=== PATIENT | female | born 1950 | race Caucasian/White ===

== ENCOUNTER → 2017-02-04 | Outpatient (CLI) | payer MEDICARE, OTHER ==
[~2017-02-04] MED LIST: AMLO5TAB4 PO; APRACLONIDINE 1% 0.1 ML OPH ONE; CHOL50009 PO; DOCU-144 PO; IBUP-1542 PO; LEVO88TA3 PO; LOSA50TA6 PO; MULT-552 PO; NITR-58 PO; OMEG-135 PO; ONDA4TAB35 PO; OPHTHALMIC IRRIG SOLUTION 120 ML ONE; PILOCARPINE 2% 15ML OPH ONE; POTA8TAB2 PO; PROPARACAINE 0.5% 15 ML OPH ONE; QUET100T32 PO; SIMV20TA PO
== END | disposition home or self-care (01) ==
LOC: RAD 09:21
PROVIDERS: ATTEND Ophthalmology
DX: H40.20X0 Unspecified primary angle-closure glaucoma, stage unspecified (principal)
CPT/HCPCS: 66761

== ENCOUNTER → 2017-02-11 | Outpatient (CLI) | payer MEDICARE, OTHER | END | disposition home or self-care (01) | LOC: RAD 08:26 | PROVIDERS: ATTEND Ophthalmology | DX: H40.20X0 Unspecified primary angle-closure glaucoma, stage unspecified (principal) | CPT/HCPCS: 66761 ==

== ENCOUNTER 2017-05-11 05:43 | Day surgery (SDC) | payer MEDICARE, OTHER ==
[~2017-05-11] VITALS: Ht 157.5 cm; Wt 80.0 kg
[~2017-05-11 05:43] MED LIST changes: -APRACLONIDINE 1% 0.1 ML OPH ONE; -OPHTHALMIC IRRIG SOLUTION 120 ML ONE; -PILOCARPINE 2% 15ML OPH ONE; -PROPARACAINE 0.5% 15 ML OPH ONE
[2017-05-11] MEDS ORDERED: GENTAMICIN 80 MG INJ ONE (06:16)
[2017-05-11] MEDS ORDERED: CARBACHOL 0.01% 1.5 ML OPH INJ ONE (06:16)
[2017-05-11] MEDS ORDERED: EPINEPHrine 1 MG INJ ONE (06:16)
[2017-05-11] MEDS ORDERED: DEXAMETHASONE 4 MG/ML 1 ML INJ ONE ×2 (06:16→09:50)
[2017-05-11] MEDS ORDERED: CEFAZOLIN 1 GM INJ ONE (06:16)
[2017-05-11] MEDS ORDERED: HYALURONATE/CHONDROITIN 1ML OPH INJ ONE (06:16)
[2017-05-11] MEDS ORDERED: LIDOCAINE 2% (SDV) 5 ML INJ ONE (07:00)
[2017-05-11] MEDS ORDERED: LEVO88TA42 PO (07:27)
[2017-05-11] MEDS ORDERED: LEVO100T82 PO (07:27)
[2017-05-11] MEDS ORDERED: CYCLOPENTOLATE/PHENYLEPH 2 ML OPH LEFT EYE SCH (07:30)
[2017-05-11] MEDS ORDERED: TROPICAMIDE 1% 2 ML OPH LEFT EYE SCH (07:30)
[2017-05-11] MEDS ORDERED: LOSA100T7 PO (07:30)
[2017-05-11] MEDS ORDERED: DICLOFENAC 0.1% 2.5 ML OPH LEFT EYE SCH (07:30)
[2017-05-11] MEDS ORDERED: QUET50TA16 PO (07:30)
[2017-05-11] MEDS ORDERED: CIPROFLOXACIN 0.3% 2.5 ML OPH LEFT EYE SCH (07:30)
[2017-05-11 08:48] VITALS: Ht 157.5 cm; Wt 80.0 kg
[2017-05-11 08:49] VITALS: BP 123/66; PULSE 62; RESP 18
[2017-05-11] MEDS ORDERED: LIDOCAINE 4% (MPF) 5 ML INJ ONE (08:54)
[2017-05-11] MEDS ORDERED: FENTAnyl 50 MCG/ML VIAL ONE (09:25)
[2017-05-11] MEDS ORDERED: PROPOFOL 60 ML ONE (09:25)
[2017-05-11] MEDS ORDERED: DEXAMETHASONE 4 MG/ML 1 ML INJ INJ ONE (09:27)
[2017-05-11] MEDS ORDERED: CEFAZOLIN 1 GM INJ INJ ONE (09:27)
[2017-05-11] MEDS ORDERED: HYALURONATE/CHONDROITIN 1ML OPH INJ IO ONE (09:27)
[2017-05-11] MEDS ORDERED: CARBACHOL 0.01% 1.5 ML OPH INJ IO ONE (09:27)
[2017-05-11] MEDS ORDERED: ONDANSETRON 4 MG INJ ONE ×2 (09:50→10:37)
[2017-05-11 10:18] VITALS: BP 135/78; PULSE 69; RESP 22
--- NOTE | 2017-05-11 10:24 | OPR ---
Date/Time of Note Date/Time of Note DATE: 05/11/17 TIME: :17 Operative Report Procedure Date: May 11, 2017 Preoperative Diagnosis cataract Operation Performed Cataract extraction with lens implant left eye Anesthesia: general Anesthesiologist: UNIQUE MERIDA Estimated Blood Loss: none Specimens None Grafts/Implants Posterior chamber lens implant Tubes/Drains None Complications: None Pt Condition Post Procedure: stable Disposition: other (Home) Procedure Description The patient was brought to the operating room on an eye gurney positioned appropriately and at the patient's request general anesthesia was administered via endotracheal intubation the patient was then prepped and draped in the usual sterile manner and a speculum was inserted between the lids of the left eye to paracentesis incisions were created using a Superblade through clear cornea in the nasal and temporal quadrants and then a 3.0 mm keratome was used to enter the anterior chamber through clear cornea at the 12 o'clock position in a stepped incision through clear cornea. Through this opening and irrigating cystotome was introduced into the anterior chamber which was filled with disc of the risk and anterior capsulotomy was then performed following this balanced salt solution was used for hydrodissection of the lens nucleus phacoemulsification of the lens nucleus was then performed by means of sculpting and cracking the lens nuclear material in 2 fragments these were emulsified following this epinuclear the epinuclear layer was removed as was lens cortical material after this had been completed additional disc of this was injected into the anterior chamber and then a 28.5 dpt posterior chamber intraocular lens (Bausch & Lomb model [id number]) was inserted into the capsular bag with the haptics oriented in the horizontal meridian the lens centered well and appeared stable one 10-0 nylon suture was placed placed across the wound and prior to tying the disc and this was evacuated from the anterior chamber by means of aspiration Miostat was instilled to constrict the pupil the suture was then tied the ends were cut short and the knot was buried. Prior to completion of the surgery a sub-conjunctival incision was given in the inferior fornix containing half a cc of Ancef and a half a cc of dexamethasone. The speculum was then removed ciprofloxacin drops placed on the surface of the eye and the eye was patched the patient was then extubated and left the operating room in satisfactory condition. DONAVON HOLDER MD May 11, 2017 10:24
[2017-05-11] MEDS ORDERED: DIPHENHYDRAMINE 50 MG INJ IV PRN (10:30)
[2017-05-11] MEDS ORDERED: hydrALAzine 20 MG INJ IV PRN (10:30)
[2017-05-11] MEDS ORDERED: FENTAnyl 50 MCG/ML VIAL IV PRN (10:30)
[2017-05-11] MEDS ORDERED: LABETALOL HCL 20MG INJ IV PRN (10:30)
[2017-05-11] MEDS ORDERED: OXYCODONE/ACETAMINOPHEN (5/325) TAB PO PRN (10:30)
[2017-05-11] MEDS ORDERED: ONDANSETRON 4 MG INJ IV PRN (10:30)
[2017-05-11 10:33] VITALS: BP 117/67; PULSE 62; RESP 21
[2017-05-11 10:48] VITALS: BP 115/65; PULSE 56; RESP 13
[2017-05-11 18:19] VITALS: BP 116/62; PULSE 61; RESP 18
== END 2017-05-11 12:21 | disposition home or self-care (01) ==
LOC: SDS 05:43
PROVIDERS: ATTEND Ophthalmology
DX: H25.12 Age-related nuclear cataract, left eye (principal); E03.9 Hypothyroidism, unspecified; E66.9 Obesity, unspecified; Z68.32 Body mass index [BMI] 32.0-32.9, adult; I10 Essential (primary) hypertension
CPT/HCPCS: 66984; J0171; J0690; J1100; J1580; J2405; J3010; V2632

== ENCOUNTER 2017-08-03 05:39 | Day surgery (SDC) | payer MEDICARE, OTHER ==
[2017-08-02 10:27] VITALS: Ht 157.5 cm; Wt 81.7 kg
--- NOTE | 2017-08-02 12:41 | PREOPHP ---
DATE OF ADMISSION: 08/03/2017 HISTORY OF PRESENT ILLNESS: This is a 67-year-old patient who is admitted for elective cataract surgery of the right eye. The patient has had progressive deterioration of vision for the past 2 years and 3 months ago, underwent cataract surgery of the left eye with excellent visual recovery. The patient previously had a history of anatomic narrow angle glaucoma, which was treated with bilateral laser iridotomies. Systemic history is positive for hypothyroidism and hypercholesterolemia. CURRENT MEDICATIONS: Includes: 1. Levoxyl. 2. K-Dur. 3. Simvastatin. 4. Ibuprofen. ALLERGIES: NO KNOWN ALLERGIES. PHYSICAL EXAMINATION: The visual acuity with best correction is 20/50 on the right eye and 20/30 on the left eye. Split lamp examination reveals nuclear sclerotic cataract in the right eye. There is a posterior chamber intraocular lens in the left eye. Applanation tonometry is 16 mmHg in each eye. Examination of the retina is within normal limits. DIAGNOSIS: Cataract, right eye. PLAN: Cataract extraction with lens implant, right eye. The risks and alternatives of the surgery have been discussed with the patient and the patient has opted to proceed with surgery in hopes of improving visual acuity, leading to a greater ability to perform activities of daily living. Dictated By: Price Otero MD /elana/eric /Document#: [id number]
[~2017-08-03] VITALS: Ht 157.5 cm; Wt 81.7 kg
[2017-08-03] VITALS (7 sets, daily range): BP systolic 107–133; BP diastolic 61–74; PULSE 60–78; RESP 12–20
[~2017-08-03 05:39] MED LIST changes: -CHOL50009 PO; -IBUP-1542 PO; +LEVO100T82 PO; -LEVO88TA3 PO; +LEVO88TA42 PO; +LOSA100T7 PO; -LOSA50TA6 PO; -NITR-58 PO; -ONDA4TAB35 PO; +QUET50TA16 PO
[2017-08-03] MEDS ORDERED: DICLOFENAC 0.1% 2.5 ML OPH OPER SCH (06:00)
[2017-08-03] MEDS ORDERED: TROPICAMIDE 1% 3ML OPH OPER SCH (06:00)
[2017-08-03] MEDS ORDERED: CIPROFLOXACIN 0.3% 2.5 ML OPH OPER SCH (06:00)
[2017-08-03] MEDS ORDERED: CYCLOPENTOLATE/PHENYLEPH 2 ML OPH OPER SCH (06:00)
[2017-08-03] MEDS ORDERED: CARBACHOL 0.01% 1.5 ML OPH INJ ONE (06:23)
[2017-08-03] MEDS ORDERED: GENTAMICIN 80 MG INJ ONE (06:23)
[2017-08-03] MEDS ORDERED: CEFAZOLIN 1 GM INJ ONE (06:23)
[2017-08-03] MEDS ORDERED: LIDOCAINE 4% (MPF) 5 ML INJ ONE (06:23)
[2017-08-03] MEDS ORDERED: DEXAMETHASONE 4 MG/ML 1 ML INJ ONE (06:24)
[2017-08-03] MEDS ORDERED: EPINEPHrine 1 MG INJ ONE (06:24)
[2017-08-03] MEDS ORDERED: DEXAMETHASONE 4 MG/ML 1 ML INJ INJ ONE (07:00)
[2017-08-03] MEDS ORDERED: CEFAZOLIN 1 GM INJ INJ ONE (07:00)
[2017-08-03] MEDS ORDERED: CARBACHOL 0.01% 1.5 ML OPH INJ IO ONE (07:00)
[2017-08-03] MEDS ORDERED: MIDAZOLAM 1 MG/ML 2 ML INJ ONE (07:25)
[2017-08-03] MEDS ORDERED: PROPOFOL 20 ML ONE (07:25)
[2017-08-03] MEDS ORDERED: METOCLOPRAMIDE 10 MG INJ ONE (07:26)
[2017-08-03] MEDS ORDERED: FENTAnyl 50 MCG/ML VIAL ONE (07:35)
[2017-08-03] MEDS ORDERED: ONDANSETRON 4 MG INJ IV PRN (08:00)
[2017-08-03] MEDS ORDERED: HYDROmorphONE (0.2 MG/ML) 10ML SYG IV PRN ×3 (08:00)
[2017-08-03] MEDS ORDERED: MEPERIDINE 25 MG INJ IV PRN (08:00)
[2017-08-03] MEDS ORDERED: hydrALAzine 20 MG INJ IV PRN (08:00)
[2017-08-03] MEDS ORDERED: DIPHENHYDRAMINE 50 MG INJ IV PRN (08:00)
[2017-08-03] MEDS ORDERED: LABETALOL HCL 20MG INJ IV PRN (08:00)
[2017-08-03] MEDS ORDERED: OXYCODONE/ACETAMINOPHEN (5/325) TAB PO PRN ×2 (08:00)
--- NOTE | 2017-08-03 08:13 | SIPON ---
Date/Time of Note Date/Time of Note DATE: 08/03/17 TIME: 08:11 Operative Report Preoperative Diagnosis cataract od Postoperative Diagnosis same Operation/Procedure Performed cataract extraction od Surgeon johnathan holder md Anesthesia Type: general Estimated Blood Loss: none Transfusion Required: no Specimen: none Grafts/Implants posterior chamber lens implant Complications: no DONAVON HOLDER MD Aug 03, 2017 08:13
--- NOTE | 2017-08-03 09:09 | OPR ---
DATE OF OPERATION: 08/03/2017 PREOPERATIVE DIAGNOSIS: Cataract, right eye. POSTOPERATIVE DIAGNOSIS: Cataract, right eye. SURGEON: Price Otero MD COPY ROOM TECHNICIAN: ANESTHESIA: Patient had general anesthesia administered via endotracheal intubation. ANESTHESIOLOGIST: Dr. Bettencourt OPERATION: Phacoemulsification with posterior chamber intraocular lens implant, right eye. PROCEDURE: The patient was brought to the operating room and placed on the table with an IV in place and the patient attached to an site monitor. Oxygen was given via face mask. After some intravenous sedation was administered, local anesthesia was given using Xylocaine 2% with epinephrine, mixed with Marcaine 0.5%. This was given in a lid block and retrobulbar injection. The patient was then prepped and draped in the usual sterile manner. A wire lid speculum was inserted between the lids of the right eye. A Superblade was used to enter the anterior chamber at the corneoscleral limbus at the 10:30 o'clock position. A separate incision was made using a 3.0-mm keratome which entered the corneoscleral junction at the 12 o'clock position. Through this 3- mm opening, an irrigating cystotome was introduced into the anterior chamber. The chamber was filled with Viscoat and an anterior capsulotomy was performed. Balanced salt solution was then used for hydrodissection of the lens. A phacoemulsification handpiece was then brought into the field and introduced into the anterior chamber. The lens nucleus was emulsified using a deep groove and cracking the nucleus into quadrants. Following this, each quadrant was aspirated and emulsified at the pupillary margin. After this was completed, the irrigation/aspiration handpiece was brought to the field, introduced into the posterior chamber, and the lens cortical material was removed. When this was completed, additional Viscoat was injected into the anterior and posterior chambers. The 3-mm opening had its internal lips enlarged, and then the posterior chamber intraocular lens measuring 28.5 diopters ([employer], model [id number]) was then injected into the posterior chamber using the lens injector system. After the leading haptic was introduced into the capsular bag and the lens optic was present in the center of the eye, the injector was removed and the trailing haptic was grasped with non-toothed forceps and introduced into the capsular fold superiorly. A Sinskey hook was then used to rotate the intraocular lens so that the lips were oriented in the horizontal meridian. One 10-0 nylon suture was placed across the wound. Prior to tying, the irrigation/aspiration handpiece was reintroduced into the anterior chamber to remove the Viscoat. Miochol was instilled to constrict the pupil, and then the 10-0 nylon suture was tied. The ends were cut short and then the knot was buried. Then, 0.5 mL of dexamethasone and 0.5 mL of Ancef were injected into the sub-Tenon space in the inferior fornix. Ciloxan drops were then placed on the surface of the eye. The speculum was removed and a patch was applied. The patient was extubated and subsequently left the operating room in satisfactory condition. Dictated By: Price Otero MD /elana/munir /Document#: [id number] LISS
== END 2017-08-03 09:38 | disposition home or self-care (01) ==
LOC: SDS 05:39
PROVIDERS: ATTEND Ophthalmology
DX: H25.11 Age-related nuclear cataract, right eye (principal); E03.9 Hypothyroidism, unspecified; E78.00 Pure hypercholesterolemia, unspecified
CPT/HCPCS: 66984; J0171; J0690; J1100; J1580; J2250; J2765; J3010; V2632

== ENCOUNTER → 2017-09-22 | Outpatient (CLI) | payer MEDICARE, OTHER ==
[~2017-09-22] MED LIST changes: +APRACLONIDINE 1% 0.1 ML OPH ONE; +PHENYLephrine 10% 5 ML OPH ONE; +PROPARACAINE 0.5% 15 ML OPH ONE; +TROPICAMIDE 1% 3 ML OPH ONE
== END | disposition home or self-care (01) ==
LOC: RAD 09:59
PROVIDERS: ATTEND Ophthalmology
DX: H26.9 Unspecified cataract (principal)
CPT/HCPCS: 66821

== ENCOUNTER 2017-10-05 18:43 | Inpatient (IN) | payer MEDICARE, OTHER ==
[~2017-10-05] VITALS: Ht 157.5 cm; Wt 83.9 kg
[~2017-10-05 18:43] MED LIST changes: -APRACLONIDINE 1% 0.1 ML OPH ONE; -PHENYLephrine 10% 5 ML OPH ONE; -PROPARACAINE 0.5% 15 ML OPH ONE; -TROPICAMIDE 1% 3 ML OPH ONE
[2017-10-05] MEDS ORDERED: FAMOTIDINE 20 MG INJ IV STA (18:55)
[2017-10-05] MEDS ORDERED: SOD CHLORIDE 0.9% 1,000 ML IV STA (18:55)
[2017-10-05 20:07] LABS: ABNORMAL IP MESSAGE 1; HEMATOCRIT 40.3 % (37.0-47.0); MEAN CORPUSCULAR HGB CONC 34.7 g/dl (32.0-37.0); MEAN CORPUSCULAR VOLUME 89.2 fl (82.0-101.0); MEAN PLATELET VOLUME 12.6 fl (7.4-10.4); PLATELET COUNT 110 10^3/UL (140-415); RED BLOOD COUNT 4.52 10^6/ul (4.20-5.40); RED CELL DISTRIBUTION WIDTH 14.4 % (11.5-14.5); WHITE BLOOD COUNT 15.5 10^3/ul (4.8-10.8)
[2017-10-05 20:11] LABS: POSITIVE DIFF @See below
[2017-10-05 20:30] LABS: INR 1.22; PROTIME 15.5 Sec (12.2-14.2); PT RATIO 1.2
--- NOTE | 2017-10-05 20:30 | RADRPT ---
PROCEDURE: XR Chest. CLINICAL INDICATION: Pain, upper GI bleed TECHNIQUE: Single frontal chest x-ray. COMPARISON: None. FINDINGS: Linear scarring/atelectasis is noted at the left lung base. No acute infiltrate, pneumothorax or sig nificant pleural effusion is identified. Cardiac silhouette is mildly enlarged. Aortic atheroscler otic calcification is noted. The osseous structures are remarkable for degenerative enthesopathy of the spine. IMPRESSION: 1. Mildly enlarged cardiac silhouette. 2. Aortic atherosclerosis. 3. Scarring/atelectasis at the left lung base. RPTAT: HDWR .Apolinar Hardin MD, MD Date Time Electronically viewed and signed by .Apolinar Hardin MD, MD on 10/05/2017 20:30 .R/
[2017-10-05 20:31] LABS: PARTIAL THROMBOPLASTIN TIME 39.8 Sec (25.0-35.0)
[2017-10-05 20:32] LABS: MONOCYTES % (M) 6 % (0-11); PLATELET ESTIMATE NORMAL
[2017-10-05 20:37] LABS: TROPONIN-I 0.155 ng/ml (0.00-0.12)
[2017-10-05] MEDS ORDERED: CEFEPIME 2GM/50 ML (PMX) 50 ML IVPB STA (20:40)
[2017-10-05] MEDS ORDERED: SODIUM CHLORIDE 0.9% 1L BAG IV* STA (20:40)
--- NOTE | 2017-10-05 21:04 | RADRPT ---
PROCEDURE: CT Brain without contrast. CLINICAL INDICATION: Fall. TECHNIQUE: A CT of the brain was performed on multidetector high-resolution CT scanner utilizing a xial sections from the skull base through the vertex without contrast. The scan was reviewed in sof t tissue brain and high frequency resolution bone algorithm windows. Images were reviewed on a high -resolution PACS workstation. One or more the following does reduction techniques were utilized: Aut omated exposure control, adjustment of the mA/ or kV according to patient's size, or use of iterativ e reconstruction technique. The exam CTDI = 45.01 mGy and the DLP = 810.25 mGy-cm. DICOM images are available. COMPARISON: None available. FINDINGS: The ventricles and sulci are mildly prominent indicative of volume loss. There is mild cerebellar vo lume loss. There is no intracranial hemorrhage, mass effect or midline shift. No abnormal intra-ax ial or extra-axial fluid collections are seen. The desir/white matter differentiation is preserved. There are moderate foci of hypoattenuation in the white matter, which are nonspecific in etiology bu t likely reflect chronic small vessel ischemic changes. There are mild intracranial vascular calcif ications consistent with atherosclerosis. The visualized paranasal sinuses are essentially clear. IMPRESSION: 1. No acute intracranial hemorrhage, transcortical infarction or mass effect. Please note MRI is mo re sensitive for detection of acute ischemia and can be obtained as clinically warranted. 2. Mild intracranial atherosclerosis and moderate chronic small vessel ischemic changes. 3. Mild generalized cerebral and cerebellar volume loss. RPTAT: HFN .Jayden Tsang MD, Date Time Electronically viewed and signed by .Jayden Tsang MD, MD on 10/05/2017 21:03 .N/
[2017-10-05 21:07] LABS: ALBUMIN 4.1 g/dl (3.3-4.9); BILIRUBIN,INDIRECT 0.4 mg/dl (0-1.1); BILIRUBIN,TOTAL 0.4 mg/dl (0.2-1.3); CALCIUM 9.5 mg/dl (8.4-10.2); CREATININE 4.54 mg/dl (0.44-1.00); POTASSIUM 3.3 mmol/L (3.5-5.1); TOTAL PROTEIN 8.2 g/dl (6.1-8.1)
--- NOTE | 2017-10-05 21:16 | RADRPT ---
PROCEDURE: CT abdomen and pelvis with. contrast. CLINICAL INDICATION: Fall. Abdominal pain. Blood per rectum. TECHNIQUE: Noncontrast CT examination of the abdomen and pelvis, with axial, sagittal and coronal reformatted images. CTDI: 20.75 mGy and DLP: 1171.08 mGy-cm. COMPARISON: None. FINDINGS: CT abdomen: Bilateral dependent atelectasis and mild cardiomegaly. The liver demonstrates low noncontrast attenuation compatible fatty infiltration. Otherwise, the marva er is normal in size without focal mass or intrahepatic biliary dilatation. The spleen is normal in size and homogeneous in density. The stomach is partially collapsed, but is grossly unremarkable. The pancreas as visualized is normal. The gallbladder contains gallstones; and biliary tree is unr emarkable and there is no evidence for biliary dilatation. The bilateral adrenal glands are unremar kable. Left obstructive uropathy with 4 mm starting calculus at the left ureteropelvic junction. Left perin ephric fat inflammatory changes and hydronephrosis are seen. Right kidney is unremarkable. There is no evident renal mass The aorta is of normal caliber. Aortic vascular calcifications are present. There is no retroperit aly lymphadenopathy. The narda hepatis region is clear. The redundant cecum is located in the left paracentral lower abdomen. The appendix is not visualized . CT pelvis: The small bowel loops situated within the pelvis are unremarkable. The pelvic organs are normal. T he pelvic sidewalls and inguinal regions are clear. The sigmoid colon and rectum are all unremarkab le. No mass, lymphadenopathy, or free fluid is seen. No acute inflammation is seen. The surrounding osseous structures are remarkable for mild degenerative spondylosis of the spine. N o osteolytic or osteoblastic lesion is detected. IMPRESSION: 1. Left obstructive uropathy with a 4 mm obstructing calculus at the left ureteral pelvic junction. 2. Gallstones, without CT evidence of acute cholecystitis. 3. Fatty infiltration of the liver. 4. Otherwise, no identified acute process in the abdomen or pelvis. RPTAT: [facility] Physician Honorio Date Time Electronically viewed and signed by Physician Honorio on 10/05/2017 21:15 RS/
[2017-10-05] MEDS ORDERED: morphine 4 MG/ML VIAL IV STA (21:40)
[2017-10-05] MEDS ORDERED: SOD CHLORIDE 0.9% 1,000 ML IV ONE ×3 (22:00)
[2017-10-05] MEDS ORDERED: ONDANSETRON 4 MG INJ IV PRN (22:30)
[2017-10-05] MEDS ORDERED: ACETAMINOPHEN 325 MG TAB PO PRN (22:30)
[2017-10-05] MEDS ORDERED: DILTIAZEM 25 MG INJ IV ONE (23:00)
[2017-10-05] MEDS ORDERED: DILTIAZEM-D5W 125MG/125ML DRIP 125 ML IV SCH ×2 (23:00→23:30)
[2017-10-06] VITALS (28 sets, daily range): BP systolic 89–137; BP diastolic 59–79; PULSE 66–81; RESP 11–27; TEMP 98.1; Ht 157.5 cm; Wt 83.9 kg
--- NOTE | 2017-10-06 00:53 | ERD ---
ER Documentation Chief Complaint Chief Complaint HEMATEMESIS AND RECTAL BLEEDING X 2 DAYS WITH WEAKNESS. FOUND ON FLOOR HPI This 67-year-old female presents after being down for 2 days after she fell while she was on the toilet with diarrhea which is bloody as well as bloody vomiting. The diarrhea was not bloody and it began before she had fallen on the toilet. Does not remember if she had any chest pain. Does not know why she stayed down for 2 days. Denies any headache. States that she only has bilateral flank pain, worse on the left. Has no anterior abdominal pain. No pain in her extremities and can move them all without pain. Currently denies chest pain shortness of breath. ROS All systems reviewed and are negative except as per history of present illness. Medications Home Meds Reported Medications Quetiapine Fumarate* (Seroquel*) 50 Mg Tablet, 50 MG PO HS, TAB 05/11/17 Losartan Potassium* (Losartan Potassium*) 100 Mg Tablet, 100 MG PO DAILY, TAB 05/11/17 Levothyroxine Sodium* (Levoxyl*) 100 Mcg Tablet, 100 MCG PO EVERY OTHER DAY, # 30 TAB ALTERNATE WITH 88MCG EVERY OTHER DAY 05/11/17 Levothyroxine Sodium* (Levoxyl*) 88 Mcg Tablet, 88 MCG PO EVERY OTHER DAY, #30 TAB ALTERNATE WITH 100MCG EVERY OTHER DAY 05/11/17 Docusate Sodium* (Colace*) 100 Mg Capsule, 100 MG PO BID, #60 CAP 04/30/16 Potassium Chloride* (Klor-Con*) 8 Meq Tablet.sa, 8 MEQ PO DAILY, TAB 04/30/16 Amlodipine Besylate* (Norvasc*) 5 Mg Tablet, 5 MG PO DAILY, TAB 04/30/16 Quetiapine Fumarate* (Quetiapine Fumarate*) 100 Mg Tablet, 100 MG PO HS, TAB 04/30/16 Simvastatin* (Zocor*) 20 Mg Tablet, 20 MG PO QHS, #30 TAB 04/30/16 Multivitamins* (Once Daily*) 1 Tab Tablet, 1 TAB PO DAILY, TAB 04/30/16 Fish Oil* (Fish Oil*) 1,000 Mg Cap, 1000 MG PO DAILY, CAP 04/30/16 Allergies Allergies: Coded Allergies: No Known Allergy (Unverified , 08/03/17) PMhx/Soc History of Surgery: Yes (LAP RENAL STONE REMOVAL,LT EYE CATARACT EXTRACTION, ) Anesthesia Reaction: No Hx Neurological Disorder: No Hx Respiratory Disorders: No Hx Cardiac Disorders: Yes (HTN,DYSLIPIDEMIA,) Hx Psychiatric Problems: No (DEPRESSION ,SUICIDAL ATTEMPT IN THE PAST) Hx Miscellaneous Medical Probl: No Hx Alcohol Use: Yes (OCCASIONAL) Hx Substance Use: No Hx Tobacco Use: Yes Smoking Status: Former smoker Physical Exam Vitals Vital Signs Date Time Temp Pulse Resp B/P Pulse Ox O2 Delivery O2 Flow Rate FiO2 10/05/17 23:34 106 18 118/34 100 Nasal Cannula 2.0 10/05/17 18:50 98.3 137 20 148/95 93 Physical Exam Const: [] Moderate distress, appears uncomfortable Head: Atraumatic Eyes: Normal Conjunctiva EOMI, PERRLA ENT: Normal External Ears, Nose and Mouth. Neck: Full range of motion..~ No meningismus. Resp: Clear to auscultation bilaterally Cardio: Regular tachycardia, no murmurs Abd: Soft, non tender, non distended. Normal bowel sounds Skin: No petechiae or rashes Back: No midline redness, positive CVA on the left. Ext: No cyanosis, or edema, yellowish hue along the entire right leg, no pain on palpation of any joints or movement of any joints. Full musculoskeletal survey reveals no breakage in the skin or deformities. Neur: Awake and alert and oriented 3, cranial nerves II through XII intact, no cerebellar deficits, gait not tested. Good strength all 4 extremities Psych: Normal Mood and Affect Result Diagram: 10/05/17195210/05/171952 Results 24 hrs Laboratory Tests Test 10/05/17 19:53 10/05/17 21:15 White Blood Count 15.510^3/ul Red Blood Count 4.5210^6/ul Hemoglobin 14.0g/dl Hematocrit 40.3% Mean Corpuscular Volume 89.2fl Mean Corpuscular Hemoglobin 31.0pg Mean Corpuscular Hemoglobin Concent 34.7g/dl Red Cell Distribution Width 14.4% Platelet Count 47668^3/UL Mean Platelet Volume 12.6fl Neutrophils % % Segmented Neutrophils % (Manual) 81% Band Neutrophils % (Manual) 7% Lymphocytes % % Lymphocytes % (Manual) 6% Monocytes % % Monocytes % (Manual) 6% Eosinophils % % Basophils % % Nucleated Red Blood Cells % 0.0/100WBC Neutrophils # 10^3/ul Neutrophils # (Manual) 12.710^3/ul Band Neutrophils # 1.010^3/ul Absolute Lymphocytes (Manual) 0.910^3/ul Lymphocytes # 10^3/ul Monocytes # 10^3/ul Absolute Monocytes (Manual) 0.910^3/ul Eosinophils # 10^3/ul Basophils # 10^3/ul Nucleated Red Blood Cells # 10^3/ul Platelet Estimate NORMAL Prothrombin Time 15.5Sec Prothrombin Time Ratio 1.2 INR International Normalized Ratio 1.22 Activated Partial Thromboplast Time 39.8Sec Sodium Level 142mmol/L Potassium Level 3.3mmol/L Chloride Level 107mmol/L Carbon Dioxide Level 10mmol/L Anion Gap 28 Blood Urea Nitrogen 51mg/dl Creatinine 4.54mg/dl Glucose Level 94mg/dl Calcium Level 9.5mg/dl Total Bilirubin 0.4mg/dl Direct Bilirubin 0.00mg/dl Indirect Bilirubin 0.4mg/dl Aspartate Amino Transf (AST/SGOT) 434IU/L Alanine Aminotransferase (ALT/SGPT) 135IU/L Alkaline Phosphatase 135IU/L Creatine Kinase 96991EM/L Troponin I 0.155ng/ml Total Protein 8.2g/dl Albumin 4.1g/dl Globulin 4.10g/dl Albumin/Globulin Ratio 1.00 Lactic Acid Level 2.6mmol/L Current Medications Medications (Trade) Dose Ordered Sig/Peggy Route PRN Reason Start Time Stop Time Status Last Admin Dose Admin Sodium Chloride (NS) 1,000 ml @ 1,000 mls/hr Q1H STAT IV 10/05/17 18:55 10/05/17 19:54 DC 10/05/17 19:46 Famotidine (Pepcid Iv) 20 mg ONCE STAT IV 10/05/17 18:55 10/05/17 18:58 DC 10/05/17 19:46 Sodium Chloride 2110 ml 2,110 ml BOLUS OVER 2 HOURS STAT IV* 10/05/17 20:40 10/05/17 20:41 DC 10/05/17 21:13 Cefepime HCl (Maxipime 2gm/50 ml (Pmx)) 50 ml @ 100 mls/hr ONCE STAT IVPB 10/05/17 20:40 10/05/17 21:09 DC 10/05/17 21:13 Morphine Sulfate 4 mg 4 mg ONCE STAT IV 10/05/17 21:40 10/05/17 21:41 DC 10/05/17 21:44 Sodium Chloride 1,000 ml @ 1,000 mls/hr Q1H ONCE IV 10/05/17 22:00 10/05/17 22:59 DC 10/05/17 22:09 Sodium Chloride 1,000 ml @ 1,000 mls/hr Q1H ONCE IV 10/05/17 22:00 10/05/17 22:59 DC Sodium Chloride (NS) 1,000 ml @ 1,000 mls/hr Q1H ONCE IV 10/05/17 22:00 10/05/17 22:59 DC Ondansetron HCl (Zofran Inj) 4 mg ER BRIDGE PRN IV NAUSEA AND/OR VOMITING 10/05/17 22:30 10/06/17 22:29 Acetaminophen (Tylenol Tab) 650 mg ER BRIDGE PRN PO MILD PAIN/FEVER 10/05/17 22:30 10/06/17 22:29 Diltiazem HCl 20 mg 20 mg ONCE ONCE IV 10/05/17 23:00 10/05/17 23:01 DC 10/05/17 23:00 Diltiazem HCl 125 ml @ 5 mls/hr TITRATE IV 10/05/17 23:00 10/05/17 23:05 DC Diltiazem HCl (Cardizem-D5W 125 Mg/125 ml Drip) 125 ml @ 5 mls/hr TITRATE IV 10/05/17 23:30 Procedures/MDM Rhabdomyolysis from being down for 2 days. 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 No signs of cerebral damage however patient does seem to have answering questions that she should know the answer to. She was given greater than 4 L of IV fluid in the ER and was given Cardizem as well as Cardizem drip which controlled her a flutter. She been given 4 mg of morphine for her flank pain after which she had very minimal pain anywhere. She is being admitted to telemetry for further management and monitoring of her new heart arrhythmia. Aspirin was administered. Potassium tablet was administered. Dr. Myrick is admitting. To be related to telemetry and troponin will be trended. Hemoglobin is stable and I did talk to Dr. Whitney, police service technician who will be on consult. Does have elevated white blood cell count with no evident infection yet. Initial EKG interpretation: A. fib with RVR rate of 106, normal axis, no ST or T -wave changes concerning for acute ischemia. Abnormal EKG Repeat EKG interpretation: A flutter with RVR, rate of 145, right axis deviation , marked ST abnormality concerning for inferior subendocardial injury. desk monitor interpretation: Initial mild A. fib with RVR transition to a flutter which was then controlled with Cardizem. No other arrhythmias CT brain interpretation: I see no acute process. I see no hemorrhage, no mass- effect, no midline shift, no skull fractures CT abdomen pelvis interpretation: Obstructive uropathy with enlarged stone, gallstones without signs of acute cholecystitis, no intestinal obstruction, no free air, no acute fractures Care time greater than 35 minutes: This includes treatment of a flutter with RVR , use of Cardizem and Cardizem drip, careful fluid administration in the setting of rhabdomyolysis, multiple space bedside to reassess status, chart reviewed, discussion with patient admitting doctor. This does not include any billable procedures Departure Diagnosis: Primary Impression: Rhabdomyolysis Additional Impressions: Troponin level elevated Acute renal failure Acute GI bleeding Atrial flutter with rapid ventricular response Dehydration Obstructive uropathy Condition: Serious YONATANADAM DO Oct 06, 2017 00:49
[2017-10-06] MEDS ORDERED: POTASSIUM CHLORIDE (SR) 20 MEQ TAB PO ONE (00:55)
[2017-10-06] MEDS ORDERED: ASPIRIN 81 MG TAB PO ONE (01:00)
[2017-10-06] MEDS ORDERED: morphine 2 MG INJ IV ONE (04:58)
[2017-10-06] MEDS: SOD CHLORIDE 0.9% 1,000 ML IV SCH ×2 (05:41→12:27)
[2017-10-06] MEDS ORDERED: NACL 0.9% 3 ML SYG IV SCH (06:00)
[2017-10-06] MEDS ORDERED: PANTOPRAZOLE 40 MG INJ IV SCH (06:00)
[2017-10-06] MEDS ORDERED: ALBUTEROL/IPRATROPIUM (NEB) 3 ML AMP HHN PRN (06:00)
--- NOTE | 2017-10-06 07:16 | RADRPT ---
PROCEDURE: Renal US. CLINICAL INDICATION: Flank pain, elevated creatinine TECHNIQUE: Multiple sonographic images of the kidneys were obtained. The images were reviewed on a PACS workstation. COMPARISON: CT abdomen from 10/05/2017 FINDINGS: The kidneys are well visualized. The right kidney measures 14.2 cm. The left kidney measures 14.5 cm . There is mild left hydronephrosis. The calculus at the left UPJ on the CT scan is not visualized o n the current ultrasound. The bladder is grossly unremarkable. IMPRESSION: 1. Mild left hydronephrosis. 2. The calculus at the left UPJ on the CT scan is not visualized sonographically. RPTAT:AAJJ Physician Shreya Date Time Electronically viewed and signed by Dung Joyner Physician on 10/06/2017 07:16 /
[2017-10-06 07:22] LABS: TROPONIN-I 0.088 ng/ml (0.00-0.12)
[2017-10-06] MEDS ORDERED: ASPIRIN (EC) 81 MG TAB PO SCH (09:00)
[2017-10-06] MEDS: HEPARIN 5,000 UNIT/0.5 ML VIAL SC SCH ×2 (09:00→20:47)
[2017-10-06] MEDS: LEVOTHYROXINE 88 MCG TAB PO SCH (09:00)
[2017-10-06] MEDS: FISH OIL 1,000 MG CAP PO SCH (09:00)
[2017-10-06] MEDS: POTASSIUM CHLORIDE (SR) 8 MEQ CAP PO SCH ×2 (09:00→12:07)
[2017-10-06] MEDS: CEFEPIME 1GM/50 ML (PMX) 50 ML IVPB SCH ×2 (09:19→20:44)
[2017-10-06 12:08] LABS: CK-MB 46.9 ng/ml (0.0-2.4)
[2017-10-06 12:15] LABS: TROPONIN-I 0.066 ng/ml (0.00-0.12)
[2017-10-06] MEDS ORDERED: SODIUM BICARBONATE (IV ADD) 140 MEQ in DEXTROSE 5% 1,000 ML IV SCH (12:30)
[2017-10-06 12:46] LABS: AADO2 Arterial 91.3 mmHg (7.0-24.0); Allen Test ACCEPTAB; Arterial Base Excess -10.5 mmol/L (-3.0-3); Arterial COHb 0.2 % (0.0-3.0); Arterial Fraction of Oxyhgb 93.2 % (93.0-99.0); Arterial HCO3 13.7 mmol/L (22.0-26.0); Arterial MetHb 0.3 % (0.0-1.5); Arterial Total Hemglobin 12.4 g/dl (12.0-18.0); MODE NASAL CANNULA
--- NOTE | 2017-10-06 13:28 | HP ---
Date/Time of Note Date/Time of Note DATE: 10/06/17 TIME: 12:57 Assessment/Plan VTE Prophylaxis VTE Prophylaxis Intervention: heparin Lines/Catheters Urinary Cath still in place: No Assessment/Plan Assessment/Plan 1. Syncope: unknown etiology: cardiac vs seizure(given hx) vs other - pt fell and remained in her bathroom x 2 days unable to get up -admit to tele unit - 2D-echo -trend trop -carotid doppler u/s 2. Presumed acute on CKD: 2/2 Rhabdo -IVF -renal u/s and nephrology consult - urine electrolytes 3.positive troponin -aspirin -trend trop -2D-echo -cardiology consult 4. Rhabdomyolysis -IVF 5. Metabolic acidosis - 2/2 renal insufficiency - IVF - repeat lab 6. Left UVPJ, Obstructive Uropathy -IVF -Flomax -Urology consult 7. A-flutter with RVR -currently rate controlled -r/o ACS -check TSH HPI/ROS Admit Date/Time Admit Date/Time Hx of Present Illness This is a 67 yo female with hx of dyslipidemia, hypothyroidism, renal stone, seizure d/o, schizoaffective. Patient stated that she fell down in her bathroom 2 days ago and remained on the floor for 2 days unable to get up. She can not tell me how she fell down. She reported total body pain, gen weakness, dark stool and dark/brown emesis, left flank. currently she looks uncomfortable and is not really willing to provide additional information. when she presented to ER, she is found to be in rapid afib with HR in 130s. Lab shows CK 125,000, trop 0.155, AST 434, alt 135, ap 135, Cr 4.5, BUN 51,HCO3 10, K 3.3, WBC 15,000, LACTIC ACID 2.6. CT a/p: obs uropathy, 4mm at UVPJ. PMH/Family/Social Social History Smoking Status: Former smoker Exam/Review of Systems Vital Signs Vitals Vital Signs Date Time Temp Pulse Resp B/P Pulse Ox O2 Delivery O2 Flow Rate FiO2 10/06/17 11:45 98.1 75 20 146/80 99 Room Air 2.0 Exam Constitutional: distress, other (obese) Head: atraumatic, normocephalic Eyes: PERRL Respiratory: diminished breath sounds Cardiovascular: regular rate and rhythm Gastrointestinal: bowel sounds, soft, tender Extremities: normal pulses Labs Result Diagram: 10/05/17195210/05/171952 Medications Medications Current Medications Diltiazem HCl (Cardizem-D5W 125 Mg/125 ml Drip) 125 ml @ 5 mls/hr TITRATE IV ; Start 10/05/17 at 23:30 Ondansetron HCl (Zofran Inj) 4 mg Q6H PRN IV NAUSEA AND/OR VOMITING; Start at 06:00 Acetaminophen (Tylenol Tab) 650 mg Q6H PRN PO PAIN LEVEL 1-3 OR FEVER; Start 10/06/17 at 06:00 Morphine Sulfate (morphine) 2 mg Q4H PRN IV PAIN LEVEL 7-10; Start 10/06/17 at 06:00 Pantoprazole (Protonix Iv) 40 mg BID@06,18 IV Last administered on 10/06/17 09:07; Admin Dose 40 MG; Start 10/06/17 at 06:00 Heparin Sodium (Porcine) 5000 unit 5,000 unit Q12 SC Last administered on 10/06 09:00; Admin Dose 5,000 UNIT; Start 10/06/17 at 09:00 Cefepime HCl (Maxipime 1gm/50 ml (Pmx)) 50 ml @ 100 mls/hr Q12 IVPB Last administered on 10/06/17 09:19; Admin Dose 100 MLS/HR; Start 10/06/17 at 09: 00 Aspirin (Halfprin) 81 mg DAILY PO Last administered on 10/06/17 09:00; Admin Dose 81 MG; Start 10/06/17 at 09:00 Fish Oil (Fish Oil) 1,000 mg DAILY PO ; Start 10/06/17 at 09:00 Levothyroxine Sodium (Synthroid) 88 mcg DAILY PO Last administered on 09:00; Admin Dose 88 MCG; Start 10/06/17 at 09:00 Quetiapine Fumarate 100 mg 100 mg HS PO ; Start 10/06/17 at 21:00 Sodium Bicarbonate/ Dextrose (Na Bicarb/D5W) 1,140 ml @ 150 mls/hr Q7H36M IV ; Start 10/06/17 at 12:30 YOSELIN RAMON MD Oct 06, 2017 13:15
[2017-10-06] MEDS: morphine 2 MG INJ IV PRN ×2 (14:21→19:08)
--- NOTE | 2017-10-06 14:41 | CONS ---
DATE OF ADMISSION: 10/05/2017 DATE OF CONSULTATION: 10/06/2017 GASTROENTEROLOGY CONSULTATION CONSULTATION TO: Dr. Nolasco. Thank you very much for allowing me to evaluate this 67-year-old female who presented to the ER afte r suffering a fall with evidence of acute renal failure. HISTORICAL EVENTS: As you well know, this patient was found down at home having remained on the destiny or for approximately 2 days. She indicated that she was having vomiting and diarrhea during the vero or 2 days and was quite weak, having had a fall recalling quite clearly that she did not pass out an d was not able to get up because of extreme weakness. She states her loose stools were quite dark a nd believes that when she vomited, there was some blood-tinged material. She denied any antecedent shortness of breath, chest pain, dizziness, palpitations or headache. The patient states she has als o been taking Motrin intermittently for the last several days. PAST MEDICAL HISTORY: Includes: 1. Hypertension. No history of coronary disease, diabetes. 2. History of hypothyroidism. 3. History of elevated cholesterol. MEDICATIONS: At home included: 1. Seroquel 50 mg per day. 2. Losartan 100 mg per day. 3. Levothyroxine 100 mcg per day. 4. Colace 100 mg per day. 5. Potassium mEq per day. 6. Amlodipine 5 per day. 7. Simvastatin 20 mg per day. 8. Multivitamins. 9. Fish oil. FAMILY HISTORY: To be reviewed later. PHYSICAL EXAMINATION: VITAL SIGNS: BP 127/72, respirations were 18. She was afebrile. EYES: Extraocular muscles were full. NOSE, MOUTH, AND THROAT: Normal. NECK: Supple. There was no jugular venous distention, thyroid enlargement or adenopathy. LUNGS: Clear. HEART: Rhythm regular, no murmur. No third or fourth sound. ABDOMEN: Obese. Liver and spleen were not palpable. No masses or tenderness were noted. EXTREMITIES: No edema. Calves were not tender. Pulses reduced in the lower extremities. NEUROLOGIC: No lateralizing motor weakness. Oriented to person, place and time. LABORATORY AND DIAGNOSTIC STUDIES: On admission, sodium 142, K 3.3, chloride 107, CO2 10, BUN 51, c reatinine 4.54, AST and ALT were 434 and 135 respectively. Alk phos 135. CPK 12,568. Hematocrit _ ____, white count 15,500, platelets 110,000. Protime 1.2, PTT 39.8. IMAGING STUDIES: Included a renal ultrasound revealed mild left hydronephrosis with chest x-ray rev ealing enlarged cardiac silhouette. CT abdomen and pelvis: Left obstructive uropathy with a 4 mm o bstructing calculus in the left ureteropelvic junction, fatty infiltration of the liver was noted. Brain CT unrevealing except for generalized cerebral and cerebellar volume loss. IMPRESSION: 1. Acute renal failure secondary to prolonged immobility and resultant rhabdomyolysis. 2. Suspect metabolic acidosis given the CO2 that is low. Blood gases are pending. This is seconda ry to acute renal failure and antecedent diarrhea. 3. History of hypertension, having been on angiotensin receptor max. RECOMMENDATION: I agree with you, avelino is present with ARB and nonsteroidals contributing to her acute renal insult. ARB has not been continued and I would change her fluids to bicarbonate contain ing isotonic fluid, phosphorus and magnesium to be obtained as abnormalities in these 2 electrolytes are associated with rhabdomyolysis. A Green catheter to be placed to carefully monitor I and O's. We will follow with you. Urology consultation will be required prior to discharge given evidence o f obstructive uropathy. Dictated By: RAMAKRISHNA VERNON/KLEVER Conf#: [id number] DID#: [id number] CC: YOSELIN RAMON MD;*End*
[2017-10-06 15:05] LABS: ABNORMAL IP MESSAGE 1; HEMOGLOBIN 10.8 g/dl (12.0-16.0); MEAN CORPUSCULAR HEMOGLOBIN 30.9 pg (29.0-33.0); MEAN CORPUSCULAR HGB CONC 34.8 g/dl (32.0-37.0); MEAN CORPUSCULAR VOLUME 88.8 fl (82.0-101.0); MEAN PLATELET VOLUME 13.4 fl (7.4-10.4); PLATELET COUNT 89 10^3/UL (140-415); RED BLOOD COUNT 3.49 10^6/ul (4.20-5.40); RED CELL DISTRIBUTION WIDTH 15.1 % (11.5-14.5); WHITE BLOOD COUNT 11.9 10^3/ul (4.8-10.8)
[2017-10-06 15:07] LABS: POSITIVE DIFF @See below
--- NOTE | 2017-10-06 15:08 | RADRPT ---
PROCEDURE: XR Abdomen. CLINICAL INDICATION: Kidney stone. TECHNIQUE: AP abdomen x-ray. COMPARISON: CT 10/05/2017. FINDINGS: There is a nonspecific bowel gas pattern without evidence of obstruction. Free intraperitoneal air cannot be entirely excluded on non-upright radiographs. There is a 5 mm calcification projecting in the expected region of the proximal left ureter. There are multilevel degenerative changes of the imaged spine. IMPRESSION: 1. 5 mm calcification projecting in the expected region of the proximal left ureter, which may corre spond to the ureteric stone seen on prior CT. 2. Nonspecific bowel gas pattern without evidence of obstruction. RPTAT: EE Otto Diaz Physician Date Time Electronically viewed and signed by Otto Diaz Physician on 10/06/2017 15:08 PH/
[2017-10-06 15:16] LABS: CALCIUM 7.7 mg/dl (8.4-10.2); CREATININE 3.47 mg/dl (0.44-1.00); MAGNESIUM 1.7 mg/dl (1.7-2.5); PHOSPHORUS 4.8 mg/dl (2.5-4.9); POTASSIUM 3.8 mmol/L (3.5-5.1); URIC ACID 8.7 mg/dl (3.1-7.9)
[2017-10-06] MEDS: TAMSULOSIN (SR) 0.4 MG CAP PO SCH (16:03)
--- NOTE | 2017-10-06 16:14 | CONS ---
Date/Time of Note Date/Time of Note DATE: 10/06/17 TIME: 15:15 Assessment/Plan Assessment/Plan Chief Complaint/Hosp Course Assessment: Questionable GI bleed, hemoglobin is stable Rhabdomyolysis Abnormal liver function test Rule out hepatitis A, B and C Rule out autoimmune hepatitis vs related to rhabdomyolysis Schizophrenia Seizure disorder Renal disease with kidney stones Hypertension Dyslipidemia Hypothyroidism Plan: Continue monitoring H&H and liver enzymes Hepatitis A, B, and C viral panel Autoimmune panel SABA, ASMA and AMA initiate treatment with PPIs If the patient starts bleeding or becomes hemodynamically unstable will consider endoscopy. The exam was done in collaboration with Dr. Whitney Problems: Consultation Date/Type/Reason Admit Date/Time Date of Consultation: Oct 06, 2017 Type of Consultation: GI Reason for Consultation Questionable GI bleeding Hx of Present Illness 67 year old female admitted for Hematemesis and bloody diarrhea after experiencing a syncopal episode. She reports having chills and fever that started 4 days ago, she felt "sick in her stomach and started throwing up", and having diarrhea. She describes the color of gastric content and bowel movements as black. She was trying to hydrate herself but could not keep anything down. After 2 days of being sick she fainted and when she regained consciousness she was feeling too weak to get up. Continued vomiting and having diarrhea until her neighbor found her 2 days later. She was brought by paramedics to emergency room. Questionable reliability due to patient's psychiatric illness Constitutional: improved, no complaints, requiring IVF Eyes: no complaints ENT: no complaints Respiratory: no complaints Cardiovascular: no complaints Gastrointestinal: other (See HPI) Genitourinary: no complaints Musculoskeletal: other (Flank pain) Skin: bruising Neurologic: no complaints Endocrine: no complaints Lymphatic: no complaints Psychological: nl mood/affect, no complaints Immunologic: no complaints Past Medical History Schizophrenia Seizure disorder Renal disease with kidney stones Hypertension Dyslipidemia Hypothyroidism Past Surgical History No surgical history Family History Significant Family History: no pertinent family hx Social History Alcohol Use: occasionally Smoking Status: Former smoker Drug Use: none Exam/Review of Systems Vital Signs Vitals Vital Signs Date Time Temp Pulse Resp B/P Pulse Ox O2 Delivery O2 Flow Rate FiO2 10/06/17 14:10 73 10/06/17 11:45 98.1 20 146/80 99 Room Air 2.0 Exam PHYSICAL EXAMINATION: GENERAL: Well developed, well nourished, alert & oriented x 3, in no acute distress SKIN: No lesions, no stigmata chronic liver disease, no evidence of bleeding diathesis LYMPHATIC: No palpable lymphadenopathy. HEAD: Normocephalic, atraumatic, no tenderness. EYES: Pupils equal reactive to light and accommodation, full extraocular movements, sclera clear, non-icteric, no discharge. EARS/NOSE AND THROAT: Ears normal, nose normal, oropharynx normal, oral membranes well hydrated without lesions. NECK: Supple, no masses, thyroid normal, JVP within normal limits, carotids normal without bruits. CHEST: Inspection within normal limits. CARDIOVASCULAR: Heart: Regular rate and rhythm, no murmurs, gallops or rubs. Peripheral pulses present within normal limits, no cyanosis, clubbing or edemas. No pulsatile abdominal mass RESPIRATORY: Lungs clear to auscultation and percussion, no wheezing, no rubs GASTROINTESTINAL AND LIVER: Abdomen: Soft, midepigastric and left upper quadrant tenderness, non-distended, no hernias, no masses, no organomegaly, no ascites, no guarding, no rebound tenderness, hyperactive bowel sounds. Rectal: Deferred. GENITOURINARY: Deferred EXTREMITIES: No cyanosis, clubbing or edema. Results Result Diagram: 10/05/17195210/05/171952 Results 24 hrs Laboratory Tests Test 10/05/17 19:53 10/05/17 21:15 10/06/17 00:49 10/06/17 06:29 White Blood Count 15.5 #H Red Blood Count 4.52 # Hemoglobin 14.0 Hematocrit 40.3 Mean Corpuscular Volume 89.2 Mean Corpuscular Hemoglobin 31.0 Mean Corpuscular Hemoglobin Concent 34.7 Red Cell Distribution Width 14.4 Platelet Count 110 L Mean Platelet Volume 12.6 #H Neutrophils % Segmented Neutrophils % (Manual) 81 H Band Neutrophils % (Manual) 7 H Lymphocytes % Lymphocytes % (Manual) 6 L Monocytes % Monocytes % (Manual) 6 Eosinophils % Basophils % Nucleated Red Blood Cells % 0.0 Neutrophils # Neutrophils # (Manual) 12.7 H Band Neutrophils # 1.0 H Absolute Lymphocytes (Manual) 0.9 Lymphocytes # Monocytes # Absolute Monocytes (Manual) 0.9 Eosinophils # Basophils # Nucleated Red Blood Cells # Platelet Estimate NORMAL Prothrombin Time 15.5 H Prothrombin Time Ratio 1.2 INR International Normalized Ratio 1.22 Activated Partial Thromboplast Time 39.8 H Sodium Level 142 Potassium Level 3.3 L Chloride Level 107 Carbon Dioxide Level 10 L Anion Gap 28 H Blood Urea Nitrogen 51 H Creatinine 4.54 H Glucose Level 94 Calcium Level 9.5 Total Bilirubin 0.4 Direct Bilirubin 0.00 Indirect Bilirubin 0.4 Aspartate Amino Transf (AST/SGOT) 434 H Alanine Aminotransferase (ALT/SGPT) 135 H Alkaline Phosphatase 135 H Creatine Kinase 61843 H 5556 #H Troponin I 0.155 *H 0.088 Total Protein 8.2 H Albumin 4.1 Globulin 4.10 H Albumin/Globulin Ratio 1.00 Lactic Acid Level 2.6 *H 2.3 *H 1.3 Creatine Kinase Index 1.1 Creatinine Kinase MB (Mass) 60.00 H Test 10/06/17 11:34 10/06/17 12:45 10/06/17 14:40 Creatine Kinase 4961 H Creatine Kinase Index Creatinine Kinase MB (Mass) 46.90 H Troponin I 0.066 Blood Gas Specimen Source Blood arterial Arterial Blood Date Drawn 10/06/2017 12:30:44 PM Arterial Blood pH (Temp corrected) 7.337 L Arterial Blood pCO2 (Temp correct) 26.1 L Arterial Blood pO2 (Temp corrected) 70.3 L Arterial Blood HCO3 13.7 L Arterial Blood Base Excess -10.5 L Arterial Blood Oxygen Saturation 93.7 L Issac Test ACCEPTAB Arterial Blood Gas Puncture Site Right Radial Arterial Blood Carboxyhemoglobin 0.2 Arterial Blood Methemoglobin 0.3 Blood Gas A-a O2 Differential 91.3 H Oxyhemoglobin Percent 93.2 Total Hemoglobin 12.4 Blood Gas Temperature 37.0 Blood Gas Modality NASAL CANNULA FiO2 27.0 Blood Gas Notified Whom JLD Blood Gas Notified Time 10/06/2017 12:46:40 PM White Blood Count 11.9 #H Red Blood Count 3.49 #L Hemoglobin 10.8 #L Hematocrit 31.0 #L Mean Corpuscular Volume 88.8 Mean Corpuscular Hemoglobin 30.9 Mean Corpuscular Hemoglobin Concent 34.8 Red Cell Distribution Width 15.1 H Platelet Count 89 L Mean Platelet Volume 13.4 H Neutrophils % Eosinophils % Nucleated Red Blood Cells % 0.0 Neutrophils # Eosinophils # Medications Medications Current Medications Diltiazem HCl (Cardizem-D5W 125 Mg/125 ml Drip) 125 ml @ 5 mls/hr TITRATE IV ; Start 10/05/17 at 23:30 Ondansetron HCl (Zofran Inj) 4 mg Q6H PRN IV NAUSEA AND/OR VOMITING; Start at 06:00 Acetaminophen (Tylenol Tab) 650 mg Q6H PRN PO PAIN LEVEL 1-3 OR FEVER; Start 10/06/17 at 06:00 Morphine Sulfate (morphine) 2 mg Q4H PRN IV PAIN LEVEL 7-10 Last administered on 10/06/17 14:21; Admin Dose 2 MG; Start 10/06/17 at 06:00 Pantoprazole (Protonix Iv) 40 mg BID@06,18 IV Last administered on 10/06/17 09:07; Admin Dose 40 MG; Start 10/06/17 at 06:00 Heparin Sodium (Porcine) 5000 unit 5,000 unit Q12 SC Last administered on 10/06 09:00; Admin Dose 5,000 UNIT; Start 10/06/17 at 09:00 Cefepime HCl (Maxipime 1gm/50 ml (Pmx)) 50 ml @ 100 mls/hr Q12 IVPB Last administered on 10/06/17 09:19; Admin Dose 100 MLS/HR; Start 10/06/17 at 09: 00 Aspirin (Halfprin) 81 mg DAILY PO Last administered on 10/06/17 09:00; Admin Dose 81 MG; Start 10/06/17 at 09:00 Fish Oil (Fish Oil) 1,000 mg DAILY PO ; Start 10/06/17 at 09:00 Levothyroxine Sodium (Synthroid) 88 mcg DAILY PO Last administered on 09:00; Admin Dose 88 MCG; Start 10/06/17 at 09:00 Quetiapine Fumarate 100 mg 100 mg HS PO ; Start 10/06/17 at 21:00 Sodium Bicarbonate/ Dextrose (Na Bicarb/D5W) 1,000 ml @ 150 mls/hr Q6H40M IV ; Start 10/06/17 at 14:00 Tamsulosin HCl (Flomax) 0.4 mg DAILY PO ; Start 10/06/17 at 13:30 Copies To: CC: LORENZO WHITNEY MD, ANASTASIA NP Oct 06, 2017 15:28
[2017-10-06] MEDS ORDERED: POTASSIUM CHLORIDE (SR) 10 MEQ TAB PO ONE (16:30)
[2017-10-06 16:44] LABS: POTASSIUM,URINE RANDOM 37.9 mmol/L (25-125)
[2017-10-06 17:04] LABS: ANISOCYTOSIS 1+ (0-0); EOSINOPHILS % (M) 1 % (0-7); GIANT THROMBO% (M) 1 % (0-0); MONOCYTES % (M) 3 % (0-11); POIKILOCYTOSIS 1+ (0-0)
[2017-10-06] MEDS ORDERED: PANTOPRAZOLE 40 MG INJ ONE (17:08)
[2017-10-06] MEDS: DEXTROSE 5% IV SCH (17:23)
[2017-10-06] MEDS: SODIUM BICARBONATE IV SCH (17:23)
[2017-10-06 17:25] LABS: ADD UMIC YES; UR ASCORBIC ACID NEGATIVE (NEGATIVE); UR BILIRUBIN (Dip) NEGATIVE (NEGATIVE); UR BLOOD (Dip) 2+ mg/dL (NEGATIVE); UR CLARITY TURBID (CLEAR); UR COLOR YELLOW (YELLOW); UR GLUCOSE (Dip) NEGATIVE (NEGATIVE); UR KETONES (Dip) TRACE mg/dL (NEGATIVE); UR LEUKOCYTE ESTERASE (Dip) 3+ Leu/ul (NEGATIVE); UR NITRITE (Dip) NEGATIVE (NEGATIVE); UR RBC 20 /HPF (0-5); UR SPECIFIC GRAVITY (Dip) 1.011 (1.003-1.030); UR TOTAL PROTEIN (Dip) 2+ mg/dl (NEGATIVE); UR UROBILINOGEN (Dip) NEGATIVE (NEGATIVE)
--- NOTE | 2017-10-06 17:59 | RADRPT ---
Echocardiogram Report Patient Name: HENNA LORENZ Gender: Female Date: 1950 Study Date: 06-Oct-2017 Cardiovascular Disease Specialist: Jasper Pulido [facility] Location: [facility] Ref. Physician: YOSELIN RAMON Quality: Adequate Procedures: Transthoracic echocardiogram with complete 2D, M-Mode, and doppler examination. Indications: Positive troponin. 2D/M Mode Doppler Measurement Value Normal Ranges Measurement Value Normal Ranges LVIDd 2D 4.1 3.5 - 5.6 cm AV Peak Tommie 2.3 m/sec LVIDs 2D 2.5 2.1 - 4.1 cm AV Peak PG 21.0 mmHg FS 2D 38.1 % LVOT Peak Tommie 1.1 m/sec LVPWd 2D 1.5 0.6 - 1.1 cm LVOT Peak PG 5.0 mmHg IVSd 2D 1.6 0.6 - 1.1 cm MV E Peak Tommie 1.1 m/sec IVS/LVPW 2D 1.1 MV A Peak Tommie 0.9 m/sec AoR Diam 2D 2.5 2.0 - 3.7 cm MV E/A 1.3 LA/Ao 2D 1 0 - 1 MV Decel Time 190 msec EDV 2D 69.9 cm3 MV E/A 1.3 ESV 2D 16.6 cm3 MR Peak PG 90.0 mmHg LA Dimen 2D 3.7 2.3 - 4.0 cm MR Peak Tommie 4.7 m/sec TR Peak Tommie 3.2 m/sec TR Peak PG 41.0 mmHg RVSP 44.0 mmHg Findings Left Ventricle: Normal left ventricular systolic function. Normal left ventricular cavity size. Sigmoid septum. Ejection fraction is visually estimated at 60 %. Abnormal Diastolic Function. Right Ventricle: Normal right ventricular size. Normal right ventricular systolic function. Left Atrium: The left atrium is normal in size. Right Atrium: The right atrium is normal in size. Mitral Valve: Mild mitral leaflet calcification. Mild mitral annular calcification. Mild to moderate mitral valve regurgitation. Aortic Valve: Normal appearance of the aortic valve. No significant aortic stenosis or insufficiency. Tricuspid Valve: Normal appearance of the tricuspid valve. Estimated peak PA systolic pressure 44 mmHg. There is mild to moderate tricuspid regurgitation. Pulmonic Valve: Pulmonic valve not well visualized. There is trace pulmonic regurgitation. Pericardium: Normal pericardium with no significant pericardial effusion. Aorta: Normal aortic root. IVC: Normal size and normal respiratory collapse consistent with normal right atrial pressure. Conclusions 1.Normal left ventricular systolic function. Normal left ventricular cavity size. Sigmoid septum. Ejection fraction is visually estimated at 60 %. Abnormal Diastolic Function. 2.Mild mitral leaflet calcification. Mild mitral annular calcification. Mild to moderate mitral valve regurgitation. 3.Normal appearance of the tricuspid valve. Estimated peak PA systolic pressure 44 mmHg. There is mild to moderate tricuspid regurgitation. 4.Pulmonic valve not well visualized. There is trace pulmonic regurgitation. Electronically Signed By: Reggie Hayward 06-Oct-2017 17:58:30 -0800 Patient Name: HENNA LORENZ Study Date: 06-Oct-2017 [id number]
[2017-10-06] MEDS ORDERED: METOPROLOL 5 MG INJ IV PRN (19:30)
--- NOTE | 2017-10-06 20:02 | CONS ---
Date/Time of Note Date/Time of Note DATE: 10/06/17 TIME: 19:45 Assessment/Plan Assessment/Plan Chief Complaint/Hosp Course 67-year-old female was found on the floor in her house after she fell and she was on the floor for 2 days. Patient did also have some bloody emesis and GI bleed. After admission she had a CT scan of the abdomen and pelvis and that showed a 4 mm left upper ureteral stone with obstruction. The blood culture growing gram-negative rods in the urine culture is pending At the present we will treat her infection and strain the urine for stones and a plain film of the abdomen did show the stone in the left upper ureter. Problems: Consultation Date/Type/Reason Admit Date/Time Date of Consultation: Oct 06, 2017 Type of Consultation: Urology Reason for Consultation Left ureteral and renal stones with hydronephrosis Referring Provider: YOSELIN RAMON MD Hx of Present Illness 67-year-old female was found down at home having remained on the floor for approximately 2 days. She was having vomiting and diarrhea during the prior 2 days and was quite weak, She had a fall , was not able to get up because of extreme weakness. She states her loose stools were quite dark and believes that when she vomited, there was some blood-tinged material. She denied any antecedent shortness of breath, chest pain, dizziness, palpitations or headache. In the emergency room she had a CT scan of the abdomen and pelvis and that showed: 1. Left obstructive uropathy with a 4 mm obstructing calculus at the left ureteral pelvic junction. 2. Gallstones, without CT evidence of acute cholecystitis. 3. Fatty infiltration of the liver. 4. Otherwise, no identified acute process in the abdomen or pelvis A urological consultation was therefore requested because of the stone. Constitutional: no complaints Eyes: no complaints ENT: no complaints Respiratory: no complaints Cardiovascular: No chest pain Gastrointestinal: No nausea, No vomiting Genitourinary: other (She has a Green catheter and the urine is cloudy, most likely infected) Musculoskeletal: no complaints Skin: no complaints Neurologic: No seizure Endocrine: no complaints Lymphatic: no complaints Past Medical History Medical History: high cholesterol, hypertension, hypothyroid, renal disease, other (, Schizophrenia) Past Surgical History Past Surgical Hx: no surgical history Family History Significant Family History: no pertinent family hx Social History Alcohol Use: occasionally Smoking Status: Former smoker Drug Use: none Exam/Review of Systems Vital Signs Vitals Vital Signs Date Time Temp Pulse Resp B/P Pulse Ox O2 Delivery O2 Flow Rate FiO2 10/06/17 19:00 77 24 121/68 90 Room Air 2.0 10/06/17 16:00 98.7 Exam Constitutional: alert, oriented Psych: no complaints Head: normocephalic Eyes: nl conjunctiva ENMT: nl external ears & nose Neck: non-tender Respiratory: normal air movement Cardiovascular: nl pulses, No jugular venous distention (JVD) Gastrointestinal: other (Obese abdomen), soft Genitourinary - Female: other (Pelvic exam there is no mass no discharge. 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.), No CVA tenderness Musculoskeletal: nl extremities to inspection Extremities: No calf tenderness Skin: nl turgor Results Result Diagram: 10/06/17 1440 10/06/17 1440 Results 24 hrs Laboratory Tests Test 10/05/17 19:53 10/05/17 21:15 10/06/17 00:49 10/06/17 06:29 White Blood Count 15.5 #H Red Blood Count 4.52 # Hemoglobin 14.0 Hematocrit 40.3 Mean Corpuscular Volume 89.2 Mean Corpuscular Hemoglobin 31.0 Mean Corpuscular Hemoglobin Concent 34.7 Red Cell Distribution Width 14.4 Platelet Count 110 L Mean Platelet Volume 12.6 #H Neutrophils % Segmented Neutrophils % (Manual) 81 H Band Neutrophils % (Manual) 7 H Lymphocytes % Lymphocytes % (Manual) 6 L Monocytes % Monocytes % (Manual) 6 Eosinophils % Basophils % Nucleated Red Blood Cells % 0.0 Neutrophils # Neutrophils # (Manual) 12.7 H Band Neutrophils # 1.0 H Absolute Lymphocytes (Manual) 0.9 Lymphocytes # Monocytes # Absolute Monocytes (Manual) 0.9 Eosinophils # Basophils # Nucleated Red Blood Cells # Platelet Estimate NORMAL Prothrombin Time 15.5 H Prothrombin Time Ratio 1.2 INR International Normalized Ratio 1.22 Activated Partial Thromboplast Time 39.8 H Sodium Level 142 Potassium Level 3.3 L Chloride Level 107 Carbon Dioxide Level 10 L Anion Gap 28 H Blood Urea Nitrogen 51 H Creatinine 4.54 H Glucose Level 94 Calcium Level 9.5 Total Bilirubin 0.4 Direct Bilirubin 0.00 Indirect Bilirubin 0.4 Aspartate Amino Transf (AST/SGOT) 434 H Alanine Aminotransferase (ALT/SGPT) 135 H Alkaline Phosphatase 135 H Creatine Kinase 92338 H 5556 #H Troponin I 0.155 *H 0.088 Total Protein 8.2 H Albumin 4.1 Globulin 4.10 H Albumin/Globulin Ratio 1.00 Lactic Acid Level 2.6 *H 2.3 *H 1.3 Creatine Kinase Index 1.1 Creatinine Kinase MB (Mass) 60.00 H Test 10/06/17 11:34 10/06/17 12:45 10/06/17 14:40 10/06/17 15:40 Creatine Kinase 4961 H Creatine Kinase Index Creatinine Kinase MB (Mass) 46.90 H Troponin I 0.066 Blood Gas Specimen Source Blood arterial Arterial Blood Date Drawn 10/06/2017 12:30:44 PM Arterial Blood pH (Temp corrected) 7.337 L Arterial Blood pCO2 (Temp correct) 26.1 L Arterial Blood pO2 (Temp corrected) 70.3 L Arterial Blood HCO3 13.7 L Arterial Blood Base Excess -10.5 L Arterial Blood Oxygen Saturation 93.7 L Issac Test ACCEPTAB Arterial Blood Gas Puncture Site Right Radial Arterial Blood Carboxyhemoglobin 0.2 Arterial Blood Methemoglobin 0.3 Blood Gas A-a O2 Differential 91.3 H Oxyhemoglobin Percent 93.2 Total Hemoglobin 12.4 Blood Gas Temperature 37.0 Blood Gas Modality NASAL CANNULA FiO2 27.0 Blood Gas Notified Whom JLD Blood Gas Notified Time 10/06/2017 12:46:40 PM White Blood Count 11.9 #H Red Blood Count 3.49 #L Hemoglobin 10.8 #L Hematocrit 31.0 #L Mean Corpuscular Volume 88.8 Mean Corpuscular Hemoglobin 30.9 Mean Corpuscular Hemoglobin Concent 34.8 Red Cell Distribution Width 15.1 H Platelet Count 89 L Mean Platelet Volume 13.4 H Neutrophils % Segmented Neutrophils % (Manual) 86 H Band Neutrophils % (Manual) 7 H Lymphocytes % (Manual) 4 L Monocytes % (Manual) 3 Eosinophils % Eosinophils % (Manual) 1 Nucleated Red Blood Cells % 0.0 Neutrophils # Neutrophils # (Manual) 10.3 H Band Neutrophils # 0.8 H Absolute Lymphocytes (Manual) 0.4 L Absolute Monocytes (Manual) 0.3 Eosinophils # Giant Platelets 1 H Poikilocytosis 1+ Anisocytosis 1+ Macrocytosis 1+ Sodium Level 139 Potassium Level 3.8 Chloride Level 108 Carbon Dioxide Level 14 L Anion Gap 21 #H Blood Urea Nitrogen 52 H Creatinine 3.47 #H Glucose Level 72 Uric Acid 8.7 H Calcium Level 7.7 L Phosphorus Level 4.8 Magnesium Level 1.7 Urine Color YELLOW Urine Clarity TURBID A Urine pH 5.0 Urine Specific [place] 1.011 Urine Ketones TRACE A Urine Nitrite NEGATIVE Urine Bilirubin NEGATIVE Urine Urobilinogen NEGATIVE Urine Leukocyte Esterase 3+ H Urine Microscopic RBC 20 H Urine Microscopic WBC > 182 H Urine Hemoglobin 2+ H Urine Random Sodium 51 Urine Random Potassium 37.9 Urine Glucose NEGATIVE Urine Total Protein 2+ H Imaging Free Text/Dictation CT scan of the abdomen and pelvis: 1. Left obstructive uropathy with a 4 mm obstructing calculus at the left ureteral pelvic junction. 2. Gallstones, without CT evidence of acute cholecystitis. 3. Fatty infiltration of the liver. 4. Otherwise, no identified acute process in the abdomen or pelvis Medications Medications Current Medications Diltiazem HCl (Cardizem-D5W 125 Mg/125 ml Drip) 125 ml @ 5 mls/hr TITRATE IV ; Start 10/05/17 at 23:30 Ondansetron HCl (Zofran Inj) 4 mg Q6H PRN IV NAUSEA AND/OR VOMITING; Start at 06:00 Acetaminophen (Tylenol Tab) 650 mg Q6H PRN PO PAIN LEVEL 1-3 OR FEVER; Start 10/06/17 at 06:00 Morphine Sulfate (morphine) 2 mg Q4H PRN IV PAIN LEVEL 7-10 Last administered on 10/06/17 19:08; Admin Dose 2 MG; Start 10/06/17 at 06:00 Heparin Sodium (Porcine) 5000 unit 5,000 unit Q12 SC Last administered on 10/06 09:00; Admin Dose 5,000 UNIT; Start 10/06/17 at 09:00 Cefepime HCl (Maxipime 1gm/50 ml (Pmx)) 50 ml @ 100 mls/hr Q12 IVPB Last administered on 10/06/17 09:19; Admin Dose 100 MLS/HR; Start 10/06/17 at 09: 00 Fish Oil (Fish Oil) 1,000 mg DAILY PO ; Start 10/06/17 at 09:00 Levothyroxine Sodium (Synthroid) 88 mcg DAILY PO Last administered on 09:00; Admin Dose 88 MCG; Start 10/06/17 at 09:00 Quetiapine Fumarate 100 mg 100 mg HS PO ; Start 10/06/17 at 21:00 Sodium Bicarbonate/ Dextrose (Na Bicarb/D5W) 1,000 ml @ 150 mls/hr Q6H40M IV Last administered on 10/06/17 17:23; Admin Dose 150 MLS/HR; Start 10/06/17 at 14:00 Tamsulosin HCl (Flomax) 0.4 mg DAILY PO Last administered on 10/06/17 16:03; Admin Dose 0.4 MG; Start 10/06/17 at 13:30 Pantoprazole (Protonix Iv) 40 mg DAILY@06 IV ; Start 10/07/17 at 06:00 Aspirin (Halfprin) 325 mg DAILY PO ; Start 10/07/17 at 09:00 Metoprolol Tartrate (Lopressor) 25 mg BID PO ; Start 10/06/17 at 21:00 Metoprolol Tartrate (Lopressor) 5 mg Q4H PRN IV HR>110 Hold SBP<100; Start at 19:30 FRANNY DEE MD Oct 06, 2017 19:56
--- NOTE | 2017-10-06 20:12 | CONS ---
DATE OF ADMISSION: 10/05/2017 DATE OF CONSULTATION: 10/06/2017 REASON FOR CONSULTATION: Paroxysmal atrial fibrillation/atrial flutter with rapid ventricular respo nse as well as status post fall, assess for cardiac etiology. REQUESTING PHYSICIAN: Dr. Nolasco from the hospitalist service. HISTORY OF PRESENT ILLNESS: Ms. Garrett is a 67-year-old female with a history of dyslipidemia, hypot hyroidism, kidney stones, seizure disorder, schizoaffective disorder, who stated that she has fell d own in her bathroom 2 days prior to admit, and was not able to get for approximately 2 days. The pa tient upon questioning states that she tripped and fell and could not get up due to generalized weak ness. Denies syncope. The patient upon presentation to the emergency department, temperature 98.3, blood pressure 140/95, pulse 137, respiratory 20, saturating 93%. The patient's labs revealed whit e count 15.5, hemoglobin 14.0, platelet count 110, sodium 142, potassium 3.3, creatinine 4.5. AST 4 34, ALT 135, alkaline phosphatase 135, creatinine kinase 67870, troponin positive 0.155. UA positiv e. The patient had a head CT revealing no acute intracranial hemorrhage, mild intracranial atherosc lerosis. Abdominal pelvic CT revealing left obstructive uropathy, a 4 mm obstructing calculus at th e left renal ureteropelvic junction, gallstones, fatty infiltration of the liver. A chest x-ray rev ealing mildly enlarged cardiac silhouette. A renal ultrasound revealing mild left hydronephrosis, a calculus at the ureteral junction and a KUB reviewed a 5 mm calcification projecting the expected r egion of the proximal left ureter. The patient's electrocardiogram is not in chart for my review at this time. Scanned EKG is consistent with atrial flutter with variable AV block at a rate of 145 w ith a right axis deviation and nonspecific ST and T-waves diffusely. Patient was subsequently admit harrison to the ICU and after receiving IV fluid hydration, aspirin, Diltiazem for rate control and broad -spectrum antibiotics with cefepime and potassium repletion. Patient now remains in the ICU with no w stable blood pressure most recently 137/79 in sinus rhythm. The patient denies chest pain, has on going shortness of breath. PAST MEDICAL HISTORY: As above in HPI. MEDICATIONS CURRENTLY IN HOSPITAL: 1. Protonix 40 mg IV daily. 2. Seroquel 100 mg at bedtime 3. Sodium bicarbonate 150 mg an hour. 4. ____ 4 mg daily. 5. Cefepime. 6. Aspirin 81 mg daily. 7. Fish oil gram daily. 8. Synthroid 88 mcg daily. 9. Tylenol p.r.n. 8. Morphine p.r.n. 9. DuoNeb p.r.n. ALLERGIES: NO KNOWN DRUG ALLERGIES. SOCIAL HISTORY: No tobacco, ETOH or illicit drug use. FAMILY HISTORY: Negative for sudden cardiac or early CAD. REVIEW OF SYSTEMS: As above in HPI. CONSTITUTIONAL: No fevers, chills. PULMONARY: Shortness of breath. CARDIOVASCULAR: Paroxysmal atrial fibrillation/atrial flutter with rapid ventricular response. GASTROINTESTINAL: Positive for vomiting at home prior to admit and loose stools. GENITOURINARY: No hematuria. MUSCULOSKELETAL: Degenerative joint disease. PSYCHIATRIC: Positive psychiatric medications. NEUROLOGIC: Status post fall, unclear syncope. PHYSICAL EXAMINATION: VITAL SIGNS: Temperature 98.7, blood pressure 130/79, pulse 77, respiration 22, sat 92%. GENERAL: The patient is alert, awake, in no acute distress. NECK: JVP approximately 9 cm water. CHEST: Upper airway sounds are rhonchorous sounds with decreased breath sounds at bases bilaterally . HEART: Regular rate and rhythm. Normal S1, S2, 1/6 systolic murmur, nondisplaced PMI. ABDOMEN: Positive bowel sounds, soft. EXTREMITIES: Noted trace edema, 1+ pulses bilaterally, posterior tibial. LABORATORIES: Documented most recently from today, white count 11.9, hemoglobin 10.8, platelet coun t 89. Sodium 139, potassium 3.8, creatinine 2.47, BUN 52. Troponin negative x2 after initial posit ivity, CK a total of 4961 with a CK-MB of 46.9. IMAGING STUDIES: As above in HPI. No further imaging studies for my review at this time. ECG: As above in HPI. No further electrocardiograms for my review at this time. IMPRESSION: 1. Atrial flutter, atrial fibrillation with rapid ventricular response, now converted to sinus rhyt where it remains. 2. Hypertension, under reasonable control. 3. Status post fall, rule out cardiac etiology. 4. Renal failure. 5. Acidosis, metabolic. 6. Anemia. 7. Leukocytosis. 8. Psychiatric disorder. RECOMMENDATIONS: 1. At this time, would maintain patient on telemetry monitoring to follow rhythm and rate control c losely, but can be transferred to telemetry from ICU. 2. We will follow the patient's 2D echo that was done for assessment of ejection fraction, wall mot ion, and to rule out any major valve abnormalities. 3. We will initiate patient on beta max and follow for any recurrent atrial fibrillation, atria l flutter. 4. Will initiate the patient on aspirin at this time for prophylaxis cardiovascular events. The rbea crooks has multiple falls; therefore will not be a good systemic anticoagulation candidate. 5. Continue the patient's bicarbonated fluids. 6. Continue the patient's fish oil and check a fasting lipid panel and adjust fish oil as necessary and add additional lipid lowering agents. 7. Continue the patient's psych medications. 8. Continue the patient's current Synthroid, but do check a TSH to assess the patient's current thy roid state. 9. Continue the patient's broad-spectrum antibiotics and follow up all culture data. Thank you for allowing me to take part in the care of this patient. I will continue to follow very closely with you with further recommendations to be made as the patient progresses through her [facility] clinical course. Dictated By: ALYSIA LEDESMA/KLEVER Conf#: [id number] DID#: [id number]
[2017-10-06] MEDS: QUETIAPINE 100 MG TAB PO SCH (20:44)
[2017-10-06] MEDS: METOPROLOL 25 MG TAB PO SCH (20:45)
[2017-10-07] VITALS (57 sets, daily range): BP systolic 79–122; BP diastolic 48–76; PULSE 68–81; RESP 10–27
[2017-10-07] MEDS: DEXTROSE 5% IV SCH ×3 (00:37→08:28)
[2017-10-07] MEDS: SODIUM BICARBONATE IV SCH ×3 (00:37→08:28)
[2017-10-07 05:43] LABS: HAAIG REFLEX REFLEX FILED
[2017-10-07 05:56] LABS: ABNORMAL IP MESSAGE 1; HEMATOCRIT 27.7 % (37.0-47.0); HEMOGLOBIN 10.1 g/dl (12.0-16.0); MEAN CORPUSCULAR HEMOGLOBIN 31.5 pg (29.0-33.0); MEAN CORPUSCULAR HGB CONC 36.5 g/dl (32.0-37.0); MEAN CORPUSCULAR VOLUME 86.3 fl (82.0-101.0); PLATELET COUNT 73 10^3/UL (140-415); RED BLOOD COUNT 3.21 10^6/ul (4.20-5.40); RED CELL DISTRIBUTION WIDTH 14.3 % (11.5-14.5); WHITE BLOOD COUNT 9.7 10^3/ul (4.8-10.8)
[2017-10-07] MEDS ORDERED: PANTOPRAZOLE 40 MG INJ IV SCH (06:00)
[2017-10-07 06:04] LABS: POSITIVE DIFF @See below
[2017-10-07 06:28] LABS: ALBUMIN 2.6 g/dl (3.3-4.9); ALBUMIN/GLOBULIN RATIO 0.81; BILIRUBIN,INDIRECT 0.5 mg/dl (0-1.1); BILIRUBIN,TOTAL 0.5 mg/dl (0.2-1.3); CALCIUM 7.8 mg/dl (8.4-10.2); CREATININE 2.84 mg/dl (0.44-1.00); MAGNESIUM 1.7 mg/dl (1.7-2.5); POTASSIUM 3.4 mmol/L (3.5-5.1); TOTAL PROTEIN 5.8 g/dl (6.1-8.1)
[2017-10-07 06:32] LABS: INR 1.13; PROTIME 14.5 Sec (12.2-14.2); PT RATIO 1.1
[2017-10-07 06:56] LABS: THYROID STIMULATING HORMONE 5.79 MIU/L (0.465-4.680)
[2017-10-07 07:07] LABS: ANISOCYTOSIS 1+ (0-0); BURR CELLS 1+ (0-0); EOSINOPHILS % (M) 1 % (0-7); MONOCYTES % (M) 5 % (0-11); MYELOCYTES % (M) 1 % (0-0); PLATELET ESTIMATE DECREASED; POLYCHROMASIA 1+ (0-0); REACTIVE LYMPHOCYTES% (M) 1 % (0-0); TARGET CELLS 1+ (0-0)
[2017-10-07 07:26] LABS: HEPATITIS B CORE ANTIBODY REACTIVE (NEGATIVE)
[2017-10-07] MEDS: CEFEPIME 1GM/50 ML (PMX) 50 ML IVPB SCH (08:28)
[2017-10-07] MEDS: FISH OIL 1,000 MG CAP PO SCH (08:29)
[2017-10-07] MEDS: LEVOTHYROXINE 88 MCG TAB PO SCH (08:29)
[2017-10-07] MEDS: ASPIRIN (EC) 81 MG TAB PO SCH (08:29)
[2017-10-07] MEDS: HEPARIN 5,000 UNIT/0.5 ML VIAL SC SCH ×2 (08:31→21:27)
[2017-10-07] MEDS: METOPROLOL 25 MG TAB PO SCH ×2 (08:33→21:08)
[2017-10-07] MEDS: TAMSULOSIN (SR) 0.4 MG CAP PO SCH (08:33)
--- NOTE | 2017-10-07 09:38 | RADRPT ---
PROCEDURE: Abdominal study CLINICAL INDICATION: Abdominal pain and left ureteral stone. TECHNIQUE: Supine abdomen. COMPARISON: 10/06/2017 abdomen FINDINGS: 5 mm calcification is noted in the pastor pelvis superimposed over the urinary bladder. A Green cathet er is present. This likely represents passage of recently noted calculus seen on prior x-ray and CT from 10/05/2017 The bowel gas pattern is unremarkable with no evidence of obstruction. Calcifications are also noted in the right upper quadrant of the abdomen compatible with cholelithia sis. The osseous structures demonstrate spondylosis of the imaged spine with severe degenerative endplate changes at the L4-5 level. The bilateral sacroiliac joints and the pelvis are normal. Osteitis pubi s is present. IMPRESSION: 1. 5 mm calcification in the right pastor pelvis compatible with previously-described calculus now ap parently in urinary bladder. 2. Green catheter in urinary bladder 3. Cholelithiasis. 4. Degenerative changes of the imaged spine as noted above 5. Nonobstructive bowel gas pattern RPTAT: HDC .Elvia Wolfe MD, Date Time Electronically viewed and signed by .Elvia Wolfe MD, on 10/07/2017 09:38 .C/
--- NOTE | 2017-10-07 09:41 | RADRPT ---
PROCEDURE: US Abdomen. CLINICAL INDICATION: Right upper quadrant pain TECHNIQUE: Multiple real-time images were acquired of the patient's abdomen and retroperitoneum ut ilizing a high resolution transducer. COMPARISON: Renal ultrasound 10/06/2017 FINDINGS: Visualized portions of the pancreatic head and proximal body are unremarkable. The liver is diffuse ly increased in echogenicity. This most likely represents fatty infiltration of the liver. The live r is enlarged measuring 21 cm in length. The gallbladder is somewhat distended and contains multiple gallstones. The technologist reports a negative sonographic Bose's sign. The common bile duct measures 7.2 mm in maximal dimension. No free fluid is identified. The right kidney measures 14.2 cm in length. The left kidney measures 15.1 cm in length. There is mi ld left hydronephrosis. The proximal aorta measures 1.9 cm in transverse dimension. The mid aorta measures 1.7 cm in transv erse dimension. The spleen is normal in size measuring 11.8 cm. IMPRESSION: 1. The liver is enlarged measuring 21 cm in length and diffusely increased in echogenicity. This most likely represents fatty infiltration of the liver. 2. The gallbladder is somewhat distended and contains multiple gallstones. There is no evidence of pericholecystic fluid or gallbladder wall thickening. 3. Mild left hydronephrosis. RPTAT:AAJJ Physician Shreya Date Time Electronically viewed and signed by Physician Shreya on 10/07/2017 09:40 /
[2017-10-07] MEDS: morphine 2 MG INJ IV PRN ×2 (11:03→20:00)
--- NOTE | 2017-10-07 11:28 | CONS ---
Date/Time of Note Date/Time of Note DATE: 10/07/17 TIME: 11:26 Assessment/Plan Assessment/Plan Additional Assessment/Plan 1. Atrial flutter, atrial fibrillation with rapid ventricular response, now converted to sinus rhythm where it remains - rate controlled in sinus, will monitor. 2. Hypertension, under reasonable control- better now, on Rx. 3. Status post fall, rule out cardiac etiology- no ana here. 4. Renal failure- improving, stable urine outflow. 5. Acidosis, metabolic- con't to resolve. 6. Anemia. 7. Leukocytosis- on Rx. 8. Psychiatric disorder. Consultation Date/Type/Reason Admit Date/Time Oct 05, 2017 at 22:26 Initial Consult Date 10/06/17 Type of Consultation: Urology Referring Provider: YOSELIN RAMON MD 24 HR Interval Summary Free Text/Dictation converted to sinus rhythm where it remains - rate controlled in sinus, will monitor. ROS: No fever, no chills, no nausea, no vomiting, no diarrhea/constipation No recent weight changes No chest pain, no PND, no orthopnea No dizziness, blurred vision No thirst, no heat or cold intolerance Exam/Review of Systems Vital Signs Vitals Vital Signs Date Time Temp Pulse Resp B/P Pulse Ox O2 Delivery O2 Flow Rate FiO2 10/07/17 10:00 27 120/76 91 Nasal Cannula 2.0 10/07/17 09:00 73 10/07/17 08:00 98.6 Intake and Output 10/06/17 10/06/17 10/07/17 15:00 23:00 07:00 Intake Total 1960 ml 1200 ml Output Total 975 ml 315 ml Balance 985 ml 885 ml Exam General: WN/WD/NAD, AOx 3 HEENT: Unicetric/atraumatic/EOMI (follows commands) NECK: JVD elevated, no thyromegaly Lymph: no lymphadenopathy HEART: regular with no S3, II/ systolic murmur at apex LUNGS: Coarse sounds ABD: soft, NT, ND, +BS : Intact Neuro: non focal SKIN: chronic changes EXT: trace edema Results Result Diagram: 10/07/1731 10/07/17 0531 Results 24 hrs Laboratory Tests Test 10/06/17 11:34 10/06/17 12:45 10/06/17 14:40 10/06/17 15:40 Creatine Kinase 4961 H Creatine Kinase Index Creatinine Kinase MB (Mass) 46.90 H Troponin I 0.066 Blood Gas Specimen Source Blood arterial Arterial Blood Date Drawn 10/06/2017 12:30:44 PM Arterial Blood pH (Temp corrected) 7.337 L Arterial Blood pCO2 (Temp correct) 26.1 L Arterial Blood pO2 (Temp corrected) 70.3 L Arterial Blood HCO3 13.7 L Arterial Blood Base Excess -10.5 L Arterial Blood Oxygen Saturation 93.7 L Issac Test ACCEPTAB Arterial Blood Gas Puncture Site Right Radial Arterial Blood Carboxyhemoglobin 0.2 Arterial Blood Methemoglobin 0.3 Blood Gas A-a O2 Differential 91.3 H Oxyhemoglobin Percent 93.2 Total Hemoglobin 12.4 Blood Gas Temperature 37.0 Blood Gas Modality NASAL CANNULA FiO2 27.0 Blood Gas Notified Whom JLD Blood Gas Notified Time 10/06/2017 12:46:40 PM White Blood Count 11.9 #H Red Blood Count 3.49 #L Hemoglobin 10.8 #L Hematocrit 31.0 #L Mean Corpuscular Volume 88.8 Mean Corpuscular Hemoglobin 30.9 Mean Corpuscular Hemoglobin Concent 34.8 Red Cell Distribution Width 15.1 H Platelet Count 89 L Mean Platelet Volume 13.4 H Neutrophils % Segmented Neutrophils % (Manual) 86 H Band Neutrophils % (Manual) 7 H Lymphocytes % (Manual) 4 L Monocytes % (Manual) 3 Eosinophils % Eosinophils % (Manual) 1 Nucleated Red Blood Cells % 0.0 Neutrophils # Neutrophils # (Manual) 10.3 H Band Neutrophils # 0.8 H Absolute Lymphocytes (Manual) 0.4 L Absolute Monocytes (Manual) 0.3 Eosinophils # Giant Platelets 1 H Poikilocytosis 1+ Anisocytosis 1+ Macrocytosis 1+ Sodium Level 139 Potassium Level 3.8 Chloride Level 108 Carbon Dioxide Level 14 L Anion Gap 21 #H Blood Urea Nitrogen 52 H Creatinine 3.47 #H Glucose Level 72 Uric Acid 8.7 H Calcium Level 7.7 L Phosphorus Level 4.8 Magnesium Level 1.7 Urine Color YELLOW Urine Clarity TURBID A Urine pH 5.0 Urine Specific [place] 1.011 Urine Ketones TRACE A Urine Nitrite NEGATIVE Urine Bilirubin NEGATIVE Urine Urobilinogen NEGATIVE Urine Leukocyte Esterase 3+ H Urine Microscopic RBC 20 H Urine Microscopic WBC > 182 H Urine Hemoglobin 2+ H Urine Random Sodium 51 Urine Random Potassium 37.9 Urine Glucose NEGATIVE Urine Total Protein 2+ H Test 10/07/17 05:26 10/07/17 05:30 10/07/17 05:31 Phosphorus Level 3.1 Prothrombin Time 14.5 H Prothrombin Time Ratio 1.1 INR International Normalized Ratio 1.13 Hepatitis B Surface Antigen NEGATIVE Hepatitis B Core Total Antibody REACTIVE H Hepatitis C Antibody REACTIVE H White Blood Count 9.7 Red Blood Count 3.21 L Hemoglobin 10.1 L Hematocrit 27.7 L Mean Corpuscular Volume 86.3 Mean Corpuscular Hemoglobin 31.5 Mean Corpuscular Hemoglobin Concent 36.5 Red Cell Distribution Width 14.3 Platelet Count 73 L Mean Platelet Volume 13.0 H Neutrophils % Segmented Neutrophils % (Manual) 74 Band Neutrophils % (Manual) 13 H Lymphocytes % Lymphocytes % (Manual) 5 L Reactive Lymphocytes % (Manual) 1 H Monocytes % Monocytes % (Manual) 5 Eosinophils % Eosinophils % (Manual) 1 Basophils % Myelocytes % (Manual) 1 H Nucleated Red Blood Cells % 0.0 Neutrophils # Neutrophils # (Manual) 7.3 Band Neutrophils # 1.2 H Absolute Lymphocytes (Manual) 0.4 L Lymphocytes # Reactive Lymphocytes # 0.0 Monocytes # Absolute Monocytes (Manual) 0.4 Eosinophils # Basophils # Myelocytes # 0.0 Nucleated Red Blood Cells # Dohle Bodies 1+ Platelet Estimate DECREASED Polychromasia 1+ Anisocytosis 1+ Target Cells 1+ Activated Partial Thromboplast Time 39.7 H Sodium Level 138 Potassium Level 3.4 L Chloride Level 101 Carbon Dioxide Level 28 # Anion Gap 12 # Blood Urea Nitrogen 50 H Creatinine 2.84 H Glucose Level 145 # Hemoglobin A1c 5.3 Calcium Level 7.8 L Magnesium Level 1.7 Total Bilirubin 0.5 Direct Bilirubin 0.00 Indirect Bilirubin 0.5 Aspartate Amino Transf (AST/SGOT) 104 H Alanine Aminotransferase (ALT/SGPT) 90 H Alkaline Phosphatase 80 Creatine Kinase 1308 #H Total Protein 5.8 #L Albumin 2.6 #L Globulin 3.20 Albumin/Globulin Ratio 0.81 Triglycerides Level 330 H Cholesterol Level 113 LDL Cholesterol, Calculated 31 HDL Cholesterol 16 L Cholesterol/HDL Ratio 7.0 Thyroid Stimulating Hormone (TSH) 5.790 H Medications Medications Current Medications Diltiazem HCl (Cardizem-D5W 125 Mg/125 ml Drip) 125 ml @ 5 mls/hr TITRATE IV ; Start 10/05/17 at 23:30 Ondansetron HCl (Zofran Inj) 4 mg Q6H PRN IV NAUSEA AND/OR VOMITING; Start at 06:00 Acetaminophen (Tylenol Tab) 650 mg Q6H PRN PO PAIN LEVEL 1-3 OR FEVER; Start 10/06/17 at 06:00 Morphine Sulfate (morphine) 2 mg Q4H PRN IV PAIN LEVEL 7-10 Last administered on 10/07/17 11:03; Admin Dose 2 MG; Start 10/06/17 at 06:00 Heparin Sodium (Porcine) 5000 unit 5,000 unit Q12 SC Last administered on 10/07 08:31; Admin Dose 5,000 UNIT; Start 10/06/17 at 09:00 Cefepime HCl (Maxipime 1gm/50 ml (Pmx)) 50 ml @ 100 mls/hr Q12 IVPB Last administered on 10/07/17 08:28; Admin Dose 100 MLS/HR; Start 10/06/17 at 09: 00 Fish Oil (Fish Oil) 1,000 mg DAILY PO Last administered on 10/07/17 08:29; Admin Dose 1,000 MG; Start 10/06/17 at 09:00 Levothyroxine Sodium (Synthroid) 88 mcg DAILY PO Last administered on 08:29; Admin Dose 88 MCG; Start 10/06/17 at 09:00 Quetiapine Fumarate (Seroquel) 100 mg HS PO Last administered on 10/06/17 20: 44; Admin Dose 100 MG; Start 10/06/17 at 21:00 Tamsulosin HCl (Flomax) 0.4 mg DAILY PO Last administered on 10/06/17 16:03; Admin Dose 0.4 MG; Start 10/06/17 at 13:30 Pantoprazole (Protonix Iv) 40 mg DAILY@06 IV Last administered on 10/07/17 05 :38; Admin Dose 40 MG; Start 10/07/17 at 06:00 Aspirin (Halfprin) 325 mg DAILY PO Last administered on 10/07/17 08:29; Admin Dose 325 MG; Start 10/07/17 at 09:00 Metoprolol Tartrate (Lopressor) 25 mg BID PO Last administered on 10/06/17 20 :45; Admin Dose 25 MG; Start 10/06/17 at 21:00 Metoprolol Tartrate (Lopressor) 5 mg Q4H PRN IV HR>110 Hold SBP<100; Start at 19:30 RAMAKRISHNA ONEAL MD Oct 07, 2017 11:28
--- NOTE | 2017-10-07 11:35 | PN ---
Date/Time of Note Date/Time of Note DATE: 10/07/17 TIME: 11:24 Assessment/Plan VTE Prophylaxis VTE Prophylaxis Intervention: SCD's Lines/Catheters IV [facility] Type [facility]from [facility] Peripheral IV Urinary Cath still in place: Yes Reason Cath still needed: urinary retention Assessment/Plan Chief Complaint/Hosp Course A/P: 67 yo female with hx of dyslipidemia, hypothyroidism, renal stone, seizure d/o, schizoaffective disorder, status post fall at home on the floor for 2 days , with subsequent rhabdomyolysis, AK I with metabolic acidosis, upper and lower GI bleed, elevated troponins. 1. Syncope: unknown etiology: cardiac vs seizure(given hx) vs other, again pt fell and remained in her bathroom x 2 days unable to get up. Head CT showed no acute abnormalities -Follow-up 2D-echo, trend trop, carotid doppler u/s -Appreciate cardiology input, monitor heart rate, get PT and OT consults as well 2. Presumed acute on CKD: 2/ Rhabdo -slowly improving after patient has been on IV fluids with sodium bicarb for the last 24 hours -Continue IVF per renal recommendations -Follow-up renal u/s - urine electrolytes 3.positive troponin -trending down now. -aspirin, beta-max per cardiology recommended -trend trop -2D-echo 4. Rhabdomyolysis -CK levels on admission were 125,000, now down to 1300. -IVF, monitor BUN/creatinine levels, CK levels. 5. Metabolic acidosis -secondary to renal insufficiency -now serum CO2 levels are normal, appears to be resolving overall -Continue IVF per renal recommendations -Monitor BMP, follow-up renal rec's 6. Left UVPJ, Obstructive Uropathy -CT scan of the abdomen and pelvis and that showed a 4 mm left upper ureteral stone with obstruction -IVF, follow-up urology recommendations -Flomax 7. A-flutter with RVR -now in normal sinus rhythm -Follow cardiology recommendations, continue to monitor heart rate -Follow-up TSH 8. Gram-negative emil bacteremia: Patient also positive UTI -Continue broad-spectrum antibiotic, follow final culture results 9. Upper lower GI bleeding: Appreciate GI consult. Of note hepatitis B total core antibody and hepatitis C antibody are both positive. -Monitor for now, follow GI recommendations -Per GI rec's,if the patient starts bleeding or becomes hemodynamically unstable will consider endoscopy Critical care time spent on patient care today equals 50 minutes. Problems: Subjective 24 Hr Interval Summary Free Text/Dictation Patient acidosis appears improved, still lethargic, but tolerating diet now. Seen by multiple specialists. Exam/Review of Systems Vital Signs Vitals Vital Signs Date Time Temp Pulse Resp B/P Pulse Ox O2 Delivery O2 Flow Rate FiO2 10/07/17 10:00 27 120/76 91 Nasal Cannula 2.0 10/07/17 09:00 73 10/07/17 08:00 98.6 Intake and Output 10/06/17 10/06/17 10/07/17 14:59 22:59 06:59 Intake Total 1810 ml 1200 ml Output Total 925 ml 365 ml Balance 885 ml 835 ml Exam GENERAL: Lying in bed, lethargic, no acute distress HEAD: Normocephalic, atraumatic, no tenderness. EYES: Pupils equal reactive to light and accommodation, full extraocular movements, sclera clear, non-icteric, no discharge. EARS/NOSE AND THROAT: Ears normal, nose normal, oropharynx normal, oral membranes well hydrated without lesions. NECK: Supple, no masses, thyroid normal, CHEST: Inspection within normal limits. CARDIOVASCULAR: Heart: Regular rate and rhythm, no murmurs, gallops or rubs. RESPIRATORY: Lungs clear to auscultation and percussion, no wheezing, no rubs GASTROINTESTINAL AND LIVER: Abdomen: Soft, midepigastric and left upper quadrant tenderness, non-distended, no hernias, no masses, no organomegaly, no ascites, no guarding, no rebound tenderness EXTREMITIES: No cyanosis, clubbing or edema. Results Result Diagram: 10/07/17 0531 10/07/17 0531 Results 24 hrs Laboratory Tests Test 10/06/17 11:34 10/06/17 12:45 10/06/17 14:40 10/06/17 15:40 Creatine Kinase 4961 H Creatine Kinase Index Creatinine Kinase MB (Mass) 46.90 H Troponin I 0.066 Blood Gas Specimen Source Blood arterial Arterial Blood Date Drawn 10/06/2017 12:30:44 PM Arterial Blood pH (Temp corrected) 7.337 L Arterial Blood pCO2 (Temp correct) 26.1 L Arterial Blood pO2 (Temp corrected) 70.3 L Arterial Blood HCO3 13.7 L Arterial Blood Base Excess -10.5 L Arterial Blood Oxygen Saturation 93.7 L Issac Test ACCEPTAB Arterial Blood Gas Puncture Site Right Radial Arterial Blood Carboxyhemoglobin 0.2 Arterial Blood Methemoglobin 0.3 Blood Gas A-a O2 Differential 91.3 H Oxyhemoglobin Percent 93.2 Total Hemoglobin 12.4 Blood Gas Temperature 37.0 Blood Gas Modality NASAL CANNULA FiO2 27.0 Blood Gas Notified Whom JLD Blood Gas Notified Time 10/06/2017 12:46:40 PM White Blood Count 11.9 #H Red Blood Count 3.49 #L Hemoglobin 10.8 #L Hematocrit 31.0 #L Mean Corpuscular Volume 88.8 Mean Corpuscular Hemoglobin 30.9 Mean Corpuscular Hemoglobin Concent 34.8 Red Cell Distribution Width 15.1 H Platelet Count 89 L Mean Platelet Volume 13.4 H Neutrophils % Segmented Neutrophils % (Manual) 86 H Band Neutrophils % (Manual) 7 H Lymphocytes % (Manual) 4 L Monocytes % (Manual) 3 Eosinophils % Eosinophils % (Manual) 1 Nucleated Red Blood Cells % 0.0 Neutrophils # Neutrophils # (Manual) 10.3 H Band Neutrophils # 0.8 H Absolute Lymphocytes (Manual) 0.4 L Absolute Monocytes (Manual) 0.3 Eosinophils # Giant Platelets 1 H Poikilocytosis 1+ Anisocytosis 1+ Macrocytosis 1+ Sodium Level 139 Potassium Level 3.8 Chloride Level 108 Carbon Dioxide Level 14 L Anion Gap 21 #H Blood Urea Nitrogen 52 H Creatinine 3.47 #H Glucose Level 72 Uric Acid 8.7 H Calcium Level 7.7 L Phosphorus Level 4.8 Magnesium Level 1.7 Urine Color YELLOW Urine Clarity TURBID A Urine pH 5.0 Urine Specific [place] 1.011 Urine Ketones TRACE A Urine Nitrite NEGATIVE Urine Bilirubin NEGATIVE Urine Urobilinogen NEGATIVE Urine Leukocyte Esterase 3+ H Urine Microscopic RBC 20 H Urine Microscopic WBC > 182 H Urine Hemoglobin 2+ H Urine Random Sodium 51 Urine Random Potassium 37.9 Urine Glucose NEGATIVE Urine Total Protein 2+ H Test 10/07/17 05:26 10/07/17 05:30 10/07/17 05:31 Phosphorus Level 3.1 Prothrombin Time 14.5 H Prothrombin Time Ratio 1.1 INR International Normalized Ratio 1.13 Hepatitis B Surface Antigen NEGATIVE Hepatitis B Core Total Antibody REACTIVE H Hepatitis C Antibody REACTIVE H White Blood Count 9.7 Red Blood Count 3.21 L Hemoglobin 10.1 L Hematocrit 27.7 L Mean Corpuscular Volume 86.3 Mean Corpuscular Hemoglobin 31.5 Mean Corpuscular Hemoglobin Concent 36.5 Red Cell Distribution Width 14.3 Platelet Count 73 L Mean Platelet Volume 13.0 H Neutrophils % Segmented Neutrophils % (Manual) 74 Band Neutrophils % (Manual) 13 H Lymphocytes % Lymphocytes % (Manual) 5 L Reactive Lymphocytes % (Manual) 1 H Monocytes % Monocytes % (Manual) 5 Eosinophils % Eosinophils % (Manual) 1 Basophils % Myelocytes % (Manual) 1 H Nucleated Red Blood Cells % 0.0 Neutrophils # Neutrophils # (Manual) 7.3 Band Neutrophils # 1.2 H Absolute Lymphocytes (Manual) 0.4 L Lymphocytes # Reactive Lymphocytes # 0.0 Monocytes # Absolute Monocytes (Manual) 0.4 Eosinophils # Basophils # Myelocytes # 0.0 Nucleated Red Blood Cells # Dohle Bodies 1+ Platelet Estimate DECREASED Polychromasia 1+ Anisocytosis 1+ Target Cells 1+ Activated Partial Thromboplast Time 39.7 H Sodium Level 138 Potassium Level 3.4 L Chloride Level 101 Carbon Dioxide Level 28 # Anion Gap 12 # Blood Urea Nitrogen 50 H Creatinine 2.84 H Glucose Level 145 # Hemoglobin A1c 5.3 Calcium Level 7.8 L Magnesium Level 1.7 Total Bilirubin 0.5 Direct Bilirubin 0.00 Indirect Bilirubin 0.5 Aspartate Amino Transf (AST/SGOT) 104 H Alanine Aminotransferase (ALT/SGPT) 90 H Alkaline Phosphatase 80 Creatine Kinase 1308 #H Total Protein 5.8 #L Albumin 2.6 #L Globulin 3.20 Albumin/Globulin Ratio 0.81 Triglycerides Level 330 H Cholesterol Level 113 LDL Cholesterol, Calculated 31 HDL Cholesterol 16 L Cholesterol/HDL Ratio 7.0 Thyroid Stimulating Hormone (TSH) 5.790 H Medications Medications Current Medications Diltiazem HCl (Cardizem-D5W 125 Mg/125 ml Drip) 125 ml @ 5 mls/hr TITRATE IV ; Start 10/05/17 at 23:30 Ondansetron HCl (Zofran Inj) 4 mg Q6H PRN IV NAUSEA AND/OR VOMITING; Start at 06:00 Acetaminophen (Tylenol Tab) 650 mg Q6H PRN PO PAIN LEVEL 1-3 OR FEVER; Start 10/06/17 at 06:00 Morphine Sulfate (morphine) 2 mg Q4H PRN IV PAIN LEVEL 7-10 Last administered on 10/07/17t 11:03; Admin Dose 2 MG; Start 10/06/17 at 06:00 Heparin Sodium (Porcine) 5000 unit 5,000 unit Q12 SC Last administered on 10/07 08:31; Admin Dose 5,000 UNIT; Start 10/06/17 at 09:00 Cefepime HCl (Maxipime 1gm/50 ml (Pmx)) 50 ml @ 100 mls/hr Q12 IVPB Last administered on 10/07/17 08:28; Admin Dose 100 MLS/HR; Start 10/06/17 at 09: 00 Fish Oil (Fish Oil) 1,000 mg DAILY PO Last administered on 10/07/17 08:29; Admin Dose 1,000 MG; Start 10/06/17 at 09:00 Levothyroxine Sodium (Synthroid) 88 mcg DAILY PO Last administered on 08:29; Admin Dose 88 MCG; Start 10/06/17 at 09:00 Quetiapine Fumarate (Seroquel) 100 mg HS PO Last administered on 10/06/17 20: 44; Admin Dose 100 MG; Start 10/06/17 at 21:00 Tamsulosin HCl (Flomax) 0.4 mg DAILY PO Last administered on 10/06/17 16:03; Admin Dose 0.4 MG; Start 10/06/17 at 13:30 Pantoprazole (Protonix Iv) 40 mg DAILY@06 IV Last administered on 10/07/17 05 :38; Admin Dose 40 MG; Start 10/07/17 at 06:00 Aspirin (Halfprin) 325 mg DAILY PO Last administered on 10/07/17 08:29; Admin Dose 325 MG; Start 10/07/17 at 09:00 Metoprolol Tartrate (Lopressor) 25 mg BID PO Last administered on 10/06/17 20 :45; Admin Dose 25 MG; Start 10/06/17 at 21:00 Metoprolol Tartrate (Lopressor) 5 mg Q4H PRN IV HR>110 Hold SBP<100; Start at 19:30 ALLEN HARRIS 23, 2017 11:35
[2017-10-07] MEDS: SOD CHLORIDE 0.9% 1,000 ML IV SCH ×2 (13:07→22:42)
[2017-10-07] MEDS ORDERED: POTASSIUM CHLORIDE (SR) 20 MEQ TAB PO STA (13:49)
--- NOTE | 2017-10-07 13:49 | CONS ---
Date/Time of Note Date/Time of Note DATE: 10/07/17 TIME: 13:46 Assessment/Plan Assessment/Plan Additional Assessment/Plan * arf due to nsiads/ arbs/ dehydration and acute rhabdo: better today. place lytes and dc ivf bicarb * rhabdo: due to immobiltly at home. cpk better * severe weakness: due to above * anemia: w/u in progress per pcp * renal stone with hydro: will need gu eval Consultation Date/Type/Reason Admit Date/Time Oct 05, 2017 at 22:26 Initial Consult Date 10/06/17 Type of Consultation: Urology Referring Provider: YOSELIN RAMON MD 24 HR Interval Summary Free Text/Dictation very weak. complains of pain everywhere. thinks diarrhea better Exam/Review of Systems Vital Signs Vitals Vital Signs Date Time Temp Pulse Resp B/P Pulse Ox O2 Delivery O2 Flow Rate FiO2 10/07/17 13:00 75 21 114/59 97 Nasal Cannula 2.0 10/07/17 11:00 98.9 Intake and Output 10/06/17 10/06/17 10/07/17 15:00 23:00 07:00 Intake Total 1960 ml 1200 ml Output Total 975 ml 315 ml Balance 985 ml 885 ml Exam Constitutional: alert, obese, oriented Head: normocephalic Eyes: nl conjunctiva Neck: jvd, non-tender, supple Respiratory: diminished breath sounds Cardiovascular: edema, nl pulses, regular rate and rhythm Gastrointestinal: ascites, non-tender, soft Results Result Diagram: 10/07/17 0531 10/07/17 0531 Results 24 hrs Laboratory Tests Test 10/06/17 14:40 10/06/17 15:40 10/07/17 05:26 10/07/17 05:30 White Blood Count 11.9 #H Red Blood Count 3.49 #L Hemoglobin 10.8 #L Hematocrit 31.0 #L Mean Corpuscular Volume 88.8 Mean Corpuscular Hemoglobin 30.9 Mean Corpuscular Hemoglobin Concent 34.8 Red Cell Distribution Width 15.1 H Platelet Count 89 L Mean Platelet Volume 13.4 H Neutrophils % Segmented Neutrophils % (Manual) 86 H Band Neutrophils % (Manual) 7 H Lymphocytes % (Manual) 4 L Monocytes % (Manual) 3 Eosinophils % Eosinophils % (Manual) 1 Nucleated Red Blood Cells % 0.0 Neutrophils # Neutrophils # (Manual) 10.3 H Band Neutrophils # 0.8 H Absolute Lymphocytes (Manual) 0.4 L Absolute Monocytes (Manual) 0.3 Eosinophils # Giant Platelets 1 H Poikilocytosis 1+ Anisocytosis 1+ Macrocytosis 1+ Sodium Level 139 Potassium Level 3.8 Chloride Level 108 Carbon Dioxide Level 14 L Anion Gap 21 #H Blood Urea Nitrogen 52 H Creatinine 3.47 #H Glucose Level 72 Uric Acid 8.7 H Calcium Level 7.7 L Phosphorus Level 4.8 3.1 Magnesium Level 1.7 Urine Color YELLOW Urine Clarity TURBID A Urine pH 5.0 Urine Specific [place] 1.011 Urine Ketones TRACE A Urine Nitrite NEGATIVE Urine Bilirubin NEGATIVE Urine Urobilinogen NEGATIVE Urine Leukocyte Esterase 3+ H Urine Microscopic RBC 20 H Urine Microscopic WBC > 182 H Urine Hemoglobin 2+ H Urine Random Sodium 51 Urine Random Potassium 37.9 Urine Glucose NEGATIVE Urine Total Protein 2+ H Prothrombin Time 14.5 H Prothrombin Time Ratio 1.1 INR International Normalized Ratio 1.13 Hepatitis B Surface Antigen NEGATIVE Hepatitis B Core Total Antibody REACTIVE H Hepatitis C Antibody REACTIVE H Test 10/07/17 05:31 White Blood Count 9.7 Red Blood Count 3.21 L Hemoglobin 10.1 L Hematocrit 27.7 L Mean Corpuscular Volume 86.3 Mean Corpuscular Hemoglobin 31.5 Mean Corpuscular Hemoglobin Concent 36.5 Red Cell Distribution Width 14.3 Platelet Count 73 L Mean Platelet Volume 13.0 H Neutrophils % Segmented Neutrophils % (Manual) 74 Band Neutrophils % (Manual) 13 H Lymphocytes % Lymphocytes % (Manual) 5 L Reactive Lymphocytes % (Manual) 1 H Monocytes % Monocytes % (Manual) 5 Eosinophils % Eosinophils % (Manual) 1 Basophils % Myelocytes % (Manual) 1 H Nucleated Red Blood Cells % 0.0 Neutrophils # Neutrophils # (Manual) 7.3 Band Neutrophils # 1.2 H Absolute Lymphocytes (Manual) 0.4 L Lymphocytes # Reactive Lymphocytes # 0.0 Monocytes # Absolute Monocytes (Manual) 0.4 Eosinophils # Basophils # Myelocytes # 0.0 Nucleated Red Blood Cells # Dohle Bodies 1+ Platelet Estimate DECREASED Polychromasia 1+ Anisocytosis 1+ Target Cells 1+ Activated Partial Thromboplast Time 39.7 H Sodium Level 138 Potassium Level 3.4 L Chloride Level 101 Carbon Dioxide Level 28 # Anion Gap 12 # Blood Urea Nitrogen 50 H Creatinine 2.84 H Glucose Level 145 # Hemoglobin A1c 5.3 Calcium Level 7.8 L Magnesium Level 1.7 Total Bilirubin 0.5 Direct Bilirubin 0.00 Indirect Bilirubin 0.5 Aspartate Amino Transf (AST/SGOT) 104 H Alanine Aminotransferase (ALT/SGPT) 90 H Alkaline Phosphatase 80 Creatine Kinase 1308 #H Total Protein 5.8 #L Albumin 2.6 #L Globulin 3.20 Albumin/Globulin Ratio 0.81 Triglycerides Level 330 H Cholesterol Level 113 LDL Cholesterol, Calculated 31 HDL Cholesterol 16 L Cholesterol/HDL Ratio 7.0 Thyroid Stimulating Hormone (TSH) 5.790 H Medications Medications Current Medications Diltiazem HCl (Cardizem-D5W 125 Mg/125 ml Drip) 125 ml @ 5 mls/hr TITRATE IV ; Start 10/05/17 at 23:30 Ondansetron HCl (Zofran Inj) 4 mg Q6H PRN IV NAUSEA AND/OR VOMITING; Start at 06:00 Acetaminophen (Tylenol Tab) 650 mg Q6H PRN PO PAIN LEVEL 1-3 OR FEVER; Start 10/06/17 at 06:00 Morphine Sulfate (morphine) 2 mg Q4H PRN IV PAIN LEVEL 7-10 Last administered on 10/07/17 11:03; Admin Dose 2 MG; Start 10/06/17 at 06:00 Heparin Sodium (Porcine) 5000 unit 5,000 unit Q12 SC Last administered on 10/07 08:31; Admin Dose 5,000 UNIT; Start 10/06/17 at 09:00 Cefepime HCl (Maxipime 1gm/50 ml (Pmx)) 50 ml @ 100 mls/hr Q12 IVPB Last administered on 10/07/17 08:28; Admin Dose 100 MLS/HR; Start 10/06/17 at 09: 00 Fish Oil (Fish Oil) 1,000 mg DAILY PO Last administered on 10/07/17 08:29; Admin Dose 1,000 MG; Start 10/06/17 at 09:00 Levothyroxine Sodium (Synthroid) 88 mcg DAILY PO Last administered on 08:29; Admin Dose 88 MCG; Start 10/06/17 at 09:00 Quetiapine Fumarate (Seroquel) 100 mg HS PO Last administered on 10/06/17 20: 44; Admin Dose 100 MG; Start 10/06/17 at 21:00 Tamsulosin HCl (Flomax) 0.4 mg DAILY PO Last administered on 10/06/17 16:03; Admin Dose 0.4 MG; Start 10/06/17 at 13:30 Aspirin (Halfprin) 325 mg DAILY PO Last administered on 10/07/17 08:29; Admin Dose 325 MG; Start 10/07/17 at 09:00 Metoprolol Tartrate (Lopressor) 25 mg BID PO Last administered on 10/06/17 20 :45; Admin Dose 25 MG; Start 10/06/17 at 21:00 Metoprolol Tartrate 5 mg 5 mg Q4H PRN IV HR>110 Hold SBP<100; Start 10/06/17 at 19:30 Sodium Chloride (NS) 1,000 ml @ 100 mls/hr Q10H IV Last administered on 13:07; Admin Dose 100 MLS/HR; Start 10/07/17 at 11:30 Pantoprazole (Protonix Tab) 40 mg DAILY@06 PO ; Start 10/08/17 at 06:00 MADINA SHAW MD Oct 07, 2017 13:49
[2017-10-07] MEDS: QUETIAPINE 100 MG TAB PO SCH (21:08)
[2017-10-08] VITALS (36 sets, daily range): BP systolic 94–153; BP diastolic 57–88; PULSE 63–92; RESP 9–22
[2017-10-08 05:25] LABS: ABNORMAL IP MESSAGE 1; HEMATOCRIT 26.7 % (37.0-47.0); HEMOGLOBIN 9.6 g/dl (12.0-16.0); MEAN CORPUSCULAR HEMOGLOBIN 30.9 pg (29.0-33.0); MEAN CORPUSCULAR VOLUME 85.9 fl (82.0-101.0); MEAN PLATELET VOLUME 12.8 fl (7.4-10.4); PLATELET COUNT 88 10^3/UL (140-415); RED BLOOD COUNT 3.11 10^6/ul (4.20-5.40); RED CELL DISTRIBUTION WIDTH 14.1 % (11.5-14.5); WHITE BLOOD COUNT 9.7 10^3/ul (4.8-10.8)
[2017-10-08] MEDS: PANTOPRAZOLE (EC) 40 MG TAB PO SCH (05:29)
[2017-10-08 05:45] LABS: POSITIVE DIFF @See below
[2017-10-08 05:53] LABS: IRON 15 ug/dl (35-150)
[2017-10-08 06:00] LABS: ALBUMIN 2.4 g/dl (3.3-4.9); ALBUMIN/GLOBULIN RATIO 0.72; BILIRUBIN,INDIRECT 0.5 mg/dl (0-1.1); BILIRUBIN,TOTAL 0.5 mg/dl (0.2-1.3); CALCIUM 8.3 mg/dl (8.4-10.2); CREATININE 2.05 mg/dl (0.44-1.00); MAGNESIUM 1.8 mg/dl (1.7-2.5); PHOSPHORUS 3.1 mg/dl (2.5-4.9); TOTAL PROTEIN 5.7 g/dl (6.1-8.1)
[2017-10-08 06:03] LABS: TOTAL IRON BINDING CAPACITY 182 ug/dl (241-421)
[2017-10-08 06:14] LABS: POTASSIUM 2.9 mmol/L (3.5-5.1)
[2017-10-08] MEDS: POTASSIUM CHLORIDE (SR) 20 MEQ TAB PO SCH ×2 (07:10→08:52)
[2017-10-08] MEDS: morphine 2 MG INJ IV PRN ×4 (07:12→21:20)
[2017-10-08] MEDS: SOD CHLORIDE 0.9% 1,000 ML IV SCH ×2 (07:30→10:00)
[2017-10-08] MEDS: ASPIRIN (EC) 81 MG TAB PO SCH (08:51)
[2017-10-08] MEDS: TAMSULOSIN (SR) 0.4 MG CAP PO SCH (08:52)
[2017-10-08] MEDS: LEVOTHYROXINE 88 MCG TAB PO SCH (08:53)
[2017-10-08] MEDS: METOPROLOL 25 MG TAB PO SCH ×2 (08:53→21:25)
[2017-10-08] MEDS: FISH OIL 1,000 MG CAP PO SCH (08:53)
[2017-10-08] MEDS ORDERED: CEFEPIME 1GM/50 ML (PMX) 50 ML IVPB SCH (09:00)
--- NOTE | 2017-10-08 09:38 | PN ---
Date/Time of Note Date/Time of Note DATE: 10/08/17 TIME: 09:31 Assessment/Plan VTE Prophylaxis VTE Prophylaxis Intervention: SCD's Lines/Catheters IV C[facility]ter Type (from [facility] Peripheral IV Urinary Cath still in place: Yes Reason Cath still needed: urinary retention Assessment/Plan Chief Complaint/Hosp Course A/P: 67 yo female with hx of dyslipidemia, hypothyroidism, renal stone, seizure d/o, schizoaffective disorder, status post fall at home on the floor for 2 days , with subsequent rhabdomyolysis, AK I with metabolic acidosis, upper and lower GI bleed, elevated troponins. 1. Syncope: unknown etiology: cardiac vs seizure(given hx) vs other, again pt fell and remained in her bathroom x 2 days unable to get up. Head CT showed no acute abnormalities - trend trop, carotid doppler u/s -Appreciate cardiology input, monitor heart rate, f/u PT and OT consults as well 2. Presumed acute on CKD: / Rhabdo -slowly improving after patient has been on IV fluids with sodium bicarb, slowly resolving now. -Continue IVF per renal recommendations -Follow-up renal u/s -urine electrolytes 3.positive troponin -trending down now. -aspirin, beta-max per cardiology recommended -trend trop 4. Rhabdomyolysis -CK levels on admission were 125,000, now down to 1300. -IVF, monitor BUN/creatinine levels, CK levels. 5. Metabolic acidosis -secondary to renal insufficiency -now serum CO2 levels are normal, appears to be resolving overall -Continue IVF per renal recommendations -Monitor BMP, follow-up renal rec's 6. Left UVPJ, Obstructive Uropathy -CT scan of the abdomen and pelvis and that showed a 4 mm left upper ureteral stone with obstruction -IVF, follow-up urology recommendations -Flomax 7. A-flutter with RVR -now in normal sinus rhythm -Follow cardiology recommendations, continue to monitor heart rate -Follow-up TSH 8. ESBL ecoli: Found in the blood and in the urine. -Change antibiotics to meropenem based on sensitivities, follow final culture results 9. Upper lower GI bleeding: Appreciate GI consult. Of note hepatitis B total core antibody and hepatitis C antibody are both positive. -Monitor for now, follow GI recommendations -Per GI rec's,if the patient starts bleeding or becomes hemodynamically unstable will consider endoscopy Critical care time spent on patient care today equals 45 minutes. Problems: Subjective 24 Hr Interval Summary Free Text/Dictation Patient more awake and alert, eating food, no acute events overnight. Exam/Review of Systems Vital Signs Vitals Vital Signs Date Time Temp Pulse Resp B/P Pulse Ox O2 Delivery O2 Flow Rate FiO2 10/08/17 05:45 67 10 93 10/08/17 05:00 113/67 10/08/17 04:00 98.3 Nasal Cannula 10/07/17 18:00 2.0 Intake and Output 10/07/17 10/07/17 10/08/17 15:00 23:00 07:00 Intake Total 1460 ml 1240 ml 700 ml Output Total 390 ml 395 ml 450 ml Balance 1070 ml 845 ml 250 ml Exam GENERAL: Lying in bed, lethargic, no acute distress HEAD: Normocephalic, atraumatic, no tenderness. EYES: Pupils equal reactive to light and accommodation, full extraocular movements, sclera clear, non-icteric, no discharge. EARS/NOSE AND THROAT: Ears normal, nose normal, oropharynx normal, oral membranes well hydrated without lesions. NECK: Supple, no masses, thyroid normal, CHEST: Inspection within normal limits. CARDIOVASCULAR: Heart: Regular rate and rhythm, no murmurs, gallops or rubs. RESPIRATORY: Lungs clear to auscultation and percussion, no wheezing, no rubs GASTROINTESTINAL AND LIVER: Abdomen: Soft, midepigastric and left upper quadrant tenderness, non-distended, no hernias, no masses, no organomegaly, no ascites, no guarding, no rebound tenderness EXTREMITIES: No cyanosis, clubbing or edema. Results Result Diagram: 10/08/17 0505 10/08/17 0508 Results 24 hrs Laboratory Tests Test 10/08/17 05:05 10/08/17 05:07 10/08/17 05:08 White Blood Count 9.7 Red Blood Count 3.11 L Hemoglobin 9.6 L Hematocrit 26.7 L Mean Corpuscular Volume 85.9 Mean Corpuscular Hemoglobin 30.9 Mean Corpuscular Hemoglobin Concent 36.0 Red Cell Distribution Width 14.1 Platelet Count 88 #L Mean Platelet Volume 12.8 H Neutrophils % Lymphocytes % Monocytes % Eosinophils % Basophils % Nucleated Red Blood Cells % 0.0 Neutrophils # Lymphocytes # Monocytes # Eosinophils # Basophils # Nucleated Red Blood Cells # Iron Level 15 L Total Iron Binding Capacity 182 L Percent Iron Saturation 8 L Sodium Level 139 Potassium Level 2.9 *L Chloride Level 102 Carbon Dioxide Level 29 Anion Gap 11 Blood Urea Nitrogen 41 H Creatinine 2.05 H Glucose Level 90 # Calcium Level 8.3 L Phosphorus Level 3.1 Magnesium Level 1.8 Ferritin 487.0 H Total Bilirubin 0.5 Direct Bilirubin 0.00 Indirect Bilirubin 0.5 Aspartate Amino Transf (AST/SGOT) 72 H Alanine Aminotransferase (ALT/SGPT) 74 H Alkaline Phosphatase 94 Total Protein 5.7 L Albumin 2.4 L Globulin 3.30 H Albumin/Globulin Ratio 0.72 Medications Medications Current Medications Diltiazem HCl (Cardizem-D5W 125 Mg/125 ml Drip) 125 ml @ 5 mls/hr TITRATE IV ; Start 10/05/17 at 23:30 Ondansetron HCl (Zofran Inj) 4 mg Q6H PRN IV NAUSEA AND/OR VOMITING; Start at 06:00 Acetaminophen (Tylenol Tab) 650 mg Q6H PRN PO PAIN LEVEL 1-3 OR FEVER; Start 10/06/17 at 06:00 Morphine Sulfate (morphine) 2 mg Q4H PRN IV PAIN LEVEL 7-10 Last administered on 10/08/17 07:12; Admin Dose 2 MG; Start 10/06/17 at 06:00 Heparin Sodium (Porcine) (Heparin (5000 Units/0.5 ml)) 5,000 unit Q12 SC Last administered on 10/07/17 21:27; Admin Dose 5,000 UNIT; Start 10/06/17 at 09: 00 Fish Oil (Fish Oil) 1,000 mg DAILY PO Last administered on 10/08/17 08:53; Admin Dose 1,000 MG; Start 10/06/17 at 09:00 Levothyroxine Sodium (Synthroid) 88 mcg DAILY PO Last administered on 08:53; Admin Dose 88 MCG; Start 10/06/17 at 09:00 Quetiapine Fumarate (Seroquel) 100 mg HS PO Last administered on 10/07/17 21: 08; Admin Dose 100 MG; Start 10/06/17 at 21:00 Tamsulosin HCl (Flomax) 0.4 mg DAILY PO Last administered on 10/08/17 08:52; Admin Dose 0.4 MG; Start 10/06/17 at 13:30 Aspirin (Halfprin) 325 mg DAILY PO Last administered on 10/08/17 08:51; Admin Dose 325 MG; Start 10/07/17 at 09:00 Metoprolol Tartrate (Lopressor) 25 mg BID PO Last administered on 10/08/17 08 :53; Admin Dose 25 MG; Start 10/06/17 at 21:00 Metoprolol Tartrate 5 mg 5 mg Q4H PRN IV HR>110 Hold SBP<100; Start 10/06/17 at 19:30 Sodium Chloride (NS) 1,000 ml @ 100 mls/hr Q10H IV Last administered on 22:42; Admin Dose 100 MLS/HR; Start 10/07/17 at 11:30 Pantoprazole 40 mg 40 mg DAILY@06 PO Last administered on 10/08/17 05:29; Admin Dose 40 MG; Start 10/08/17 at 06:00 Cefepime HCl (Maxipime 1gm/50 ml (Pmx)) 50 ml @ 100 mls/hr Q24H IVPB Last administered on 10/08/17 08:50; Admin Dose 100 MLS/HR; Start 10/08/17 at 09: 00 Potassium Chloride 40 meq 40 meq Q4H PO Last administered on 10/08/17 08:52; Admin Dose 40 MEQ; Start 10/08/17 at 07:00; Stop 10/08/17 at 12:00 Ferric Sodium Gluconate Complex/ Sodium Chloride (Ferrlecit/NS) 110 ml @ 100 mls/hr Q24H IVPB ; Start 10/08/17 at 09:30; Stop 10/10/17 at 10:35 Procedures Procedures 2D ECHO: Conclusions 1. Normal left ventricular systolic function. Normal left ventricular cavity size. Sigmoid septum. Ejection fraction is visually estimated at 60 %. Abnormal Diastolic Function. 2. Mild mitral leaflet calcification. Mild mitral annular calcification. Mild to moderate mitral valve regurgitation. 3. Normal appearance of the tricuspid valve. Estimated peak PA systolic pressure 44 mmHg. There is mild to moderate tricuspid regurgitation. 4. Pulmonic valve not well visualized. There is trace pulmonic regurgitation. ALLEN HARRIS 24, 2017 09:38
[2017-10-08] MEDS ORDERED: MEROPENEM 1 GM/50ML(PMX) 50 ML IVPB SCH (10:00)
[2017-10-08] MEDS: SOD FERRIC GLUC COMPLX 125 MG in SOD CHLORIDE 0.9% 100 ML IVPB SCH ×2 (10:30→11:14)
[2017-10-08 10:43] LABS: EOSINOPHILS # 0.2 10^3/ul (0.0-0.5); EOSINOPHILS % (M) 2 % (0.0-7.0); LYMPHOCYTES # 0.7 10^3/ul (0.8-2.9); MONOCYTE # 0.7 10^3/ul (0.3-0.9); MONOCYTES % (M) 7 % (0-11)
[2017-10-08 11:51] LABS: MITOCHONDRIAL TB NEGATIVE (NEGATIVE)
--- NOTE | 2017-10-08 12:37 | CONS ---
Date/Time of Note Date/Time of Note DATE: 10/08/17 TIME: 12:25 Consult Date/Type/Reason Admit Date/Time Oct 05, 2017 at 22:26 Initial Consult Date 10/06/17 Type of Consultation: Urology Reason for Consultation Left ureteral stone Ordering Provider: YOSELIN RAMON MD Subjective The patient stated that she still having pain but there is no nausea or vomiting Objective Vital Signs Date Time Temp Pulse Resp B/P Pulse Ox O2 Delivery O2 Flow Rate FiO2 10/08/17 12:00 70 10/08/17 05:45 10 93 10/08/17 05:00 113/67 10/08/17 04:00 98.3 Nasal Cannula 10/07/17 18:00 2.0 Intake and Output 10/07/17 10/07/17 10/08/17 14:59 22:59 06:59 Intake Total 1510 ml 1240 ml 800 ml Output Total 310 ml 425 ml 500 ml Balance 1200 ml 815 ml 300 ml Exam Left upper quadrant and left flank tenderness Results/Medications Result Diagram: 10/08/17 0505 10/08/17 0508 Results 24 hrs Laboratory Tests Test 10/08/17 05:05 10/08/17 05:07 10/08/17 05:08 White Blood Count 9.7 Red Blood Count 3.11 L Hemoglobin 9.6 L Hematocrit 26.7 L Mean Corpuscular Volume 85.9 Mean Corpuscular Hemoglobin 30.9 Mean Corpuscular Hemoglobin Concent 36.0 Red Cell Distribution Width 14.1 Platelet Count 88 #L Mean Platelet Volume 12.8 H Neutrophils % Segmented Neutrophils % (Manual) 81 H Band Neutrophils % (Manual) 3 Lymphocytes % Lymphocytes % (Manual) 7 L Monocytes % Monocytes % (Manual) 7 Eosinophils % Eosinophils % (Manual) 2 Basophils % Nucleated Red Blood Cells % 0.0 Neutrophils # Neutrophils # (Manual) 7.9 H Band Neutrophils # 0.2 Absolute Lymphocytes (Manual) 0.6 L Lymphocytes # 0.7 L Monocytes # 0.7 Absolute Monocytes (Manual) 0.6 Eosinophils # 0.2 Basophils # Nucleated Red Blood Cells # Iron Level 15 L Total Iron Binding Capacity 182 L Percent Iron Saturation 8 L Sodium Level 139 Potassium Level 2.9 *L Chloride Level 102 Carbon Dioxide Level 29 Anion Gap 11 Blood Urea Nitrogen 41 H Creatinine 2.05 H Glucose Level 90 # Calcium Level 8.3 L Phosphorus Level 3.1 Magnesium Level 1.8 Ferritin 487.0 H Total Bilirubin 0.5 Direct Bilirubin 0.00 Indirect Bilirubin 0.5 Aspartate Amino Transf (AST/SGOT) 72 H Alanine Aminotransferase (ALT/SGPT) 74 H Alkaline Phosphatase 94 Total Protein 5.7 L Albumin 2.4 L Globulin 3.30 H Albumin/Globulin Ratio 0.72 Medications Current Medications Diltiazem HCl (Cardizem-D5W 125 Mg/125 ml Drip) 125 ml @ 5 mls/hr TITRATE IV ; Start 10/05/17 at 23:30 Ondansetron HCl (Zofran Inj) 4 mg Q6H PRN IV NAUSEA AND/OR VOMITING; Start at 06:00 Acetaminophen (Tylenol Tab) 650 mg Q6H PRN PO PAIN LEVEL 1-3 OR FEVER; Start 10/06/17 at 06:00 Morphine Sulfate (morphine) 2 mg Q4H PRN IV PAIN LEVEL 7-10 Last administered on 10/08/17 11:15; Admin Dose 2 MG; Start 10/06/17 at 06:00 Fish Oil (Fish Oil) 1,000 mg DAILY PO Last administered on 10/08/17 08:53; Admin Dose 1,000 MG; Start 10/06/17 at 09:00 Levothyroxine Sodium (Synthroid) 88 mcg DAILY PO Last administered on 08:53; Admin Dose 88 MCG; Start 10/06/17 at 09:00 Quetiapine Fumarate (Seroquel) 100 mg HS PO Last administered on 10/07/17 21: 08; Admin Dose 100 MG; Start 10/06/17 at 21:00 Tamsulosin HCl (Flomax) 0.4 mg DAILY PO Last administered on 10/08/17 08:52; Admin Dose 0.4 MG; Start 10/06/17 at 13:30 Aspirin (Halfprin) 325 mg DAILY PO Last administered on 10/08/17 08:51; Admin Dose 325 MG; Start 10/07/17 at 09:00 Metoprolol Tartrate (Lopressor) 25 mg BID PO Last administered on 10/08/17 08 :53; Admin Dose 25 MG; Start 10/06/17 at 21:00 Metoprolol Tartrate 5 mg 5 mg Q4H PRN IV HR>110 Hold SBP<100; Start 10/06/17 at 19:30 Sodium Chloride (NS) 1,000 ml @ 100 mls/hr Q10H IV Last administered on 10:00; Admin Dose 100 MLS/HR; Start 10/07/17 at 11:30 Pantoprazole 40 mg 40 mg DAILY@06 PO Last administered on 10/08/17 05:29; Admin Dose 40 MG; Start 10/08/17 at 06:00 Ferric Sodium Gluconate Complex/ Sodium Chloride (Ferrlecit/NS) 110 ml @ 100 mls/hr Q24H IVPB Last administered on 10/08/17 11:14; Admin Dose 100 MLS/HR; Start 10/08/17 at 09:30; Stop 10/10/17 at 10:35 Assessment/Plan Chief Complaint/Hosp Course 67-year-old female was found on the floor in her house after she fell and she was on the floor for 2 days. Patient did also have some bloody emesis and GI bleed. After admission she had a CT scan of the abdomen and pelvis and that showed a 4 mm left upper ureteral stone with obstruction. KUB yesterday showed : 1. 5 mm calcification in the right pastor pelvis compatible with previously- described calculus now apparently in urinary bladder.(I doubt that the stone is in the bladder since on the ultrasound she still have hydronephrosis) 2. Green catheter in urinary bladder 3. Cholelithiasis. 4. Degenerative changes of the imaged spine 5. Nonobstructive bowel gas pattern The urine culture did show E. coli ESBL and the patient was put on meropenem Recommendation: Continue to strain the urine, continue meropenem, continue tamsulosin, repeat the KUB Problems: FRANNY DEE MD Oct 08, 2017 12:35
--- NOTE | 2017-10-08 12:46 | CONS ---
Date/Time of Note Date/Time of Note DATE: 10/08/17 TIME: 12:41 Assessment/Plan Assessment/Plan Additional Assessment/Plan * arf due to rhabdomyolysis, prerenal azotemia, obstructing renal stone. Replace potassium, lower IV rate, monitor renal function. * rhabdo: due to fall, immobilization - resolving * severe weakness: due to above * anemia: low TSat - receiving IV Iron. Monitor Hb * renal stone with hydro: gu eval appreciated. * ESBL E coli UTI and bacteremia. Continue antibiotics. Consultation Date/Type/Reason Admit Date/Time Oct 05, 2017 at 22:26 Initial Consult Date 10/06/17 Type of Consultation: Nephrology Referring Provider: YOSELIN RAMON MD 24 HR Interval Summary Free Text/Dictation Complains of lower ext pain Exam/Review of Systems Vital Signs Vitals Vital Signs Date Time Temp Pulse Resp B/P Pulse Ox O2 Delivery O2 Flow Rate FiO2 10/08/17 12:00 70 10/08/17 05:45 10 93 10/08/17 05:00 113/67 10/08/17 04:00 98.3 Nasal Cannula 10/07/17 18:00 2.0 Intake and Output 10/07/17 10/07/17 10/08/17 15:00 23:00 07:00 Intake Total 1460 ml 1240 ml 700 ml Output Total 390 ml 395 ml 450 ml Balance 1070 ml 845 ml 250 ml Exam Constitutional: alert Head: normocephalic Neck: supple Respiratory: clear to auscultation Gastrointestinal: non-tender, soft Extremities: No edema Results Result Diagram: 10/08/17 0505 10/08/17 0508 Results 24 hrs Laboratory Tests Test 10/08/17 05:05 10/08/17 05:07 10/08/17 05:08 White Blood Count 9.7 Red Blood Count 3.11 L Hemoglobin 9.6 L Hematocrit 26.7 L Mean Corpuscular Volume 85.9 Mean Corpuscular Hemoglobin 30.9 Mean Corpuscular Hemoglobin Concent 36.0 Red Cell Distribution Width 14.1 Platelet Count 88 #L Mean Platelet Volume 12.8 H Neutrophils % Segmented Neutrophils % (Manual) 81 H Band Neutrophils % (Manual) 3 Lymphocytes % Lymphocytes % (Manual) 7 L Monocytes % Monocytes % (Manual) 7 Eosinophils % Eosinophils % (Manual) 2 Basophils % Nucleated Red Blood Cells % 0.0 Neutrophils # Neutrophils # (Manual) 7.9 H Band Neutrophils # 0.2 Absolute Lymphocytes (Manual) 0.6 L Lymphocytes # 0.7 L Monocytes # 0.7 Absolute Monocytes (Manual) 0.6 Eosinophils # 0.2 Basophils # Nucleated Red Blood Cells # Iron Level 15 L Total Iron Binding Capacity 182 L Percent Iron Saturation 8 L Sodium Level 139 Potassium Level 2.9 *L Chloride Level 102 Carbon Dioxide Level 29 Anion Gap 11 Blood Urea Nitrogen 41 H Creatinine 2.05 H Glucose Level 90 # Calcium Level 8.3 L Phosphorus Level 3.1 Magnesium Level 1.8 Ferritin 487.0 H Total Bilirubin 0.5 Direct Bilirubin 0.00 Indirect Bilirubin 0.5 Aspartate Amino Transf (AST/SGOT) 72 H Alanine Aminotransferase (ALT/SGPT) 74 H Alkaline Phosphatase 94 Total Protein 5.7 L Albumin 2.4 L Globulin 3.30 H Albumin/Globulin Ratio 0.72 Medications Medications Current Medications Diltiazem HCl (Cardizem-D5W 125 Mg/125 ml Drip) 125 ml @ 5 mls/hr TITRATE IV ; Start 10/05/17 at 23:30 Ondansetron HCl (Zofran Inj) 4 mg Q6H PRN IV NAUSEA AND/OR VOMITING; Start at 06:00 Acetaminophen (Tylenol Tab) 650 mg Q6H PRN PO PAIN LEVEL 1-3 OR FEVER; Start 10/06/17 at 06:00 Morphine Sulfate (morphine) 2 mg Q4H PRN IV PAIN LEVEL 7-10 Last administered on 10/08/17 11:15; Admin Dose 2 MG; Start 10/06/17 at 06:00 Fish Oil (Fish Oil) 1,000 mg DAILY PO Last administered on 10/08/17 08:53; Admin Dose 1,000 MG; Start 10/06/17 at 09:00 Levothyroxine Sodium (Synthroid) 88 mcg DAILY PO Last administered on 08:53; Admin Dose 88 MCG; Start 10/06/17 at 09:00 Quetiapine Fumarate (Seroquel) 100 mg HS PO Last administered on 10/07/17 21: 08; Admin Dose 100 MG; Start 10/06/17 at 21:00 Tamsulosin HCl (Flomax) 0.4 mg DAILY PO Last administered on 10/08/17 08:52; Admin Dose 0.4 MG; Start 10/06/17 at 13:30 Aspirin (Halfprin) 325 mg DAILY PO Last administered on 10/08/17 08:51; Admin Dose 325 MG; Start 10/07/17 at 09:00 Metoprolol Tartrate (Lopressor) 25 mg BID PO Last administered on 10/08/17 08 :53; Admin Dose 25 MG; Start 10/06/17 at 21:00 Metoprolol Tartrate 5 mg 5 mg Q4H PRN IV HR>110 Hold SBP<100; Start 10/06/17 at 19:30 Sodium Chloride (NS) 1,000 ml @ 100 mls/hr Q10H IV Last administered on 10:00; Admin Dose 100 MLS/HR; Start 10/07/17 at 11:30 Pantoprazole 40 mg 40 mg DAILY@06 PO Last administered on 10/08/17 05:29; Admin Dose 40 MG; Start 10/08/17 at 06:00 Ferric Sodium Gluconate Complex/ Sodium Chloride (Ferrlecit/NS) 110 ml @ 100 mls/hr Q24H IVPB Last administered on 10/08/17 11:14; Admin Dose 100 MLS/HR; Start 10/08/17 at 09:30; Stop 10/10/17 at 10:35 MIKAYLA NELSON MD Oct 08, 2017 12:46
[2017-10-08 12:58] LABS: CALCIUM 7.7 mg/dl (8.4-10.2); CREATININE 1.69 mg/dl (0.44-1.00); POTASSIUM 3.4 mmol/L (3.5-5.1)
[2017-10-08] MEDS ORDERED: POTASSIUM CHLORIDE 20 MEQ POWDER FOR ORAL SOLN PO PRN ×3 (13:00)
--- NOTE | 2017-10-08 13:03 | CONS ---
Date/Time of Note Date/Time of Note DATE: 10/08/17 TIME: 13:00 Assessment/Plan Assessment/Plan Additional Assessment/Plan 1. Atrial flutter, atrial fibrillation with rapid ventricular response, now converted to sinus rhythm where it remains - rate controlled in sinus, will monitor. In sinus now. 2. Hypertension, under reasonable control- better now, on Rx. WELL RX. 3. Status post fall, rule out cardiac etiology- no ana here. No new episodes. 4. Renal failure- improving, stable urine outflow. Improved. 5. Acidosis, metabolic- con't to resolve. 6. Anemia - H/H stable, no bleed. 7. Leukocytosis- on Rx. 8. Psychiatric disorder. Consultation Date/Type/Reason Admit Date/Time Oct 05, 2017 at 22:26 Initial Consult Date 10/06/17 Type of Consultation: Nephrology Referring Provider: YOSELIN RAMON MD 24 HR Interval Summary Free Text/Dictation NO acute events - BP in good range - in good spirits. ROS: No fever, no chills, no nausea, no vomiting, no diarrhea/constipation No recent weight changes No chest pain, no PND, no orthopnea No dizziness, blurred vision No thirst, no heat or cold intolerance Exam/Review of Systems Vital Signs Vitals Vital Signs Date Time Temp Pulse Resp B/P Pulse Ox O2 Delivery O2 Flow Rate FiO2 10/08/17 12:00 70 10/08/17 05:45 10 93 10/08/17 05:00 113/67 10/08/17 04:00 98.3 Nasal Cannula 10/07/17 18:00 2.0 Intake and Output 10/07/17 10/07/17 10/08/17 14:59 22:59 06:59 Intake Total 1510 ml 1240 ml 800 ml Output Total 310 ml 425 ml 500 ml Balance 1200 ml 815 ml 300 ml Exam General: WN/WD/NAD, AOx 3 HEENT: Unicetric/atraumatic/EOMI (follow commands) NECK: JVD elevated, no thyromegaly Lymph: no lymphadenopathy HEART: regular with no S3, II/ systolic murmur at apex LUNGS: Coarse sounds ABD: soft, NT, ND, +BS : Intact Neuro: non focal SKIN: chronic changes EXT: trace edema Results Result Diagram: 10/08/17 0505 10/08/17 1228 Results 24 hrs Laboratory Tests Test 10/08/17 05:05 10/08/17 05:07 10/08/17 05:08 10/08/17 12:28 White Blood Count 9.7 Red Blood Count 3.11 L Hemoglobin 9.6 L Hematocrit 26.7 L Mean Corpuscular Volume 85.9 Mean Corpuscular Hemoglobin 30.9 Mean Corpuscular Hemoglobin Concent 36.0 Red Cell Distribution Width 14.1 Platelet Count 88 #L Mean Platelet Volume 12.8 H Neutrophils % Segmented Neutrophils % (Manual) 81 H Band Neutrophils % (Manual) 3 Lymphocytes % Lymphocytes % (Manual) 7 L Monocytes % Monocytes % (Manual) 7 Eosinophils % Eosinophils % (Manual) 2 Basophils % Nucleated Red Blood Cells % 0.0 Neutrophils # Neutrophils # (Manual) 7.9 H Band Neutrophils # 0.2 Absolute Lymphocytes (Manual) 0.6 L Lymphocytes # 0.7 L Monocytes # 0.7 Absolute Monocytes (Manual) 0.6 Eosinophils # 0.2 Basophils # Nucleated Red Blood Cells # Iron Level 15 L Total Iron Binding Capacity 182 L Percent Iron Saturation 8 L Sodium Level 139 139 Potassium Level 2.9 *L 3.4 L Chloride Level 102 104 Carbon Dioxide Level 29 23 Anion Gap 11 15 Blood Urea Nitrogen 41 H 37 H Creatinine 2.05 H 1.69 H Glucose Level 90 # 81 Calcium Level 8.3 L 7.7 L Phosphorus Level 3.1 Magnesium Level 1.8 Ferritin 487.0 H Total Bilirubin 0.5 Direct Bilirubin 0.00 Indirect Bilirubin 0.5 Aspartate Amino Transf (AST/SGOT) 72 H Alanine Aminotransferase (ALT/SGPT) 74 H Alkaline Phosphatase 94 Total Protein 5.7 L Albumin 2.4 L Globulin 3.30 H Albumin/Globulin Ratio 0.72 Medications Medications Current Medications Diltiazem HCl (Cardizem-D5W 125 Mg/125 ml Drip) 125 ml @ 5 mls/hr TITRATE IV ; Start 10/05/17 at 23:30 Ondansetron HCl (Zofran Inj) 4 mg Q6H PRN IV NAUSEA AND/OR VOMITING; Start at 06:00 Acetaminophen (Tylenol Tab) 650 mg Q6H PRN PO PAIN LEVEL 1-3 OR FEVER; Start 10/06/17 at 06:00 Morphine Sulfate (morphine) 2 mg Q4H PRN IV PAIN LEVEL 7-10 Last administered on 10/08/17 11:15; Admin Dose 2 MG; Start 10/06/17 at 06:00 Fish Oil (Fish Oil) 1,000 mg DAILY PO Last administered on 10/08/17 08:53; Admin Dose 1,000 MG; Start 10/06/17 at 09:00 Levothyroxine Sodium (Synthroid) 88 mcg DAILY PO Last administered on 08:53; Admin Dose 88 MCG; Start 10/06/17 at 09:00 Quetiapine Fumarate (Seroquel) 100 mg HS PO Last administered on 10/07/17 21: 08; Admin Dose 100 MG; Start 10/06/17 at 21:00 Tamsulosin HCl (Flomax) 0.4 mg DAILY PO Last administered on 10/08/17 08:52; Admin Dose 0.4 MG; Start 10/06/17 at 13:30 Aspirin (Halfprin) 325 mg DAILY PO Last administered on 10/08/17 08:51; Admin Dose 325 MG; Start 10/07/17 at 09:00 Metoprolol Tartrate (Lopressor) 25 mg BID PO Last administered on 10/08/17 08 :53; Admin Dose 25 MG; Start 10/06/17 at 21:00 Metoprolol Tartrate 5 mg 5 mg Q4H PRN IV HR>110 Hold SBP<100; Start 10/06/17 at 19:30 Sodium Chloride (NS) 1,000 ml @ 50 mls/hr Q20H IV Last administered on 10:00; Admin Dose 100 MLS/HR; Start 10/07/17 at 11:30 Pantoprazole 40 mg 40 mg DAILY@06 PO Last administered on 10/08/17 05:29; Admin Dose 40 MG; Start 10/08/17 at 06:00 Ferric Sodium Gluconate Complex/ Sodium Chloride (Ferrlecit/NS) 110 ml @ 100 mls/hr Q24H IVPB Last administered on 10/08/17 11:14; Admin Dose 100 MLS/HR; Start 10/08/17 at 09:30; Stop 10/10/17 at 10:35 RAMAKRISHNA ONEAL MD Oct 08, 2017 13:03
[2017-10-08 14:47] LABS: ANA SCREEN NEGATIVE (NEGATIVE)
--- NOTE | 2017-10-08 16:10 | RADRPT ---
Vent Rate: 71 bpm RR Interval: 0 msec VA Interval: 160 msec QRS Duration: 90 msec QT Interval: 400 msec QTC Interval: 434 msec P-R-T [place]: 26 - 14 - 27 degrees Normal sinus rhythm Normal ECG Electronically Signed By: Yg Caraballo [id number]
[2017-10-08] MEDS: MEROPENEM 1 GM/50ML(PMX) 50 ML IVPB SCH (21:21)
[2017-10-08] MEDS: MUPIROCIN 2% 22 GM OINT TOP SCH (21:21)
[2017-10-08] MEDS: QUETIAPINE 100 MG TAB PO SCH (22:07)
[2017-10-09] VITALS (12 sets, daily range): BP systolic 124–144; BP diastolic 52–73; PULSE 65–87; RESP 19–20
[2017-10-09] MEDS: PANTOPRAZOLE (EC) 40 MG TAB PO SCH (05:34)
[2017-10-09] MEDS: MEROPENEM 1 GM/50ML(PMX) 50 ML IVPB SCH ×3 (05:34→21:56)
[2017-10-09] MEDS: morphine 2 MG INJ IV PRN ×3 (08:16→21:40)
[2017-10-09] MEDS: LEVOTHYROXINE 88 MCG TAB PO SCH (08:18)
[2017-10-09] MEDS: TAMSULOSIN (SR) 0.4 MG CAP PO SCH (08:18)
[2017-10-09] MEDS: MUPIROCIN 2% 22 GM OINT TOP SCH ×2 (08:19→21:54)
[2017-10-09] MEDS: FISH OIL 1,000 MG CAP PO SCH (08:19)
[2017-10-09] MEDS: ASPIRIN (EC) 81 MG TAB PO SCH (08:19)
[2017-10-09] MEDS: METOPROLOL 25 MG TAB PO SCH ×2 (08:20→21:41)
--- NOTE | 2017-10-09 08:51 | CONS ---
Date/Time of Note Date/Time of Note DATE: 10/09/17 TIME: 08:49 Assessment/Plan Assessment/Plan Additional Assessment/Plan 1. Atrial flutter, atrial fibrillation with rapid ventricular response, now converted to sinus rhythm where it remains - rate controlled in sinus, will monitor. In sinus now. TELE now - no new episodes of arrhythmia. 2. Hypertension, under reasonable control- better now, on Rx. WELL RX. 3. Status post fall, rule out cardiac etiology- no ana here. No new episodes. BETTER. 4. Renal failure- improving, stable urine outflow. Improved. Con't to improve - good urine output. 5. Acidosis, metabolic- con't to resolve. 6. Anemia - H/H stable, no bleed. 7. Leukocytosis- on Rx. 8. Psychiatric disorder- no agition now. Consultation Date/Type/Reason Admit Date/Time Oct 05, 2017 at 22:26 Initial Consult Date 10/06/17 Type of Consultation: Nephrology Referring Provider: YOSELIN RAMON MD 24 HR Interval Summary Free Text/Dictation rate controlled in sinus, will monitor. In sinus now. TELE now - no new episodes of arrhythmia. ROS: No fever, no chills, no nausea, no vomiting, no diarrhea/constipation No recent weight changes No chest pain, no PND, no orthopnea No dizziness, blurred vision No thirst, no heat or cold intolerance Exam/Review of Systems Vital Signs Vitals Vital Signs Date Time Temp Pulse Resp B/P Pulse Ox O2 Delivery O2 Flow Rate FiO2 10/09/17 08:00 70 10/09/17 07:47 98.1 19 139/67 96 10/08/17 20:00 Nasal Cannula 2.0 Intake and Output 10/08/17 10/08/17 10/09/17 14:59 22:59 06:59 Intake Total 570 ml 50 ml 790 ml Output Total 560 ml 600 ml Balance 10 ml 50 ml 190 ml Exam General: WN/WD/NAD, AOx3 HEENT: Unicetric/atraumatic/EOMI (follows commands) NECK: JVD elevated, no thyromegaly Lymph: no lymphadenopathy HEART: regular with no S3, II/ systolic murmur at apex LUNGS: Coarse sounds ABD: soft, NT, ND, +BS : Intact Neuro: non focal SKIN: chronic changes EXT: trace edema Results Result Diagram: 10/08/17 0505 10/08/17 1228 Results 24 hrs Laboratory Tests Test 10/08/17 12:28 10/09/17 07:51 Sodium Level 139 Potassium Level 3.4 L Chloride Level 104 Carbon Dioxide Level 23 Anion Gap 15 Blood Urea Nitrogen 37 H Creatinine 1.69 H Glucose Level 81 Calcium Level 7.7 L White Blood Count Pending Red Blood Count Pending Hemoglobin Pending Hematocrit Pending Mean Corpuscular Volume Pending Mean Corpuscular Hemoglobin Pending Mean Corpuscular Hemoglobin Concent Pending Red Cell Distribution Width Pending Platelet Count Pending Mean Platelet Volume Pending Medications Medications Current Medications Ondansetron HCl (Zofran Inj) 4 mg Q6H PRN IV NAUSEA AND/OR VOMITING; Start at 06:00 Acetaminophen (Tylenol Tab) 650 mg Q6H PRN PO PAIN LEVEL 1-3 OR FEVER; Start 10/06/17 at 06:00 Morphine Sulfate (morphine) 2 mg Q4H PRN IV PAIN LEVEL 7-10 Last administered on 10/09/17 08:16; Admin Dose 2 MG; Start 10/06/17 at 06:00 Fish Oil (Fish Oil) 1,000 mg DAILY PO Last administered on 10/09/17 08:19; Admin Dose 1,000 MG; Start 10/06/17 at 09:00 Levothyroxine Sodium (Synthroid) 88 mcg DAILY PO Last administered on 08:18; Admin Dose 88 MCG; Start 10/06/17 at 09:00 Quetiapine Fumarate (Seroquel) 100 mg HS PO Last administered on 10/08/17 22: 07; Admin Dose 100 MG; Start 10/06/17 at 21:00 Tamsulosin HCl (Flomax) 0.4 mg DAILY PO Last administered on 10/09/17 08:18; Admin Dose 0.4 MG; Start 10/06/17 at 13:30 Aspirin (Halfprin) 325 mg DAILY PO Last administered on 10/09/17 08:19; Admin Dose 325 MG; Start 10/07/17 at 09:00 Metoprolol Tartrate (Lopressor) 25 mg BID PO Last administered on 10/09/17 08 :20; Admin Dose 25 MG; Start 10/06/17 at 21:00 Metoprolol Tartrate 5 mg 5 mg Q4H PRN IV HR>110 Hold SBP<100; Start 10/06/17 at 19:30 Sodium Chloride (NS) 1,000 ml @ 50 mls/hr Q20H IV Last administered on 10:00; Admin Dose 100 MLS/HR; Start 10/07/17 at 11:30 Pantoprazole 40 mg 40 mg DAILY@06 PO Last administered on 10/09/17 05:34; Admin Dose 40 MG; Start 10/08/17 at 06:00 Ferric Sodium Gluconate Complex/ Sodium Chloride (Ferrlecit/NS) 110 ml @ 100 mls/hr Q24H IVPB Last administered on 10/08/17 11:14; Admin Dose 100 MLS/HR; Start 10/08/17 at 09:30; Stop 10/10/17 at 10:35 Mupirocin 1 applic 1 applic BID TOP Last administered on 10/09/17 08:19; Admin Dose 1 APPLIC; Start 10/08/17 at 21:00 Meropenem/Sodium Chloride (Merrem 1 Gm/50 ml (Pmx)) 50 ml @ 100 mls/hr Q8 IVPB Last administered on 10/09/17 05:34; Admin Dose 100 MLS/HR; Start 10/08/17 at 22:00 RAMAKRISHNA ONEAL MD Oct 09, 2017 08:51
[2017-10-09 08:58] LABS: ALBUMIN 2.7 g/dl (3.3-4.9); ALBUMIN/GLOBULIN RATIO 0.87; BILIRUBIN,INDIRECT 0.3 mg/dl (0-1.1); BILIRUBIN,TOTAL 0.3 mg/dl (0.2-1.3); CALCIUM 9.1 mg/dl (8.4-10.2); CREATININE 1.71 mg/dl (0.44-1.00); POTASSIUM 3.5 mmol/L (3.5-5.1); TOTAL PROTEIN 5.8 g/dl (6.1-8.1)
[2017-10-09 09:56] LABS: ABNORMAL IP MESSAGE 1; HEMOGLOBIN 10.4 g/dl (12.0-16.0); MEAN CORPUSCULAR HEMOGLOBIN 31.4 pg (29.0-33.0); MEAN CORPUSCULAR HGB CONC 35.9 g/dl (32.0-37.0); MEAN CORPUSCULAR VOLUME 87.6 fl (82.0-101.0); MEAN PLATELET VOLUME 12.7 fl (7.4-10.4); PLATELET COUNT 141 10^3/UL (140-415); RED BLOOD COUNT 3.31 10^6/ul (4.20-5.40); RED CELL DISTRIBUTION WIDTH 14.6 % (11.5-14.5)
[2017-10-09 10:02] LABS: POSITIVE DIFF @See below
[2017-10-09 10:47] LABS: ANISOCYTOSIS 2+ (0-0); EOSINOPHILS % (M) 1 % (0-7); GIANT THROMBO% (M) 1 % (0-0); MONOCYTES % (M) 1 % (0-11); MYELOCYTES % (M) 1 % (0-0); PLATELET ESTIMATE NORMAL; POLYCHROMASIA 3+ (0-0); PROMYELOCYTES #M 0.2 10^3/ul (0-0); PROMYELOCYTES % (M) 2 % (0-0)
[2017-10-09] MEDS: SOD CHLORIDE 0.9% 1,000 ML IV SCH (13:30)
--- NOTE | 2017-10-09 13:30 | CONS ---
Date/Time of Note Date/Time of Note DATE: 10/09/17 TIME: 13:28 Assessment/Plan Assessment/Plan Chief Complaint/Hosp Course * arf due to rhabdomyolysis, prerenal azotemia, obstructing renal stone. Improved renal function. * rhabdo: due to fall, immobilization - resolving * severe weakness: due to above * anemia: low TSat - receiving IV Iron. Monitor Hb * renal stone with hydro: gu eval appreciated. On tamsulosin and IVF. * ESBL E coli UTI and bacteremia. Continue Meropenem Problems: Consultation Date/Type/Reason Admit Date/Time Oct 05, 2017 at 22:26 Initial Consult Date 10/06/17 Type of Consultation: Nephrology Referring Provider: YOSELIN RAMON MD 24 HR Interval Summary Free Text/Dictation Complains of flank pain Exam/Review of Systems Vital Signs Vitals Vital Signs Date Time Temp Pulse Resp B/P Pulse Ox O2 Delivery O2 Flow Rate FiO2 10/09/17 12:00 65 10/09/17 11:33 98.1 19 130/63 93 10/08/17 20:00 Nasal Cannula 2.0 Intake and Output 10/08/17 10/08/17 10/09/17 15:00 23:00 07:00 Intake Total 570 ml 50 ml 790 ml Output Total 530 ml 600 ml Balance 40 ml 50 ml 190 ml Exam Constitutional: alert Neck: supple Respiratory: clear to auscultation Cardiovascular: regular rate and rhythm Gastrointestinal: non-tender, soft Extremities: No edema Results Result Diagram: 10/09/17 0751 10/09/17 0751 Results 24 hrs Laboratory Tests Test 10/09/17 07:51 White Blood Count 12.0 #H Red Blood Count 3.31 L Hemoglobin 10.4 L Hematocrit 29.0 L Mean Corpuscular Volume 87.6 Mean Corpuscular Hemoglobin 31.4 Mean Corpuscular Hemoglobin Concent 35.9 Red Cell Distribution Width 14.6 H Platelet Count 141 # Mean Platelet Volume 12.7 H Neutrophils % Segmented Neutrophils % (Manual) 65 Band Neutrophils % (Manual) 27 H Lymphocytes % Lymphocytes % (Manual) 3 L Monocytes % Monocytes % (Manual) 1 Eosinophils % Eosinophils % (Manual) 1 Basophils % Myelocytes % (Manual) 1 H Promyelocytes % (Manual) 2 H Nucleated Red Blood Cells % 0.0 Neutrophils # Neutrophils # (Manual) 8.2 H Band Neutrophils # 3.2 H Absolute Lymphocytes (Manual) 0.3 L Lymphocytes # Monocytes # Absolute Monocytes (Manual) 0.1 L Eosinophils # Basophils # Myelocytes # 0.1 H Promyelocytes # 0.2 H Nucleated Red Blood Cells # Platelet Estimate NORMAL Giant Platelets 1 H Polychromasia 3+ Anisocytosis 2+ Macrocytosis 2+ Sodium Level 137 Potassium Level 3.5 Chloride Level 101 Carbon Dioxide Level 25 Anion Gap 15 Blood Urea Nitrogen 34 H Creatinine 1.71 H Glucose Level 74 Calcium Level 9.1 Magnesium Level 1.8 Total Bilirubin 0.3 Direct Bilirubin 0.00 Indirect Bilirubin 0.3 Aspartate Amino Transf (AST/SGOT) 52 H Alanine Aminotransferase (ALT/SGPT) 73 H Alkaline Phosphatase 129 H Creatine Kinase 178 Total Protein 5.8 L Albumin 2.7 L Globulin 3.10 Albumin/Globulin Ratio 0.87 Medications Medications Current Medications Ondansetron HCl (Zofran Inj) 4 mg Q6H PRN IV NAUSEA AND/OR VOMITING; Start at 06:00 Acetaminophen (Tylenol Tab) 650 mg Q6H PRN PO PAIN LEVEL 1-3 OR FEVER; Start 10/06/17 at 06:00 Morphine Sulfate (morphine) 2 mg Q4H PRN IV PAIN LEVEL 7-10 Last administered on 10/09/17 08:16; Admin Dose 2 MG; Start 10/06/17 at 06:00 Fish Oil (Fish Oil) 1,000 mg DAILY PO Last administered on 10/09/17 08:19; Admin Dose 1,000 MG; Start 10/06/17 at 09:00 Levothyroxine Sodium (Synthroid) 88 mcg DAILY PO Last administered on 08:18; Admin Dose 88 MCG; Start 10/06/17 at 09:00 Quetiapine Fumarate (Seroquel) 100 mg HS PO Last administered on 10/08/17 22: 07; Admin Dose 100 MG; Start 10/06/17 at 21:00 Tamsulosin HCl (Flomax) 0.4 mg DAILY PO Last administered on 10/09/17 08:18; Admin Dose 0.4 MG; Start 10/06/17 at 13:30 Aspirin (Halfprin) 325 mg DAILY PO Last administered on 10/09/17 08:19; Admin Dose 325 MG; Start 10/07/17 at 09:00 Metoprolol Tartrate (Lopressor) 25 mg BID PO Last administered on 10/09/17 08 :20; Admin Dose 25 MG; Start 10/06/17 at 21:00 Metoprolol Tartrate 5 mg 5 mg Q4H PRN IV HR>110 Hold SBP<100; Start 10/06/17 at 19:30 Sodium Chloride (NS) 1,000 ml @ 50 mls/hr Q20H IV Last administered on 10:00; Admin Dose 100 MLS/HR; Start 10/07/17 at 11:30 Pantoprazole 40 mg 40 mg DAILY@06 PO Last administered on 10/09/17 05:34; Admin Dose 40 MG; Start 10/08/17 at 06:00 Ferric Sodium Gluconate Complex/ Sodium Chloride (Ferrlecit/NS) 110 ml @ 100 mls/hr Q24H IVPB Last administered on 10/08/17 11:14; Admin Dose 100 MLS/HR; Start 10/08/17 at 09:30; Stop 10/10/17 at 10:35 Mupirocin 1 applic 1 applic BID TOP Last administered on 10/09/17 08:19; Admin Dose 1 APPLIC; Start 10/08/17 at 21:00 Meropenem/Sodium Chloride (Merrem 1 Gm/50 ml (Pmx)) 50 ml @ 100 mls/hr Q8 IVPB Last administered on 10/09/17 05:34; Admin Dose 100 MLS/HR; Start 10/08/17 at 22:00 MIKAYLA NELSON MD Oct 09, 2017 13:30
--- NOTE | 2017-10-09 14:04 | PN ---
Date/Time of Note Date/Time of Note DATE: 10/09/17 TIME: 14:00 Assessment/Plan VTE Prophylaxis VTE Prophylaxis Intervention: SCD's Lines/Catheters IV Catheter Type (from Nrs): Mid Line Urinary Cath still in place: Yes Reason Cath still needed: urinary retention Assessment/Plan Chief Complaint/Hosp Course S: Pt seen by specialists, complains of flank pain. O: VS (see below) PE: GENERAL: Lying in bed, lethargic, but answering questions appropriately. HEAD: Normocephalic, atraumatic, no tenderness. EYES: Pupils equal reactive to light and accommodation, full extraocular movements, sclera clear, non-icteric, no discharge. EARS/NOSE AND THROAT: Ears normal, nose normal, oropharynx normal, oral membranes well hydrated without lesions. NECK: Supple, no masses, thyroid normal, CHEST: Inspection within normal limits. CARDIOVASCULAR: Heart: Regular rate and rhythm, no murmurs, gallops or rubs. RESPIRATORY: Lungs clear to auscultation and percussion, no wheezing, no rubs GASTROINTESTINAL AND LIVER: Abdomen: Soft, midepigastric and left upper quadrant tenderness, non-distended, no hernias, no masses, no organomegaly, no ascites, no guarding, no rebound tenderness EXTREMITIES: No cyanosis, clubbing or edema. A/P: 67 yo female with hx of dyslipidemia, hypothyroidism, renal stone, seizure d/o, schizoaffective disorder, status post fall at home on the floor for 2 days , with subsequent rhabdomyolysis, AK I with metabolic acidosis, upper and lower GI bleed, elevated troponins. 1. Syncope: unknown etiology: cardiac vs seizure(given hx) vs other, again pt fell and remained in her bathroom x 2 days unable to get up. Head CT showed no acute abnormalities - trend trop, carotid doppler u/s -Appreciate cardiology input, monitor heart rate, f/u PT and OT consults as well 2. Presumed acute on CKD: 2/2 Rhabdo -slowly improving after patient has been on IV fluids -Continue IVF per renal recommendations -Follow-up renal u/s -urine electrolytes 3.positive troponin -trending down now. -aspirin, beta-max per cardiology recommended -trend trop 4. Rhabdomyolysis -resolved now -IVF, monitor BUN/creatinine levels, CK levels. 5. Metabolic acidosis -secondary to renal insufficiency -now serum CO2 levels are normal, resolving overall now -Continue IVF per renal recommendations -Monitor BMP, follow-up renal rec's 6. Left UVPJ, Obstructive Uropathy -CT scan of the abdomen and pelvis and that showed a 4 mm left upper ureteral stone with obstruction -IVF, follow-up urology recommendations -Flomax 7. A-flutter with RVR -now in normal sinus rhythm -Follow cardiology recommendations, continue to monitor heart rate -Follow-up TSH 8. ESBL ecoli: Found in the blood and in the urine. -Change antibiotics to meropenem based on sensitivities, follow final culture results 9. Upper lower GI bleeding: Appreciate GI consult. Of note hepatitis B total core antibody and hepatitis C antibody are both positive. -Monitor for now, follow GI recommendations -Per GI rec's,if the patient starts bleeding or becomes hemodynamically unstable will consider endoscopy Problems: Exam/Review of Systems Vital Signs Vitals Vital Signs Date Time Temp Pulse Resp B/P Pulse Ox O2 Delivery O2 Flow Rate FiO2 10/09/17 12:00 65 10/09/17 11:33 98.1 19 130/63 93 10/08/17 20:00 Nasal Cannula 2.0 Intake and Output 10/08/17 10/08/17 10/09/17 15:00 23:00 07:00 Intake Total 570 ml 50 ml 790 ml Output Total 530 ml 600 ml Balance 40 ml 50 ml 190 ml Results Result Diagram: 10/09/17 0751 10/09/17 0751 Results 24 hrs Laboratory Tests Test 10/09/17 07:51 White Blood Count 12.0 #H Red Blood Count 3.31 L Hemoglobin 10.4 L Hematocrit 29.0 L Mean Corpuscular Volume 87.6 Mean Corpuscular Hemoglobin 31.4 Mean Corpuscular Hemoglobin Concent 35.9 Red Cell Distribution Width 14.6 H Platelet Count 141 # Mean Platelet Volume 12.7 H Neutrophils % Segmented Neutrophils % (Manual) 65 Band Neutrophils % (Manual) 27 H Lymphocytes % Lymphocytes % (Manual) 3 L Monocytes % Monocytes % (Manual) 1 Eosinophils % Eosinophils % (Manual) 1 Basophils % Myelocytes % (Manual) 1 H Promyelocytes % (Manual) 2 H Nucleated Red Blood Cells % 0.0 Neutrophils # Neutrophils # (Manual) 8.2 H Band Neutrophils # 3.2 H Absolute Lymphocytes (Manual) 0.3 L Lymphocytes # Monocytes # Absolute Monocytes (Manual) 0.1 L Eosinophils # Basophils # Myelocytes # 0.1 H Promyelocytes # 0.2 H Nucleated Red Blood Cells # Platelet Estimate NORMAL Giant Platelets 1 H Polychromasia 3+ Anisocytosis 2+ Macrocytosis 2+ Sodium Level 137 Potassium Level 3.5 Chloride Level 101 Carbon Dioxide Level 25 Anion Gap 15 Blood Urea Nitrogen 34 H Creatinine 1.71 H Glucose Level 74 Calcium Level 9.1 Magnesium Level 1.8 Total Bilirubin 0.3 Direct Bilirubin 0.00 Indirect Bilirubin 0.3 Aspartate Amino Transf (AST/SGOT) 52 H Alanine Aminotransferase (ALT/SGPT) 73 H Alkaline Phosphatase 129 H Creatine Kinase 178 Total Protein 5.8 L Albumin 2.7 L Globulin 3.10 Albumin/Globulin Ratio 0.87 Medications Medications Current Medications Ondansetron HCl (Zofran Inj) 4 mg Q6H PRN IV NAUSEA AND/OR VOMITING; Start at 06:00 Acetaminophen (Tylenol Tab) 650 mg Q6H PRN PO PAIN LEVEL 1-3 OR FEVER; Start 10/06/17 at 06:00 Morphine Sulfate (morphine) 2 mg Q4H PRN IV PAIN LEVEL 7-10 Last administered on 10/09/17 08:16; Admin Dose 2 MG; Start 10/06/17 at 06:00 Fish Oil (Fish Oil) 1,000 mg DAILY PO Last administered on 10/09/17 08:19; Admin Dose 1,000 MG; Start 10/06/17 at 09:00 Levothyroxine Sodium (Synthroid) 88 mcg DAILY PO Last administered on 08:18; Admin Dose 88 MCG; Start 10/06/17 at 09:00 Quetiapine Fumarate (Seroquel) 100 mg HS PO Last administered on 10/08/17 22: 07; Admin Dose 100 MG; Start 10/06/17 at 21:00 Tamsulosin HCl (Flomax) 0.4 mg DAILY PO Last administered on 10/09/17 08:18; Admin Dose 0.4 MG; Start 10/06/17 at 13:30 Aspirin (Halfprin) 325 mg DAILY PO Last administered on 10/09/17 08:19; Admin Dose 325 MG; Start 10/07/17 at 09:00 Metoprolol Tartrate (Lopressor) 25 mg BID PO Last administered on 10/09/17 08 :20; Admin Dose 25 MG; Start 10/06/17 at 21:00 Metoprolol Tartrate 5 mg 5 mg Q4H PRN IV HR>110 Hold SBP<100; Start 10/06/17 at 19:30 Sodium Chloride (NS) 1,000 ml @ 50 mls/hr Q20H IV Last administered on 10:00; Admin Dose 100 MLS/HR; Start 10/07/17 at 11:30 Pantoprazole 40 mg 40 mg DAILY@06 PO Last administered on 10/09/17 05:34; Admin Dose 40 MG; Start 10/08/17 at 06:00 Ferric Sodium Gluconate Complex/ Sodium Chloride (Ferrlecit/NS) 110 ml @ 100 mls/hr Q24H IVPB Last administered on 10/08/17 11:14; Admin Dose 100 MLS/HR; Start 10/08/17 at 09:30; Stop 10/10/17 at 10:35 Mupirocin 1 applic 1 applic BID TOP Last administered on 10/09/17 08:19; Admin Dose 1 APPLIC; Start 10/08/17 at 21:00 Meropenem/Sodium Chloride (Merrem 1 Gm/50 ml (Pmx)) 50 ml @ 100 mls/hr Q8 IVPB Last administered on 10/09/17 13:41; Admin Dose 100 MLS/HR; Start 10/08/17 at 22:00 ALLEN HARRIS 25, 2017 14:04
--- NOTE | 2017-10-09 14:10 | PN ---
Date/Time of Note Date/Time of Note DATE: 10/09/17 TIME: 14:08 Assessment/Plan VTE Prophylaxis VTE Prophylaxis Intervention: SCD's Lines/Catheters IV Catheter Type (from Nrs): Mid Line Urinary Cath still in place: Yes (monitor output) Reason Cath still needed: other (indicate) (monitor output) Assessment/Plan Chief Complaint/Hosp Course Assessment: Questionable GI bleed, hemoglobin is stable Rhabdomyolysis Abnormal liver function test Rule out hepatitis A, B and C Rule out autoimmune hepatitis vs related to rhabdomyolysis Schizophrenia Seizure disorder Renal disease with kidney stones Hypertension Dyslipidemia Hypothyroidism Plan: Continue monitoring H&H and liver enzymes Hepatitis B core total - reactive IgM- pending Hepatitis C AB reactive- RNA pending Autoimmune panel SABA, ASMA and AMA- negative further recommendations based on results Continue PPI Monitor H/H transfuse as needed Endoscopy not warranted at this time The seen in collaboration with Dr. Whitney Subjective: Course reviewed with nursing staff Patient interviewed and examined All labs, imaging and other results reviewed The patient discussed results of Hep panel, confirmatory tests pending, h/h stable endoscopy not warranted at this time. Will continue to monitor. PHYSICAL EXAMINATION: GENERAL: Well developed, well nourished, alert & oriented x 3, in no acute distress SKIN: No lesions, no stigmata chronic liver disease, no evidence of bleeding diathesis LYMPHATIC: No palpable lymphadenopathy. HEAD: Normocephalic, atraumatic, no tenderness. EYES: Pupils equal reactive to light and accommodation, full extraocular movements, sclera clear, non-icteric, no discharge. EARS/NOSE AND THROAT: Ears normal, nose normal, oropharynx normal, NECK: Supple, no masses, thyroid normal, CHEST: Inspection within normal limits. CARDIOVASCULAR: Heart: Regular rate and rhythm, RESPIRATORY: Lungs clear to auscultation and percussion, no wheezing, no rubs GASTROINTESTINAL AND LIVER: Abdomen: Soft, midepigastric and left upper quadrant tenderness, non-distended, no hernias, no masses, no organomegaly, no ascites, no guarding, no rebound tenderness, hyperactive bowel sounds. Rectal: Deferred. GENITOURINARY: Deferred EXTREMITIES: No cyanosis, clubbing or edema. Problems: Exam/Review of Systems Vital Signs Vitals Vital Signs Date Time Temp Pulse Resp B/P Pulse Ox O2 Delivery O2 Flow Rate FiO2 11/25/17 12:00 65 10/09/17 11:33 98.1 19 130/63 93 10/08/17 20:00 Nasal Cannula 2.0 Intake and Output 10/08/17 10/08/17 10/09/17 14:59 22:59 06:59 Intake Total 570 ml 50 ml 790 ml Output Total 560 ml 600 ml Balance 10 ml 50 ml 190 ml Results Result Diagram: 10/09/17 0751 10/09/17 0751 Results 24 hrs Laboratory Tests Test 10/09/17 07:51 White Blood Count 12.0 #H Red Blood Count 3.31 L Hemoglobin 10.4 L Hematocrit 29.0 L Mean Corpuscular Volume 87.6 Mean Corpuscular Hemoglobin 31.4 Mean Corpuscular Hemoglobin Concent 35.9 Red Cell Distribution Width 14.6 H Platelet Count 141 # Mean Platelet Volume 12.7 H Neutrophils % Segmented Neutrophils % (Manual) 65 Band Neutrophils % (Manual) 27 H Lymphocytes % Lymphocytes % (Manual) 3 L Monocytes % Monocytes % (Manual) 1 Eosinophils % Eosinophils % (Manual) 1 Basophils % Myelocytes % (Manual) 1 H Promyelocytes % (Manual) 2 H Nucleated Red Blood Cells % 0.0 Neutrophils # Neutrophils # (Manual) 8.2 H Band Neutrophils # 3.2 H Absolute Lymphocytes (Manual) 0.3 L Lymphocytes # Monocytes # Absolute Monocytes (Manual) 0.1 L Eosinophils # Basophils # Myelocytes # 0.1 H Promyelocytes # 0.2 H Nucleated Red Blood Cells # Platelet Estimate NORMAL Giant Platelets 1 H Polychromasia 3+ Anisocytosis 2+ Macrocytosis 2+ Sodium Level 137 Potassium Level 3.5 Chloride Level 101 Carbon Dioxide Level 25 Anion Gap 15 Blood Urea Nitrogen 34 H Creatinine 1.71 H Glucose Level 74 Calcium Level 9.1 Magnesium Level 1.8 Total Bilirubin 0.3 Direct Bilirubin 0.00 Indirect Bilirubin 0.3 Aspartate Amino Transf (AST/SGOT) 52 H Alanine Aminotransferase (ALT/SGPT) 73 H Alkaline Phosphatase 129 H Creatine Kinase 178 Total Protein 5.8 L Albumin 2.7 L Globulin 3.10 Albumin/Globulin Ratio 0.87 Medications Medications Current Medications Ondansetron HCl (Zofran Inj) 4 mg Q6H PRN IV NAUSEA AND/OR VOMITING; Start at 06:00 Acetaminophen (Tylenol Tab) 650 mg Q6H PRN PO PAIN LEVEL 1-3 OR FEVER; Start 10/06/17 at 06:00 Morphine Sulfate (morphine) 2 mg Q4H PRN IV PAIN LEVEL 7-10 Last administered on 10/09/17 08:16; Admin Dose 2 MG; Start 10/06/17 at 06:00 Fish Oil (Fish Oil) 1,000 mg DAILY PO Last administered on 10/09/17 08:19; Admin Dose 1,000 MG; Start 10/06/17 at 09:00 Levothyroxine Sodium (Synthroid) 88 mcg DAILY PO Last administered on 08:18; Admin Dose 88 MCG; Start 10/06/17 at 09:00 Quetiapine Fumarate (Seroquel) 100 mg HS PO Last administered on 10/08/17 22: 07; Admin Dose 100 MG; Start 10/06/17 at 21:00 Tamsulosin HCl (Flomax) 0.4 mg DAILY PO Last administered on 10/09/17 08:18; Admin Dose 0.4 MG; Start 10/06/17 at 13:30 Aspirin (Halfprin) 325 mg DAILY PO Last administered on 10/09/17 08:19; Admin Dose 325 MG; Start 10/07/17 at 09:00 Metoprolol Tartrate (Lopressor) 25 mg BID PO Last administered on 10/09/17 08 :20; Admin Dose 25 MG; Start 10/06/17 at 21:00 Metoprolol Tartrate 5 mg 5 mg Q4H PRN IV HR>110 Hold SBP<100; Start 10/06/17 at 19:30 Sodium Chloride (NS) 1,000 ml @ 50 mls/hr Q20H IV Last administered on 10:00; Admin Dose 100 MLS/HR; Start 10/07/17 at 11:30 Pantoprazole 40 mg 40 mg DAILY@06 PO Last administered on 10/09/17 05:34; Admin Dose 40 MG; Start 10/08/17 at 06:00 Ferric Sodium Gluconate Complex/ Sodium Chloride (Ferrlecit/NS) 110 ml @ 100 mls/hr Q24H IVPB Last administered on 10/08/17 11:14; Admin Dose 100 MLS/HR; Start 10/08/17 at 09:30; Stop 10/10/17 at 10:35 Mupirocin 1 applic 1 applic BID TOP Last administered on 10/09/17 08:19; Admin Dose 1 APPLIC; Start 10/08/17 at 21:00 Meropenem/Sodium Chloride (Merrem 1 Gm/50 ml (Pmx)) 50 ml @ 100 mls/hr Q8 IVPB Last administered on 10/09/17 13:41; Admin Dose 100 MLS/HR; Start 10/08/17 at 22:00 KENNEDY WILLARD Oct 09, 2017 14:10
--- NOTE | 2017-10-09 17:59 | CONS ---
DATE OF ADMISSION: 10/05/2017 DATE OF CONSULTATION: 10/09/2017 TYPE OF CONSULTATION: Infectious Disease. REASON FOR CONSULTATION: Antibiotic management. HISTORY OF PRESENT ILLNESS: Gita Garrett is a 67-year-old female who was admitted with a number of problems, who is being seen for antibiotic management. Her problems include: 1. Dyslipidemia. 2. Hypothyroidism. 3. Renal stones. 4. Seizure disorder. 5. Schizoaffective disorder. Acutely, the patient fell down in her bathroom 2 days ago, and remained on the floor for 2 days, kenyon ble to move. She complains of total body pain, generalized weakness, dark stool, dark brown emesis and pain in the left flank. She was found to be in atrial fibrillation with rapid ventricular respo nse in the 130's. Her CK was 125,000. AST 434, ALT 135. BUN and creatinine 51/4.5. Her white cou nt is 15.5, H and H of 14 and 40.3 on admission, platelet count 110,000. BUN and creatinine 51/4.5, random glucose of 94. She most probably had a syncopal attack versus a seizure. HOSPITAL COURSE: The patient was seen by numerous consultants including renal, Dr. Leach and Dr. Mikki tucker and Yesy for cardiology, Dr. Dee from urology. The patient has a urinary catheter in f or urinary retention. She has metabolic acidosis. She had upper and lower GI bleed, elevated tropo nins which are trending down at this point, rhabdomyolysis, atrial flutter, now in normal sinus rhy thm. Microbiology - urine grew out E. coli, as did her blood, ESBL sensitive to imipenem, resistan t to cefepime, sensitive to Zosyn. Patient was placed on meropenem 1 gram IV piggyback q.8. PAST MEDICAL HISTORY: Operations as outlined. FAMILY HISTORY: Noncontributory. SOCIAL HISTORY: She does not smoke, drink or abuse drugs. ALLERGIES: NONE TO PENICILLIN, SULFA OR FOODS. MEDICATIONS: Per chart. REVIEW OF SYSTEMS: Noncontributory. PHYSICAL EXAMINATION: GENERAL: The patient is an elderly appearing 67-year-old female who is awake, responsive, in no acu te distress. VITAL SIGNS: Stable. She is afebrile. SKIN: Without generalized rash. HEENT: Within normal limits. NECK: Supple. LYMPH NODES: None palpable. CHEST: Decreased breath sounds at the bases. HEART: Without murmur or gallop. ABDOMEN: Soft, nontender, without organosplenomegaly or masses. EXTREMITIES: Without cyanosis, clubbing, or edema. RECTAL AND GENITAL: Deferred. NEUROLOGIC: No focal neurological abnormalities. Currently, her white count is 12,000. IMPRESSION AND PLAN: The patient at this point has UTI with sepsis with Escherichia coli, ESBL. He r BUN and creatinine is now down to 34/1.7, so she is recuperating and her white count is 12,000. W e will continue her on meropenem, which is a good choice. I will dictate my findings to the hospita list and to the various consultants. Dictated By: JOSE RAWLS MD, JD/NTS Conf#: [id number] DID#: [id number] CC: FRANNY DEE MD; JOSE RAWLS MD; RAMAKRISHNA LEACH MD; RAMAKRISHNA ONEAL MD; ALYSIA KNOTT MD;*End*
[2017-10-09] MEDS: SOD FERRIC GLUC COMPLX 125 MG in SOD CHLORIDE 0.9% 100 ML IVPB SCH (18:27)
--- NOTE | 2017-10-09 19:53 | CONS ---
Date/Time of Note Date/Time of Note DATE: 10/09/17 TIME: 19:50 Consult Date/Type/Reason Admit Date/Time Oct 05, 2017 at 22:26 Initial Consult Date 10/06/17 Type of Consultation: Urology Reason for Consultation Left upper ureteral stone, urinary tract infection was E. coli ESBL Ordering Provider: YOSELIN RAMON MD Subjective Patient states that she does have pain in the left flank area without nausea or vomiting Objective Vital Signs Date Time Temp Pulse Resp B/P Pulse Ox O2 Delivery O2 Flow Rate FiO2 10/09/17 16:00 77 10/09/17 15:44 98.6 19 144/73 93 10/08/17 20:00 Nasal Cannula 2.0 Intake and Output 10/08/17 10/08/17 10/09/17 15:00 23:00 07:00 Intake Total 570 ml 50 ml 790 ml Output Total 530 ml 600 ml Balance 40 ml 50 ml 190 ml Exam The abdomen is obese, there is left flank tenderness. Results/Medications Result Diagram: 10/09/17 0751 10/09/17 0751 Results 24 hrs Laboratory Tests Test 10/09/17 07:51 White Blood Count 12.0 #H Red Blood Count 3.31 L Hemoglobin 10.4 L Hematocrit 29.0 L Mean Corpuscular Volume 87.6 Mean Corpuscular Hemoglobin 31.4 Mean Corpuscular Hemoglobin Concent 35.9 Red Cell Distribution Width 14.6 H Platelet Count 141 # Mean Platelet Volume 12.7 H Neutrophils % Segmented Neutrophils % (Manual) 65 Band Neutrophils % (Manual) 27 H Lymphocytes % Lymphocytes % (Manual) 3 L Monocytes % Monocytes % (Manual) 1 Eosinophils % Eosinophils % (Manual) 1 Basophils % Myelocytes % (Manual) 1 H Promyelocytes % (Manual) 2 H Nucleated Red Blood Cells % 0.0 Neutrophils # Neutrophils # (Manual) 8.2 H Band Neutrophils # 3.2 H Absolute Lymphocytes (Manual) 0.3 L Lymphocytes # Monocytes # Absolute Monocytes (Manual) 0.1 L Eosinophils # Basophils # Myelocytes # 0.1 H Promyelocytes # 0.2 H Nucleated Red Blood Cells # Platelet Estimate NORMAL Giant Platelets 1 H Polychromasia 3+ Anisocytosis 2+ Macrocytosis 2+ Sodium Level 137 Potassium Level 3.5 Chloride Level 101 Carbon Dioxide Level 25 Anion Gap 15 Blood Urea Nitrogen 34 H Creatinine 1.71 H Glucose Level 74 Calcium Level 9.1 Magnesium Level 1.8 Total Bilirubin 0.3 Direct Bilirubin 0.00 Indirect Bilirubin 0.3 Aspartate Amino Transf (AST/SGOT) 52 H Alanine Aminotransferase (ALT/SGPT) 73 H Alkaline Phosphatase 129 H Creatine Kinase 178 Total Protein 5.8 L Albumin 2.7 L Globulin 3.10 Albumin/Globulin Ratio 0.87 Medications Current Medications Ondansetron HCl (Zofran Inj) 4 mg Q6H PRN IV NAUSEA AND/OR VOMITING; Start at 06:00 Acetaminophen (Tylenol Tab) 650 mg Q6H PRN PO PAIN LEVEL 1-3 OR FEVER; Start 10/06/17 at 06:00 Morphine Sulfate (morphine) 2 mg Q4H PRN IV PAIN LEVEL 7-10 Last administered on 10/09/17 15:41; Admin Dose 2 MG; Start 10/06/17 at 06:00 Fish Oil (Fish Oil) 1,000 mg DAILY PO Last administered on 10/09/17 08:19; Admin Dose 1,000 MG; Start 10/06/17 at 09:00 Levothyroxine Sodium (Synthroid) 88 mcg DAILY PO Last administered on 08:18; Admin Dose 88 MCG; Start 10/06/17 at 09:00 Quetiapine Fumarate (Seroquel) 100 mg HS PO Last administered on 10/08/17 22: 07; Admin Dose 100 MG; Start 10/06/17 at 21:00 Tamsulosin HCl (Flomax) 0.4 mg DAILY PO Last administered on 10/09/17 08:18; Admin Dose 0.4 MG; Start 10/06/17 at 13:30 Aspirin (Halfprin) 325 mg DAILY PO Last administered on 10/09/17 08:19; Admin Dose 325 MG; Start 10/07/17 at 09:00 Metoprolol Tartrate (Lopressor) 25 mg BID PO Last administered on 10/09/17 08 :20; Admin Dose 25 MG; Start 10/06/17 at 21:00 Metoprolol Tartrate 5 mg 5 mg Q4H PRN IV HR>110 Hold SBP<100; Start 10/06/17 at 19:30 Sodium Chloride (NS) 1,000 ml @ 50 mls/hr Q20H IV Last administered on 10:00; Admin Dose 100 MLS/HR; Start 10/07/17 at 11:30 Pantoprazole (Protonix Tab) 40 mg DAILY@06 PO Last administered on 10/09/17 05:34; Admin Dose 40 MG; Start 10/08/17 at 06:00 Mupirocin 1 applic 1 applic BID TOP Last administered on 10/09/17 08:19; Admin Dose 1 APPLIC; Start 10/08/17 at 21:00 Meropenem/Sodium Chloride 50 ml @ 100 mls/hr Q8 IVPB Last administered on 13:41; Admin Dose 100 MLS/HR; Start 10/08/17 at 22:00 Ferric Sodium Gluconate Complex/ Sodium Chloride (Ferrlecit/NS) 110 ml @ 100 mls/hr Q24H IVPB Last administered on 10/09/17 18:27; Admin Dose 100 MLS/HR; Start 10/09/17 at 17:00; Stop 10/10/17 at 18:05 Assessment/Plan Chief Complaint/Hosp Course 67-year-old female was found on the floor in her house after she fell and she was on the floor for 2 days. Patient did also have some bloody emesis and GI bleed. After admission she had a CT scan of the abdomen and pelvis and that showed a 4 mm left upper ureteral stone with obstruction. KUB showed: 1. 5 mm calcification in the right pastor pelvis compatible with previously- described calculus now apparently in urinary bladder.(I doubt that the stone is in the bladder since on the ultrasound she still have hydronephrosis) 2. Green catheter in urinary bladder 3. Cholelithiasis. 4. Degenerative changes of the imaged spine 5. Nonobstructive bowel gas pattern The urine culture did show E. coli ESBL and the patient was put on meropenem Recommendation: Continue to strain the urine, continue meropenem, continue tamsulosin Problems: FRANNY DEE MD Oct 09, 2017 19:53
--- NOTE | 2017-10-09 21:20 | CONS ---
Date/Time of Note Date/Time of Note DATE: 10/09/17 TIME: 21:03 Assessment/Plan Assessment/Plan Chief Complaint/Hosp Course ID PROGRESS NOTE CURRENT ABX: DAY # 2 =>Vanco IV + Merrem * 10/09/17 0751 10/09/17 0751 24H INTERVAL SUMMARY * 67 yo obese F, lethargic, resting in bed eyes closed on supplemental O2 via NC * She awakens to verbal, ?confused tells me she thought someone was with me (no one else in the room), I introduced myself to her and I asked her how she is feeling now that ABX onboard...she tells me "I'm not sure" -- I encouraged her to go back to sleep and I will f/u with her tomorrow * MICRO: (+)MRSA Nares * Urine cx and BCx 2/2 bottles (+) BLOOD CULTURE Final BCULT GRAM BOTTLE 1 Gram negative rods . seen on gram stain of the broth Organism 1 ESCHERICHIA COLI (ESBL) . MULTI DRUG RESISTANT ORGANISM CRITICAL TEST VALUE BTL 1 . PHONED TO & READ BACK BY Raheem FAIRBANKS 10/06/171931 BY SHIN Phoned Dwight Jim,ICU, voice mail Pharmacy, copy to IC at [phone] 10/08/17 by AD. BR[facility]O [facility] RX --------- --- AMIKACIN 4 S AMPICILLIN >=32 R CEFAZOLIN >=64 R CEFEPIME 8 S CEFOTAXIME R CIPROFLOXACIN >=4 R GENTAMICIN <=1 S IMIPENEM <=0.25 S LEVOFLOXACIN >=8 R TOBRAMYCIN >=16 R TRIMETHOPRIM/SULFAMETHOXAZOLE >=320 R PHYSICAL EXAMINATION: GENERAL: Lethargic,obese, O2 via NC HEENT: Unremarkable NECK: Supple, trach midline CHEST: Equal chest rise bilaterally, without dyspnea on observation HEART: RRR ABDOMEN: Soft, NT, ND EXT: Warm, SKIN: No rash, no diaphoresis ID ASSESSMENT: 67 yo Obese F w/PMHx schizoaffective + SZs disorder admit VPH: 1. GNR E.Coli-ESBL Sepsis w/fevers,leukocytosis w/27% Bands, and lactic acidosis => 2/2 #2 & #3 * BCx (+)2/2 bottles E.Coli-ESBL 2. Acute GNR E.Coli-ESBL Pyelonephritis = complicated UTI 3. Obstructive uropathy w/left hydronephrosis => Per CT: Left obstructive uropathy with a 4 mm obstructing calculus at the left ureteral pelvic junction. 4. Afib w/RVR = new onset 5. DARWIN -> Rhabdomyolysis 6. Transaminitis -> (+)HBV & (+)HCV 7. Fatty infiltration of the liver. 8. Gallstones, without CT evidence of acute cholecystitis. 9. Atherosclerosis: aorta + cerebral microischemic disease 10. Encephalopathy probably toxic metabolic * CT brain: NO acute process. Mild intracranial atherosclerosis and moderate chronic small vessel ischemic changes. Mild generalized cerebral and cerebellar volume loss. 11. GI Bleed -> UGI & LGI 13. Psych Hx: Schizoaffective, depression, hx of prior SI ABX ALLERGIES: NKDA INVASIVES: PIV CURRENT ABX: DAY # 2 =>Vanco IV + Merrem ID RECOMMENDATIONS/PLAN: 1. Continue current ABX 2. Will f/u tomorrow . Problems: Consultation Date/Type/Reason Admit Date/Time Oct 05, 2017 at 22:26 Initial Consult Date 10/06/17 Type of Consultation: ID Referring Provider: YOSELIN RAMON MD Exam/Review of Systems Vital Signs Vitals Vital Signs Date Time Temp Pulse Resp B/P Pulse Ox O2 Delivery O2 Flow Rate FiO2 10/09/17 20:25 87 10/09/17 15:44 98.6 19 144/73 93 10/08/17 20:00 Nasal Cannula 2.0 Intake and Output 10/08/17 10/08/17 10/09/17 15:00 23:00 07:00 Intake Total 570 ml 50 ml 790 ml Output Total 530 ml 600 ml Balance 40 ml 50 ml 190 ml Results Result Diagram: 10/09/17 0751 10/09/17 0751 Results 24 hrs Laboratory Tests Test 10/09/17 07:51 White Blood Count 12.0 #H Red Blood Count 3.31 L Hemoglobin 10.4 L Hematocrit 29.0 L Mean Corpuscular Volume 87.6 Mean Corpuscular Hemoglobin 31.4 Mean Corpuscular Hemoglobin Concent 35.9 Red Cell Distribution Width 14.6 H Platelet Count 141 # Mean Platelet Volume 12.7 H Neutrophils % Segmented Neutrophils % (Manual) 65 Band Neutrophils % (Manual) 27 H Lymphocytes % Lymphocytes % (Manual) 3 L Monocytes % Monocytes % (Manual) 1 Eosinophils % Eosinophils % (Manual) 1 Basophils % Myelocytes % (Manual) 1 H Promyelocytes % (Manual) 2 H Nucleated Red Blood Cells % 0.0 Neutrophils # Neutrophils # (Manual) 8.2 H Band Neutrophils # 3.2 H Absolute Lymphocytes (Manual) 0.3 L Lymphocytes # Monocytes # Absolute Monocytes (Manual) 0.1 L Eosinophils # Basophils # Myelocytes # 0.1 H Promyelocytes # 0.2 H Nucleated Red Blood Cells # Platelet Estimate NORMAL Giant Platelets 1 H Polychromasia 3+ Anisocytosis 2+ Macrocytosis 2+ Sodium Level 137 Potassium Level 3.5 Chloride Level 101 Carbon Dioxide Level 25 Anion Gap 15 Blood Urea Nitrogen 34 H Creatinine 1.71 H Glucose Level 74 Calcium Level 9.1 Magnesium Level 1.8 Total Bilirubin 0.3 Direct Bilirubin 0.00 Indirect Bilirubin 0.3 Aspartate Amino Transf (AST/SGOT) 52 H Alanine Aminotransferase (ALT/SGPT) 73 H Alkaline Phosphatase 129 H Creatine Kinase 178 Total Protein 5.8 L Albumin 2.7 L Globulin 3.10 Albumin/Globulin Ratio 0.87 Medications Medications Current Medications Ondansetron HCl (Zofran Inj) 4 mg Q6H PRN IV NAUSEA AND/OR VOMITING; Start at 06:00 Acetaminophen (Tylenol Tab) 650 mg Q6H PRN PO PAIN LEVEL 1-3 OR FEVER; Start 10/06/17 at 06:00 Morphine Sulfate (morphine) 2 mg Q4H PRN IV PAIN LEVEL 7-10 Last administered on 10/09/17 15:41; Admin Dose 2 MG; Start 10/06/17 at 06:00 Fish Oil (Fish Oil) 1,000 mg DAILY PO Last administered on 10/09/17 08:19; Admin Dose 1,000 MG; Start 10/06/17 at 09:00 Levothyroxine Sodium (Synthroid) 88 mcg DAILY PO Last administered on 08:18; Admin Dose 88 MCG; Start 10/06/17 at 09:00 Quetiapine Fumarate (Seroquel) 100 mg HS PO Last administered on 10/08/17 22: 07; Admin Dose 100 MG; Start 10/06/17 at 21:00 Tamsulosin HCl (Flomax) 0.4 mg DAILY PO Last administered on 10/09/17 08:18; Admin Dose 0.4 MG; Start 10/06/17 at 13:30 Aspirin (Halfprin) 325 mg DAILY PO Last administered on 10/09/17 08:19; Admin Dose 325 MG; Start 10/07/17 at 09:00 Metoprolol Tartrate (Lopressor) 25 mg BID PO Last administered on 10/09/17 08 :20; Admin Dose 25 MG; Start 10/06/17 at 21:00 Metoprolol Tartrate 5 mg 5 mg Q4H PRN IV HR>110 Hold SBP<100; Start 10/06/17 at 19:30 Sodium Chloride (NS) 1,000 ml @ 50 mls/hr Q20H IV Last administered on 10:00; Admin Dose 100 MLS/HR; Start 10/07/17 at 11:30 Pantoprazole (Protonix Tab) 40 mg DAILY@06 PO Last administered on 10/09/17 05:34; Admin Dose 40 MG; Start 10/08/17 at 06:00 Mupirocin 1 applic 1 applic BID TOP Last administered on 10/09/17 08:19; Admin Dose 1 APPLIC; Start 10/08/17 at 21:00 Meropenem/Sodium Chloride 50 ml @ 100 mls/hr Q8 IVPB Last administered on 13:41; Admin Dose 100 MLS/HR; Start 10/08/17 at 22:00 Ferric Sodium Gluconate Complex/ Sodium Chloride (Ferrlecit/NS) 110 ml @ 100 mls/hr Q24H IVPB Last administered on 10/09/17 18:27; Admin Dose 100 MLS/HR; Start 10/09/17 at 17:00; Stop 10/10/17 at 18:05 MARY MOHAN NP Oct 09, 2017 21:13
[2017-10-09] MEDS: QUETIAPINE 100 MG TAB PO SCH (21:40)
[2017-10-10] VITALS (13 sets, daily range): BP systolic 118–158; BP diastolic 59–89; PULSE 59–77; RESP 18–21
[2017-10-10] MEDS: PANTOPRAZOLE (EC) 40 MG TAB PO SCH (06:45)
[2017-10-10] MEDS: MEROPENEM 1 GM/50ML(PMX) 50 ML IVPB SCH ×3 (06:45→19:57)
[2017-10-10 08:09] LABS: ABNORMAL IP MESSAGE 1; HEMATOCRIT 28.1 % (37.0-47.0); HEMOGLOBIN 10.1 g/dl (12.0-16.0); MEAN CORPUSCULAR HEMOGLOBIN 31.4 pg (29.0-33.0); MEAN CORPUSCULAR HGB CONC 35.9 g/dl (32.0-37.0); MEAN CORPUSCULAR VOLUME 87.3 fl (82.0-101.0); MEAN PLATELET VOLUME 11.8 fl (7.4-10.4); PLATELET COUNT 177 10^3/UL (140-415); RED BLOOD COUNT 3.22 10^6/ul (4.20-5.40); RED CELL DISTRIBUTION WIDTH 14.8 % (11.5-14.5); WHITE BLOOD COUNT 14.9 10^3/ul (4.8-10.8)
[2017-10-10] MEDS: FISH OIL 1,000 MG CAP PO SCH (08:10)
[2017-10-10] MEDS: LEVOTHYROXINE 88 MCG TAB PO SCH (08:10)
[2017-10-10] MEDS: ASPIRIN (EC) 81 MG TAB PO SCH (08:10)
[2017-10-10] MEDS: TAMSULOSIN (SR) 0.4 MG CAP PO SCH (08:10)
[2017-10-10] MEDS: METOPROLOL 25 MG TAB PO SCH ×2 (08:10→19:57)
[2017-10-10] MEDS: MUPIROCIN 2% 22 GM OINT TOP SCH ×2 (08:11→19:58)
[2017-10-10] MEDS: morphine 2 MG INJ IV PRN ×3 (08:12→19:48)
[2017-10-10 08:13] LABS: POSITIVE DIFF @See below
[2017-10-10 08:43] LABS: ALBUMIN 2.6 g/dl (3.3-4.9); ALBUMIN/GLOBULIN RATIO 0.81; BILIRUBIN,INDIRECT 0.3 mg/dl (0-1.1); BILIRUBIN,TOTAL 0.3 mg/dl (0.2-1.3); CALCIUM 8.9 mg/dl (8.4-10.2); CREATININE 1.32 mg/dl (0.44-1.00); POTASSIUM 3.5 mmol/L (3.5-5.1); TOTAL PROTEIN 5.8 g/dl (6.1-8.1)
--- NOTE | 2017-10-10 09:15 | CONS ---
Date/Time of Note Date/Time of Note DATE: 10/10/17 TIME: 09:14 Assessment/Plan Assessment/Plan Additional Assessment/Plan 1. Atrial flutter, atrial fibrillation with rapid ventricular response, now converted to sinus rhythm where it remains - rate controlled in sinus, will monitor. In sinus now. TELE now - no new episodes of arrhythmia. 2. Hypertension, under reasonable control- better now, on Rx. WELL RX. Will add therpy as tolerated. 3. Status post fall, rule out cardiac etiology- no ana here. No new episodes. BETTER. 4. Renal failure- improving, stable urine outflow. Improved. Con't to improve - good urine output. BETTER. 5. Acidosis, metabolic- con't to resolve. 6. Anemia - H/H stable, no bleed. 7. Leukocytosis- on Rx. 8. Psychiatric disorder- no agition now. Consultation Date/Type/Reason Admit Date/Time Oct 05, 2017 at 22:26 Initial Consult Date 10/06/17 Type of Consultation: ID Referring Provider: YOSELIN RAMON MD 24 HR Interval Summary Free Text/Dictation NO acute events - BP on high side - will re-check post am meds. ROS: No fever, no chills, no nausea, no vomiting, no diarrhea/constipation No recent weight changes No chest pain, no PND, no orthopnea No dizziness, blurred vision No thirst, no heat or cold intolerance Exam/Review of Systems Vital Signs Vitals Vital Signs Date Time Temp Pulse Resp B/P Pulse Ox O2 Delivery O2 Flow Rate FiO2 10/10/17 08:04 98.4 79 19 152/63 97 10/09/17 20:00 Nasal Cannula 2.0 Intake and Output 10/09/17 10/09/17 10/10/17 14:59 22:59 06:59 Intake Total 1810 ml 300 ml Output Total 650 ml 350 ml Balance 1160 ml -50 ml Exam General: WN/WD/NAD, AOx 3 HEENT: Unicetric/atraumatic/EOMI (follows commands) NECK: JVD elevated, no thyromegaly Lymph: no lymphadenopathy HEART: regular with no S3, II/ systolic murmur at apex LUNGS: Coarse sounds ABD: soft, NT, ND, +BS : Intact Neuro: non focal SKIN: chronic changes EXT: trace edema Results Result Diagram: 10/10/1770110/10/17701 Results 24 hrs Laboratory Tests Test 10/10/17 07:02 White Blood Count 14.9 #H Red Blood Count 3.22 L Hemoglobin 10.1 L Hematocrit 28.1 L Mean Corpuscular Volume 87.3 Mean Corpuscular Hemoglobin 31.4 Mean Corpuscular Hemoglobin Concent 35.9 Red Cell Distribution Width 14.8 H Platelet Count 177 # Mean Platelet Volume 11.8 H Neutrophils % Lymphocytes % Monocytes % Eosinophils % Basophils % Nucleated Red Blood Cells % 0.0 Neutrophils # Lymphocytes # Monocytes # Eosinophils # Basophils # Nucleated Red Blood Cells # Sodium Level 136 Potassium Level 3.5 Chloride Level 102 Carbon Dioxide Level 26 Anion Gap 12 Blood Urea Nitrogen 30 H Creatinine 1.32 H Glucose Level 87 Calcium Level 8.9 Total Bilirubin 0.3 Direct Bilirubin 0.00 Indirect Bilirubin 0.3 Aspartate Amino Transf (AST/SGOT) 42 Alanine Aminotransferase (ALT/SGPT) 56 Alkaline Phosphatase 117 Total Protein 5.8 L Albumin 2.6 L Globulin 3.20 Albumin/Globulin Ratio 0.81 Medications Medications Current Medications Ondansetron HCl (Zofran Inj) 4 mg Q6H PRN IV NAUSEA AND/OR VOMITING; Start at 06:00 Acetaminophen (Tylenol Tab) 650 mg Q6H PRN PO PAIN LEVEL 1-3 OR FEVER; Start 10/06/17 at 06:00 Morphine Sulfate (morphine) 2 mg Q4H PRN IV PAIN LEVEL 7-10 Last administered on 10/10/17 08:12; Admin Dose 2 MG; Start 10/06/17 at 06:00 Fish Oil (Fish Oil) 1,000 mg DAILY PO Last administered on 10/10/17 08:10; Admin Dose 1,000 MG; Start 10/06/17 at 09:00 Levothyroxine Sodium (Synthroid) 88 mcg DAILY PO Last administered on 08:10; Admin Dose 88 MCG; Start 10/06/17 at 09:00 Quetiapine Fumarate (Seroquel) 100 mg HS PO Last administered on 10/09/17 21: 40; Admin Dose 100 MG; Start 10/06/17 at 21:00 Tamsulosin HCl (Flomax) 0.4 mg DAILY PO Last administered on 10/10/17 08:10; Admin Dose 0.4 MG; Start 10/06/17 at 13:30 Aspirin (Halfprin) 325 mg DAILY PO Last administered on 10/10/17 08:10; Admin Dose 325 MG; Start 10/07/17 at 09:00 Metoprolol Tartrate (Lopressor) 25 mg BID PO Last administered on 10/10/17 08 :10; Admin Dose 25 MG; Start 10/06/17 at 21:00 Metoprolol Tartrate 5 mg 5 mg Q4H PRN IV HR>110 Hold SBP<100; Start 10/06/17 at 19:30 Sodium Chloride (NS) 1,000 ml @ 50 mls/hr Q20H IV Last administered on 10:00; Admin Dose 100 MLS/HR; Start 10/07/17 at 11:30 Pantoprazole (Protonix Tab) 40 mg DAILY@06 PO Last administered on 10/10/17 06:45; Admin Dose 40 MG; Start 10/08/17 at 06:00 Mupirocin 1 applic 1 applic BID TOP Last administered on 10/10/17 08:11; Admin Dose 1 APPLIC; Start 10/08/17 at 21:00 Meropenem/Sodium Chloride 50 ml @ 100 mls/hr Q8 IVPB Last administered on 06:45; Admin Dose 100 MLS/HR; Start 10/08/17 at 22:00 Ferric Sodium Gluconate Complex/ Sodium Chloride (Ferrlecit/NS) 110 ml @ 100 mls/hr Q24H IVPB Last administered on 10/09/17 18:27; Admin Dose 100 MLS/HR; Start 10/09/17 at 17:00; Stop 10/10/17 at 18:05 RAMAKRISHNA ONEAL MD Oct 10, 2017 09:15
[2017-10-10] MEDS: SOD CHLORIDE 0.9% 1,000 ML IV SCH (09:30)
[2017-10-10 09:33] LABS: ANISOCYTOSIS 1+ (0-0); BASOPHILS % (M) 1 % (0-2); EOSINOPHILS % (M) 1 % (0-7); METAMYELOCYTES %M 2 % (0-0); MONOCYTES % (M) 9 % (0-11); PLATELET ESTIMATE NORMAL; POLYCHROMASIA 1+ (0-0)
--- NOTE | 2017-10-10 10:04 | PN ---
Date/Time of Note Date/Time of Note DATE: 10/10/17 TIME: 10:01 Assessment/Plan VTE Prophylaxis VTE Prophylaxis Intervention: SCD's Lines/Catheters IV Catheter Type (from Nrs): Saline Lock Urinary Cath still in place: Yes Reason Cath still needed: other (indicate) (monitor output) Assessment/Plan Chief Complaint/Hosp Course Assessment: Questionable GI bleed, hemoglobin is stable Rhabdomyolysis Abnormal liver function test Rule out hepatitis A, B and C Rule out autoimmune hepatitis vs related to rhabdomyolysis Schizophrenia Seizure disorder Renal disease with kidney stones Hypertension Dyslipidemia Hypothyroidism Plan: Continue monitoring H&H and liver enzymes Hepatitis B core total (reactive0 IgM- pending Hepatitis C AB (reactive)- RNA pending Autoimmune panel SABA, ASMA and AMA- negative Continue PPI Monitor H/H transfuse as needed Discussed ETOh cessation Further recommendations based on results Endoscopy not warranted at this time The seen in collaboration with Dr. Whitney Subjective: Course reviewed with nursing staff Patient interviewed and examined All labs, imaging and other results reviewed No significant changes over night, additional hep labs still pending. LFT's have improved today. Continue current regimen. PHYSICAL EXAMINATION: GENERAL: Well developed, well nourished, alert & oriented x 3, in no acute distress SKIN: No lesions, no stigmata chronic liver disease, no evidence of bleeding diathesis LYMPHATIC: No palpable lymphadenopathy. HEAD: Normocephalic, atraumatic, no tenderness. EYES: Pupils equal reactive to light and accommodation, full extraocular movements, sclera clear, non-icteric, no discharge. EARS/NOSE AND THROAT: Ears normal, nose normal, oropharynx normal, NECK: Supple, no masses, thyroid normal, CHEST: Inspection within normal limits. CARDIOVASCULAR: Heart: Regular rate and rhythm, RESPIRATORY: Lungs clear to auscultation and percussion, no wheezing, no rubs GASTROINTESTINAL AND LIVER: Abdomen: Soft, midepigastric and left upper quadrant tenderness, non-distended, no hernias, no masses, no organomegaly, no ascites, no guarding, no rebound tenderness, hyperactive bowel sounds. Rectal: Deferred. GENITOURINARY: Deferred EXTREMITIES: No cyanosis, clubbing or edema. Problems: Exam/Review of Systems Vital Signs Vitals Vital Signs Date Time Temp Pulse Resp B/P Pulse Ox O2 Delivery O2 Flow Rate FiO2 10/10/17 08:04 98.4 79 19 152/63 97 10/09/17 20:00 Nasal Cannula 2.0 Intake and Output 10/09/17 10/09/17 10/10/17 15:00 23:00 07:00 Intake Total 1810 ml 300 ml Output Total 650 ml 350 ml Balance 1160 ml -50 ml Results Result Diagram: 10/10/17 0702 10/10/17 0702 Results 24 hrs Laboratory Tests Test 10/10/17 07:02 White Blood Count 14.9 #H Red Blood Count 3.22 L Hemoglobin 10.1 L Hematocrit 28.1 L Mean Corpuscular Volume 87.3 Mean Corpuscular Hemoglobin 31.4 Mean Corpuscular Hemoglobin Concent 35.9 Red Cell Distribution Width 14.8 H Platelet Count 177 # Mean Platelet Volume 11.8 H Neutrophils % Segmented Neutrophils % (Manual) 71 Band Neutrophils % (Manual) 14 H Lymphocytes % Lymphocytes % (Manual) 2 L Monocytes % Monocytes % (Manual) 9 Eosinophils % Eosinophils % (Manual) 1 Basophils % Basophils % (Manual) 1 Metamyelocytes % (manual) 2 H Nucleated Red Blood Cells % 0.0 Neutrophils # Neutrophils # (Manual) 10.9 H Band Neutrophils # 2.0 H Absolute Lymphocytes (Manual) 0.2 L Lymphocytes # Monocytes # Absolute Monocytes (Manual) 1.3 H Eosinophils # Basophils # Basophils # (Manual) 0.1 H Metamyelocytes # 0.2 H Nucleated Red Blood Cells # Platelet Estimate NORMAL Polychromasia 1+ Anisocytosis 1+ Macrocytosis 1+ Sodium Level 136 Potassium Level 3.5 Chloride Level 102 Carbon Dioxide Level 26 Anion Gap 12 Blood Urea Nitrogen 30 H Creatinine 1.32 H Glucose Level 87 Calcium Level 8.9 Total Bilirubin 0.3 Direct Bilirubin 0.00 Indirect Bilirubin 0.3 Aspartate Amino Transf (AST/SGOT) 42 Alanine Aminotransferase (ALT/SGPT) 56 Alkaline Phosphatase 117 Total Protein 5.8 L Albumin 2.6 L Globulin 3.20 Albumin/Globulin Ratio 0.81 Medications Medications Current Medications Ondansetron HCl (Zofran Inj) 4 mg Q6H PRN IV NAUSEA AND/OR VOMITING; Start at 06:00 Acetaminophen (Tylenol Tab) 650 mg Q6H PRN PO PAIN LEVEL 1-3 OR FEVER; Start 10/06/17 at 06:00 Morphine Sulfate (morphine) 2 mg Q4H PRN IV PAIN LEVEL 7-10 Last administered on 10/10/17 08:12; Admin Dose 2 MG; Start 10/06/17 at 06:00 Fish Oil (Fish Oil) 1,000 mg DAILY PO Last administered on 10/10/17 08:10; Admin Dose 1,000 MG; Start 10/06/17 at 09:00 Levothyroxine Sodium (Synthroid) 88 mcg DAILY PO Last administered on 08:10; Admin Dose 88 MCG; Start 10/06/17 at 09:00 Quetiapine Fumarate (Seroquel) 100 mg HS PO Last administered on 10/09/17 21: 40; Admin Dose 100 MG; Start 10/06/17 at 21:00 Tamsulosin HCl (Flomax) 0.4 mg DAILY PO Last administered on 10/10/17 08:10; Admin Dose 0.4 MG; Start 10/06/17 at 13:30 Aspirin (Halfprin) 325 mg DAILY PO Last administered on 10/10/17 08:10; Admin Dose 325 MG; Start 10/07/17 at 09:00 Metoprolol Tartrate (Lopressor) 25 mg BID PO Last administered on 10/10/17 08 :10; Admin Dose 25 MG; Start 10/06/17 at 21:00 Metoprolol Tartrate 5 mg 5 mg Q4H PRN IV HR>110 Hold SBP<100; Start 10/06/17 at 19:30 Sodium Chloride (NS) 1,000 ml @ 50 mls/hr Q20H IV Last administered on 10:00; Admin Dose 100 MLS/HR; Start 10/07/17 at 11:30 Pantoprazole (Protonix Tab) 40 mg DAILY@06 PO Last administered on 10/10/17 06:45; Admin Dose 40 MG; Start 10/08/17 at 06:00 Mupirocin 1 applic 1 applic BID TOP Last administered on 10/10/17 08:11; Admin Dose 1 APPLIC; Start 10/08/17 at 21:00 Meropenem/Sodium Chloride 50 ml @ 100 mls/hr Q8 IVPB Last administered on 06:45; Admin Dose 100 MLS/HR; Start 10/08/17 at 22:00 Ferric Sodium Gluconate Complex/ Sodium Chloride (Ferrlecit/NS) 110 ml @ 100 mls/hr Q24H IVPB Last administered on 10/09/17t 18:27; Admin Dose 100 MLS/HR; Start 10/09/17 at 17:00; Stop 10/10/17 at 18:05 KENNEDY WILLARD Oct 10, 2017 10:04
--- NOTE | 2017-10-10 12:18 | RADRPT ---
PROCEDURE: XR Abdomen. CLINICAL INDICATION: Abdominal pain. Left ureteral calculus. TECHNIQUE: AP supine abdomen x-ray. COMPARISON: 10/07/2017. FINDINGS: The bowel gas pattern is normal with no evidence of obstruction. There is a Green catheter in the bladder. There are no calcifications overlying the urinary tracts. There are degenerative changes of the spine. IMPRESSION: 1. Green catheter in the bladder. 2. No calcifications overlying the urinary tracts. 3. Degenerative changes of the spine. 4. Otherwise unremarkable abdomen radiograph. RPTAT: QQ .Jaleel Anguiano MD, MD Date Time Electronically viewed and signed by .Jaleel Anguiano MD, MD on 10/10/2017 12:18 .R/
--- NOTE | 2017-10-10 13:31 | PN ---
Date/Time of Note Date/Time of Note DATE: 10/10/17 TIME: 13:28 Assessment/Plan VTE Prophylaxis VTE Prophylaxis Intervention: SCD's Lines/Catheters IV Catheter Type (from Nrs): Saline Lock Urinary Cath still in place: Yes Reason Cath still needed: urinary retention Assessment/Plan Chief Complaint/Hosp Course S: Pt had no acute events overnight, seen by multiple specialist. Spoke today with the daughter on the phone and gave her an update, (apparently she is a nurse at [employer]). O: VS (see below) PE: GENERAL: Lying in bed, lethargic, but answering questions appropriately. HEAD: Normocephalic, atraumatic, no tenderness. EYES: Pupils equal reactive to light and accommodation, full extraocular movements, sclera clear, non-icteric, no discharge. EARS/NOSE AND THROAT: Ears normal, nose normal, oropharynx normal, oral membranes well hydrated without lesions. NECK: Supple, no masses, thyroid normal, CHEST: Inspection within normal limits. CARDIOVASCULAR: Heart: Regular rate and rhythm, no murmurs, gallops or rubs. RESPIRATORY: Lungs clear to auscultation and percussion, no wheezing, no rubs GASTROINTESTINAL AND LIVER: Abdomen: Soft, midepigastric and left upper quadrant tenderness, non-distended, no hernias, no masses, no organomegaly, no ascites, no guarding, no rebound tenderness EXTREMITIES: No cyanosis, clubbing or edema. A/P: 67 yo female with hx of dyslipidemia, hypothyroidism, renal stone, seizure d/o, schizoaffective disorder, status post fall at home on the floor for 2 days , with subsequent rhabdomyolysis, AK I with metabolic acidosis, upper and lower GI bleed, elevated troponins. 1. Syncope: unknown etiology: cardiac vs seizure(given hx) vs weakness from dehydration and rhabdomyolysis and renal insufficiency, again pt fell and remained in her bathroom x 2 days unable to get up. Head CT showed no acute abnormalities. No syncopal events since being here in the hospital. Seen by physical therapy -Continue PT, OT, IV fluids, antibiotics -Appreciate cardiology input, monitor heart rate, f/u PT and OT consults as well 2. Presumed acute on CKD: 2/2 Rhabdo -significantly improving after patient has been on IV fluids, -Continue IVF per renal recommendations -Follow-up renal u/s -urine electrolytes 3.positive troponin -only 1 troponin was positive, likely secondary to patient' s dehydration and rhabdo, now follow-up troponins have been negative, cardiology on the case as well -aspirin, beta-max per cardiology recommended -Monitor 4. Rhabdomyolysis -resolved now -IVF, monitor BUN/creatinine levels, CK levels. 5. Metabolic acidosis -secondary to renal insufficiency -now serum CO2 levels are normal, resolved now -Continue IVF per renal recommendations -Monitor BMP, follow-up renal rec's 6. Left UVPJ, Obstructive Uropathy -CT scan of the abdomen and pelvis and that showed a 4 mm left upper ureteral stone with obstruction -IVF, follow-up urology recommendations, continue to strain the urine, pain control, antibiotics to treat urine infection -Flomax 7. A-flutter with RVR -now in normal sinus rhythm -Follow cardiology recommendations, continue to monitor heart rate -Follow-up TSH 8. ESBL ecoli: Found in the blood and in the urine. -Continue meropenem based on sensitivities, follow final culture results 9. Upper lower GI bleeding: Appreciate GI consult. Of note hepatitis B total core antibody and hepatitis C antibody are both positive. Daughter states patient may have been exposed to hepatitis B over 40 years ago. Hepatitis B surface antigen and IgM were both negative. -Monitor for now, follow GI recommendations, follow-up PCR hepatitis C test -Per GI rec's,if the patient starts bleeding or becomes hemodynamically unstable will consider endoscopy Dispo: Likely home with home health PT and nursing with front wheel walker in the next 2-3 days, follow-up with case management on this. Daughter states willing to take the patient home as well Problems: Exam/Review of Systems Vital Signs Vitals Vital Signs Date Time Temp Pulse Resp B/P Pulse Ox O2 Delivery O2 Flow Rate FiO2 10/10/17 12:21 98.2 80 19 140/89 95 10/09/17 20:00 Nasal Cannula 2.0 Intake and Output 10/09/17 10/09/17 10/10/17 15:00 23:00 07:00 Intake Total 1810 ml 300 ml Output Total 650 ml 350 ml Balance 1160 ml -50 ml Results Result Diagram: 10/10/17 0702 10/10/17 0702 Results 24 hrs Laboratory Tests Test 10/10/17 07:02 White Blood Count 14.9 #H Red Blood Count 3.22 L Hemoglobin 10.1 L Hematocrit 28.1 L Mean Corpuscular Volume 87.3 Mean Corpuscular Hemoglobin 31.4 Mean Corpuscular Hemoglobin Concent 35.9 Red Cell Distribution Width 14.8 H Platelet Count 177 # Mean Platelet Volume 11.8 H Neutrophils % Segmented Neutrophils % (Manual) 71 Band Neutrophils % (Manual) 14 H Lymphocytes % Lymphocytes % (Manual) 2 L Monocytes % Monocytes % (Manual) 9 Eosinophils % Eosinophils % (Manual) 1 Basophils % Basophils % (Manual) 1 Metamyelocytes % (manual) 2 H Nucleated Red Blood Cells % 0.0 Neutrophils # Neutrophils # (Manual) 10.9 H Band Neutrophils # 2.0 H Absolute Lymphocytes (Manual) 0.2 L Lymphocytes # Monocytes # Absolute Monocytes (Manual) 1.3 H Eosinophils # Basophils # Basophils # (Manual) 0.1 H Metamyelocytes # 0.2 H Nucleated Red Blood Cells # Platelet Estimate NORMAL Polychromasia 1+ Anisocytosis 1+ Macrocytosis 1+ Sodium Level 136 Potassium Level 3.5 Chloride Level 102 Carbon Dioxide Level 26 Anion Gap 12 Blood Urea Nitrogen 30 H Creatinine 1.32 H Glucose Level 87 Calcium Level 8.9 Total Bilirubin 0.3 Direct Bilirubin 0.00 Indirect Bilirubin 0.3 Aspartate Amino Transf (AST/SGOT) 42 Alanine Aminotransferase (ALT/SGPT) 56 Alkaline Phosphatase 117 Total Protein 5.8 L Albumin 2.6 L Globulin 3.20 Albumin/Globulin Ratio 0.81 Medications Medications Current Medications Ondansetron HCl (Zofran Inj) 4 mg Q6H PRN IV NAUSEA AND/OR VOMITING; Start at 06:00 Acetaminophen (Tylenol Tab) 650 mg Q6H PRN PO PAIN LEVEL 1-3 OR FEVER; Start 10/06/17 at 06:00 Morphine Sulfate (morphine) 2 mg Q4H PRN IV PAIN LEVEL 7-10 Last administered on 10/10/17 08:12; Admin Dose 2 MG; Start 10/06/17 at 06:00 Fish Oil (Fish Oil) 1,000 mg DAILY PO Last administered on 10/10/17 08:10; Admin Dose 1,000 MG; Start 10/06/17 at 09:00 Levothyroxine Sodium (Synthroid) 88 mcg DAILY PO Last administered on 08:10; Admin Dose 88 MCG; Start 10/06/17 at 09:00 Quetiapine Fumarate (Seroquel) 100 mg HS PO Last administered on 10/09/17 21: 40; Admin Dose 100 MG; Start 10/06/17 at 21:00 Tamsulosin HCl (Flomax) 0.4 mg DAILY PO Last administered on 10/10/17 08:10; Admin Dose 0.4 MG; Start 10/06/17 at 13:30 Aspirin (Halfprin) 325 mg DAILY PO Last administered on 10/10/17 08:10; Admin Dose 325 MG; Start 10/07/17 at 09:00 Metoprolol Tartrate (Lopressor) 25 mg BID PO Last administered on 10/10/17 08 :10; Admin Dose 25 MG; Start 10/06/17 at 21:00 Metoprolol Tartrate 5 mg 5 mg Q4H PRN IV HR>110 Hold SBP<100; Start 10/06/17 at 19:30 Sodium Chloride (NS) 1,000 ml @ 50 mls/hr Q20H IV Last administered on 10:00; Admin Dose 100 MLS/HR; Start 10/07/17 at 11:30 Pantoprazole (Protonix Tab) 40 mg DAILY@06 PO Last administered on 10/10/17 06:45; Admin Dose 40 MG; Start 10/08/17 at 06:00 Mupirocin 1 applic 1 applic BID TOP Last administered on 10/10/17 08:11; Admin Dose 1 APPLIC; Start 10/08/17 at 21:00 Meropenem/Sodium Chloride 50 ml @ 100 mls/hr Q8 IVPB Last administered on 06:45; Admin Dose 100 MLS/HR; Start 10/08/17 at 22:00 Ferric Sodium Gluconate Complex/ Sodium Chloride (Ferrlecit/NS) 110 ml @ 100 mls/hr Q24H IVPB Last administered on 10/09/17 18:27; Admin Dose 100 MLS/HR; Start 10/09/17 at 17:00; Stop 10/10/17 at 18:05 ALLEN HARRIS 26, 2017 13:31
--- NOTE | 2017-10-10 14:32 | CONS ---
Date/Time of Note Date/Time of Note DATE: 10/10/17 TIME: 14:31 Assessment/Plan Assessment/Plan Chief Complaint/Hosp Course * arf due to rhabdomyolysis, prerenal azotemia, obstructing renal stone. Improved renal function. * rhabdo: due to fall, immobilization - resolved * anemia: low TSat - receiving IV Iron. Monitor Hb * renal stone with hydro: gu eval appreciated. On tamsulosin and IVF. * ESBL E coli UTI and bacteremia. Continue Meropenem Problems: Consultation Date/Type/Reason Admit Date/Time Oct 05, 2017 at 22:26 Initial Consult Date 10/06/17 Type of Consultation: Nephrology Referring Provider: YOSELIN RAMON MD 24 HR Interval Summary Free Text/Dictation Up in chair, still some left flank pain but less Exam/Review of Systems Vital Signs Vitals Vital Signs Date Time Temp Pulse Resp B/P Pulse Ox O2 Delivery O2 Flow Rate FiO2 10/10/17 12:21 98.2 80 19 140/89 95 10/09/17 20:00 Nasal Cannula 2.0 Intake and Output 10/09/17 10/09/17 10/10/17 15:00 23:00 07:00 Intake Total 1810 ml 300 ml Output Total 650 ml 350 ml Balance 1160 ml -50 ml Exam Constitutional: alert Neck: supple, No jvd Respiratory: clear to auscultation Cardiovascular: regular rate and rhythm Gastrointestinal: soft Extremities: No clubbing Results Result Diagram: 10/10/17 0702 10/10/17 0702 Results 24 hrs Laboratory Tests Test 10/10/17 07:02 White Blood Count 14.9 #H Red Blood Count 3.22 L Hemoglobin 10.1 L Hematocrit 28.1 L Mean Corpuscular Volume 87.3 Mean Corpuscular Hemoglobin 31.4 Mean Corpuscular Hemoglobin Concent 35.9 Red Cell Distribution Width 14.8 H Platelet Count 177 # Mean Platelet Volume 11.8 H Neutrophils % Segmented Neutrophils % (Manual) 71 Band Neutrophils % (Manual) 14 H Lymphocytes % Lymphocytes % (Manual) 2 L Monocytes % Monocytes % (Manual) 9 Eosinophils % Eosinophils % (Manual) 1 Basophils % Basophils % (Manual) 1 Metamyelocytes % (manual) 2 H Nucleated Red Blood Cells % 0.0 Neutrophils # Neutrophils # (Manual) 10.9 H Band Neutrophils # 2.0 H Absolute Lymphocytes (Manual) 0.2 L Lymphocytes # Monocytes # Absolute Monocytes (Manual) 1.3 H Eosinophils # Basophils # Basophils # (Manual) 0.1 H Metamyelocytes # 0.2 H Nucleated Red Blood Cells # Platelet Estimate NORMAL Polychromasia 1+ Anisocytosis 1+ Macrocytosis 1+ Sodium Level 136 Potassium Level 3.5 Chloride Level 102 Carbon Dioxide Level 26 Anion Gap 12 Blood Urea Nitrogen 30 H Creatinine 1.32 H Glucose Level 87 Calcium Level 8.9 Total Bilirubin 0.3 Direct Bilirubin 0.00 Indirect Bilirubin 0.3 Aspartate Amino Transf (AST/SGOT) 42 Alanine Aminotransferase (ALT/SGPT) 56 Alkaline Phosphatase 117 Total Protein 5.8 L Albumin 2.6 L Globulin 3.20 Albumin/Globulin Ratio 0.81 Medications Medications Current Medications Ondansetron HCl (Zofran Inj) 4 mg Q6H PRN IV NAUSEA AND/OR VOMITING; Start at 06:00 Acetaminophen (Tylenol Tab) 650 mg Q6H PRN PO PAIN LEVEL 1-3 OR FEVER; Start 10/06/17 at 06:00 Morphine Sulfate (morphine) 2 mg Q4H PRN IV PAIN LEVEL 7-10 Last administered on 10/10/17 13:59; Admin Dose 2 MG; Start 10/06/17 at 06:00 Fish Oil (Fish Oil) 1,000 mg DAILY PO Last administered on 10/10/17 08:10; Admin Dose 1,000 MG; Start 10/06/17 at 09:00 Levothyroxine Sodium (Synthroid) 88 mcg DAILY PO Last administered on 08:10; Admin Dose 88 MCG; Start 10/06/17 at 09:00 Quetiapine Fumarate (Seroquel) 100 mg HS PO Last administered on 10/09/17 21: 40; Admin Dose 100 MG; Start 10/06/17 at 21:00 Tamsulosin HCl (Flomax) 0.4 mg DAILY PO Last administered on 10/10/17 08:10; Admin Dose 0.4 MG; Start 10/06/17 at 13:30 Aspirin (Halfprin) 325 mg DAILY PO Last administered on 10/10/17 08:10; Admin Dose 325 MG; Start 10/07/17 at 09:00 Metoprolol Tartrate (Lopressor) 25 mg BID PO Last administered on 10/10/17 08 :10; Admin Dose 25 MG; Start 10/06/17 at 21:00 Metoprolol Tartrate 5 mg 5 mg Q4H PRN IV HR>110 Hold SBP<100; Start 10/06/17 at 19:30 Sodium Chloride (NS) 1,000 ml @ 50 mls/hr Q20H IV Last administered on 10:00; Admin Dose 100 MLS/HR; Start 10/07/17 at 11:30 Pantoprazole (Protonix Tab) 40 mg DAILY@06 PO Last administered on 10/10/17 06:45; Admin Dose 40 MG; Start 10/08/17 at 06:00 Mupirocin 1 applic 1 applic BID TOP Last administered on 10/10/17 08:11; Admin Dose 1 APPLIC; Start 10/08/17 at 21:00 Meropenem/Sodium Chloride 50 ml @ 100 mls/hr Q8 IVPB Last administered on 13:53; Admin Dose 100 MLS/HR; Start 10/08/17 at 22:00 Ferric Sodium Gluconate Complex/ Sodium Chloride (Ferrlecit/NS) 110 ml @ 100 mls/hr Q24H IVPB Last administered on 10/09/17 18:27; Admin Dose 100 MLS/HR; Start 10/09/17 at 17:00; Stop 10/10/17 at 18:05 MIKAYLA NELSON MD Oct 10, 2017 14:32
[2017-10-10] MEDS: SOD FERRIC GLUC COMPLX 125 MG in SOD CHLORIDE 0.9% 100 ML IVPB SCH (16:36)
--- NOTE | 2017-10-10 17:18 | CONS ---
Date/Time of Note Date/Time of Note DATE: 10/10/17 TIME: 17:15 Assessment/Plan Assessment/Plan Chief Complaint/Hosp Course ID PROGRESS NOTE CURRENT ABX: DAY # 3 =>Vanco IV + Merrem 24H INTERVAL SUMMARY * More alert today, resting, no fevers * MICRO: (+)MRSA Nares * Urine cx and BCx 2/2 bottles (+) BLOOD CULTURE Final BCULT GRAM BOTTLE 1 Gram negative rods . seen on gram stain of the broth Organism 1 ESCHERICHIA COLI (ESBL) . MULTI DRUG RESISTANT ORGANISM ECOLI ESBL M.I.C. RX --------- --- AMIKACIN 4 S AMPICILLIN >=32 R CEFAZOLIN >=64 R CEFEPIME 8 S CEFOTAXIME R CIPROFLOXACIN >=4 R GENTAMICIN <=1 S IMIPENEM <=0.25 S LEVOFLOXACIN >=8 R TOBRAMYCIN >=16 R TRIMETHOPRIM/SULFAMETHOXAZOLE >=320 R PHYSICAL EXAMINATION: GENERAL: Lethargic,obese, O2 via NC HEENT: Unremarkable NECK: Supple, trach midline CHEST: Equal chest rise bilaterally, without dyspnea on observation HEART: RRR ABDOMEN: Soft, NT, ND EXT: Warm, SKIN: No rash, no diaphoresis ID ASSESSMENT: 67 yo Obese F w/PMHx schizoaffective + SZs disorder admit VPH: 1. GNR E.Coli-ESBL Sepsis w/fevers,leukocytosis w/27% Bands, and lactic acidosis => 2/2 #2 & #3 * BCx (+)2/2 bottles E.Coli-ESBL 2. Acute GNR E.Coli-ESBL Pyelonephritis = complicated UTI 3. Obstructive uropathy w/left hydronephrosis => Per CT: Left obstructive uropathy with a 4 mm obstructing calculus at the left ureteral pelvic junction. 4. Afib w/RVR = new onset 5. DARWIN -> Rhabdomyolysis 6. Transaminitis -> (+)HBV & (+)HCV * Per daughter possible prior exposure over 40 years ago: 7. Fatty infiltration of the liver. 8. Gallstones, without CT evidence of acute cholecystitis. 9. Atherosclerosis: aorta + cerebral microischemic disease 10. Encephalopathy probably toxic metabolic * CT brain: NO acute process. Mild intracranial atherosclerosis and moderate chronic small vessel ischemic changes. Mild generalized cerebral and cerebellar volume loss. 11. GI Bleed -> UGI & LGI 13. Psych Hx: Schizoaffective, depression, hx of prior SI ABX ALLERGIES: NKDA INVASIVES: PIV CURRENT ABX: DAY # 2 =>Vanco IV + Merrem ID RECOMMENDATIONS/PLAN: 1. Continue current ABX -> She will need minimum 14 days IV ABX for E.Coli-ESBL , possible longer due to presence of obstuctive renal stone and recurrent pyelo 2. ID team will f/u tomorrow . Problems: Consultation Date/Type/Reason Admit Date/Time Oct 05, 2017 at 22:26 Initial Consult Date 10/06/17 Type of Consultation: ID Referring Provider: YOSELIN RAMON MD Exam/Review of Systems Vital Signs Vitals Vital Signs Date Time Temp Pulse Resp B/P Pulse Ox O2 Delivery O2 Flow Rate FiO2 10/10/17 16:18 98.1 89 19 130/59 93 10/09/17 20:00 Nasal Cannula 2.0 Intake and Output 10/09/17 10/09/17 10/10/17 15:00 23:00 07:00 Intake Total 1810 ml 300 ml Output Total 650 ml 350 ml Balance 1160 ml -50 ml Results Result Diagram: 10/10/17 0702 10/10/17 0702 Results 24 hrs Laboratory Tests Test 10/10/17 07:02 White Blood Count 14.9 #H Red Blood Count 3.22 L Hemoglobin 10.1 L Hematocrit 28.1 L Mean Corpuscular Volume 87.3 Mean Corpuscular Hemoglobin 31.4 Mean Corpuscular Hemoglobin Concent 35.9 Red Cell Distribution Width 14.8 H Platelet Count 177 # Mean Platelet Volume 11.8 H Neutrophils % Segmented Neutrophils % (Manual) 71 Band Neutrophils % (Manual) 14 H Lymphocytes % Lymphocytes % (Manual) 2 L Monocytes % Monocytes % (Manual) 9 Eosinophils % Eosinophils % (Manual) 1 Basophils % Basophils % (Manual) 1 Metamyelocytes % (manual) 2 H Nucleated Red Blood Cells % 0.0 Neutrophils # Neutrophils # (Manual) 10.9 H Band Neutrophils # 2.0 H Absolute Lymphocytes (Manual) 0.2 L Lymphocytes # Monocytes # Absolute Monocytes (Manual) 1.3 H Eosinophils # Basophils # Basophils # (Manual) 0.1 H Metamyelocytes # 0.2 H Nucleated Red Blood Cells # Platelet Estimate NORMAL Polychromasia 1+ Anisocytosis 1+ Macrocytosis 1+ Sodium Level 136 Potassium Level 3.5 Chloride Level 102 Carbon Dioxide Level 26 Anion Gap 12 Blood Urea Nitrogen 30 H Creatinine 1.32 H Glucose Level 87 Calcium Level 8.9 Total Bilirubin 0.3 Direct Bilirubin 0.00 Indirect Bilirubin 0.3 Aspartate Amino Transf (AST/SGOT) 42 Alanine Aminotransferase (ALT/SGPT) 56 Alkaline Phosphatase 117 Total Protein 5.8 L Albumin 2.6 L Globulin 3.20 Albumin/Globulin Ratio 0.81 Medications Medications Current Medications Ondansetron HCl (Zofran Inj) 4 mg Q6H PRN IV NAUSEA AND/OR VOMITING; Start at 06:00 Acetaminophen (Tylenol Tab) 650 mg Q6H PRN PO PAIN LEVEL 1-3 OR FEVER; Start 10/06/17 at 06:00 Morphine Sulfate (morphine) 2 mg Q4H PRN IV PAIN LEVEL 7-10 Last administered on 10/10/17 13:59; Admin Dose 2 MG; Start 10/06/17 at 06:00 Fish Oil (Fish Oil) 1,000 mg DAILY PO Last administered on 10/10/17 08:10; Admin Dose 1,000 MG; Start 10/06/17 at 09:00 Levothyroxine Sodium (Synthroid) 88 mcg DAILY PO Last administered on 08:10; Admin Dose 88 MCG; Start 10/06/17 at 09:00 Quetiapine Fumarate (Seroquel) 100 mg HS PO Last administered on 10/09/17 21: 40; Admin Dose 100 MG; Start 10/06/17 at 21:00 Tamsulosin HCl (Flomax) 0.4 mg DAILY PO Last administered on 10/10/17 08:10; Admin Dose 0.4 MG; Start 10/06/17 at 13:30 Aspirin (Halfprin) 325 mg DAILY PO Last administered on 10/10/17 08:10; Admin Dose 325 MG; Start 10/07/17 at 09:00 Metoprolol Tartrate (Lopressor) 25 mg BID PO Last administered on 10/10/17 08 :10; Admin Dose 25 MG; Start 10/06/17 at 21:00 Metoprolol Tartrate 5 mg 5 mg Q4H PRN IV HR>110 Hold SBP<100; Start 10/06/17 at 19:30 Sodium Chloride (NS) 1,000 ml @ 50 mls/hr Q20H IV Last administered on 10:00; Admin Dose 100 MLS/HR; Start 10/07/17 at 11:30 Pantoprazole (Protonix Tab) 40 mg DAILY@06 PO Last administered on 10/10/17 06:45; Admin Dose 40 MG; Start 10/08/17 at 06:00 Mupirocin 1 applic 1 applic BID TOP Last administered on 10/10/17 08:11; Admin Dose 1 APPLIC; Start 10/08/17 at 21:00 Meropenem/Sodium Chloride 50 ml @ 100 mls/hr Q8 IVPB Last administered on 13:53; Admin Dose 100 MLS/HR; Start 10/08/17 at 22:00 Ferric Sodium Gluconate Complex/ Sodium Chloride (Ferrlecit/NS) 110 ml @ 100 mls/hr Q24H IVPB Last administered on 10/10/17 16:36; Admin Dose 100 MLS/HR; Start 10/09/17 at 17:00; Stop 10/10/17 at 18:05 MARY MOHAN NP Oct 10, 2017 17:18
--- NOTE | 2017-10-10 19:28 | CONS ---
Date/Time of Note Date/Time of Note DATE: 10/10/17 TIME: 19:25 Consult Date/Type/Reason Admit Date/Time Oct 05, 2017 at 22:26 Initial Consult Date 10/06/17 Type of Consultation: Urology Reason for Consultation Left upper ureteral stone Ordering Provider: YOSELIN RAMON MD Subjective Patient states she has pain in the left upper quadrant. No nausea or vomiting Objective Vital Signs Date Time Temp Pulse Resp B/P Pulse Ox O2 Delivery O2 Flow Rate FiO2 10/10/17 16:18 98.1 89 19 130/59 93 10/09/17 20:00 Nasal Cannula 2.0 Intake and Output 10/09/17 10/09/17 10/10/17 15:00 23:00 07:00 Intake Total 1810 ml 300 ml Output Total 650 ml 350 ml Balance 1160 ml -50 ml Exam Obese abdomen, left flank tenderness, Green catheter is draining clear urine Results/Medications Result Diagram: 10/10/17 0702 10/10/17 0702 Results 24 hrs Laboratory Tests Test 10/10/17 07:02 White Blood Count 14.9 #H Red Blood Count 3.22 L Hemoglobin 10.1 L Hematocrit 28.1 L Mean Corpuscular Volume 87.3 Mean Corpuscular Hemoglobin 31.4 Mean Corpuscular Hemoglobin Concent 35.9 Red Cell Distribution Width 14.8 H Platelet Count 177 # Mean Platelet Volume 11.8 H Neutrophils % Segmented Neutrophils % (Manual) 71 Band Neutrophils % (Manual) 14 H Lymphocytes % Lymphocytes % (Manual) 2 L Monocytes % Monocytes % (Manual) 9 Eosinophils % Eosinophils % (Manual) 1 Basophils % Basophils % (Manual) 1 Metamyelocytes % (manual) 2 H Nucleated Red Blood Cells % 0.0 Neutrophils # Neutrophils # (Manual) 10.9 H Band Neutrophils # 2.0 H Absolute Lymphocytes (Manual) 0.2 L Lymphocytes # Monocytes # Absolute Monocytes (Manual) 1.3 H Eosinophils # Basophils # Basophils # (Manual) 0.1 H Metamyelocytes # 0.2 H Nucleated Red Blood Cells # Platelet Estimate NORMAL Polychromasia 1+ Anisocytosis 1+ Macrocytosis 1+ Sodium Level 136 Potassium Level 3.5 Chloride Level 102 Carbon Dioxide Level 26 Anion Gap 12 Blood Urea Nitrogen 30 H Creatinine 1.32 H Glucose Level 87 Calcium Level 8.9 Total Bilirubin 0.3 Direct Bilirubin 0.00 Indirect Bilirubin 0.3 Aspartate Amino Transf (AST/SGOT) 42 Alanine Aminotransferase (ALT/SGPT) 56 Alkaline Phosphatase 117 Total Protein 5.8 L Albumin 2.6 L Globulin 3.20 Albumin/Globulin Ratio 0.81 Medications Current Medications Ondansetron HCl (Zofran Inj) 4 mg Q6H PRN IV NAUSEA AND/OR VOMITING; Start at 06:00 Acetaminophen (Tylenol Tab) 650 mg Q6H PRN PO PAIN LEVEL 1-3 OR FEVER; Start 10/06/17 at 06:00 Morphine Sulfate (morphine) 2 mg Q4H PRN IV PAIN LEVEL 7-10 Last administered on 10/10/17 13:59; Admin Dose 2 MG; Start 10/06/17 at 06:00 Fish Oil (Fish Oil) 1,000 mg DAILY PO Last administered on 10/10/17 08:10; Admin Dose 1,000 MG; Start 10/06/17 at 09:00 Levothyroxine Sodium (Synthroid) 88 mcg DAILY PO Last administered on 08:10; Admin Dose 88 MCG; Start 10/06/17 at 09:00 Quetiapine Fumarate (Seroquel) 100 mg HS PO Last administered on 10/09/17 21: 40; Admin Dose 100 MG; Start 10/06/17 at 21:00 Tamsulosin HCl (Flomax) 0.4 mg DAILY PO Last administered on 10/10/17 08:10; Admin Dose 0.4 MG; Start 10/06/17 at 13:30 Aspirin (Halfprin) 325 mg DAILY PO Last administered on 10/10/17 08:10; Admin Dose 325 MG; Start 10/07/17 at 09:00 Metoprolol Tartrate (Lopressor) 25 mg BID PO Last administered on 10/10/17 08 :10; Admin Dose 25 MG; Start 10/06/17 at 21:00 Metoprolol Tartrate 5 mg 5 mg Q4H PRN IV HR>110 Hold SBP<100; Start 10/06/17 at 19:30 Sodium Chloride (NS) 1,000 ml @ 50 mls/hr Q20H IV Last administered on 10:00; Admin Dose 100 MLS/HR; Start 10/07/17 at 11:30 Pantoprazole (Protonix Tab) 40 mg DAILY@06 PO Last administered on 10/10/17 06:45; Admin Dose 40 MG; Start 10/08/17 at 06:00 Mupirocin 1 applic 1 applic BID TOP Last administered on 10/10/17 08:11; Admin Dose 1 APPLIC; Start 10/08/17 at 21:00 Meropenem/Sodium Chloride (Merrem 1 Gm/50 ml (Pmx)) 50 ml @ 100 mls/hr Q8 IVPB Last administered on 10/10/17 13:53; Admin Dose 100 MLS/HR; Start 10/08/17 at 22:00 Assessment/Plan Chief Complaint/Hosp Course 67-year-old female was found on the floor in her house after she fell and she was on the floor for 2 days. Patient did also have some bloody emesis and GI bleed. After admission she had a CT scan of the abdomen and pelvis and that showed a 4 mm left upper ureteral stone with obstruction. Last KUB did not show the stone. The urine culture did show E. coli ESBL and the patient was put on meropenem Recommendation: Continue to strain the urine, continue meropenem, continue tamsulosin, repeat the CT scan of the abdomen and pelvis without contrast to see if the stone has moved and localize it DC the Green catheter in a.m. Problems: FRANNY DEE MD Oct 10, 2017 19:28
[2017-10-10] MEDS: QUETIAPINE 100 MG TAB PO SCH (19:48)
[2017-10-11] VITALS (11 sets, daily range): BP systolic 132–180; BP diastolic 63–86; PULSE 65–75; RESP 16–19
[2017-10-11] MEDS: MEROPENEM 1 GM/50ML(PMX) 50 ML IVPB SCH (05:27)
[2017-10-11] MEDS: PANTOPRAZOLE (EC) 40 MG TAB PO SCH (05:27)
[2017-10-11] MEDS: SOD CHLORIDE 0.9% 1,000 ML IV SCH (05:28)
--- NOTE | 2017-10-11 07:54 | CONS ---
Date/Time of Note Date/Time of Note DATE: 10/11/17 TIME: 07:52 Assessment/Plan Assessment/Plan Additional Assessment/Plan 1. Renal fx continue to improve, labs ordered this am. 2. Urol eval noted, await repeat imaging re:obstructing left renal stone. 3. Rhabdomyolysis resolved. 4. Mild vol overload, will dec IV's Consultation Date/Type/Reason Admit Date/Time Oct 05, 2017 at 22:26 Initial Consult Date 10/06/17 Type of Consultation: Urology Referring Provider: YOSELIN RAMON MD Detailed Summary Respiratory: No shortness of breath Cardiovascular: No chest pain Gastrointestinal: No nausea, No pain, No vomiting Genitourinary: flank pain (intermittent left), other (donaldson has been removed) Exam/Review of Systems Vital Signs Vitals Vital Signs Date Time Temp Pulse Resp B/P Pulse Ox O2 Delivery O2 Flow Rate FiO2 10/11/17 04:37 75 10/11/17 04:00 98.3 19 149/63 97 10/10/17 20:00 Nasal Cannula 2.0 Intake and Output 10/10/17 10/10/17 10/11/17 15:00 23:00 07:00 Intake Total 1010 ml 400 ml Output Total 850 ml 400 ml Balance 160 ml 0 ml Exam Neck: No jvd Respiratory: clear to auscultation Cardiovascular: regular rate and rhythm Gastrointestinal: soft Extremities: No edema (1+ flank edema) Results Result Diagram: 10/10/17 0702 10/10/17 0702 Medications Medications Current Medications Ondansetron HCl (Zofran Inj) 4 mg Q6H PRN IV NAUSEA AND/OR VOMITING; Start at 06:00 Acetaminophen (Tylenol Tab) 650 mg Q6H PRN PO PAIN LEVEL 1-3 OR FEVER; Start 10/06/17 at 06:00 Morphine Sulfate (morphine) 2 mg Q4H PRN IV PAIN LEVEL 7-10 Last administered on 10/10/17 19:48; Admin Dose 2 MG; Start 10/06/17 at 06:00 Fish Oil (Fish Oil) 1,000 mg DAILY PO Last administered on 10/10/17 08:10; Admin Dose 1,000 MG; Start 10/06/17 at 09:00 Levothyroxine Sodium (Synthroid) 88 mcg DAILY PO Last administered on 08:10; Admin Dose 88 MCG; Start 10/06/17 at 09:00 Quetiapine Fumarate (Seroquel) 100 mg HS PO Last administered on 10/10/17 19: 48; Admin Dose 100 MG; Start 10/06/17 at 21:00 Tamsulosin HCl (Flomax) 0.4 mg DAILY PO Last administered on 10/10/17 08:10; Admin Dose 0.4 MG; Start 10/06/17 at 13:30 Aspirin (Halfprin) 325 mg DAILY PO Last administered on 10/10/17 08:10; Admin Dose 325 MG; Start 10/07/17 at 09:00 Metoprolol Tartrate (Lopressor) 25 mg BID PO Last administered on 10/10/17 19 :57; Admin Dose 25 MG; Start 10/06/17 at 21:00 Metoprolol Tartrate 5 mg 5 mg Q4H PRN IV HR>110 Hold SBP<100; Start 10/06/17 at 19:30 Sodium Chloride (NS) 1,000 ml @ 50 mls/hr Q20H IV Last administered on 05:28; Admin Dose 50 MLS/HR; Start 10/07/17 at 11:30 Pantoprazole (Protonix Tab) 40 mg DAILY@06 PO Last administered on 10/11/17 05:27; Admin Dose 40 MG; Start 10/08/17 at 06:00 Mupirocin 1 applic 1 applic BID TOP Last administered on 10/10/17 19:58; Admin Dose 1 APPLIC; Start 10/08/17 at 21:00 Meropenem/Sodium Chloride (Merrem 1 Gm/50 ml (Pmx)) 50 ml @ 100 mls/hr Q8 IVPB Last administered on 10/11/17 05:27; Admin Dose 100 MLS/HR; Start 10/08/17 at 22:00 RAMAKRISHNA LEACH MD Oct 11, 2017 07:54
[2017-10-11] MEDS: morphine 2 MG INJ IV PRN ×3 (08:13→20:14)
[2017-10-11] MEDS: FISH OIL 1,000 MG CAP PO SCH (08:15)
[2017-10-11] MEDS: TAMSULOSIN (SR) 0.4 MG CAP PO SCH (08:19)
[2017-10-11] MEDS: LEVOTHYROXINE 88 MCG TAB PO SCH (08:19)
[2017-10-11] MEDS: METOPROLOL 25 MG TAB PO SCH ×2 (08:20→20:15)
[2017-10-11] MEDS: MUPIROCIN 2% 22 GM OINT TOP SCH ×2 (08:20→20:15)
[2017-10-11] MEDS: ASPIRIN (EC) 325 MG TAB PO SCH (08:27)
--- NOTE | 2017-10-11 09:29 | RADRPT ---
PROCEDURE: CT Abdomen and Pelvis without contrast. CLINICAL INDICATION: Abdominal pain TECHNIQUE: CT scan of the abdomen and pelvis was performed on a multidetector high-resolution CT s canner without intravenous contrast. Coronal and sagittal reformatted images were obtained from the axial source images. Images were reviewed on a high-resolution PACS workstation. The total exam CTD I equals 22mGy and the total exam DLP equals 1225mGy-cm. One or more of the following dose reduction techniques were used: Automated exposure control, Adjustment of the mA and/or kV according to patie nt size, and/or use of iterative reconstruction technique. DICOM images are available. COMPARISON: Abdominal CT 10/05/2017 FINDINGS: Evaluation of the solid organs is limited given the lack of intravenous contrast administration. Interval development of small bilateral pleural effusions, left greater than right, with compressive atelectasis of the lower lungs. Cardiomegaly. Stable apperance of the liver. The pancreas, spleen, and adrenals are grossly unremarkable. Cholelithiasis without focal pericholecystic inflammatory changes. 6 mm obstructing stone at the left ureteropelvic junction again noted with associated left hydroneph rosis. Similar left perinephric inflammatory stranding. 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 No significant bowel d ilatation to suggest bowel obstruction. No significant retroperitoneal lymphadenopathy, ascites or evidence of pneumoperitoneum. Aortoiliac atherosclerosis. Degenerative changes to the spine. IMPRESSION: Similar appearance of the 6 mm obstructing stone at the left ureteropelvic junction with associated left hydronephrosis when compared to 10/05/2017. Interval development of small bilateral pleural effusions, left greater than right, with compressive atelectasis of the lower lungs. RPTAT: AA .Ross Jon MD, Date Time Electronically viewed and signed by .Ross Jon MD, on 10/11/2017 09:29 .T/
[2017-10-11] MEDS: ERTAPENEM SODIUM 1 GM in SOD CHLORIDE 0.9% 100 ML IVPB SCH (11:18)
--- NOTE | 2017-10-11 13:23 | PN ---
DATE: 10/11/2017 SUBJECTIVE: The patient is alert, feels better, looks comfortable, still has left flank pain and sh e still has some burning on urination. Green catheter was discontinued today. MICROBIOLOGY: Blood and urine culture grew E. coli ESBL. ANTIMICROBIALS: The patient is on Invanz, status post meropenem. PHYSICAL EXAMINATION: GENERAL: Well-developed, obese, elderly woman who is alert, in no distress. HEENT: Head atraumatic, normocephalic. Sclerae anicteric. NECK: Supple. CHEST: Rise symmetrical. Breath sounds clear. HEART: S1, S2. ABDOMEN: Soft. Bowel tones present. EXTREMITIES: Without cyanosis. ASSESSMENT: 1. Acute Escherichia coli extended-spectrum beta-lactamase pyelonephritis. 2. Escherichia coli extended-spectrum beta-lactamase bacteremia secondary to above. 3. Obstructive uropathy. 4. Atrial fibrillation, status post rapid ventricular response. 5. Transaminitis with positive HBV and HCV. 6. History of schizoaffective disorder and depression. 7. Methicillin-resistant Staphylococcus aureus nares colonization, on Bactroban PLAN: The patient remains stable. She is being followed by urology. Green catheter was discontinu ed today and she already avoided. We are going to make sure blood cultures were repeated and if not , we will repeat them. Continue present care, antibiotics, Bactroban to nares. Anticipate treating the patient with long-term IV antibiotics for bacteremia and pyelonephritis. Dictated By: KRISTI PARDO SHELVING SUPERVISOR for JOSE RAWLS MD NI/NTS Conf#: [id number] DID#: [id number] CC: YOSELIN RAMON MD;*EndCC*
[2017-10-11 13:41] LABS: ABNORMAL IP MESSAGE 1; HEMATOCRIT 30.7 % (37.0-47.0); HEMOGLOBIN 10.8 g/dl (12.0-16.0); MEAN CORPUSCULAR HEMOGLOBIN 30.9 pg (29.0-33.0); MEAN CORPUSCULAR HGB CONC 35.2 g/dl (32.0-37.0); MEAN CORPUSCULAR VOLUME 87.7 fl (82.0-101.0); MEAN PLATELET VOLUME 11.5 fl (7.4-10.4); PLATELET COUNT 286 10^3/UL (140-415); RED CELL DISTRIBUTION WIDTH 14.9 % (11.5-14.5); WHITE BLOOD COUNT 14.9 10^3/ul (4.8-10.8)
[2017-10-11 13:48] LABS: CALCIUM 9.5 mg/dl (8.4-10.2); CREATININE 1.13 mg/dl (0.44-1.00); POTASSIUM 3.6 mmol/L (3.5-5.1)
[2017-10-11 13:56] LABS: POSITIVE DIFF @See below
[2017-10-11 15:02] LABS: ANISOCYTOSIS 1+ (0-0); BASOPHILS % (M) 1 % (0-2); GIANT THROMBO% (M) 1 % (0-0); HYPOCHROMASIA 1+ (0-0); MONOCYTES % (M) 4 % (0-11); PLATELET ESTIMATE NORMAL; POLYCHROMASIA 3+ (0-0)
--- NOTE | 2017-10-11 16:32 | PN ---
Date/Time of Note Date/Time of Note DATE: 10/11/17 TIME: 16:32 Assessment/Plan VTE Prophylaxis VTE Prophylaxis Intervention: SCD's Lines/Catheters IV Catheter Type (from Nrs): Saline Lock Urinary Cath still in place: No Assessment/Plan Assessment/Plan 67 yo F admitted for sepsis from ESBL bacteremia in setting of kidney stone #sepsis with ESBL bacteremia from infected kidney stone to retreive stone in AM 2 weeks of invanz from date stone is removed cont flomax #DARWIN on CKD: cr significantly improved #elevated trop, AFlutter with RVR TSH slightly high, check t4 HR controlled pt on asa 325 currently for CVA risk reduction, defer to PCP to consider full ATC #hepatitis serologies: Hep C VL pending, HepB bloodwork consistent with previous exposure PT eval to help with discharge planning Subjective 24 Hr Interval Summary Free Text/Dictation Pt feeling ok this AM, reports she still has kidney stone pain though when she moves Exam/Review of Systems Vital Signs Vitals Vital Signs Date Time Temp Pulse Resp B/P Pulse Ox O2 Delivery O2 Flow Rate FiO2 10/11/17 16:21 74 10/11/17 12:07 97.7 16 161/86 96 10/11/17 08:00 Nasal Cannula 2.0 Intake and Output 10/10/17 10/10/17 10/11/17 15:00 23:00 07:00 Intake Total 1010 ml 400 ml Output Total 850 ml 400 ml Balance 160 ml 0 ml Exam nad no mrg lungs clear abd soft no rashes CT results with unchanged position of kidney stone Results Result Diagram: 10/11/17 1318 10/11/17 1318 Results 24 hrs Laboratory Tests Test 10/11/17 07:59 10/11/17 13:17 10/11/17 13:18 Lab Scanned Report REFERENCE LAB Hepatitis B Surface Antibody NEGATIVE White Blood Count 14.9 H Red Blood Count 3.50 L Hemoglobin 10.8 L Hematocrit 30.7 L Mean Corpuscular Volume 87.7 Mean Corpuscular Hemoglobin 30.9 Mean Corpuscular Hemoglobin Concent 35.2 Red Cell Distribution Width 14.9 H Platelet Count 286 # Mean Platelet Volume 11.5 H Neutrophils % Segmented Neutrophils % (Manual) 82 H Band Neutrophils % (Manual) 7 H Lymphocytes % Lymphocytes % (Manual) 7 L Monocytes % Monocytes % (Manual) 4 Eosinophils % Basophils % Basophils % (Manual) 1 Nucleated Red Blood Cells % 0.0 Neutrophils # Neutrophils # (Manual) 12.4 H Band Neutrophils # 1.0 H Absolute Lymphocytes (Manual) 1.0 Lymphocytes # Monocytes # Absolute Monocytes (Manual) 0.5 Eosinophils # Basophils # Basophils # (Manual) 0.1 H Nucleated Red Blood Cells # Platelet Estimate NORMAL Giant Platelets 1 H Polychromasia 3+ Hypochromasia 1+ Anisocytosis 1+ Macrocytosis 1+ Sodium Level 138 Potassium Level 3.6 Chloride Level 103 Carbon Dioxide Level 28 Anion Gap 11 Blood Urea Nitrogen 24 H Creatinine 1.13 H Glucose Level 93 Calcium Level 9.5 Medications Medications Current Medications Ondansetron HCl (Zofran Inj) 4 mg Q6H PRN IV NAUSEA AND/OR VOMITING; Start at 06:00 Acetaminophen (Tylenol Tab) 650 mg Q6H PRN PO PAIN LEVEL 1-3 OR FEVER; Start 10/06/17 at 06:00 Morphine Sulfate (morphine) 2 mg Q4H PRN IV PAIN LEVEL 7-10 Last administered on 10/11/17 16:13; Admin Dose 2 MG; Start 10/06/17 at 06:00 Fish Oil (Fish Oil) 1,000 mg DAILY PO Last administered on 10/11/17 08:15; Admin Dose 1,000 MG; Start 10/06/17 at 09:00 Levothyroxine Sodium (Synthroid) 88 mcg DAILY PO Last administered on 08:19; Admin Dose 88 MCG; Start 10/06/17 at 09:00 Quetiapine Fumarate (Seroquel) 100 mg HS PO Last administered on 10/10/17 19: 48; Admin Dose 100 MG; Start 10/06/17 at 21:00 Tamsulosin HCl (Flomax) 0.4 mg DAILY PO Last administered on 10/11/17 08:19; Admin Dose 0.4 MG; Start 10/06/17 at 13:30 Metoprolol Tartrate (Lopressor) 25 mg BID PO Last administered on 10/11/17 08 :20; Admin Dose 25 MG; Start 10/06/17 at 21:00 Metoprolol Tartrate 5 mg 5 mg Q4H PRN IV HR>110 Hold SBP<100; Start 10/06/17 at 19:30 Sodium Chloride (NS) 1,000 ml @ 20 mls/hr Q24H IV Last administered on 05:28; Admin Dose 50 MLS/HR; Start 10/07/17 at 11:30 Pantoprazole (Protonix Tab) 40 mg DAILY@06 PO Last administered on 10/11/17 05:27; Admin Dose 40 MG; Start 10/08/17 at 06:00 Mupirocin (Bactroban) 1 applic BID TOP Last administered on 10/11/17 08:20; Admin Dose 1 APPLIC; Start 10/08/17 at 21:00 Aspirin 325 mg 325 mg DAILY PO Last administered on 10/11/17 08:27; Admin Dose 325 MG; Start 10/11/17 at 09:00 Ertapenem/Sodium Chloride (Invanz/NS) 100 ml @ 200 mls/hr Q24H IVPB Last administered on 10/11/17 11:18; Admin Dose 200 MLS/HR; Start 10/11/17 at 08: 30 ADOLFO COLEMAN MD Oct 11, 2017 16:32 Calcium Level 9.5 Medications Medications Current Medications Ondansetron HCl (Zofran Inj) 4 mg Q6H PRN IV NAUSEA AND/OR VOMITING; Start at 06:00 Acetaminophen (Tylenol Tab) 650 mg Q6H PRN PO PAIN LEVEL 1-3 OR FEVER; Start 10/06/17 at 06:00 Morphine Sulfate (morphine) 2 mg Q4H PRN IV PAIN LEVEL 7-10 Last administered on 10/11/17 16:13; Admin Dose 2 MG; Start 10/06/17 at 06:00 Fish Oil (Fish Oil) 1,000 mg DAILY PO Last administered on 10/11/17 08:15; Admin Dose 1,000 MG; Start 10/06/17 at 09:00 Levothyroxine Sodium (Synthroid) 88 mcg DAILY PO Last administered on 08:19; Admin Dose 88 MCG; Start 10/06/17 at 09:00 Quetiapine Fumarate (Seroquel) 100 mg HS PO Last administered on 10/10/17 19: 48; Admin Dose 100 MG; Start 10/06/17 at 21:00 Tamsulosin HCl (Flomax) 0.4 mg DAILY PO Last administered on 10/11/17 08:19; Admin Dose 0.4 MG; Start 10/06/17 at 13:30 Metoprolol Tartrate (Lopressor) 25 mg BID PO Last administered on 10/11/17 08 :20; Admin Dose 25 MG; Start 10/06/17 at 21:00 Metoprolol Tartrate 5 mg 5 mg Q4H PRN IV HR>110 Hold SBP<100; Start 10/06/17 at 19:30 Sodium Chloride (NS) 1,000 ml @ 20 mls/hr Q24H IV Last administered on 05:28; Admin Dose 50 MLS/HR; Start 10/07/17 at 11:30 Pantoprazole (Protonix Tab) 40 mg DAILY@06 PO Last administered on 10/11/17 05:27; Admin Dose 40 MG; Start 10/08/17 at 06:00 Mupirocin (Bactroban) 1 applic BID TOP Last administered on 10/11/17 08:20; Admin Dose 1 APPLIC; Start 10/08/17 at 21:00 Aspirin 325 mg 325 mg DAILY PO Last administered on 10/11/17 08:27; Admin Dose 325 MG; Start 10/11/17 at 09:00 Ertapenem/Sodium Chloride (Invanz/NS) 100 ml @ 200 mls/hr Q24H IVPB Last administered on 10/11/17 11:18; Admin Dose 200 MLS/HR; Start 10/11/17 at 08: 30 ADOLFO COLEMAN MD Oct 11, 2017 16:32
--- NOTE | 2017-10-11 17:41 | PN ---
Date/Time of Note Date/Time of Note DATE: 10/11/17 TIME: 17:31 Assessment/Plan VTE Prophylaxis VTE Prophylaxis Intervention: heparin Lines/Catheters IV Catheter Type (from Nrs): Saline Lock Urinary Cath still in place: Yes Reason Cath still needed: other (indicate) (monitor I&O) Assessment/Plan Chief Complaint/Hosp Course Assessment: No signs of GI bleed, hemoglobin is stable Rhabdomyolysis Abnormal liver function test Rule out hepatitis B and C No evidence autoimmune hepatitis vs related to rhabdomyolysis Schizophrenia Seizure disorder Renal disease with kidney stones Hypertension Dyslipidemia Hypothyroidism Plan: Continue monitoring H&H and liver enzymes Hepatitis B core total (reactive0 IgM- pending Hepatitis C AB (reactive)- RNA pending Autoimmune panel SABA, ASMA and AMA- negative Continue PPI Monitor H/H transfuse as needed Further recommendations based on results Endoscopy not warranted at this time The seen in collaboration with Dr. Whitney Subjective: Course reviewed with nursing staff Patient interviewed and examined All labs, imaging and other results reviewed No significant changes over night, additional hep labs still pending. LFT's have improved today. Continue current regimen. PHYSICAL EXAMINATION: GENERAL: Well developed, well nourished, alert & oriented x 3, in no acute distress SKIN: No lesions, no stigmata chronic liver disease, no evidence of bleeding diathesis LYMPHATIC: No palpable lymphadenopathy. HEAD: Normocephalic, atraumatic, no tenderness. EYES: Pupils equal reactive to light and accommodation, full extraocular movements, sclera clear, non-icteric, no discharge. EARS/NOSE AND THROAT: Ears normal, nose normal, oropharynx normal, NECK: Supple, no masses, thyroid normal, CHEST: Inspection within normal limits. CARDIOVASCULAR: Heart: Regular rate and rhythm, RESPIRATORY: Lungs clear to auscultation and percussion, no wheezing, no rubs GASTROINTESTINAL AND LIVER: Abdomen: Soft, no tenderness, non-distended, no hernias, no masses, no organomegaly, no ascites, no guarding, no rebound tenderness, hyperactive bowel sounds. Rectal: Deferred. GENITOURINARY: Deferred EXTREMITIES: No cyanosis, clubbing or edema. Problems: Exam/Review of Systems Vital Signs Vitals Vital Signs Date Time Temp Pulse Resp B/P Pulse Ox O2 Delivery O2 Flow Rate FiO2 10/11/17 16:45 97.8 73 16 180/86 95 10/11/17 08:00 Nasal Cannula 2.0 Intake and Output 10/10/17 10/10/17 10/11/17 15:00 23:00 07:00 Intake Total 1010 ml 400 ml Output Total 850 ml 400 ml Balance 160 ml 0 ml Results Result Diagram: 10/11/17 1318 10/11/17 1318 Results 24 hrs Laboratory Tests Test 10/11/17 07:59 10/11/17 13:17 10/11/17 13:18 Lab Scanned Report REFERENCE LAB Hepatitis B Surface Antibody NEGATIVE White Blood Count 14.9 H Red Blood Count 3.50 L Hemoglobin 10.8 L Hematocrit 30.7 L Mean Corpuscular Volume 87.7 Mean Corpuscular Hemoglobin 30.9 Mean Corpuscular Hemoglobin Concent 35.2 Red Cell Distribution Width 14.9 H Platelet Count 286 # Mean Platelet Volume 11.5 H Neutrophils % Segmented Neutrophils % (Manual) 82 H Band Neutrophils % (Manual) 7 H Lymphocytes % Lymphocytes % (Manual) 7 L Monocytes % Monocytes % (Manual) 4 Eosinophils % Basophils % Basophils % (Manual) 1 Nucleated Red Blood Cells % 0.0 Neutrophils # Neutrophils # (Manual) 12.4 H Band Neutrophils # 1.0 H Absolute Lymphocytes (Manual) 1.0 Lymphocytes # Monocytes # Absolute Monocytes (Manual) 0.5 Eosinophils # Basophils # Basophils # (Manual) 0.1 H Nucleated Red Blood Cells # Platelet Estimate NORMAL Giant Platelets 1 H Polychromasia 3+ Hypochromasia 1+ Anisocytosis 1+ Macrocytosis 1+ Sodium Level 138 Potassium Level 3.6 Chloride Level 103 Carbon Dioxide Level 28 Anion Gap 11 Blood Urea Nitrogen 24 H Creatinine 1.13 H Glucose Level 93 Calcium Level 9.5 Medications Medications Current Medications Ondansetron HCl (Zofran Inj) 4 mg Q6H PRN IV NAUSEA AND/OR VOMITING; Start at 06:00 Acetaminophen (Tylenol Tab) 650 mg Q6H PRN PO PAIN LEVEL 1-3 OR FEVER; Start 10/06/17 at 06:00 Morphine Sulfate (morphine) 2 mg Q4H PRN IV PAIN LEVEL 7-10 Last administered on 10/11/17 16:13; Admin Dose 2 MG; Start 10/06/17 at 06:00 Fish Oil (Fish Oil) 1,000 mg DAILY PO Last administered on 10/11/17 08:15; Admin Dose 1,000 MG; Start 10/06/17 at 09:00 Levothyroxine Sodium (Synthroid) 88 mcg DAILY PO Last administered on 08:19; Admin Dose 88 MCG; Start 10/06/17 at 09:00 Quetiapine Fumarate (Seroquel) 100 mg HS PO Last administered on 10/10/17 19: 48; Admin Dose 100 MG; Start 10/06/17 at 21:00 Tamsulosin HCl (Flomax) 0.4 mg DAILY PO Last administered on 10/11/17 08:19; Admin Dose 0.4 MG; Start 10/06/17 at 13:30 Metoprolol Tartrate (Lopressor) 25 mg BID PO Last administered on 10/11/17 08 :20; Admin Dose 25 MG; Start 10/06/17 at 21:00 Metoprolol Tartrate 5 mg 5 mg Q4H PRN IV HR>110 Hold SBP<100; Start 10/06/17 at 19:30 Sodium Chloride (NS) 1,000 ml @ 20 mls/hr Q24H IV Last administered on 05:28; Admin Dose 50 MLS/HR; Start 10/07/17 at 11:30 Pantoprazole (Protonix Tab) 40 mg DAILY@06 PO Last administered on 10/11/17 05:27; Admin Dose 40 MG; Start 10/08/17 at 06:00 Mupirocin (Bactroban) 1 applic BID TOP Last administered on 10/11/17 08:20; Admin Dose 1 APPLIC; Start 10/08/17 at 21:00 Aspirin 325 mg 325 mg DAILY PO Last administered on 10/11/17 08:27; Admin Dose 325 MG; Start 10/11/17 at 09:00 Ertapenem/Sodium Chloride (Invanz/NS) 100 ml @ 200 mls/hr Q24H IVPB Last administered on 10/11/17 11:18; Admin Dose 200 MLS/HR; Start 10/11/17 at 08: 30 MUKESH ANTOINE NP Oct 11, 2017 17:41
--- NOTE | 2017-10-11 18:07 | CONS ---
Date/Time of Note Date/Time of Note DATE: 10/11/17 TIME: 18:02 Consult Date/Type/Reason Admit Date/Time Oct 05, 2017 at 22:26 Initial Consult Date 10/06/17 Type of Consultation: Urology Reason for Consultation Left upper ureteral stone Ordering Provider: YOSELIN RAMON MD Subjective Patient stated that she has pain on and off, there is no nausea or vomiting Objective Vital Signs Date Time Temp Pulse Resp B/P Pulse Ox O2 Delivery O2 Flow Rate FiO2 10/11/17 16:45 97.8 73 16 180/86 95 10/11/17 08:00 Nasal Cannula 2.0 Intake and Output 10/10/17 10/10/17 10/11/17 15:00 23:00 07:00 Intake Total 1010 ml 400 ml Output Total 850 ml 400 ml Balance 160 ml 0 ml Exam Patient is afebrile awake and alert, the abdomen is obese, she does have left flank tenderness Results/Medications Result Diagram: 10/11/17 1318 10/11/17 1318 Results 24 hrs Laboratory Tests Test 10/11/17 07:59 10/11/17 13:17 10/11/17 13:18 Lab Scanned Report REFERENCE LAB Hepatitis B Surface Antibody NEGATIVE White Blood Count 14.9 H Red Blood Count 3.50 L Hemoglobin 10.8 L Hematocrit 30.7 L Mean Corpuscular Volume 87.7 Mean Corpuscular Hemoglobin 30.9 Mean Corpuscular Hemoglobin Concent 35.2 Red Cell Distribution Width 14.9 H Platelet Count 286 # Mean Platelet Volume 11.5 H Neutrophils % Segmented Neutrophils % (Manual) 82 H Band Neutrophils % (Manual) 7 H Lymphocytes % Lymphocytes % (Manual) 7 L Monocytes % Monocytes % (Manual) 4 Eosinophils % Basophils % Basophils % (Manual) 1 Nucleated Red Blood Cells % 0.0 Neutrophils # Neutrophils # (Manual) 12.4 H Band Neutrophils # 1.0 H Absolute Lymphocytes (Manual) 1.0 Lymphocytes # Monocytes # Absolute Monocytes (Manual) 0.5 Eosinophils # Basophils # Basophils # (Manual) 0.1 H Nucleated Red Blood Cells # Platelet Estimate NORMAL Giant Platelets 1 H Polychromasia 3+ Hypochromasia 1+ Anisocytosis 1+ Macrocytosis 1+ Sodium Level 138 Potassium Level 3.6 Chloride Level 103 Carbon Dioxide Level 28 Anion Gap 11 Blood Urea Nitrogen 24 H Creatinine 1.13 H Glucose Level 93 Calcium Level 9.5 Medications Current Medications Ondansetron HCl (Zofran Inj) 4 mg Q6H PRN IV NAUSEA AND/OR VOMITING; Start at 06:00 Acetaminophen (Tylenol Tab) 650 mg Q6H PRN PO PAIN LEVEL 1-3 OR FEVER; Start 10/06/17 at 06:00 Morphine Sulfate (morphine) 2 mg Q4H PRN IV PAIN LEVEL 7-10 Last administered on 10/11/17 16:13; Admin Dose 2 MG; Start 10/06/17 at 06:00 Fish Oil (Fish Oil) 1,000 mg DAILY PO Last administered on 10/11/17 08:15; Admin Dose 1,000 MG; Start 10/06/17 at 09:00 Levothyroxine Sodium (Synthroid) 88 mcg DAILY PO Last administered on 08:19; Admin Dose 88 MCG; Start 10/06/17 at 09:00 Quetiapine Fumarate (Seroquel) 100 mg HS PO Last administered on 10/10/17 19: 48; Admin Dose 100 MG; Start 10/06/17 at 21:00 Tamsulosin HCl (Flomax) 0.4 mg DAILY PO Last administered on 10/11/17 08:19; Admin Dose 0.4 MG; Start 10/06/17 at 13:30 Metoprolol Tartrate (Lopressor) 25 mg BID PO Last administered on 10/11/17 08 :20; Admin Dose 25 MG; Start 10/06/17 at 21:00 Metoprolol Tartrate 5 mg 5 mg Q4H PRN IV HR>110 Hold SBP<100; Start 10/06/17 at 19:30 Sodium Chloride (NS) 1,000 ml @ 20 mls/hr Q24H IV Last administered on 05:28; Admin Dose 50 MLS/HR; Start 10/07/17 at 11:30 Pantoprazole (Protonix Tab) 40 mg DAILY@06 PO Last administered on 10/11/17 05:27; Admin Dose 40 MG; Start 10/08/17 at 06:00 Mupirocin (Bactroban) 1 applic BID TOP Last administered on 10/11/17 08:20; Admin Dose 1 APPLIC; Start 10/08/17 at 21:00 Aspirin 325 mg 325 mg DAILY PO Last administered on 10/11/17 08:27; Admin Dose 325 MG; Start 10/11/17 at 09:00 Ertapenem/Sodium Chloride (Invanz/NS) 100 ml @ 200 mls/hr Q24H IVPB Last administered on 10/11/17 11:18; Admin Dose 200 MLS/HR; Start 10/11/17 at 08: 30 Assessment/Plan Chief Complaint/Hosp Course 67-year-old female was found on the floor in her house after she fell and she was on the floor for 2 days. Patient did also have some bloody emesis and GI bleed. After admission she had a CT scan of the abdomen and pelvis and that showed a 4 mm left upper ureteral stone with obstruction. Last KUB did not show the stone. Repeat CT scan of the abdomen and pelvis done today showed the stone to be about 6 mm at the ureteropelvic junction was obstruction. The urine culture did show E. coli ESBL and the patient was put on meropenem Recommendation: Continue to strain the urine, continue meropenem, continue tamsulosin, I did schedule her for cystoscopy, left ureteroscopy and laser lithotripsy and insertion of left ureteral JJ stent at 7:30 AM tomorrow. I did explain the procedure to her in detail, the benefits, the risks, success and failure of the procedure and also the need for the JJ stent and that the JJ stent has to be removed or changed before 3 months. She said she has had ESWL before and she had a lot of pain after and she was concerned about the postop pain. I explained to her that we will give her pain medications and the presence of the JJ stent will prevent the kidney from being obstructed and therefore she should not have a severe pain as she did have after the ESWL. The patient did understand the procedure and she is agreeable to proceed. Problems: FRANNY DEE MD Oct 11, 2017 18:07
[2017-10-11] MEDS: QUETIAPINE 100 MG TAB PO SCH (20:15)
--- NOTE | 2017-10-11 20:45 | CONS ---
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 component of pain 4.renal calculous/UTI 5.renal failure-imprving 6.s/p fall -recurrent 7.bacetremia Recc: -Tele -serial ecg's -Continue BB -Continue asa full dose for now -To undergo cystoscopy and lithotripsy tomorrow -Continue abx's and continue to f/u cx data -start norvasc in attempt to improve BP control Problems: Consultation Date/Type/Reason Admit Date/Time Oct 05, 2017 at 22:26 Initial Consult Date 10/06/17 Type of Consultation: cardiology Reason for Consultation PAF/AFL Referring Provider: YOSELIN RAMON MD Exam/Review of Systems Vital Signs Vitals Vital Signs Date Time Temp Pulse Resp B/P Pulse Ox O2 Delivery O2 Flow Rate FiO2 10/11/17 19:48 98.8 69 155/81 91 10/11/17 16:45 16 10/11/17 08:00 Nasal Cannula 2.0 Intake and Output 10/10/17 10/10/17 10/11/17 15:00 23:00 07:00 Intake Total 1010 ml 400 ml Output Total 850 ml 400 ml Balance 160 ml 0 ml Exam Review of Systems: CONSTITUTIONAL: No fevers, chills. PULMONARY: No sob CARDIOVASCULAR: No chest pain/palpitations GASTROINTESTINAL: c/o abd pain GENITOURINARY: No hematuria/dysuria. MUSCULOSKELETAL: c/o back pain PSYCHIATRIC: The patient denies depression. NEUROLOGIC: No weakness Constitutional: oriented Psych: no complaints Head: normocephalic ENMT: mucosa pink and moist Neck: jvd (9 cm water), supple Respiratory: diminished breath sounds (at bases/B) Cardiovascular: regular rate and rhythm Gastrointestinal: non-tender, soft Musculoskeletal: muscle tone (normal) Extremities: edema (trace/B) Neurological: other (NO focal deficits) Results Result Diagram: 10/11/17 1318 10/11/17 1318 Results 24 hrs Laboratory Tests Test 10/11/17 07:59 10/11/17 13:17 10/11/17 13:18 Lab Scanned Report REFERENCE LAB Hepatitis B Surface Antibody NEGATIVE White Blood Count 14.9 H Red Blood Count 3.50 L Hemoglobin 10.8 L Hematocrit 30.7 L Mean Corpuscular Volume 87.7 Mean Corpuscular Hemoglobin 30.9 Mean Corpuscular Hemoglobin Concent 35.2 Red Cell Distribution Width 14.9 H Platelet Count 286 # Mean Platelet Volume 11.5 H Neutrophils % Segmented Neutrophils % (Manual) 82 H Band Neutrophils % (Manual) 7 H Lymphocytes % Lymphocytes % (Manual) 7 L Monocytes % Monocytes % (Manual) 4 Eosinophils % Basophils % Basophils % (Manual) 1 Nucleated Red Blood Cells % 0.0 Neutrophils # Neutrophils # (Manual) 12.4 H Band Neutrophils # 1.0 H Absolute Lymphocytes (Manual) 1.0 Lymphocytes # Monocytes # Absolute Monocytes (Manual) 0.5 Eosinophils # Basophils # Basophils # (Manual) 0.1 H Nucleated Red Blood Cells # Platelet Estimate NORMAL Giant Platelets 1 H Polychromasia 3+ Hypochromasia 1+ Anisocytosis 1+ Macrocytosis 1+ Sodium Level 138 Potassium Level 3.6 Chloride Level 103 Carbon Dioxide Level 28 Anion Gap 11 Blood Urea Nitrogen 24 H Creatinine 1.13 H Glucose Level 93 Calcium Level 9.5 Medications Medications Current Medications Ondansetron HCl (Zofran Inj) 4 mg Q6H PRN IV NAUSEA AND/OR VOMITING; Start at 06:00 Acetaminophen (Tylenol Tab) 650 mg Q6H PRN PO PAIN LEVEL 1-3 OR FEVER; Start 10/06/17 at 06:00 Morphine Sulfate (morphine) 2 mg Q4H PRN IV PAIN LEVEL 7-10 Last administered on 10/11/17 20:14; Admin Dose 2 MG; Start 10/06/17 at 06:00 Fish Oil (Fish Oil) 1,000 mg DAILY PO Last administered on 10/11/17 08:15; Admin Dose 1,000 MG; Start 10/06/17 at 09:00 Levothyroxine Sodium (Synthroid) 88 mcg DAILY PO Last administered on 08:19; Admin Dose 88 MCG; Start 10/06/17 at 09:00 Quetiapine Fumarate (Seroquel) 100 mg HS PO Last administered on 10/11/17 20: 15; Admin Dose 100 MG; Start 10/06/17 at 21:00 Tamsulosin HCl (Flomax) 0.4 mg DAILY PO Last administered on 10/11/17 08:19; Admin Dose 0.4 MG; Start 10/06/17 at 13:30 Metoprolol Tartrate (Lopressor) 25 mg BID PO Last administered on 10/11/17 20 :15; Admin Dose 25 MG; Start 10/06/17 at 21:00 Metoprolol Tartrate 5 mg 5 mg Q4H PRN IV HR>110 Hold SBP<100; Start 10/06/17 at 19:30 Sodium Chloride (NS) 1,000 ml @ 20 mls/hr Q24H IV Last administered on 05:28; Admin Dose 50 MLS/HR; Start 10/07/17 at 11:30 Pantoprazole (Protonix Tab) 40 mg DAILY@06 PO Last administered on 10/11/17 05:27; Admin Dose 40 MG; Start 10/08/17 at 06:00 Mupirocin (Bactroban) 1 applic BID TOP Last administered on 10/11/17 20:15; Admin Dose 1 APPLIC; Start 10/08/17 at 21:00 Aspirin 325 mg 325 mg DAILY PO Last administered on 10/11/17 08:27; Admin Dose 325 MG; Start 10/11/17 at 09:00 Ertapenem/Sodium Chloride (Invanz/NS) 100 ml @ 200 mls/hr Q24H IVPB Last administered on 10/11/17 11:18; Admin Dose 200 MLS/HR; Start 10/11/17 at 08: 30 ALYSIA KNOTT 27, 2017 20:45
[2017-10-11] MEDS ORDERED: hydrALAzine 20 MG INJ IV PRN (21:00)
[2017-10-11] MEDS ORDERED: POTASSIUM CHLORIDE (SR) 10 MEQ TAB PO ONE (21:30)
[2017-10-12] VITALS (21 sets, daily range): BP systolic 101–156; BP diastolic 54–84; PULSE 63–72; RESP 13–45
[2017-10-12] MEDS: SOD CHLORIDE 0.9% 1,000 ML IV SCH (05:49)
[2017-10-12] MEDS: PANTOPRAZOLE (EC) 40 MG TAB PO SCH (05:49)
[2017-10-12] MEDS ORDERED: EPHEDrine SULFATE 50 MG/5 ML SYG ONE (07:00)
[2017-10-12 07:14] LABS: ABNORMAL IP MESSAGE 1; HEMATOCRIT 28.1 % (37.0-47.0); HEMOGLOBIN 9.8 g/dl (12.0-16.0); MEAN CORPUSCULAR HEMOGLOBIN 30.7 pg (29.0-33.0); MEAN CORPUSCULAR HGB CONC 34.9 g/dl (32.0-37.0); MEAN CORPUSCULAR VOLUME 88.1 fl (82.0-101.0); MEAN PLATELET VOLUME 11.2 fl (7.4-10.4); PLATELET COUNT 296 10^3/UL (140-415); RED BLOOD COUNT 3.19 10^6/ul (4.20-5.40); RED CELL DISTRIBUTION WIDTH 14.8 % (11.5-14.5); WHITE BLOOD COUNT 12.8 10^3/ul (4.8-10.8)
[2017-10-12 07:19] LABS: POSITIVE DIFF @See below
--- NOTE | 2017-10-12 07:31 | HPN ---
Date/Time of Note Date/Time of Note DATE: 10/12/17 TIME: 07:30 Interval H&P Admission Note Pt. seen H&P reviewed: No system changes FRANNY DEE MD Oct 12, 2017 07:31
[2017-10-12 07:37] LABS: CALCIUM 9.2 mg/dl (8.4-10.2); CREATININE 0.96 mg/dl (0.44-1.00); MAGNESIUM 1.5 mg/dl (1.7-2.5); PHOSPHORUS 3.3 mg/dl (2.5-4.9)
[2017-10-12] MEDS ORDERED: FENTAnyl 50 MCG/ML VIAL ONE (07:43)
[2017-10-12] MEDS ORDERED: PROPOFOL 20 ML ONE (07:43)
[2017-10-12] MEDS ORDERED: MIDAZOLAM 1 MG/ML 2 ML INJ ONE (07:43)
[2017-10-12] MEDS ORDERED: METOCLOPRAMIDE 10 MG INJ ONE (07:45)
[2017-10-12] MEDS ORDERED: CEFAZOLIN 1 GM INJ ONE (08:02)
[2017-10-12 08:20] LABS: ANISOCYTOSIS 1+ (0-0); EOSINOPHILS % (M) 1 % (0-7); GIANT THROMBO% (M) 1 % (0-0); MONOCYTES % (M) 2 % (0-11); PLATELET ESTIMATE NORMAL; POLYCHROMASIA 1+ (0-0); REACTIVE LYMPHOCYTES% (M) 1 % (0-0)
--- NOTE | 2017-10-12 08:22 | CONS ---
Date/Time of Note Date/Time of Note DATE: 10/12/17 TIME: 08:21 Assessment/Plan Assessment/Plan Additional Assessment/Plan 1. Renal fx continues to improve 2. Rev with urology, stone removal planned today 3. Low mag, will replete 4. Will see on request Consultation Date/Type/Reason Admit Date/Time Oct 05, 2017 at 22:26 Initial Consult Date 10/06/17 Type of Consultation: cardiology Referring Provider: YOSELIN RAMON MD Detailed Summary Respiratory: No cough, No shortness of breath Cardiovascular: No chest pain Gastrointestinal: No nausea, No vomiting Genitourinary: other (intermittent left flank pain), No dysuria Exam/Review of Systems Vital Signs Vitals Vital Signs Date Time Temp Pulse Resp B/P Pulse Ox O2 Delivery O2 Flow Rate FiO2 10/12/17 07:43 98.6 64 156/76 64 10/12/17 07:25 Nasal Cannula 2.0 10/12/17 03:51 20 Intake and Output 10/11/17 10/11/17 10/12/17 15:00 23:00 07:00 Intake Total 100 ml 1500 ml 1200 ml Balance 100 ml 1500 ml 1200 ml Exam Neck: No jvd Cardiovascular: regular rate and rhythm Gastrointestinal: soft Extremities: No edema (of legs, 1+ sacral edema) Neurological: No focal weakness Results Result Diagram: 10/12/1743 10/12/17 0643 Results 24 hrs Laboratory Tests Test 10/11/17 13:17 10/11/17 13:18 10/12/17 06:43 Hepatitis B Surface Antibody NEGATIVE White Blood Count 14.9 H 12.8 H Red Blood Count 3.50 L 3.19 L Hemoglobin 10.8 L 9.8 L Hematocrit 30.7 L 28.1 L Mean Corpuscular Volume 87.7 88.1 Mean Corpuscular Hemoglobin 30.9 30.7 Mean Corpuscular Hemoglobin Concent 35.2 34.9 Red Cell Distribution Width 14.9 H 14.8 H Platelet Count 286 # 296 Mean Platelet Volume 11.5 H 11.2 H Neutrophils % Segmented Neutrophils % (Manual) 82 H 81 H Band Neutrophils % (Manual) 7 H 7 H Lymphocytes % Lymphocytes % (Manual) 7 L 8 L Monocytes % Monocytes % (Manual) 4 2 Eosinophils % Basophils % Basophils % (Manual) 1 Nucleated Red Blood Cells % 0.0 0.0 Neutrophils # Neutrophils # (Manual) 12.4 H 10.5 H Band Neutrophils # 1.0 H 0.8 H Absolute Lymphocytes (Manual) 1.0 1.0 Lymphocytes # Monocytes # Absolute Monocytes (Manual) 0.5 0.2 L Eosinophils # Basophils # Basophils # (Manual) 0.1 H Nucleated Red Blood Cells # Platelet Estimate NORMAL NORMAL Giant Platelets 1 H 1 H Polychromasia 3+ 1+ Hypochromasia 1+ Anisocytosis 1+ 1+ Macrocytosis 1+ Sodium Level 138 139 Potassium Level 3.6 4.0 Chloride Level 103 104 Carbon Dioxide Level 28 30 Anion Gap 11 9 Blood Urea Nitrogen 24 H 22 H Creatinine 1.13 H 0.96 Glucose Level 93 89 Calcium Level 9.5 9.2 Reactive Lymphocytes % (Manual) 1 H Eosinophils % (Manual) 1 Reactive Lymphocytes # 0.1 H Phosphorus Level 3.3 Magnesium Level 1.5 L Free Thyroxine 0.45 L Thyroxine (T4) 3.6 L Medications Medications Current Medications Ondansetron HCl (Zofran Inj) 4 mg Q6H PRN IV NAUSEA AND/OR VOMITING; Start at 06:00 Acetaminophen (Tylenol Tab) 650 mg Q6H PRN PO PAIN LEVEL 1-3 OR FEVER; Start 10/06/17 at 06:00 Morphine Sulfate (morphine) 2 mg Q4H PRN IV PAIN LEVEL 7-10 Last administered on 10/11/17 20:14; Admin Dose 2 MG; Start 10/06/17 at 06:00 Fish Oil (Fish Oil) 1,000 mg DAILY PO Last administered on 10/11/17 08:15; Admin Dose 1,000 MG; Start 10/06/17 at 09:00 Levothyroxine Sodium (Synthroid) 88 mcg DAILY PO Last administered on 08:19; Admin Dose 88 MCG; Start 10/06/17 at 09:00 Quetiapine Fumarate (Seroquel) 100 mg HS PO Last administered on 10/11/17 20: 15; Admin Dose 100 MG; Start 10/06/17 at 21:00 Tamsulosin HCl (Flomax) 0.4 mg DAILY PO Last administered on 10/11/17 08:19; Admin Dose 0.4 MG; Start 10/06/17 at 13:30 Metoprolol Tartrate (Lopressor) 25 mg BID PO Last administered on 10/11/17 20 :15; Admin Dose 25 MG; Start 10/06/17 at 21:00 Metoprolol Tartrate 5 mg 5 mg Q4H PRN IV HR>110 Hold SBP<100; Start 10/06/17 at 19:30 Sodium Chloride (NS) 1,000 ml @ 20 mls/hr Q24H IV Last administered on 05:49; Admin Dose 20 MLS/HR; Start 10/07/17 at 11:30 Pantoprazole (Protonix Tab) 40 mg DAILY@06 PO Last administered on 10/12/17 05:49; Admin Dose 40 MG; Start 10/08/17 at 06:00 Mupirocin (Bactroban) 1 applic BID TOP Last administered on 10/11/17 20:15; Admin Dose 1 APPLIC; Start 10/08/17 at 21:00 Aspirin 325 mg 325 mg DAILY PO Last administered on 10/11/17 08:27; Admin Dose 325 MG; Start 10/11/17 at 09:00 Ertapenem/Sodium Chloride (Invanz/NS) 100 ml @ 200 mls/hr Q24H IVPB Last administered on 10/11/17 11:18; Admin Dose 200 MLS/HR; Start 10/11/17 at 08: 30 Amlodipine Besylate (Norvasc) 5 mg DAILY PO ; Start 10/12/17 at 09:00 Hydralazine HCl 10 mg 10 mg Q4H PRN IV SBP>170; Start 10/11/17 at 21:00 Magnesium Sulfate/ Dextrose (Magnesium Sulfate/D5W) 106 ml @ 35.333 mls/ hr ONCE ONCE IVPB ; Start 10/12/17 at 08:30; Stop 10/12/17 at 11:29; Status RAMAKRISHNA MCDONALD MD Oct 12, 2017 08:22
--- NOTE | 2017-10-12 08:51 | CONS ---
Date/Time of Note Date/Time of Note DATE: 10/12/17 TIME: 08:51 Assessment/Plan Assessment/Plan Additional Assessment/Plan Pt in surgery now - will follow post op. Consultation Date/Type/Reason Admit Date/Time Oct 05, 2017 at 22:26 Initial Consult Date 10/06/17 Type of Consultation: cardiology Referring Provider: YOSELIN RAMON MD Exam/Review of Systems Vital Signs Vitals Vital Signs Date Time Temp Pulse Resp B/P Pulse Ox O2 Delivery O2 Flow Rate FiO2 10/12/17 08:12 70 10/12/17 07:43 98.6 156/76 64 10/12/17 07:25 Nasal Cannula 2.0 10/12/17 03:51 20 Intake and Output 10/11/17 10/11/17 10/12/17 15:00 23:00 07:00 Intake Total 100 ml 1500 ml 1200 ml Balance 100 ml 1500 ml 1200 ml Results Result Diagram: 10/12/17 0643 10/12/17 0643 Results 24 hrs Laboratory Tests Test 10/11/17 13:17 10/11/17 13:18 10/12/17 06:43 Hepatitis B Surface Antibody NEGATIVE White Blood Count 14.9 H 12.8 H Red Blood Count 3.50 L 3.19 L Hemoglobin 10.8 L 9.8 L Hematocrit 30.7 L 28.1 L Mean Corpuscular Volume 87.7 88.1 Mean Corpuscular Hemoglobin 30.9 30.7 Mean Corpuscular Hemoglobin Concent 35.2 34.9 Red Cell Distribution Width 14.9 H 14.8 H Platelet Count 286 # 296 Mean Platelet Volume 11.5 H 11.2 H Neutrophils % Segmented Neutrophils % (Manual) 82 H 81 H Band Neutrophils % (Manual) 7 H 7 H Lymphocytes % Lymphocytes % (Manual) 7 L 8 L Monocytes % Monocytes % (Manual) 4 2 Eosinophils % Basophils % Basophils % (Manual) 1 Nucleated Red Blood Cells % 0.0 0.0 Neutrophils # Neutrophils # (Manual) 12.4 H 10.5 H Band Neutrophils # 1.0 H 0.8 H Absolute Lymphocytes (Manual) 1.0 1.0 Lymphocytes # Monocytes # Absolute Monocytes (Manual) 0.5 0.2 L Eosinophils # Basophils # Basophils # (Manual) 0.1 H Nucleated Red Blood Cells # Platelet Estimate NORMAL NORMAL Giant Platelets 1 H 1 H Polychromasia 3+ 1+ Hypochromasia 1+ Anisocytosis 1+ 1+ Macrocytosis 1+ Sodium Level 138 139 Potassium Level 3.6 4.0 Chloride Level 103 104 Carbon Dioxide Level 28 30 Anion Gap 11 9 Blood Urea Nitrogen 24 H 22 H Creatinine 1.13 H 0.96 Glucose Level 93 89 Calcium Level 9.5 9.2 Reactive Lymphocytes % (Manual) 1 H Eosinophils % (Manual) 1 Reactive Lymphocytes # 0.1 H Phosphorus Level 3.3 Magnesium Level 1.5 L Free Thyroxine 0.45 L Thyroxine (T4) 3.6 L Medications Medications Current Medications Ondansetron HCl (Zofran Inj) 4 mg Q6H PRN IV NAUSEA AND/OR VOMITING; Start at 06:00 Acetaminophen (Tylenol Tab) 650 mg Q6H PRN PO PAIN LEVEL 1-3 OR FEVER; Start 10/06/17 at 06:00 Morphine Sulfate (morphine) 2 mg Q4H PRN IV PAIN LEVEL 7-10 Last administered on 10/11/17 20:14; Admin Dose 2 MG; Start 10/06/17 at 06:00 Fish Oil (Fish Oil) 1,000 mg DAILY PO Last administered on 10/11/17 08:15; Admin Dose 1,000 MG; Start 10/06/17 at 09:00 Levothyroxine Sodium (Synthroid) 88 mcg DAILY PO Last administered on 08:19; Admin Dose 88 MCG; Start 10/06/17 at 09:00 Quetiapine Fumarate (Seroquel) 100 mg HS PO Last administered on 10/11/17 20: 15; Admin Dose 100 MG; Start 10/06/17 at 21:00 Tamsulosin HCl (Flomax) 0.4 mg DAILY PO Last administered on 10/11/17 08:19; Admin Dose 0.4 MG; Start 10/06/17 at 13:30 Metoprolol Tartrate (Lopressor) 25 mg BID PO Last administered on 10/11/17 20 :15; Admin Dose 25 MG; Start 10/06/17 at 21:00 Metoprolol Tartrate 5 mg 5 mg Q4H PRN IV HR>110 Hold SBP<100; Start 10/06/17 at 19:30 Sodium Chloride (NS) 1,000 ml @ 20 mls/hr Q24H IV Last administered on 05:49; Admin Dose 20 MLS/HR; Start 10/07/17 at 11:30 Pantoprazole (Protonix Tab) 40 mg DAILY@06 PO Last administered on 10/12/17 05:49; Admin Dose 40 MG; Start 10/08/17 at 06:00 Mupirocin (Bactroban) 1 applic BID TOP Last administered on 10/11/17 20:15; Admin Dose 1 APPLIC; Start 10/08/17 at 21:00 Aspirin 325 mg 325 mg DAILY PO Last administered on 10/11/17 08:27; Admin Dose 325 MG; Start 10/11/17 at 09:00 Ertapenem/Sodium Chloride (Invanz/NS) 100 ml @ 200 mls/hr Q24H IVPB Last administered on 10/11/17 11:18; Admin Dose 200 MLS/HR; Start 10/11/17 at 08: 30 Amlodipine Besylate (Norvasc) 5 mg DAILY PO ; Start 10/12/17 at 09:00 Hydralazine HCl 10 mg 10 mg Q4H PRN IV SBP>170; Start 10/11/17 at 21:00 Magnesium Sulfate/ Dextrose (Magnesium Sulfate/D5W) 106 ml @ 35.333 mls/ hr ONCE ONCE IVPB ; Start 10/12/17 at 10:00; Stop 10/12/17 at 12:59 RAMAKRISHNA ONEAL MD Oct 12, 2017 08:51
[2017-10-12] MEDS: AMLODIPINE 5 MG TAB PO SCH (09:00)
[2017-10-12] MEDS: METOPROLOL 25 MG TAB PO SCH ×2 (09:00→20:34)
[2017-10-12] MEDS ORDERED: ONDANSETRON 4 MG INJ ONE (09:02)
[2017-10-12] MEDS ORDERED: NEOSTIGMINE 3 MG/3 ML SYRINGE ONE (09:14)
--- NOTE | 2017-10-12 09:19 | OPR ---
Date/Time of Note Date/Time of Note DATE: 10/12/17 TIME: 09:10 Operative Report Procedure Date: Oct 12, 2017 Preoperative Diagnosis Left upper ureteral stone Postoperative Diagnosis Left upper ureteral stone Operation/Procedure Performed Cystoscopy left uretero-pyeloscopy, laser lithotripsy and insertion of left ureteral JJ stent 6 [place] by 24 cm long. Surgeon see signature line Breaker Engineer None Anesthesia Type: general Anesthesiologist: CAYETANO BECKER MD Estimated Blood Loss: none Transfusion none Specimen Urine from the bladder for culture and sensitivity and urine from left kidney for culture and sensitivity Grafts/Implants none Tubes/Drains JJ stent 6 [place] by 24 cm long in the left ureter Complications none Pt Condition Post Procedure: stable Disposition: PACU Indications Left upper ureteral stone with obstruction Procedure Description The patient was brought to the operating room and given general anesthesia. Timeout was done the patient was identified by her name, birthdate, the procedure and the side of the procedure. The patient was given 2 g of Ancef IV at the start of the procedure. Patient was positioned in the lithotomy position. The genital area was prepped and draped in the usual sterile manner. #21 [place] cystoscope sheath was introduced into the bladder and urine was collected for culture and sensitivity. The left ureteral orifice was then cannulated with a 5 [place] open ended ureteral catheter and that was advanced up to the level of the stone. A 0.035 zip wire was passed through the open ended and once it reached the stone it met some resistance but it did go into the kidney. The open ended was then removed and the cystoscope was removed. A dual lumen ureteral catheter was then advanced on the zip wire up to the level of the stone and a 0.035 sensor wire was passed through the second working channel of the dual-lumen catheter. The dual-lumen catheter was then removed leaving the [address] The zip wire was used as a safety wire and the sensor wire was used to advance on it the access sheath size 11 x 13 mm diameter and 28 cm long. That did go into the distal ureter but not beyond. Then the digital flexible ureteroscope was passed through the access sheath and advanced all the way up and as it reached the stone the stone migrated into the kidney. 275 m holmium laser fiber was used and attempt to break the stone was made. 75 J were delivered but the kidney was very cloudy had a lot of sediment in it from the obstruction and infection I irrigated the kidney and try to clear it was still too cloudy to be able to see clearly and the stone has migrated up to the upper pole and could be seen on the fluoroscopy. I then decided to put the JJ stent and will have to treat the stone later on with ESWL. The ureteroscope was removed and the access sheath as well. The cystoscope was reintroduced into the bladder on the safety wire and a 6 [place]ian by 24 cm long JJ stent was then inserted and had its proximal and curling into the kidney and the distal end curling into the bladder. The patient tolerated the procedure well and was transferred to the recovery room in stable and satisfactory condition. FRANNY DEE MD Oct 12, 2017 09:19
[2017-10-12] MEDS ORDERED: HYDROmorphONE (0.2 MG/ML) 10ML SYG IV PRN ×3 (09:30)
[2017-10-12] MEDS ORDERED: ONDANSETRON 4 MG INJ IV PRN (09:30)
[2017-10-12] MEDS ORDERED: ALBUTEROL 0.083% (NEB) 2.5 MG/3 ML AMP ONE (09:34)
[2017-10-12] MEDS ORDERED: MAGNESIUM SULFATE 3 GM in DEXTROSE 5% 100 ML IVPB ONE (10:00)
[2017-10-12] MEDS ORDERED: ALBUTEROL 0.083% (NEB) 2.5 MG/3 ML AMP HHN STA (10:04)
[2017-10-12 10:30] LABS: FREE T3 1.03 pg/ml (2.77-5.27)
[2017-10-12] MEDS: morphine 2 MG INJ IV PRN ×2 (10:36→18:46)
[2017-10-12] MEDS: TAMSULOSIN (SR) 0.4 MG CAP PO SCH (10:38)
[2017-10-12] MEDS: LEVOTHYROXINE 88 MCG TAB PO SCH (10:38)
[2017-10-12] MEDS: FISH OIL 1,000 MG CAP PO SCH (10:38)
[2017-10-12] MEDS: ASPIRIN (EC) 325 MG TAB PO SCH (10:39)
[2017-10-12] MEDS: MUPIROCIN 2% 22 GM OINT TOP SCH ×2 (10:39→20:33)
[2017-10-12 10:45] LABS: TRIIODOTHYRONINE 0.34 ng/ml (0.97-1.69)
[2017-10-12] MEDS: ERTAPENEM SODIUM 1 GM in SOD CHLORIDE 0.9% 100 ML IVPB SCH (15:22)
--- NOTE | 2017-10-12 16:54 | PN ---
Date/Time of Note Date/Time of Note DATE: 10/12/17 TIME: 16:31 Assessment/Plan VTE Prophylaxis VTE Prophylaxis Intervention: SCD's Lines/Catheters IV [facility]ter [facility]from [facility] Peripheral IV Urinary Cath still in place: No Assessment/Plan Chief Complaint/Hosp Course Assessment: S/p cystoscopy with lithotripsy and stent placement No signs of GI bleed, hemoglobin is stable Rhabdomyolysis Abnormal liver function test Rule out hepatitis B and C No evidence autoimmune hepatitis vs related to rhabdomyolysis Schizophrenia Seizure disorder Renal disease with kidney stones Hypertension Dyslipidemia Hypothyroidism Plan: Continue monitoring H&H and liver enzymes Hepatitis B core total (reactive0 IgM- pending Hepatitis C AB (reactive)- RNA Negative Autoimmune panel SABA, ASMA and AMA- negative Continue PPI Monitor H/H transfuse as needed Further recommendations based on results Endoscopy not warranted at this time The seen in collaboration with Dr. Whitney Subjective: Course reviewed with nursing staff Patient interviewed and examined All labs, imaging and other results reviewed Patient reports feeling well after procedure.No significant changes over night, additional hep labs still pending. Hep B Core IGM have been sent out, will call Joseline at the lab tomorrow for results. Continue current regimen. Exam performed in collaboration with PHYSICAL EXAMINATION: GENERAL: Well developed, obese, well nourished, alert & oriented x 3, in no acute distress SKIN: No lesions, no stigmata chronic liver disease, no evidence of bleeding diathesis LYMPHATIC: No palpable lymphadenopathy. HEAD: Normocephalic, atraumatic, no tenderness. EYES: Pupils equal reactive to light and accommodation, full extraocular movements, sclera clear, non-icteric, no discharge. EARS/NOSE AND THROAT: Ears normal, nose normal, oropharynx normal, NECK: Supple, no masses, thyroid normal, CHEST: Inspection within normal limits. CARDIOVASCULAR: Heart: Regular rate and rhythm, RESPIRATORY: Lungs clear to auscultation and percussion, no wheezing, no rubs GASTROINTESTINAL AND LIVER: Abdomen: Soft, obese, no tenderness, non-distended, no hernias, no masses, no organomegaly, no ascites, no guarding, no rebound tenderness, normoactive bowel sounds. Rectal: Deferred. GENITOURINARY: Deferred EXTREMITIES: No cyanosis, clubbing or edema. Problems: Exam/Review of Systems Vital Signs Vitals Vital Signs Date Time Temp Pulse Resp B/P Pulse Ox O2 Delivery O2 Flow Rate FiO2 10/12/17 15:53 98.3 72 18 123/61 92 10/12/17 10:08 Room Air 10/12/17 07:25 2.0 Intake and Output 10/11/17 10/11/17 10/12/17 14:59 22:59 06:59 Intake Total 100 ml 1500 ml 1200 ml Balance 100 ml 1500 ml 1200 ml Results Result Diagram: 10/12/17 0643 10/12/17 0643 Results 24 hrs Laboratory Tests Test 10/12/17 06:43 White Blood Count 12.8 H Red Blood Count 3.19 L Hemoglobin 9.8 L Hematocrit 28.1 L Mean Corpuscular Volume 88.1 Mean Corpuscular Hemoglobin 30.7 Mean Corpuscular Hemoglobin Concent 34.9 Red Cell Distribution Width 14.8 H Platelet Count 296 Mean Platelet Volume 11.2 H Neutrophils % Segmented Neutrophils % (Manual) 81 H Band Neutrophils % (Manual) 7 H Lymphocytes % Lymphocytes % (Manual) 8 L Reactive Lymphocytes % (Manual) 1 H Monocytes % Monocytes % (Manual) 2 Eosinophils % Eosinophils % (Manual) 1 Basophils % Nucleated Red Blood Cells % 0.0 Neutrophils # Neutrophils # (Manual) 10.5 H Band Neutrophils # 0.8 H Absolute Lymphocytes (Manual) 1.0 Lymphocytes # Reactive Lymphocytes # 0.1 H Monocytes # Absolute Monocytes (Manual) 0.2 L Eosinophils # Basophils # Nucleated Red Blood Cells # Platelet Estimate NORMAL Giant Platelets 1 H Polychromasia 1+ Anisocytosis 1+ Sodium Level 139 Potassium Level 4.0 Chloride Level 104 Carbon Dioxide Level 30 Anion Gap 9 Blood Urea Nitrogen 22 H Creatinine 0.96 Glucose Level 89 Calcium Level 9.2 Phosphorus Level 3.3 Magnesium Level 1.5 L Free Thyroxine 0.45 L Thyroxine (T4) 3.6 L Free Triiodothyronine (T3) pg/mL 1.03 L Total Triiodothyronine 0.34 L Medications Medications Current Medications Ondansetron HCl (Zofran Inj) 4 mg Q6H PRN IV NAUSEA AND/OR VOMITING; Start at 06:00 Acetaminophen (Tylenol Tab) 650 mg Q6H PRN PO PAIN LEVEL 1-3 OR FEVER; Start 10/06/17 at 06:00 Morphine Sulfate (morphine) 2 mg Q4H PRN IV PAIN LEVEL 7-10 Last administered on 10/12/17 10:36; Admin Dose 2 MG; Start 10/06/17 at 06:00 Fish Oil (Fish Oil) 1,000 mg DAILY PO Last administered on 10/12/17 10:38; Admin Dose 1,000 MG; Start 10/06/17 at 09:00 Levothyroxine Sodium (Synthroid) 88 mcg DAILY PO Last administered on 10:38; Admin Dose 88 MCG; Start 10/06/17 at 09:00 Quetiapine Fumarate (Seroquel) 100 mg HS PO Last administered on 10/11/17 20: 15; Admin Dose 100 MG; Start 10/06/17 at 21:00 Tamsulosin HCl (Flomax) 0.4 mg DAILY PO Last administered on 10/12/17 10:38; Admin Dose 0.4 MG; Start 10/06/17 at 13:30 Metoprolol Tartrate (Lopressor) 25 mg BID PO Last administered on 10/11/17 20 :15; Admin Dose 25 MG; Start 10/06/17 at 21:00 Metoprolol Tartrate 5 mg 5 mg Q4H PRN IV HR>110 Hold SBP<100; Start 10/06/17 at 19:30 Sodium Chloride (NS) 1,000 ml @ 20 mls/hr Q24H IV Last administered on 05:49; Admin Dose 20 MLS/HR; Start 10/07/17 at 11:30 Pantoprazole (Protonix Tab) 40 mg DAILY@06 PO Last administered on 10/12/17 05:49; Admin Dose 40 MG; Start 10/08/17 at 06:00 Mupirocin (Bactroban) 1 applic BID TOP Last administered on 10/12/17 10:39; Admin Dose 1 APPLIC; Start 10/08/17 at 21:00 Aspirin 325 mg 325 mg DAILY PO Last administered on 10/12/17 10:39; Admin Dose 325 MG; Start 10/11/17 at 09:00 Ertapenem/Sodium Chloride (Invanz/NS) 100 ml @ 200 mls/hr Q24H IVPB Last administered on 10/12/17 15:22; Admin Dose 200 MLS/HR; Start 10/11/17 at 08: 30 Amlodipine Besylate (Norvasc) 5 mg DAILY PO ; Start 10/12/17 at 09:00 Hydralazine HCl (Apresoline) 10 mg Q4H PRN IV SBP>170; Start 10/11/17 at 21:00 MUKESH ANTOINE NP Oct 12, 2017 16:41
--- NOTE | 2017-10-12 17:12 | PN ---
DATE: 10/12/2017 INFECTIOUS DISEASE PROGRESS NOTE SUBJECTIVE: Patient is alert, eating lunch, looks comfortable, no fevers. ANTIMICROBIALS: The patient is on Invanz. She is also getting Bactroban to nares. PHYSICAL EXAMINATION: GENERAL: This is a well-developed, elderly woman who is awake, in no distress. HEENT: Head atraumatic, normocephalic. Sclerae anicteric. Buccal mucosa dry. NECK: Supple. CHEST: Rise symmetrical. Breath sounds clear. HEART: S1, S2. ABDOMEN: Soft. Bowel tones present. EXTREMITIES: Without cyanosis. ASSESSMENT: 1. Acute Escherichia coli extended-spectrum beta-lactamase pyelonephritis with bacteremia. 2. Obstructive uropathy status post cystoscopy with left JJ stent placement this morning. 3. Methicillin-resistant Staphylococcus aureus nares colonization. 4. Atrial fibrillation. 5. History of schizoaffective disorder and depression. 6. Hepatitis B and C virus positive. PLAN: The patient remains stable post-procedure. Continue present care, antibiotics, to complete 2 more weeks of treatment. Patient to follow with gastroenterology outpatient for her hepatitis. Dictated By: KRISTI PARDO SUPERVISOR BENZENE REFINING for JOSE RAWLS MD NI/NTS Conf#: [id number] DID#: [id number] CC: YOSELIN RAMON MD;*EndCC*
--- NOTE | 2017-10-12 17:26 | PN ---
Date/Time of Note Date/Time of Note DATE: 10/12/17 TIME: 17:26 Assessment/Plan VTE Prophylaxis VTE Prophylaxis Intervention: SCD's Lines/Catheters IV Catheter Type (from Nrs): Peripheral IV Urinary Cath still in place: No Assessment/Plan Assessment/Plan 67 yo F admitted for sepsis from ESBL bacteremia in setting of kidney stone #sepsis with ESBL bacteremia from infected kidney stone sp cysto, attempted kidney stone resection, and JJ stent placement. of note, per , ESWL will be needed to break up kidney stone 2 weeks of invanz from date stone is removed?-->I have texted [facility] C[facility] PHYSICAL THERAPIST to clarify day zero of antibiotic therapy cont flomax #[email or web address] on CKD: RESOLVED #elevated trop, AFlutter with RVR TFTs consistent with possible sick euthyroid v overt hypothyroid. defer to PCP to recheck labs in 4-6 weeks HR controlled pt on asa 325 currently for CVA risk reduction, defer to PCP to consider full ATC #hepatitis serologies: Hep C V PCR consistent with cleared infection, HepB bloodwork consistent with previous exposure PT eval to help with discharge planning Subjective 24 Hr Interval Summary Free Text/Dictation Pt at procedure at time of my attempted eval note reviewed, appears stone migrated to top of kidney during procedure Exam/Review of Systems Vital Signs Vitals Vital Signs Date Time Temp Pulse Resp B/P Pulse Ox O2 Delivery O2 Flow Rate FiO2 10/12/17 16:10 72 10/12/17 15:53 98.3 18 123/61 92 10/12/17 10:08 Room Air 10/12/17 07:25 2.0 Intake and Output 10/11/17 10/11/17 10/12/17 15:00 23:00 07:00 Intake Total 100 ml 1500 ml 1200 ml Balance 100 ml 1500 ml 1200 ml Exam pt at procedure at time of my attempted eval hep C serologies consistent with previous exposure sp clearance of infection Results Result Diagram: 10/12/17 0643 10/12/17 0643 Results 24 hrs Laboratory Tests Test 10/12/17 06:43 White Blood Count 12.8 H Red Blood Count 3.19 L Hemoglobin 9.8 L Hematocrit 28.1 L Mean Corpuscular Volume 88.1 Mean Corpuscular Hemoglobin 30.7 Mean Corpuscular Hemoglobin Concent 34.9 Red Cell Distribution Width 14.8 H Platelet Count 296 Mean Platelet Volume 11.2 H Neutrophils % Segmented Neutrophils % (Manual) 81 H Band Neutrophils % (Manual) 7 H Lymphocytes % Lymphocytes % (Manual) 8 L Reactive Lymphocytes % (Manual) 1 H Monocytes % Monocytes % (Manual) 2 Eosinophils % Eosinophils % (Manual) 1 Basophils % Nucleated Red Blood Cells % 0.0 Neutrophils # Neutrophils # (Manual) 10.5 H Band Neutrophils # 0.8 H Absolute Lymphocytes (Manual) 1.0 Lymphocytes # Reactive Lymphocytes # 0.1 H Monocytes # Absolute Monocytes (Manual) 0.2 L Eosinophils # Basophils # Nucleated Red Blood Cells # Platelet Estimate NORMAL Giant Platelets 1 H Polychromasia 1+ Anisocytosis 1+ Sodium Level 139 Potassium Level 4.0 Chloride Level 104 Carbon Dioxide Level 30 Anion Gap 9 Blood Urea Nitrogen 22 H Creatinine 0.96 Glucose Level 89 Calcium Level 9.2 Phosphorus Level 3.3 Magnesium Level 1.5 L Free Thyroxine 0.45 L Thyroxine (T4) 3.6 L Free Triiodothyronine (T3) pg/mL 1.03 L Total Triiodothyronine 0.34 L Medications Medications Current Medications Ondansetron HCl (Zofran Inj) 4 mg Q6H PRN IV NAUSEA AND/OR VOMITING; Start at 06:00 Acetaminophen (Tylenol Tab) 650 mg Q6H PRN PO PAIN LEVEL 1-3 OR FEVER; Start 10/06/17 at 06:00 Morphine Sulfate (morphine) 2 mg Q4H PRN IV PAIN LEVEL 7-10 Last administered on 10/12/17 10:36; Admin Dose 2 MG; Start 10/06/17 at 06:00 Fish Oil (Fish Oil) 1,000 mg DAILY PO Last administered on 10/12/17 10:38; Admin Dose 1,000 MG; Start 10/06/17 at 09:00 Levothyroxine Sodium (Synthroid) 88 mcg DAILY PO Last administered on 10:38; Admin Dose 88 MCG; Start 10/06/17 at 09:00 Quetiapine Fumarate (Seroquel) 100 mg HS PO Last administered on 10/11/17 20: 15; Admin Dose 100 MG; Start 10/06/17 at 21:00 Tamsulosin HCl (Flomax) 0.4 mg DAILY PO Last administered on 10/12/17 10:38; Admin Dose 0.4 MG; Start 10/06/17 at 13:30 Metoprolol Tartrate (Lopressor) 25 mg BID PO Last administered on 10/11/17 20 :15; Admin Dose 25 MG; Start 10/06/17 at 21:00 Metoprolol Tartrate 5 mg 5 mg Q4H PRN IV HR>110 Hold SBP<100; Start 10/06/17 at 19:30 Sodium Chloride (NS) 1,000 ml @ 20 mls/hr Q24H IV Last administered on 05:49; Admin Dose 20 MLS/HR; Start 10/07/17 at 11:30 Pantoprazole (Protonix Tab) 40 mg DAILY@06 PO Last administered on 10/12/17 05:49; Admin Dose 40 MG; Start 10/08/17 at 06:00 Mupirocin (Bactroban) 1 applic BID TOP Last administered on 10/12/17 10:39; Admin Dose 1 APPLIC; Start 10/08/17 at 21:00 Aspirin 325 mg 325 mg DAILY PO Last administered on 10/12/17 10:39; Admin Dose 325 MG; Start 10/11/17 at 09:00 Ertapenem/Sodium Chloride (Invanz/NS) 100 ml @ 200 mls/hr Q24H IVPB Last administered on 10/12/17 15:22; Admin Dose 200 MLS/HR; Start 10/11/17 at 08: 30 Amlodipine Besylate (Norvasc) 5 mg DAILY PO ; Start 10/12/17 at 09:00 Hydralazine HCl (Apresoline) 10 mg Q4H PRN IV SBP>170; Start 10/11/17 at 21:00 ADOLFO COLEMAN MD Oct 12, 2017 17:26
[2017-10-12] MEDS ORDERED: LIDOCAINE 1% (MPF) 5 ML VIAL SC ONE (17:30)
[2017-10-12] MEDS: ACETAMINOPHEN 325 MG TAB PO PRN (18:48)
[2017-10-12] MEDS: QUETIAPINE 100 MG TAB PO SCH (20:33)
[2017-10-13] VITALS (12 sets, daily range): BP systolic 114–137; BP diastolic 61–88; PULSE 54–67; RESP 17–21
[2017-10-13] MEDS: PANTOPRAZOLE (EC) 40 MG TAB PO SCH (05:21)
[2017-10-13] MEDS: SOD CHLORIDE 0.9% 1,000 ML IV SCH (05:21)
[2017-10-13] MEDS: morphine 2 MG INJ IV PRN ×2 (05:28→18:50)
--- NOTE | 2017-10-13 08:16 | CONS ---
Date/Time of Note Date/Time of Note DATE: 10/13/17 TIME: 08:11 Consult Date/Type/Reason Admit Date/Time Oct 05, 2017 at 22:26 Initial Consult Date 10/06/17 Type of Consultation: Urology Reason for Consultation Left upper ureteral stone/patient is status post cystoscopy left ureteroscopy pyeloscopy and laser lithotripsy and insertion of a JJ stent. Ordering Provider: YOSELIN RAMON MD Subjective Patient complains of left flank pain, she denies any dysuria Objective Vital Signs Date Time Temp Pulse Resp B/P Pulse Ox O2 Delivery O2 Flow Rate FiO2 10/13/17 08:07 67 10/13/17 04:29 98.2 19 129/61 95 10/12/17 20:00 Nasal Cannula 2.0 Intake and Output 10/12/17 10/12/17 10/13/17 15:00 23:00 07:00 Intake Total 800 ml 1060 ml 880 ml Output Total 402 ml 900 ml Balance 398 ml 160 ml 880 ml Exam Abdomen is soft, she has left flank tenderness Results/Medications Result Diagram: 10/12/17 0643 10/12/17 0643 Medications Current Medications Ondansetron HCl (Zofran Inj) 4 mg Q6H PRN IV NAUSEA AND/OR VOMITING; Start at 06:00 Acetaminophen (Tylenol Tab) 650 mg Q6H PRN PO PAIN LEVEL 1-3 OR FEVER Last administered on 10/12/17 18:48; Admin Dose 650 MG; Start 10/06/17 at 06:00 Morphine Sulfate (morphine) 2 mg Q4H PRN IV PAIN LEVEL 7-10 Last administered on 10/13/17 05:28; Admin Dose 2 MG; Start 10/06/17 at 06:00 Fish Oil (Fish Oil) 1,000 mg DAILY PO Last administered on 10/12/17 10:38; Admin Dose 1,000 MG; Start 10/06/17 at 09:00 Levothyroxine Sodium (Synthroid) 88 mcg DAILY PO Last administered on 10:38; Admin Dose 88 MCG; Start 10/06/17 at 09:00 Quetiapine Fumarate (Seroquel) 100 mg HS PO Last administered on 10/12/17 20: 33; Admin Dose 100 MG; Start 10/06/17 at 21:00 Tamsulosin HCl (Flomax) 0.4 mg DAILY PO Last administered on 10/12/17 10:38; Admin Dose 0.4 MG; Start 10/06/17 at 13:30 Metoprolol Tartrate (Lopressor) 25 mg BID PO Last administered on 10/12/17 20 :34; Admin Dose 25 MG; Start 10/06/17 at 21:00 Metoprolol Tartrate 5 mg 5 mg Q4H PRN IV HR>110 Hold SBP<100; Start 10/06/17 at 19:30 Sodium Chloride (NS) 1,000 ml @ 20 mls/hr Q24H IV Last administered on 05:21; Admin Dose 20 MLS/HR; Start 10/07/17 at 11:30 Pantoprazole (Protonix Tab) 40 mg DAILY@06 PO Last administered on 10/13/17 05:21; Admin Dose 40 MG; Start 10/08/17 at 06:00 Mupirocin (Bactroban) 1 applic BID TOP Last administered on 10/12/17 20:33; Admin Dose 1 APPLIC; Start 10/08/17 at 21:00 Aspirin 325 mg 325 mg DAILY PO Last administered on 10/12/17 10:39; Admin Dose 325 MG; Start 10/11/17 at 09:00 Ertapenem/Sodium Chloride (Invanz/NS) 100 ml @ 200 mls/hr Q24H IVPB Last administered on 10/12/17 15:22; Admin Dose 200 MLS/HR; Start 10/11/17 at 08: 30 Amlodipine Besylate (Norvasc) 5 mg DAILY PO ; Start 10/12/17 at 09:00 Hydralazine HCl (Apresoline) 10 mg Q4H PRN IV SBP>170; Start 10/11/17 at 21:00 Assessment/Plan Chief Complaint/Hosp Course Patient has a left renal stone. The stone was in the upper ureter near the ureteropelvic junction and causing obstruction. She underwent cystoscopy left ureteroscopy and laser lithotripsy and insertion of a JJ stent yesterday. The urine in the left kidney was very cloudy and made it very difficult to see the stone and I decided to place the JJ stent and wait to allow the cloudy material from the kidney to clear then we could do ESWL on the stone and remove the JJ stent. Culture was sent from the kidney as well as from the bladder. I explained all the findings to the patient and the plan and the need for more procedure to get rid of the stone and remove the stent Problems: FRANNY DEE MD Oct 13, 2017 08:16
[2017-10-13] MEDS: ERTAPENEM SODIUM 1 GM in SOD CHLORIDE 0.9% 100 ML IVPB SCH (08:21)
--- NOTE | 2017-10-13 09:39 | PN ---
Date/Time of Note Date/Time of Note DATE: 10/13/17 TIME: : Assessment/Plan VTE Prophylaxis VTE Prophylaxis Intervention: SCD's Lines/Catheters IV C[facility]ter Type (from [facility]): Peripheral IV Urinary Cath still in place: No Assessment/Plan Chief Complaint/Hosp Course Chief Complaint/Hospital Course Assessment: S/p cystoscopy with lithotripsy and stent placement No signs of GI bleed, hemoglobin is stable Rhabdomyolysis Abnormal liver function test Hep C - RNA negative Hep B - previous exposure No evidence autoimmune hepatitis vs related to rhabdomyolysis Schizophrenia Seizure disorder Renal disease with kidney stones Hypertension Dyslipidemia Hypothyroidism Plan: Continue monitoring H&H and liver enzymes Hepatitis B core total (reactive) IgM- pending Hepatitis C AB (reactive)- RNA Negative Autoimmune panel SABA, ASMA and AMA- negative Continue PPI Monitor H/H transfuse as needed Endoscopy not warranted at this time Patient seen in collaboration with Dr. Whitney Subjective: Course reviewed with nursing staff Patient interviewed and examined All labs, imaging and other results reviewed No significant changes over night, discussed results of Hepatitis exposure. Pt verbalized understanding. Will continue to monitor H/H, currently stable. PHYSICAL EXAMINATION: GENERAL: Well developed, well nourished, alert & oriented x 3, in no acute distress SKIN: No lesions, no stigmata chronic liver disease, no evidence of bleeding diathesis LYMPHATIC: No palpable lymphadenopathy. HEAD: Normocephalic, atraumatic, no tenderness. EYES: Pupils equal reactive to light and accommodation, full extraocular movements, sclera clear, non-icteric, no discharge. EARS/NOSE AND THROAT: Ears normal, nose normal, oropharynx normal, NECK: Supple, no masses, thyroid normal, CHEST: Inspection within normal limits. CARDIOVASCULAR: Heart: Regular rate and rhythm, RESPIRATORY: Lungs clear to auscultation and percussion, no wheezing, no rubs GASTROINTESTINAL AND LIVER: Abdomen: Soft, midepigastric and left upper quadrant tenderness, non-distended, no hernias, no masses, no organomegaly, no ascites, no guarding, no rebound tenderness, hyperactive bowel sounds. Rectal: Deferred. GENITOURINARY: Deferred EXTREMITIES: No cyanosis, clubbing or edema. Problems: Exam/Review of Systems Vital Signs Vitals Vital Signs Date Time Temp Pulse Resp B/P Pulse Ox O2 Delivery O2 Flow Rate FiO2 10/13/17 08:20 2.0 10/13/17 08:12 98.2 62 17 137/78 93 10/12/17 20:00 Nasal Cannula Intake and Output 10/12/17 10/12/17 10/13/17 14:59 22:59 06:59 Intake Total 800 ml 1060 ml 880 ml Output Total 402 ml 900 ml Balance 398 ml 160 ml 880 ml Results Result Diagram: 10/12/17 0643 10/12/17 0643 Medications Medications Current Medications Ondansetron HCl (Zofran Inj) 4 mg Q6H PRN IV NAUSEA AND/OR VOMITING; Start at 06:00 Acetaminophen (Tylenol Tab) 650 mg Q6H PRN PO PAIN LEVEL 1-3 OR FEVER Last administered on 10/12/17 18:48; Admin Dose 650 MG; Start 10/06/17 at 06:00 Morphine Sulfate (morphine) 2 mg Q4H PRN IV PAIN LEVEL 7-10 Last administered on 10/13/17 05:28; Admin Dose 2 MG; Start 10/06/17 at 06:00 Fish Oil (Fish Oil) 1,000 mg DAILY PO Last administered on 10/12/17 10:38; Admin Dose 1,000 MG; Start 10/06/17 at 09:00 Levothyroxine Sodium (Synthroid) 88 mcg DAILY PO Last administered on 10:38; Admin Dose 88 MCG; Start 10/06/17 at 09:00 Quetiapine Fumarate (Seroquel) 100 mg HS PO Last administered on 10/12/17 20: 33; Admin Dose 100 MG; Start 10/06/17 at 21:00 Tamsulosin HCl (Flomax) 0.4 mg DAILY PO Last administered on 10/12/17 10:38; Admin Dose 0.4 MG; Start 10/06/17 at 13:30 Metoprolol Tartrate (Lopressor) 25 mg BID PO Last administered on 10/12/17 20 :34; Admin Dose 25 MG; Start 10/06/17 at 21:00 Metoprolol Tartrate 5 mg 5 mg Q4H PRN IV HR>110 Hold SBP<100; Start 10/06/17 at 19:30 Sodium Chloride (NS) 1,000 ml @ 20 mls/hr Q24H IV Last administered on 05:21; Admin Dose 20 MLS/HR; Start 10/07/17 at 11:30 Pantoprazole (Protonix Tab) 40 mg DAILY@06 PO Last administered on 10/13/17 05:21; Admin Dose 40 MG; Start 10/08/17 at 06:00 Mupirocin (Bactroban) 1 applic BID TOP Last administered on 10/12/17 20:33; Admin Dose 1 APPLIC; Start 10/08/17 at 21:00 Aspirin 325 mg 325 mg DAILY PO Last administered on 10/12/17 10:39; Admin Dose 325 MG; Start 10/11/17 at 09:00 Ertapenem/Sodium Chloride (Invanz/NS) 100 ml @ 200 mls/hr Q24H IVPB Last administered on 10/13/17 08:21; Admin Dose 200 MLS/HR; Start 10/11/17 at 08: 30 Amlodipine Besylate (Norvasc) 5 mg DAILY PO ; Start 10/12/17 at 09:00 Hydralazine HCl (Apresoline) 10 mg Q4H PRN IV SBP>170; Start 10/11/17 at 21:00 KENNEDY WILLARD Oct 13, 2017 09:39
[2017-10-13] MEDS: MUPIROCIN 2% 22 GM OINT TOP SCH ×2 (10:09→20:38)
[2017-10-13] MEDS: FISH OIL 1,000 MG CAP PO SCH (10:09)
[2017-10-13] MEDS: TAMSULOSIN (SR) 0.4 MG CAP PO SCH (10:09)
[2017-10-13] MEDS: LEVOTHYROXINE 88 MCG TAB PO SCH (10:09)
[2017-10-13] MEDS: ASPIRIN (EC) 325 MG TAB PO SCH (10:09)
[2017-10-13] MEDS: AMLODIPINE 5 MG TAB PO SCH (10:10)
[2017-10-13] MEDS: METOPROLOL 25 MG TAB PO SCH ×2 (10:11→20:31)
--- NOTE | 2017-10-13 11:12 | RADRPT ---
PROCEDURE: XR Abdomen. CLINICAL INDICATION: left renal stone TECHNIQUE: AP abdomen x-ray. COMPARISON: 10/10/2017 FINDINGS: There is interval placement of a left ureteral stent with the proximal tip overlying the expected re gion of the left renal pelvis and the distal tip overlying the expected region of the urinary bladde r. No definite calcification is seen overlying the collecting systems. Moderate degenerative change s are present in the lower lumbar spine. The heart size is enlarged. There is suspected small left e ffusion with atelectasis. IMPRESSION: 1. Interval placement of left ureteral stent which appears in appropriate position. No definite mandi dence of calcification overlying the urinary tracts. 2. Cardiomegaly with small left effusion with atelectasis. RPTAT: JJ .Lucas Elias MD, Date Time Electronically viewed and signed by .Lucas Elias MD, on 10/13/2017 11:12 .A/
--- NOTE | 2017-10-13 15:03 | CONS ---
Date/Time of Note Date/Time of Note DATE: 10/13/17 TIME: 15:01 Assessment/Plan Assessment/Plan Chief Complaint/Hosp Course SUBJECTIVE: Patient is alert, looks comfortable, no fevers. ANTIMICROBIALS: Invanz. She is also getting Bactroban to nares. PHYSICAL EXAMINATION: GENERAL: This is a well-developed, elderly woman who is awake, in no distress. HEENT: Head atraumatic, normocephalic. Sclerae anicteric. Buccal mucosa dry. NECK: Supple. CHEST: Rise symmetrical. Breath sounds clear. HEART: S1, S2. ABDOMEN: Soft. Bowel tones present. EXTREMITIES: Without cyanosis. ASSESSMENT: 1. Escherichia coli extended-spectrum beta-lactamase pyelonephritis with bacteremia. 2. Obstructive uropathy status post cystoscopy with left JJ stent placement this morning. 3. Methicillin-resistant Staphylococcus aureus nares colonization. 4. Atrial fibrillation. 5. History of schizoaffective disorder and depression. 6. Hepatitis B and C virus positive. PLAN: The patient remains stable, repeat urine cx +GNR, continue present care , antibiotics, f/u urology rec-s, needs 2 weeks IV Invanz, poss longer if urine cx continues to be + DW staff Problems: Consultation Date/Type/Reason Admit Date/Time Oct 05, 2017 at 22:26 Initial Consult Date 10/06/17 Type of Consultation: ID Referring Provider: YOSELIN RAMON MD Exam/Review of Systems Vital Signs Vitals Vital Signs Date Time Temp Pulse Resp B/P Pulse Ox O2 Delivery O2 Flow Rate FiO2 10/13/17 12:17 54 10/13/17 11:40 98.1 17 132/71 96 10/13/17 08:20 2.0 10/12/17 20:00 Nasal Cannula Intake and Output 10/12/17 10/12/17 10/13/17 15:00 23:00 07:00 Intake Total 800 ml 1060 ml 880 ml Output Total 402 ml 900 ml Balance 398 ml 160 ml 880 ml Results Result Diagram: 10/12/17 0643 10/12/17 0643 Medications Medications Current Medications Ondansetron HCl (Zofran Inj) 4 mg Q6H PRN IV NAUSEA AND/OR VOMITING; Start at 06:00 Acetaminophen (Tylenol Tab) 650 mg Q6H PRN PO PAIN LEVEL 1-3 OR FEVER Last administered on 10/12/17 18:48; Admin Dose 650 MG; Start 10/06/17 at 06:00 Morphine Sulfate (morphine) 2 mg Q4H PRN IV PAIN LEVEL 7-10 Last administered on 10/13/17 05:28; Admin Dose 2 MG; Start 10/06/17 at 06:00 Fish Oil (Fish Oil) 1,000 mg DAILY PO Last administered on 10/13/17 10:09; Admin Dose 1,000 MG; Start 10/06/17 at 09:00 Levothyroxine Sodium (Synthroid) 88 mcg DAILY PO Last administered on 10:09; Admin Dose 88 MCG; Start 10/06/17 at 09:00 Quetiapine Fumarate (Seroquel) 100 mg HS PO Last administered on 10/12/17 20: 33; Admin Dose 100 MG; Start 10/06/17 at 21:00 Tamsulosin HCl (Flomax) 0.4 mg DAILY PO Last administered on 10/13/17 10:09; Admin Dose 0.4 MG; Start 10/06/17 at 13:30 Metoprolol Tartrate (Lopressor) 25 mg BID PO Last administered on 10/13/17 10 :11; Admin Dose 25 MG; Start 10/06/17 at 21:00 Metoprolol Tartrate 5 mg 5 mg Q4H PRN IV HR>110 Hold SBP<100; Start 10/06/17 at 19:30 Sodium Chloride (NS) 1,000 ml @ 20 mls/hr Q24H IV Last administered on 05:21; Admin Dose 20 MLS/HR; Start 10/07/17 at 11:30 Pantoprazole (Protonix Tab) 40 mg DAILY@06 PO Last administered on 10/13/17 05:21; Admin Dose 40 MG; Start 10/08/17 at 06:00 Mupirocin (Bactroban) 1 applic BID TOP Last administered on 10/13/17 10:09; Admin Dose 1 APPLIC; Start 10/08/17 at 21:00 Aspirin 325 mg 325 mg DAILY PO Last administered on 10/13/17 10:09; Admin Dose 325 MG; Start 10/11/17 at 09:00 Ertapenem/Sodium Chloride (Invanz/NS) 100 ml @ 200 mls/hr Q24H IVPB Last administered on 10/13/17 08:21; Admin Dose 200 MLS/HR; Start 10/11/17 at 08: 30 Amlodipine Besylate (Norvasc) 5 mg DAILY PO Last administered on 10/13/17 10: 10; Admin Dose 5 MG; Start 10/12/17 at 09:00 Hydralazine HCl (Apresoline) 10 mg Q4H PRN IV SBP>170; Start 10/11/17 at 21:00 KRISTI PARDO NP Oct 13, 2017 15:03
--- NOTE | 2017-10-13 15:12 | CONS ---
Date/Time of Note Date/Time of Note DATE: 10/13/17 TIME: 15:08 Assessment/Plan Assessment/Plan Chief Complaint/Hosp Course IMP: 1.positive troponin 2.PAF/AFL-now in SR and remains 3.HTN-uncontrolled ? component of pain 4.renal calculous/UTI s/p cystoscopy/lithotripsy 5.renal failure-imprving 6.s/p fall -recurrent 7.bacteremia Recc: -Tele -serial ecg's -Continue BB/norvasc -Continue asa full dose for now -Continue abx's and continue to f/u cx data Problems: Consultation Date/Type/Reason Admit Date/Time Oct 05, 2017 at 22:26 Initial Consult Date 10/06/17 Type of Consultation: cardiology Reason for Consultation positive troponin Referring Provider: YOSELIN RAMON MD Exam/Review of Systems Vital Signs Vitals Vital Signs Date Time Temp Pulse Resp B/P Pulse Ox O2 Delivery O2 Flow Rate FiO2 10/13/17 12:17 54 10/13/17 11:40 98.1 17 132/71 96 10/13/17 08:20 2.0 10/12/17 20:00 Nasal Cannula Intake and Output 10/12/17 10/12/17 10/13/17 15:00 23:00 07:00 Intake Total 800 ml 1060 ml 880 ml Output Total 402 ml 900 ml Balance 398 ml 160 ml 880 ml Exam Review of Systems: CONSTITUTIONAL: No fevers, chills. PULMONARY: No sob CARDIOVASCULAR: No chest pain/palpitations GASTROINTESTINAL: No nausea/vomiting. GENITOURINARY: No hematuria/dysuria. MUSCULOSKELETAL: No myagias/arthalgias. PSYCHIATRIC: The patient denies depression. NEUROLOGIC: No weakness Constitutional: alert, oriented Psych: no complaints Head: normocephalic ENMT: mucosa pink and moist Neck: jvd (8 cm water), supple Respiratory: diminished breath sounds (at bases/B) Cardiovascular: regular rate and rhythm Gastrointestinal: non-tender, soft Musculoskeletal: muscle tone (normal) Extremities: edema (none) Neurological: other (NO focal deficits) Results Result Diagram: 10/12/17 0643 10/12/17 0643 Medications Medications Current Medications Ondansetron HCl (Zofran Inj) 4 mg Q6H PRN IV NAUSEA AND/OR VOMITING; Start at 06:00 Acetaminophen (Tylenol Tab) 650 mg Q6H PRN PO PAIN LEVEL 1-3 OR FEVER Last administered on 10/12/17 18:48; Admin Dose 650 MG; Start 10/06/17 at 06:00 Morphine Sulfate (morphine) 2 mg Q4H PRN IV PAIN LEVEL 7-10 Last administered on 10/13/17 05:28; Admin Dose 2 MG; Start 10/06/17 at 06:00 Fish Oil (Fish Oil) 1,000 mg DAILY PO Last administered on 10/13/17 10:09; Admin Dose 1,000 MG; Start 10/06/17 at 09:00 Levothyroxine Sodium (Synthroid) 88 mcg DAILY PO Last administered on 10:09; Admin Dose 88 MCG; Start 10/06/17 at 09:00 Quetiapine Fumarate (Seroquel) 100 mg HS PO Last administered on 10/12/17 20: 33; Admin Dose 100 MG; Start 10/06/17 at 21:00 Tamsulosin HCl (Flomax) 0.4 mg DAILY PO Last administered on 10/13/17 10:09; Admin Dose 0.4 MG; Start 10/06/17 at 13:30 Metoprolol Tartrate (Lopressor) 25 mg BID PO Last administered on 10/13/17 10 :11; Admin Dose 25 MG; Start 10/06/17 at 21:00 Metoprolol Tartrate 5 mg 5 mg Q4H PRN IV HR>110 Hold SBP<100; Start 10/06/17 at 19:30 Sodium Chloride (NS) 1,000 ml @ 20 mls/hr Q24H IV Last administered on 05:21; Admin Dose 20 MLS/HR; Start 10/07/17 at 11:30 Pantoprazole (Protonix Tab) 40 mg DAILY@06 PO Last administered on 10/13/17 05:21; Admin Dose 40 MG; Start 10/08/17 at 06:00 Mupirocin (Bactroban) 1 applic BID TOP Last administered on 10/13/17 10:09; Admin Dose 1 APPLIC; Start 10/08/17 at 21:00 Aspirin 325 mg 325 mg DAILY PO Last administered on 10/13/17 10:09; Admin Dose 325 MG; Start 10/11/17 at 09:00 Ertapenem/Sodium Chloride (Invanz/NS) 100 ml @ 200 mls/hr Q24H IVPB Last administered on 10/13/17 08:21; Admin Dose 200 MLS/HR; Start 10/11/17 at 08: 30 Amlodipine Besylate (Norvasc) 5 mg DAILY PO Last administered on 10/13/17 10: 10; Admin Dose 5 MG; Start 10/12/17 at 09:00 Hydralazine HCl (Apresoline) 10 mg Q4H PRN IV SBP>170; Start 10/11/17 at 21:00 ALYSIA KNOTT Oct 13, 2017 15:12
--- NOTE | 2017-10-13 16:13 | PN ---
Date/Time of Note Date/Time of Note DATE: 10/13/17 TIME: 16:11 Assessment/Plan VTE Prophylaxis VTE Prophylaxis Intervention: SCD's Lines/Catheters IV Catheter Type (from Nrsg): Peripheral IV Urinary Cath still in place: No Assessment/Plan Assessment/Plan 67 yo F admitted for sepsis from ESBL bacteremia in setting of kidney stone #sepsis with ESBL bacteremia from infected kidney stone sp cysto, attempted kidney stone resection, and JJ stent placement 10.12 of note, per , ESWL will be needed to break up kidney stone 2 weeks of invanz from date stone is removed? cont flomax #DARWIN on CKD: RESOLVED #elevated trop, AFlutter with RVR TFTs consistent with possible sick euthyroid v overt hypothyroid. defer to PCP to recheck labs in 4-6 weeks HR controlled pt on asa 325 currently for CVA risk reduction, defer to PCP to consider full ATC #hepatitis serologies: Hep C V PCR consistent with cleared infection, HepB bloodwork consistent with previous exposure PT eval to help with discharge planning. also need clarification from when next attempt and stone elimination will be Subjective 24 Hr Interval Summary Free Text/Dictation Pt says she's not sure when the urologist will try again to remove her kidney stone Exam/Review of Systems Vital Signs Vitals Vital Signs Date Time Temp Pulse Resp B/P Pulse Ox O2 Delivery O2 Flow Rate FiO2 10/13/17 12:17 54 10/13/17 11:40 98.1 17 132/71 96 10/13/17 08:20 2.0 10/12/17 20:00 Nasal Cannula Intake and Output 10/12/17 10/12/17 10/13/17 14:59 22:59 06:59 Intake Total 800 ml 1060 ml 880 ml Output Total 402 ml 900 ml Balance 398 ml 160 ml 880 ml Exam nad no mrg lungs clear abd soft no rashes Results Result Diagram: 10/12/1764210/12/17642 Medications Medications Current Medications Ondansetron HCl (Zofran Inj) 4 mg Q6H PRN IV NAUSEA AND/OR VOMITING; Start at 06:00 Acetaminophen (Tylenol Tab) 650 mg Q6H PRN PO PAIN LEVEL 1-3 OR FEVER Last administered on 10/12/17t 18:48; Admin Dose 650 MG; Start 10/06/17 at 06:00 Morphine Sulfate (morphine) 2 mg Q4H PRN IV PAIN LEVEL 7-10 Last administered on 10/13/17 05:28; Admin Dose 2 MG; Start 10/06/17 at 06:00 Fish Oil (Fish Oil) 1,000 mg DAILY PO Last administered on 10/13/17 10:09; Admin Dose 1,000 MG; Start 10/06/17 at 09:00 Levothyroxine Sodium (Synthroid) 88 mcg DAILY PO Last administered on 10:09; Admin Dose 88 MCG; Start 10/06/17 at 09:00 Quetiapine Fumarate (Seroquel) 100 mg HS PO Last administered on 10/12/17 20: 33; Admin Dose 100 MG; Start 10/06/17 at 21:00 Tamsulosin HCl (Flomax) 0.4 mg DAILY PO Last administered on 10/13/17 10:09; Admin Dose 0.4 MG; Start 10/06/17 at 13:30 Metoprolol Tartrate (Lopressor) 25 mg BID PO Last administered on 10/13/17 10 :11; Admin Dose 25 MG; Start 10/06/17 at 21:00 Metoprolol Tartrate 5 mg 5 mg Q4H PRN IV HR>110 Hold SBP<100; Start 10/06/17 at 19:30 Sodium Chloride (NS) 1,000 ml @ 20 mls/hr Q24H IV Last administered on 05:21; Admin Dose 20 MLS/HR; Start 10/07/17 at 11:30 Pantoprazole (Protonix Tab) 40 mg DAILY@06 PO Last administered on 10/13/17 05:21; Admin Dose 40 MG; Start 10/08/17 at 06:00 Mupirocin (Bactroban) 1 applic BID TOP Last administered on 10/13/17 10:09; Admin Dose 1 APPLIC; Start 10/08/17 at 21:00 Aspirin 325 mg 325 mg DAILY PO Last administered on 10/13/17 10:09; Admin Dose 325 MG; Start 10/11/17 at 09:00 Ertapenem/Sodium Chloride (Invanz/NS) 100 ml @ 200 mls/hr Q24H IVPB Last administered on 10/13/17 08:21; Admin Dose 200 MLS/HR; Start 10/11/17 at 08: 30 Amlodipine Besylate (Norvasc) 5 mg DAILY PO Last administered on 10/13/17t 10: 10; Admin Dose 5 MG; Start 10/12/17 at 09:00 Hydralazine HCl (Apresoline) 10 mg Q4H PRN IV SBP>170; Start 10/11/17 at 21:00 ADOLFO COLEMAN MD Oct 13, 2017 16:13
[2017-10-13] MEDS: QUETIAPINE 100 MG TAB PO SCH (20:31)
[2017-10-13] MEDS: ACETAMINOPHEN 325 MG TAB PO PRN (21:54)
[2017-10-14] VITALS (11 sets, daily range): BP systolic 106–137; BP diastolic 59–81; PULSE 52–70; RESP 16–21
[2017-10-14] MEDS: morphine 2 MG INJ IV PRN ×4 (05:45→21:11)
[2017-10-14] MEDS: PANTOPRAZOLE (EC) 40 MG TAB PO SCH (05:45)
[2017-10-14] MEDS ORDERED: POLYETHYLENE GLYCOL 17 GM PACKET PO PRN (07:00)
[2017-10-14] MEDS: ERTAPENEM SODIUM 1 GM in SOD CHLORIDE 0.9% 100 ML IVPB SCH (08:14)
[2017-10-14] MEDS: MUPIROCIN 2% 22 GM OINT TOP SCH ×2 (08:15→21:11)
[2017-10-14] MEDS: LEVOTHYROXINE 88 MCG TAB PO SCH (08:15)
[2017-10-14] MEDS: AMLODIPINE 5 MG TAB PO SCH (08:15)
[2017-10-14] MEDS: ASPIRIN (EC) 325 MG TAB PO SCH (08:17)
[2017-10-14] MEDS: TAMSULOSIN (SR) 0.4 MG CAP PO SCH (08:17)
[2017-10-14] MEDS: FISH OIL 1,000 MG CAP PO SCH (08:17)
[2017-10-14] MEDS: METOPROLOL 25 MG TAB PO SCH ×2 (08:17→21:10)
--- NOTE | 2017-10-14 09:39 | PN ---
Date/Time of Note Date/Time of Note DATE: 10/14/17 TIME: 09:37 Assessment/Plan VTE Prophylaxis VTE Prophylaxis Intervention: SCD's Lines/Catheters [facility] Mid Line Urinary Cath still in place: No Assessment/Plan Chief Complaint/Hosp Course Chief Complaint/Hospital Course Assessment: S/p cystoscopy with lithotripsy and stent placement No signs of GI bleed, hemoglobin is stable Rhabdomyolysis Abnormal liver function test Hep C - RNA negative Hep B - previous exposure No evidence autoimmune hepatitis vs related to rhabdomyolysis Schizophrenia Seizure disorder Renal disease with kidney stones Hypertension Dyslipidemia Hypothyroidism Plan: Continue monitoring H&H and liver enzymes Hepatitis B core total (reactive) IgM- pending- pt should be re-evaluated in 6 months for Hep B Continue PPI Monitor H/H currently stable, will transfuse as needed Patient seen in collaboration with Dr. Whitney Subjective: Course reviewed with nursing staff Patient interviewed and examined All labs, imaging and other results reviewed Patient remains stable from GI point of view. She will need to f/u with GI and be reevaluated in regards to Hep B in 6 months. PHYSICAL EXAMINATION: GENERAL: Well developed, well nourished, alert & oriented x 3, in no acute distress SKIN: No lesions, no stigmata chronic liver disease, no evidence of bleeding diathesis LYMPHATIC: No palpable lymphadenopathy. HEAD: Normocephalic, atraumatic, no tenderness. EYES: Pupils equal reactive to light and accommodation, full extraocular movements, sclera clear, non-icteric, no discharge. EARS/NOSE AND THROAT: Ears normal, nose normal, oropharynx normal, NECK: Supple, no masses, thyroid normal, CHEST: Inspection within normal limits. CARDIOVASCULAR: Heart: Regular rate and rhythm, RESPIRATORY: Lungs clear to auscultation and percussion, no wheezing, no rubs GASTROINTESTINAL AND LIVER: Abdomen: Soft, midepigastric and left upper quadrant tenderness, non-distended, no hernias, no masses, no organomegaly, no ascites, no guarding, no rebound tenderness, hyperactive bowel sounds. Rectal: Deferred. GENITOURINARY: Deferred EXTREMITIES: No cyanosis, clubbing or edema. Problems: Exam/Review of Systems Vital Signs Vitals Vital Signs Date Time Temp Pulse Resp B/P Pulse Ox O2 Delivery O2 Flow Rate FiO2 10/14/17 08:16 97.8 70 16 131/74 94 11/30/17 02:48 2.0 10/13/17 20:00 Nasal Cannula Intake and Output 10/13/17 10/13/17 10/14/17 15:00 23:00 07:00 Intake Total 100 ml 800 ml 240 ml Output Total 350 ml Balance 100 ml 450 ml 240 ml Results Result Diagram: 10/12/17 0643 10/12/17 0643 Medications Medications Current Medications Ondansetron HCl (Zofran Inj) 4 mg Q6H PRN IV NAUSEA AND/OR VOMITING; Start at 06:00 Acetaminophen (Tylenol Tab) 650 mg Q6H PRN PO PAIN LEVEL 1-3 OR FEVER Last administered on 10/13/17 21:54; Admin Dose 650 MG; Start 10/06/17 at 06:00 Morphine Sulfate (morphine) 2 mg Q4H PRN IV PAIN LEVEL 7-10 Last administered on 10/14/17 05:45; Admin Dose 2 MG; Start 10/06/17 at 06:00 Fish Oil (Fish Oil) 1,000 mg DAILY PO Last administered on 10/14/17 08:17; Admin Dose 1,000 MG; Start 10/06/17 at 09:00 Levothyroxine Sodium (Synthroid) 88 mcg DAILY PO Last administered on 08:15; Admin Dose 88 MCG; Start 10/06/17 at 09:00 Quetiapine Fumarate (Seroquel) 100 mg HS PO Last administered on 10/13/17 20: 31; Admin Dose 100 MG; Start 10/06/17 at 21:00 Tamsulosin HCl (Flomax) 0.4 mg DAILY PO Last administered on 10/14/17 08:17; Admin Dose 0.4 MG; Start 10/06/17 at 13:30 Metoprolol Tartrate (Lopressor) 25 mg BID PO Last administered on 10/14/17 08 :17; Admin Dose 25 MG; Start 10/06/17 at 21:00 Metoprolol Tartrate (Lopressor) 5 mg Q4H PRN IV HR>110 Hold SBP<100; Start at 19:30 Pantoprazole (Protonix Tab) 40 mg DAILY@06 PO Last administered on 10/14/17 05:45; Admin Dose 40 MG; Start 10/08/17 at 06:00 Mupirocin (Bactroban) 1 applic BID TOP Last administered on 10/14/17 08:15; Admin Dose 1 APPLIC; Start 10/08/17 at 21:00 Aspirin 325 mg 325 mg DAILY PO Last administered on 10/14/17 08:17; Admin Dose 325 MG; Start 10/11/17 at 09:00 Ertapenem/Sodium Chloride (Invanz/NS) 100 ml @ 200 mls/hr Q24H IVPB Last administered on 10/14/17 08:14; Admin Dose 200 MLS/HR; Start 10/11/17 at 08: 30 Amlodipine Besylate (Norvasc) 5 mg DAILY PO Last administered on 10/14/17 08: 15; Admin Dose 5 MG; Start 10/12/17 at 09:00 Hydralazine HCl (Apresoline) 10 mg Q4H PRN IV SBP>170; Start 10/11/17 at 21:00 Polyethylene Glycol (Miralax) 17 gm DAILY PRN PO CONSTIPATION Last administered on 10/14/17 06:53; Admin Dose 17 GM; Start 10/14/17 at 07:00 KENNEDY WILLARD Oct 14, 2017 09:39 KENNEDY WILLARD Oct 14, 2017 09:39
--- NOTE | 2017-10-14 11:18 | CONS ---
Date/Time of Note Date/Time of Note DATE: 10/14/17 TIME: 11:16 Assessment/Plan Assessment/Plan Chief Complaint/Hosp Course SUBJECTIVE: Patient is alert, feels good, looks comfortable, no fevers. ANTIMICROBIALS: Invanz, Bactroban to nares. PHYSICAL EXAMINATION: GENERAL: This is a well-developed, elderly woman who is awake, in no distress. HEENT: Head atraumatic, normocephalic. Sclerae anicteric. Buccal mucosa dry. NECK: Supple. CHEST: Rise symmetrical. Breath sounds clear. HEART: S1, S2. ABDOMEN: Soft. Bowel tones present. EXTREMITIES: Without cyanosis. ASSESSMENT: 1. Escherichia coli extended-spectrum beta-lactamase pyelonephritis with bacteremia. 2. Obstructive uropathy status post cystoscopy with left JJ stent placement 3. Methicillin-resistant Staphylococcus aureus nares colonization. 4. Atrial fibrillation. 5. History of schizoaffective disorder and depression. 6. Hepatitis B and C virus positive. PLAN: The patient remains stable, repeat urine cx growing E coli ESBL, continue antibiotics, f/u urology rec-s ==> pt will have procedure tentatively on Wednesday to remove stone DW staff DW Dr Robles Problems: Consultation Date/Type/Reason Admit Date/Time Oct 05, 2017 at 22:26 Initial Consult Date 10/06/17 Type of Consultation: id Referring Provider: YOSELIN RAMON MD Exam/Review of Systems Vital Signs Vitals Vital Signs Date Time Temp Pulse Resp B/P Pulse Ox O2 Delivery O2 Flow Rate FiO2 10/14/17 08:16 97.8 70 16 131/74 94 10/14/17 02:48 2.0 10/13/17 20:00 Nasal Cannula Intake and Output 10/13/17 10/13/17 10/14/17 15:00 23:00 07:00 Intake Total 100 ml 800 ml 240 ml Output Total 350 ml Balance 100 ml 450 ml 240 ml Results Result Diagram: 10/12/17 0643 10/12/1743 Medications Medications Current Medications Ondansetron HCl (Zofran Inj) 4 mg Q6H PRN IV NAUSEA AND/OR VOMITING; Start at 06:00 Acetaminophen (Tylenol Tab) 650 mg Q6H PRN PO PAIN LEVEL 1-3 OR FEVER Last administered on 10/13/17 21:54; Admin Dose 650 MG; Start 10/06/17 at 06:00 Morphine Sulfate (morphine) 2 mg Q4H PRN IV PAIN LEVEL 7-10 Last administered on 10/14/17 11:00; Admin Dose 2 MG; Start 10/06/17 at 06:00 Fish Oil (Fish Oil) 1,000 mg DAILY PO Last administered on 10/14/17 08:17; Admin Dose 1,000 MG; Start 10/06/17 at 09:00 Levothyroxine Sodium (Synthroid) 88 mcg DAILY PO Last administered on 08:15; Admin Dose 88 MCG; Start 10/06/17 at 09:00 Quetiapine Fumarate (Seroquel) 100 mg HS PO Last administered on 10/13/17 20: 31; Admin Dose 100 MG; Start 10/06/17 at 21:00 Tamsulosin HCl (Flomax) 0.4 mg DAILY PO Last administered on 10/14/17 08:17; Admin Dose 0.4 MG; Start 10/06/17 at 13:30 Metoprolol Tartrate (Lopressor) 25 mg BID PO Last administered on 10/14/17 08 :17; Admin Dose 25 MG; Start 10/06/17 at 21:00 Metoprolol Tartrate (Lopressor) 5 mg Q4H PRN IV HR>110 Hold SBP<100; Start at 19:30 Pantoprazole (Protonix Tab) 40 mg DAILY@06 PO Last administered on 10/14/17 05:45; Admin Dose 40 MG; Start 10/08/17 at 06:00 Mupirocin (Bactroban) 1 applic BID TOP Last administered on 10/14/17 08:15; Admin Dose 1 APPLIC; Start 10/08/17 at 21:00 Aspirin 325 mg 325 mg DAILY PO Last administered on 10/14/17 08:17; Admin Dose 325 MG; Start 10/11/17 at 09:00 Ertapenem/Sodium Chloride (Invanz/NS) 100 ml @ 200 mls/hr Q24H IVPB Last administered on 10/14/17 08:14; Admin Dose 200 MLS/HR; Start 10/11/17 at 08: 30 Amlodipine Besylate (Norvasc) 5 mg DAILY PO Last administered on 10/14/17 08: 15; Admin Dose 5 MG; Start 10/12/17 at 09:00 Hydralazine HCl (Apresoline) 10 mg Q4H PRN IV SBP>170; Start 10/11/17 at 21:00 Polyethylene Glycol (Miralax) 17 gm DAILY PRN PO CONSTIPATION Last administered on 10/14/17 06:53; Admin Dose 17 GM; Start 10/14/17 at 07:00 KRISTI PARDO NP Oct 14, 2017 11:18
[2017-10-14 11:40] LABS: BASOPHIL # 0.1 10^3/ul (0.0-0.1); BASOPHILS % 0.6 % (0.0-2.0); EOSINOPHILS # 0.2 10^3/ul (0.0-0.5); EOSINOPHILS % 2.4 % (0.0-7.0); HEMATOCRIT 29.6 % (37.0-47.0); HEMOGLOBIN 10.3 g/dl (12.0-16.0); LYMPHOCYTES # 1.5 10^3/ul (0.8-2.9); LYMPHOCYTES % 15.6 % (15.0-51.0); MEAN CORPUSCULAR HEMOGLOBIN 31.3 pg (29.0-33.0); MEAN CORPUSCULAR HGB CONC 34.8 g/dl (32.0-37.0); MEAN PLATELET VOLUME 10.9 fl (7.4-10.4); MONOCYTE # 0.7 10^3/ul (0.3-0.9); MONOCYTES % 7.2 % (0.0-11.0); NEUTROPHILS % 71.1 % (39.0-77.0); PLATELET COUNT 365 10^3/UL (140-415); RED BLOOD COUNT 3.29 10^6/ul (4.20-5.40); RED CELL DISTRIBUTION WIDTH 15.6 % (11.5-14.5); WHITE BLOOD COUNT 9.8 10^3/ul (4.8-10.8)
[2017-10-14 12:08] LABS: CALCIUM 8.7 mg/dl (8.4-10.2); CREATININE 0.81 mg/dl (0.44-1.00); POTASSIUM 3.5 mmol/L (3.5-5.1)
--- NOTE | 2017-10-14 13:50 | CONS ---
Date/Time of Note Date/Time of Note DATE: 10/14/17 TIME: 13:47 Assessment/Plan Assessment/Plan Chief Complaint/Hosp Course IMP: 1.positive troponin-trended negative but now with recurrent chest pain this am 2.PAF/AFL-now in SR and remains 3.HTN-uncontrolled ? component of pain 4.renal calculous/UTI s/p cystoscopy/lithotripsy 5.renal failure-improving 6.s/p fall -recurrent 7.bacteremia Recc: -Tele -Continue BB/norvasc -Continue asa full dose for now -Continue abx's and continue to f/u cx data -to have repeat lithotripsy -Check troponin Q6 x 2 and serial ecg's given recurrent chest pain. Also will star low dose oral nitrates and follow up response Problems: Consultation Date/Type/Reason Admit Date/Time Oct 05, 2017 at 22:26 Initial Consult Date 10/06/17 Type of Consultation: cardiology Reason for Consultation positive troponin Referring Provider: YOSELIN RAMON MD Exam/Review of Systems Vital Signs Vitals Vital Signs Date Time Temp Pulse Resp B/P Pulse Ox O2 Delivery O2 Flow Rate FiO2 10/14/17 12:17 54 10/14/17 08:16 97.8 16 131/74 94 10/14/17 02:48 2.0 10/13/17 20:00 Nasal Cannula Intake and Output 10/13/17 10/13/17 10/14/17 14:59 22:59 06:59 Intake Total 100 ml 800 ml 240 ml Output Total 350 ml Balance 100 ml 450 ml 240 ml Exam Review of Systems: CONSTITUTIONAL: No fevers, chills. PULMONARY: No sob CARDIOVASCULAR:c/o chest pain this am GASTROINTESTINAL: No nausea/vomiting. GENITOURINARY: No hematuria/dysuria. MUSCULOSKELETAL: No myagias/arthalgias. PSYCHIATRIC: The patient denies depression. NEUROLOGIC: No weakness Constitutional: alert, oriented Psych: no complaints Head: normocephalic ENMT: mucosa pink and moist Neck: jvd (9 cm water), supple Respiratory: diminished breath sounds (at bases/B) Cardiovascular: regular rate and rhythm Gastrointestinal: non-tender, soft Musculoskeletal: muscle weakness (mild generalized) Extremities: edema (none) Neurological: other (No focal deficits) Results Result Diagram: 10/14/17 1105 10/14/17 1058 Results 24 hrs Laboratory Tests Test 10/14/17 10:58 10/14/17 11:05 Sodium Level 139 Potassium Level 3.5 Chloride Level 103 Carbon Dioxide Level 30 Anion Gap 10 Blood Urea Nitrogen 14 Creatinine 0.81 Glucose Level 105 Calcium Level 8.7 White Blood Count 9.8 # Red Blood Count 3.29 L Hemoglobin 10.3 L Hematocrit 29.6 L Mean Corpuscular Volume 90.0 Mean Corpuscular Hemoglobin 31.3 Mean Corpuscular Hemoglobin Concent 34.8 Red Cell Distribution Width 15.6 H Platelet Count 365 # Mean Platelet Volume 10.9 H Neutrophils % 71.1 Lymphocytes % 15.6 Monocytes % 7.2 Eosinophils % 2.4 Basophils % 0.6 Nucleated Red Blood Cells % 0.0 Neutrophils # 7.0 Lymphocytes # 1.5 Monocytes # 0.7 Eosinophils # 0.2 Basophils # 0.1 Nucleated Red Blood Cells # 0.0 Medications Medications Current Medications Ondansetron HCl (Zofran Inj) 4 mg Q6H PRN IV NAUSEA AND/OR VOMITING; Start at 06:00 Acetaminophen (Tylenol Tab) 650 mg Q6H PRN PO PAIN LEVEL 1-3 OR FEVER Last administered on 10/13/17 21:54; Admin Dose 650 MG; Start 10/06/17 at 06:00 Morphine Sulfate (morphine) 2 mg Q4H PRN IV PAIN LEVEL 7-10 Last administered on 10/14/17 11:00; Admin Dose 2 MG; Start 10/06/17 at 06:00 Fish Oil (Fish Oil) 1,000 mg DAILY PO Last administered on 10/14/17 08:17; Admin Dose 1,000 MG; Start 10/06/17 at 09:00 Levothyroxine Sodium (Synthroid) 88 mcg DAILY PO Last administered on 08:15; Admin Dose 88 MCG; Start 10/06/17 at 09:00 Quetiapine Fumarate (Seroquel) 100 mg HS PO Last administered on 10/13/17 20: 31; Admin Dose 100 MG; Start 10/06/17 at 21:00 Tamsulosin HCl (Flomax) 0.4 mg DAILY PO Last administered on 10/14/17 08:17; Admin Dose 0.4 MG; Start 10/06/17 at 13:30 Metoprolol Tartrate (Lopressor) 25 mg BID PO Last administered on 10/14/17 08 :17; Admin Dose 25 MG; Start 10/06/17 at 21:00 Metoprolol Tartrate (Lopressor) 5 mg Q4H PRN IV HR>110 Hold SBP<100; Start at 19:30 Pantoprazole (Protonix Tab) 40 mg DAILY@06 PO Last administered on 10/14/17 05:45; Admin Dose 40 MG; Start 10/08/17 at 06:00 Mupirocin (Bactroban) 1 applic BID TOP Last administered on 10/14/17 08:15; Admin Dose 1 APPLIC; Start 10/08/17 at 21:00 Aspirin 325 mg 325 mg DAILY PO Last administered on 10/14/17 08:17; Admin Dose 325 MG; Start 10/11/17 at 09:00 Ertapenem/Sodium Chloride (Invanz/NS) 100 ml @ 200 mls/hr Q24H IVPB Last administered on 10/14/17 08:14; Admin Dose 200 MLS/HR; Start 10/11/17 at 08: 30 Amlodipine Besylate (Norvasc) 5 mg DAILY PO Last administered on 10/14/17 08: 15; Admin Dose 5 MG; Start 10/12/17 at 09:00 Hydralazine HCl (Apresoline) 10 mg Q4H PRN IV SBP>170; Start 10/11/17 at 21:00 Polyethylene Glycol (Miralax) 17 gm DAILY PRN PO CONSTIPATION Last administered on 10/14/17 06:53; Admin Dose 17 GM; Start 10/14/17 at 07:00 ALYSIA KNOTT Oct 14, 2017 13:50
[2017-10-14] MEDS ORDERED: NITROGLYCERIN (SL) 0.4 MG TAB SL PRN (14:00)
--- NOTE | 2017-10-14 16:06 | PN ---
Date/Time of Note Date/Time of Note DATE: 10/14/17 TIME: 16:05 Assessment/Plan VTE Prophylaxis VTE Prophylaxis Intervention: SCD's Lines/Catheters IV Catheter Type (from Nrsg): Mid Line Urinary Cath still in place: No Assessment/Plan Assessment/Plan 67 yo F admitted for sepsis from ESBL bacteremia in setting of kidney stone #sepsis with ESBL bacteremia from infected kidney stone sp cysto, attempted kidney stone resection, and JJ stent placement 11 of note, per , ESWL will be needed to break up kidney stone-->this is scheduled to happen in the next few days 2 weeks of invanz from date stone is removed cont flomax #DARWIN on CKD: RESOLVED #elevated trop, AFlutter with RVR TFTs consistent with possible sick euthyroid v overt hypothyroid. defer to PCP to recheck labs in 4-6 weeks HR controlled pt on asa 325 currently for CVA risk reduction, defer to PCP to consider full ATC #hepatitis serologies: Hep C V PCR consistent with cleared infection, HepB bloodwork consistent with previous exposure PT eval to help with discharge planning. 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 she was having chest discomfort Exam/Review of Systems Vital Signs Vitals Vital Signs Date Time Temp Pulse Resp B/P Pulse Ox O2 Delivery O2 Flow Rate FiO2 10/14/17 14:53 52 20 133/63 94 Room Air 10/14/17 08:16 97.8 10/14/17 02:48 2.0 Intake and Output 10/13/17 10/13/17 10/14/17 15:00 23:00 07:00 Intake Total 100 ml 800 ml 240 ml Output Total 350 ml Balance 100 ml 450 ml 240 ml Exam nad no mrg lungs clear abd soft no rashes Results Result Diagram: 10/14/17 1105 10/14/17 1058 Results 24 hrs Laboratory Tests Test 10/14/17 10:58 10/14/17 11:05 Sodium Level 139 Potassium Level 3.5 Chloride Level 103 Carbon Dioxide Level 30 Anion Gap 10 Blood Urea Nitrogen 14 Creatinine 0.81 Glucose Level 105 Calcium Level 8.7 White Blood Count 9.8 # Red Blood Count 3.29 L Hemoglobin 10.3 L Hematocrit 29.6 L Mean Corpuscular Volume 90.0 Mean Corpuscular Hemoglobin 31.3 Mean Corpuscular Hemoglobin Concent 34.8 Red Cell Distribution Width 15.6 H Platelet Count 365 # Mean Platelet Volume 10.9 H Neutrophils % 71.1 Lymphocytes % 15.6 Monocytes % 7.2 Eosinophils % 2.4 Basophils % 0.6 Nucleated Red Blood Cells % 0.0 Neutrophils # 7.0 Lymphocytes # 1.5 Monocytes # 0.7 Eosinophils # 0.2 Basophils # 0.1 Nucleated Red Blood Cells # 0.0 Medications Medications Current Medications Ondansetron HCl (Zofran Inj) 4 mg Q6H PRN IV NAUSEA AND/OR VOMITING; Start at 06:00 Acetaminophen (Tylenol Tab) 650 mg Q6H PRN PO PAIN LEVEL 1-3 OR FEVER Last administered on 10/13/17 21:54; Admin Dose 650 MG; Start 10/06/17 at 06:00 Morphine Sulfate (morphine) 2 mg Q4H PRN IV PAIN LEVEL 7-10 Last administered on 10/14/17 11:00; Admin Dose 2 MG; Start 10/06/17 at 06:00 Fish Oil (Fish Oil) 1,000 mg DAILY PO Last administered on 10/14/17 08:17; Admin Dose 1,000 MG; Start 10/06/17 at 09:00 Levothyroxine Sodium (Synthroid) 88 mcg DAILY PO Last administered on 08:15; Admin Dose 88 MCG; Start 10/06/17 at 09:00 Quetiapine Fumarate (Seroquel) 100 mg HS PO Last administered on 10/13/17 20: 31; Admin Dose 100 MG; Start 10/06/17 at 21:00 Tamsulosin HCl (Flomax) 0.4 mg DAILY PO Last administered on 10/14/17 08:17; Admin Dose 0.4 MG; Start 10/06/17 at 13:30 Metoprolol Tartrate (Lopressor) 25 mg BID PO Last administered on 10/14/17 08 :17; Admin Dose 25 MG; Start 10/06/17 at 21:00 Metoprolol Tartrate (Lopressor) 5 mg Q4H PRN IV HR>110 Hold SBP<100; Start at 19:30 Pantoprazole (Protonix Tab) 40 mg DAILY@06 PO Last administered on 10/14/17 05:45; Admin Dose 40 MG; Start 10/08/17 at 06:00 Mupirocin (Bactroban) 1 applic BID TOP Last administered on 10/14/17 08:15; Admin Dose 1 APPLIC; Start 10/08/17 at 21:00 Aspirin 325 mg 325 mg DAILY PO Last administered on 10/14/17 08:17; Admin Dose 325 MG; Start 10/11/17 at 09:00 Ertapenem/Sodium Chloride (Invanz/NS) 100 ml @ 200 mls/hr Q24H IVPB Last administered on 10/14/17 08:14; Admin Dose 200 MLS/HR; Start 10/11/17 at 08: 30 Amlodipine Besylate (Norvasc) 5 mg DAILY PO Last administered on 10/14/17 08: 15; Admin Dose 5 MG; Start 10/12/17 at 09:00 Hydralazine HCl (Apresoline) 10 mg Q4H PRN IV SBP>170; Start 10/11/17 at 21:00 Polyethylene Glycol (Miralax) 17 gm DAILY PRN PO CONSTIPATION Last administered on 10/14/17 06:53; Admin Dose 17 GM; Start 10/14/17 at 07:00 Isosorbide Dinitrate (Isordil) 10 mg TID PO ; Start 10/14/17 at 21:00 Nitroglycerin (Nitroglycerin (Sl Tab) 0.4 Mg) 1 tab Q5M PRN SL ANGINA; Start 10/14/17 at 14:00 ADOLFO COLEMAN MD Oct 14, 2017 16:06
[2017-10-14 18:42] LABS: CREATINE KINASE 73 IU/L (23-200)
[2017-10-14 18:55] LABS: TROPONIN-I < 0.012 ng/ml (0.00-0.12)
[2017-10-14] MEDS: ISOSORBIDE DINITRATE 10 MG TAB PO SCH (21:10)
[2017-10-14] MEDS: QUETIAPINE 100 MG TAB PO SCH (21:10)
[2017-10-14] MEDS ORDERED: SOD CHLORIDE 0.9% 1,000 ML IV SCH (22:00)
--- NOTE | 2017-10-14 22:13 | CONS ---
Date/Time of Note Date/Time of Note DATE: 10/14/17 TIME: 22:06 Consult Date/Type/Reason Admit Date/Time Oct 05, 2017 at 22:26 Initial Consult Date 10/06/17 Type of Consultation: Urology Reason for Consultation left renal stone,UTI Ordering Provider: YOSELIN RAMON MD Subjective left flank pain,dysuria Objective Vital Signs Date Time Temp Pulse Resp B/P Pulse Ox O2 Delivery O2 Flow Rate FiO2 10/14/17 20:36 56 10/14/17 16:36 98.1 17 122/60 92 10/14/17 14:53 Room Air 10/14/17 02:48 2.0 Intake and Output 10/13/17 10/13/17 10/14/17 15:00 23:00 07:00 Intake Total 100 ml 800 ml 240 ml Output Total 350 ml Balance 100 ml 450 ml 240 ml Exam left flank tenderness Results/Medications Result Diagram: 10/14/17 1105 10/14/17 1058 Results 24 hrs Laboratory Tests Test 10/14/17 10:58 10/14/17 11:05 10/14/17 18:20 Sodium Level 139 Potassium Level 3.5 Chloride Level 103 Carbon Dioxide Level 30 Anion Gap 10 Blood Urea Nitrogen 14 Creatinine 0.81 Glucose Level 105 Calcium Level 8.7 White Blood Count 9.8 # Red Blood Count 3.29 L Hemoglobin 10.3 L Hematocrit 29.6 L Mean Corpuscular Volume 90.0 Mean Corpuscular Hemoglobin 31.3 Mean Corpuscular Hemoglobin Concent 34.8 Red Cell Distribution Width 15.6 H Platelet Count 365 # Mean Platelet Volume 10.9 H Neutrophils % 71.1 Lymphocytes % 15.6 Monocytes % 7.2 Eosinophils % 2.4 Basophils % 0.6 Nucleated Red Blood Cells % 0.0 Neutrophils # 7.0 Lymphocytes # 1.5 Monocytes # 0.7 Eosinophils # 0.2 Basophils # 0.1 Nucleated Red Blood Cells # 0.0 Creatine Kinase 73 Creatine Kinase Index 1.2 Creatinine Kinase MB (Mass) 0.90 Troponin I < 0.012 Medications Current Medications Ondansetron HCl (Zofran Inj) 4 mg Q6H PRN IV NAUSEA AND/OR VOMITING; Start at 06:00 Acetaminophen (Tylenol Tab) 650 mg Q6H PRN PO PAIN LEVEL 1-3 OR FEVER Last administered on 10/13/17 21:54; Admin Dose 650 MG; Start 10/06/17 at 06:00 Morphine Sulfate (morphine) 2 mg Q4H PRN IV PAIN LEVEL 7-10 Last administered on 10/14/17 21:11; Admin Dose 2 MG; Start 10/06/17 at 06:00 Fish Oil (Fish Oil) 1,000 mg DAILY PO Last administered on 10/14/17 08:17; Admin Dose 1,000 MG; Start 10/06/17 at 09:00 Levothyroxine Sodium (Synthroid) 88 mcg DAILY PO Last administered on 08:15; Admin Dose 88 MCG; Start 10/06/17 at 09:00 Quetiapine Fumarate (Seroquel) 100 mg HS PO Last administered on 10/14/17 21: 10; Admin Dose 100 MG; Start 10/06/17 at 21:00 Tamsulosin HCl (Flomax) 0.4 mg DAILY PO Last administered on 10/14/17 08:17; Admin Dose 0.4 MG; Start 10/06/17 at 13:30 Metoprolol Tartrate (Lopressor) 25 mg BID PO Last administered on 10/14/17 21 :10; Admin Dose 25 MG; Start 10/06/17 at 21:00 Metoprolol Tartrate (Lopressor) 5 mg Q4H PRN IV HR>110 Hold SBP<100; Start at 19:30 Pantoprazole (Protonix Tab) 40 mg DAILY@06 PO Last administered on 10/14/17 05:45; Admin Dose 40 MG; Start 10/08/17 at 06:00 Mupirocin (Bactroban) 1 applic BID TOP Last administered on 10/14/17 21:11; Admin Dose 1 APPLIC; Start 10/08/17 at 21:00 Aspirin 325 mg 325 mg DAILY PO Last administered on 10/14/17 08:17; Admin Dose 325 MG; Start 10/11/17 at 09:00 Ertapenem/Sodium Chloride (Invanz/NS) 100 ml @ 200 mls/hr Q24H IVPB Last administered on 10/14/17 08:14; Admin Dose 200 MLS/HR; Start 10/11/17 at 08: 30 Amlodipine Besylate (Norvasc) 5 mg DAILY PO Last administered on 10/14/17 08: 15; Admin Dose 5 MG; Start 10/12/17 at 09:00 Hydralazine HCl (Apresoline) 10 mg Q4H PRN IV SBP>170; Start 10/11/17 at 21:00 Polyethylene Glycol (Miralax) 17 gm DAILY PRN PO CONSTIPATION Last administered on 10/14/17 06:53; Admin Dose 17 GM; Start 10/14/17 at 07:00 Isosorbide Dinitrate (Isordil) 10 mg TID PO Last administered on 10/14/17 21: 10; Admin Dose 10 MG; Start 10/14/17 at 21:00 Nitroglycerin (Nitroglycerin (Sl Tab) 0.4 Mg) 1 tab Q5M PRN SL ANGINA; Start 10/14/17 at 14:00 Assessment/Plan Chief Complaint/Hosp Course Patient has a left renal stone. The stone was in the upper ureter near the ureteropelvic junction and causing obstruction. She underwent cystoscopy left ureteroscopy and laser lithotripsy and insertion of a JJ stent . The urine in the left kidney was very cloudy and made it very difficult to see the stone and I placed the JJ stent. Culture was sent from the kidney and that grew E Coli ESBL. She is on Ertapenem I explained all the findings to the patient and the plan and the need for more procedure to get rid of the stone and remove the stent. Scheduled her for ESWL on Wednesday and if the stone breaks well do cystoscopy and remove the JJ stent Problems: FRANNY DEE MD Oct 14, 2017 22:13
[2017-10-15] VITALS (13 sets, daily range): BP systolic 87–121; BP diastolic 53–60; PULSE 42–63; RESP 18–20
[2017-10-15 01:12] LABS: CREATINE KINASE 62 IU/L (23-200)
[2017-10-15 01:24] LABS: CK-MB 0.82 ng/ml (0.0-2.4); TROPONIN-I < 0.012 ng/ml (0.00-0.12)
[2017-10-15] MEDS: ACETAMINOPHEN 325 MG TAB PO PRN ×2 (04:29→20:41)
[2017-10-15] MEDS ORDERED: BISACODYL (EC) 5 MG TAB PO PRN (04:30)
[2017-10-15] MEDS: PANTOPRAZOLE (EC) 40 MG TAB PO SCH (05:38)
[2017-10-15] MEDS: morphine 2 MG INJ IV PRN ×2 (05:52→18:07)
[2017-10-15 07:34] LABS: BASOPHIL # 0.1 10^3/ul (0.0-0.1); BASOPHILS % 0.6 % (0.0-2.0); EOSINOPHILS # 0.2 10^3/ul (0.0-0.5); EOSINOPHILS % 2.3 % (0.0-7.0); HEMATOCRIT 27.1 % (37.0-47.0); HEMOGLOBIN 9.3 g/dl (12.0-16.0); LYMPHOCYTES # 1.1 10^3/ul (0.8-2.9); LYMPHOCYTES % 14.5 % (15.0-51.0); MEAN CORPUSCULAR HEMOGLOBIN 31.4 pg (29.0-33.0); MEAN CORPUSCULAR HGB CONC 34.3 g/dl (32.0-37.0); MEAN CORPUSCULAR VOLUME 91.6 fl (82.0-101.0); MEAN PLATELET VOLUME 10.9 fl (7.4-10.4); MONOCYTE # 0.5 10^3/ul (0.3-0.9); MONOCYTES % 6.2 % (0.0-11.0); NEUTROPHIL # 5.7 10^3/ul (1.6-7.5); NEUTROPHILS % 74.1 % (39.0-77.0); PLATELET COUNT 364 10^3/UL (140-415); RED BLOOD COUNT 2.96 10^6/ul (4.20-5.40); RED CELL DISTRIBUTION WIDTH 15.8 % (11.5-14.5); WHITE BLOOD COUNT 7.7 10^3/ul (4.8-10.8)
[2017-10-15 07:47] LABS: CALCIUM 8.8 mg/dl (8.4-10.2); CREATININE 0.88 mg/dl (0.44-1.00); POTASSIUM 3.7 mmol/L (3.5-5.1)
[2017-10-15] MEDS: ISOSORBIDE DINITRATE 10 MG TAB PO SCH ×3 (08:34→20:43)
[2017-10-15] MEDS: AMLODIPINE 5 MG TAB PO SCH (08:35)
[2017-10-15] MEDS: METOPROLOL 25 MG TAB PO SCH ×2 (08:35→20:44)
[2017-10-15] MEDS: LEVOTHYROXINE 88 MCG TAB PO SCH (08:44)
[2017-10-15] MEDS: ERTAPENEM SODIUM 1 GM in SOD CHLORIDE 0.9% 100 ML IVPB SCH (08:44)
[2017-10-15] MEDS: TAMSULOSIN (SR) 0.4 MG CAP PO SCH (08:44)
[2017-10-15] MEDS: DOCUSATE SODIUM 100 MG CAP PO SCH ×2 (08:45→20:41)
[2017-10-15] MEDS: ASPIRIN (EC) 325 MG TAB PO SCH (08:45)
[2017-10-15] MEDS: FISH OIL 1,000 MG CAP PO SCH (08:45)
[2017-10-15] MEDS: MUPIROCIN 2% 22 GM OINT TOP SCH ×2 (08:47→20:40)
--- NOTE | 2017-10-15 09:59 | PN ---
Date/Time of Note Date/Time of Note DATE: 10/15/17 TIME: 09:58 Assessment/Plan VTE Prophylaxis VTE Prophylaxis Intervention: SCD's Lines/Catheters IV [facility]from [facility] Urinary Cath still in place: No Assessment/Plan Chief Complaint/Hosp Course Chief Complaint/Hospital Course Assessment: S/p cystoscopy with lithotripsy and stent placement No signs of GI bleed, hemoglobin is stable Rhabdomyolysis Abnormal liver function test Hep C - RNA negative Hep B - previous exposure No evidence autoimmune hepatitis vs related to rhabdomyolysis Schizophrenia Seizure disorder Renal disease with kidney stones Hypertension Dyslipidemia Hypothyroidism Plan: Continue monitoring H&H and liver enzymes Hepatitis B core total (reactive) IgM- pending- Pt to f/u with GI after discharge to be re-evaluated Hep B Continue PPI Monitor H/H currently stable, will transfuse as needed Patient seen in collaboration with Dr. Whitney Subjective: Course reviewed with nursing staff Patient interviewed and examined All labs, imaging and other results reviewed Patient remains stable from GI point of view. She will need to f/u with GI and be reevaluated in regards to Hep B. Gi will sign off but will be available if needed. PHYSICAL EXAMINATION: GENERAL: Well developed, well nourished, alert & oriented x 3, in no acute distress SKIN: No lesions, no stigmata chronic liver disease, no evidence of bleeding diathesis LYMPHATIC: No palpable lymphadenopathy. HEAD: Normocephalic, atraumatic, no tenderness. EYES: Pupils equal reactive to light and accommodation, full extraocular movements, sclera clear, non-icteric, no discharge. EARS/NOSE AND THROAT: Ears normal, nose normal, oropharynx normal, NECK: Supple, no masses, thyroid normal, CHEST: Inspection within normal limits. CARDIOVASCULAR: Heart: Regular rate and rhythm, RESPIRATORY: Lungs clear to auscultation and percussion, no wheezing, no rubs GASTROINTESTINAL AND LIVER: Abdomen: Soft, midepigastric and left upper quadrant tenderness, non-distended, no hernias, no masses, no organomegaly, no ascites, no guarding, no rebound tenderness, hyperactive bowel sounds. Rectal: Deferred. GENITOURINARY: Deferred EXTREMITIES: No cyanosis, clubbing or edema. Problems: Exam/Review of Systems Vital Signs Vitals Vital Signs Date Time Temp Pulse Resp B/P Pulse Ox O2 Delivery O2 Flow Rate FiO2 10/15/17 08:36 44 10/15/17 07:58 97.8 20 91/54 91 10/15/17 06:37 2.0 10/14/17 20:00 Nasal Cannula Intake and Output 10/14/17 10/14/17 10/15/17 15:00 23:00 07:00 Intake Total 100 ml 850 ml 700 ml Output Total 650 ml Balance 100 ml 850 ml 50 ml Results Result Diagram: 10/15/17 0614 10/15/17 0614 Results 24 hrs Laboratory Tests Test 10/14/17 10:58 10/14/17 11:05 10/14/17 18:20 10/15/17 00:45 Sodium Level 139 Potassium Level 3.5 Chloride Level 103 Carbon Dioxide Level 30 Anion Gap 10 Blood Urea Nitrogen 14 Creatinine 0.81 Glucose Level 105 Calcium Level 8.7 White Blood Count 9.8 # Red Blood Count 3.29 L Hemoglobin 10.3 L Hematocrit 29.6 L Mean Corpuscular Volume 90.0 Mean Corpuscular Hemoglobin 31.3 Mean Corpuscular Hemoglobin Concent 34.8 Red Cell Distribution Width 15.6 H Platelet Count 365 # Mean Platelet Volume 10.9 H Neutrophils % 71.1 Lymphocytes % 15.6 Monocytes % 7.2 Eosinophils % 2.4 Basophils % 0.6 Nucleated Red Blood Cells % 0.0 Neutrophils # 7.0 Lymphocytes # 1.5 Monocytes # 0.7 Eosinophils # 0.2 Basophils # 0.1 Nucleated Red Blood Cells # 0.0 Creatine Kinase 73 62 Creatine Kinase Index 1.2 1.3 Creatinine Kinase MB (Mass) 0.90 0.82 Troponin I < 0.012 < 0.012 Test 10/15/17 06:14 White Blood Count 7.7 # Red Blood Count 2.96 L Hemoglobin 9.3 L Hematocrit 27.1 L Mean Corpuscular Volume 91.6 Mean Corpuscular Hemoglobin 31.4 Mean Corpuscular Hemoglobin Concent 34.3 Red Cell Distribution Width 15.8 H Platelet Count 364 Mean Platelet Volume 10.9 H Neutrophils % 74.1 Lymphocytes % 14.5 L Monocytes % 6.2 Eosinophils % 2.3 Basophils % 0.6 Nucleated Red Blood Cells % 0.0 Neutrophils # 5.7 Lymphocytes # 1.1 Monocytes # 0.5 Eosinophils # 0.2 Basophils # 0.1 Nucleated Red Blood Cells # 0.0 Sodium Level 140 Potassium Level 3.7 Chloride Level 103 Carbon Dioxide Level 30 Anion Gap 11 Blood Urea Nitrogen 15 Creatinine 0.88 Glucose Level 109 Calcium Level 8.8 Medications Medications Current Medications Ondansetron HCl (Zofran Inj) 4 mg Q6H PRN IV NAUSEA AND/OR VOMITING; Start at 06:00 Acetaminophen (Tylenol Tab) 650 mg Q6H PRN PO PAIN LEVEL 1-3 OR FEVER Last administered on 10/15/17 04:29; Admin Dose 650 MG; Start 10/06/17 at 06:00 Morphine Sulfate (morphine) 2 mg Q4H PRN IV PAIN LEVEL 7-10 Last administered on 10/15/17 05:52; Admin Dose 2 MG; Start 10/06/17 at 06:00 Fish Oil (Fish Oil) 1,000 mg DAILY PO Last administered on 10/15/17 08:45; Admin Dose 1,000 MG; Start 10/06/17 at 09:00 Levothyroxine Sodium (Synthroid) 88 mcg DAILY PO Last administered on 08:44; Admin Dose 88 MCG; Start 10/06/17 at 09:00 Quetiapine Fumarate (Seroquel) 100 mg HS PO Last administered on 10/14/17 21: 10; Admin Dose 100 MG; Start 10/06/17 at 21:00 Tamsulosin HCl (Flomax) 0.4 mg DAILY PO Last administered on 10/15/17 08:44; Admin Dose 0.4 MG; Start 10/06/17 at 13:30 Metoprolol Tartrate (Lopressor) 25 mg BID PO Last administered on 10/14/17 21 :10; Admin Dose 25 MG; Start 10/06/17 at 21:00 Metoprolol Tartrate (Lopressor) 5 mg Q4H PRN IV HR>110 Hold SBP<100; Start at 19:30 Pantoprazole (Protonix Tab) 40 mg DAILY@06 PO Last administered on 10/15/17 05 :38; Admin Dose 40 MG; Start 10/08/17 at 06:00 Mupirocin (Bactroban) 1 applic BID TOP Last administered on 10/15/17 08:47; Admin Dose 1 APPLIC; Start 10/08/17 at 21:00 Aspirin 325 mg 325 mg DAILY PO Last administered on 10/15/17 08:45; Admin Dose 325 MG; Start 10/11/17 at 09:00 Ertapenem/Sodium Chloride (Invanz/NS) 100 ml @ 200 mls/hr Q24H IVPB Last administered on 10/15/17 08:44; Admin Dose 200 MLS/HR; Start 10/11/17 at 08:30 Amlodipine Besylate (Norvasc) 5 mg DAILY PO Last administered on 10/14/17 08: 15; Admin Dose 5 MG; Start 10/12/17 at 09:00 Hydralazine HCl (Apresoline) 10 mg Q4H PRN IV SBP>170; Start 10/11/17 at 21:00 Polyethylene Glycol (Miralax) 17 gm DAILY PRN PO CONSTIPATION Last administered on 10/14/17 06:53; Admin Dose 17 GM; Start 10/14/17 at 07:00 Isosorbide Dinitrate (Isordil) 10 mg TID PO Last administered on 10/14/17 21: 10; Admin Dose 10 MG; Start 10/14/17 at 21:00 Nitroglycerin (Nitroglycerin (Sl Tab) 0.4 Mg) 1 tab Q5M PRN SL ANGINA; Start 10/14/17 at 14:00 Docusate Sodium (Colace) 100 mg BID PO Last administered on 10/15/17 08:45; Admin Dose 100 MG; Start 10/15/17 at 09:00 Bisacodyl (Dulcolax) 5 mg DAILY PRN PO CONSTIPATION; Start 10/15/17 at 04:30 KENNEDY WILLARD Oct 15, 2017 09:59
--- NOTE | 2017-10-15 13:15 | CONS ---
Date/Time of Note Date/Time of Note DATE: 10/15/17 TIME: 13:13 Assessment/Plan Assessment/Plan Chief Complaint/Hosp Course SUBJECTIVE: Patient is alert, feels good, looks comfortable, no fevers. ANTIMICROBIALS: Invanz, Bactroban to nares. PHYSICAL EXAMINATION: GENERAL: This is a well-developed, elderly woman who is awake, in no distress. HEENT: Head atraumatic, normocephalic. Sclerae anicteric. Buccal mucosa dry. NECK: Supple. CHEST: Rise symmetrical. Breath sounds clear. HEART: S1, S2. ABDOMEN: Soft. Bowel tones present. EXTREMITIES: Without cyanosis. ASSESSMENT: 1. Escherichia coli extended-spectrum beta-lactamase bacteremia with persistent UTI 2 to infected stone. 2. Obstructive uropathy status post cystoscopy with left JJ stent placement 3. Methicillin-resistant Staphylococcus aureus nares colonization. 4. Atrial fibrillation. 5. History of schizoaffective disorder and depression. 6. Hepatitis B and C virus positive. PLAN: The patient remains stable, continue antibiotics, urology rec-s noted, scheduled for stone removal procedure on Wednesday DW staff DW Dr Robles Problems: Consultation Date/Type/Reason Admit Date/Time Oct 05, 2017 at 22:26 Initial Consult Date 10/06/17 Type of Consultation: id Referring Provider: YOSELIN RAMON MD Exam/Review of Systems Vital Signs Vitals Vital Signs Date Time Temp Pulse Resp B/P Pulse Ox O2 Delivery O2 Flow Rate FiO2 10/15/17 12:57 98.0 70 20 87/53 91 10/15/17 06:37 2.0 10/14/17 20:00 Nasal Cannula Intake and Output 10/14/17 10/14/17 10/15/17 15:00 23:00 07:00 Intake Total 100 ml 850 ml 700 ml Output Total 650 ml Balance 100 ml 850 ml 50 ml Results Result Diagram: 10/15/1714 10/15/1714 Results 24 hrs Laboratory Tests Test 10/14/17 18:20 10/15/17 00:45 10/15/17 06:14 Creatine Kinase 73 62 Creatine Kinase Index 1.2 1.3 Creatinine Kinase MB (Mass) 0.90 0.82 Troponin I < 0.012 < 0.012 White Blood Count 7.7 # Red Blood Count 2.96 L Hemoglobin 9.3 L Hematocrit 27.1 L Mean Corpuscular Volume 91.6 Mean Corpuscular Hemoglobin 31.4 Mean Corpuscular Hemoglobin Concent 34.3 Red Cell Distribution Width 15.8 H Platelet Count 364 Mean Platelet Volume 10.9 H Neutrophils % 74.1 Lymphocytes % 14.5 L Monocytes % 6.2 Eosinophils % 2.3 Basophils % 0.6 Nucleated Red Blood Cells % 0.0 Neutrophils # 5.7 Lymphocytes # 1.1 Monocytes # 0.5 Eosinophils # 0.2 Basophils # 0.1 Nucleated Red Blood Cells # 0.0 Sodium Level 140 Potassium Level 3.7 Chloride Level 103 Carbon Dioxide Level 30 Anion Gap 11 Blood Urea Nitrogen 15 Creatinine 0.88 Glucose Level 109 Calcium Level 8.8 Medications Medications Current Medications Ondansetron HCl (Zofran Inj) 4 mg Q6H PRN IV NAUSEA AND/OR VOMITING; Start at 06:00 Acetaminophen (Tylenol Tab) 650 mg Q6H PRN PO PAIN LEVEL 1-3 OR FEVER Last administered on 10/15/17 04:29; Admin Dose 650 MG; Start 10/06/17 at 06:00 Morphine Sulfate (morphine) 2 mg Q4H PRN IV PAIN LEVEL 7-10 Last administered on 10/15/17 05:52; Admin Dose 2 MG; Start 10/06/17 at 06:00 Fish Oil (Fish Oil) 1,000 mg DAILY PO Last administered on 10/15/17 08:45; Admin Dose 1,000 MG; Start 10/06/17 at 09:00 Levothyroxine Sodium (Synthroid) 88 mcg DAILY PO Last administered on 08:44; Admin Dose 88 MCG; Start 10/06/17 at 09:00 Quetiapine Fumarate (Seroquel) 100 mg HS PO Last administered on 10/14/17 21: 10; Admin Dose 100 MG; Start 10/06/17 at 21:00 Tamsulosin HCl (Flomax) 0.4 mg DAILY PO Last administered on 10/15/17 08:44; Admin Dose 0.4 MG; Start 10/06/17 at 13:30 Metoprolol Tartrate (Lopressor) 25 mg BID PO Last administered on 10/14/17 21 :10; Admin Dose 25 MG; Start 10/06/17 at 21:00 Metoprolol Tartrate (Lopressor) 5 mg Q4H PRN IV HR>110 Hold SBP<100; Start at 19:30 Pantoprazole (Protonix Tab) 40 mg DAILY@06 PO Last administered on 10/15/17 05 :38; Admin Dose 40 MG; Start 10/08/17 at 06:00 Mupirocin (Bactroban) 1 applic BID TOP Last administered on 10/15/17 08:47; Admin Dose 1 APPLIC; Start 10/08/17 at 21:00 Aspirin 325 mg 325 mg DAILY PO Last administered on 10/15/17 08:45; Admin Dose 325 MG; Start 10/11/17 at 09:00 Ertapenem/Sodium Chloride (Invanz/NS) 100 ml @ 200 mls/hr Q24H IVPB Last administered on 10/15/17 08:44; Admin Dose 200 MLS/HR; Start 10/11/17 at 08:30 Amlodipine Besylate (Norvasc) 5 mg DAILY PO Last administered on 10/14/17 08: 15; Admin Dose 5 MG; Start 10/12/17 at 09:00 Hydralazine HCl (Apresoline) 10 mg Q4H PRN IV SBP>170; Start 10/11/17 at 21:00 Polyethylene Glycol (Miralax) 17 gm DAILY PRN PO CONSTIPATION Last administered on 10/14/17 06:53; Admin Dose 17 GM; Start 10/14/17 at 07:00 Isosorbide Dinitrate (Isordil) 10 mg TID PO Last administered on 10/15/17 12: 56; Admin Dose 10 MG; Start 10/14/17 at 21:00 Nitroglycerin (Nitroglycerin (Sl Tab) 0.4 Mg) 1 tab Q5M PRN SL ANGINA; Start 10/14/17 at 14:00 Docusate Sodium (Colace) 100 mg BID PO Last administered on 10/15/17 08:45; Admin Dose 100 MG; Start 10/15/17 at 09:00 Bisacodyl (Dulcolax) 5 mg DAILY PRN PO CONSTIPATION; Start 10/15/17 at 04:30 KRISTI PARDO NP Oct 15, 2017 13:15
--- NOTE | 2017-10-15 14:34 | RADRPT ---
PROCEDURE: CT ABDOMEN AND PELVIS WITHOUT CONTRAST. CLINICAL INDICATION: Abdominal pain TECHNIQUE: CT scan of the abdomen and pelvis without contrast was performed on a multidetector hig h-resolution CT scanner. The patient was scanned without intravenous contrast. Coronal and sagittal reformatted images were obtained from the axial source images. Images were reviewed on a high-resol [employer] PACS workstation. The total exam CTDI equals 22.4 mGy and the total exam DLP equals 1230.2 mGy -cm. One or more of the following dose reduction techniques were used: Automated exposure control. Adjustment of the mA and/or kV according to patient size. Use of iterative reconstruction technique. DICOM images are available COMPARISON: CT 10/11/2017 FINDINGS: CT abdomen: Bilateral lower lobe consolidation and pleural effusions. Heart size is enlarged. No significant per icardial effusion. Hepatic morphology is within limits. No gross contour deforming masses. Multiple gallstones are note d within the gallbladder. No evidence of intrahepatic or extrahepatic biliary dilatation. The spleen and pancreas are within normal limits. Both adrenal glands are within normal limits. Both kidneys are and normal anatomic position. There is a left-sided double-J ureteric stent. No mandi dence of obstruction hydronephrosis. Nonspecific left perinephric fat stranding is identified. 6 mm nonobstructing stone within the upper pole of the left kidney. No gross ureteric calculi. The visualized GI tract demonstrate normal caliber loops of small and large bowel. No evidence of calixto wel obstruction. Atherosclerotic calcification of the aorta is noted. There is no significant retroperitoneal lymphad enopathy. CT pelvis: The bladder is identified, containing a double-J ureteric stent. Air is noted within the bladder. Th e rectosigmoid colon is within limits. Uterus is unremarkable. No significant pelvic lymphadenopathy . There is mild bilateral flank subcutaneous edema. The visualized osseous structures demonstrate mult ilevel degenerative disease of the spine. IMPRESSION: 1. Cholelithiasis, without gross evidence of inflammatory changes. 2. No evidence of bowel obstruction. The appendix is not clearly identified, however no inflammatory changes within the right lower quadrant. 3. LEFT-SIDED DOUBLE-J URETERIC STENT IN PLACE. NO GROSS URETERIC CALCULI. THERE IS A 6 MM NONOBSTRU CTING STONE WITHIN THE UPPER POLE OF THE LEFT KIDNEY. THIS MAY BE THE PREVIOUSLY NOTED STONE IDENTIF IED WITHIN THE LEFT UPJ. 4. Atherosclerosis of the aorta. 5. Bilateral flank subcutaneous edema. RPTAT: AAPP Lillian Brown Physician Date Time Electronically viewed and signed by Lillian Brown Physician on 10/15/2017 14:34 JL/
--- NOTE | 2017-10-15 15:25 | CONS ---
Date/Time of Note Date/Time of Note DATE: 10/15/17 TIME: 15:21 Assessment/Plan Assessment/Plan Chief Complaint/Hosp Course IMP: 1.positive troponin-trended negative 2.PAF/AFL-now in SR and remains 3.HTN-uncontrolled ? component of pain 4.renal calculous/UTI s/p cystoscopy/lithotripsy 5.renal failure-improving 6.s/p fall -recurrent 7.bacteremia 8. Bradycardia 9. Hypothyroid 10. chest umpc-swwopalr-vjrg negative x 2 since most recent c/o chest pain, on isordil Recc: -Tele -Continu norvasc/isordil and follow for recurrent chest pain -Hold BB given ana and adjust synthroid given low T4/elevated TSH by labs this admit -Continue asa full dose for now -Continue abx's and continue to f/u cx data -to have repeat lithotripsy -will consider tress testing given recurrent chest pain Problems: Consultation Date/Type/Reason Admit Date/Time Oct 05, 2017 at 22:26 Initial Consult Date 10/06/17 Type of Consultation: cardiology Reason for Consultation bradycardia/chest pain Referring Provider: YOSELIN RAMON MD Exam/Review of Systems Vital Signs Vitals Vital Signs Date Time Temp Pulse Resp B/P Pulse Ox O2 Delivery O2 Flow Rate FiO2 10/15/17 12:57 98.0 70 20 87/53 91 10/15/17 06:37 2.0 10/14/17 20:00 Nasal Cannula Intake and Output 10/14/17 10/14/17 10/15/17 15:00 23:00 07:00 Intake Total 100 ml 850 ml 700 ml Output Total 650 ml Balance 100 ml 850 ml 50 ml Exam Review of Systems: CONSTITUTIONAL: No fevers, chills. PULMONARY: No sob CARDIOVASCULAR: No current chest pain GASTROINTESTINAL: No nausea/vomiting. GENITOURINARY: No hematuria/dysuria. MUSCULOSKELETAL: No myagias/arthalgias. PSYCHIATRIC: The patient denies depression. NEUROLOGIC: No weakness Constitutional: alert, oriented Psych: no complaints Head: normocephalic ENMT: mucosa pink and moist Neck: jvd (9 cm water), supple Respiratory: diminished breath sounds Cardiovascular: regular rate and rhythm Gastrointestinal: non-tender Musculoskeletal: muscle tone (normal) Extremities: edema (none) Neurological: other (No focal deficits) Results Result Diagram: 10/15/1714 10/15/17 0614 Results 24 hrs Laboratory Tests Test 10/14/17 18:20 10/15/17 00:45 10/15/17 06:14 Creatine Kinase 73 62 Creatine Kinase Index 1.2 1.3 Creatinine Kinase MB (Mass) 0.90 0.82 Troponin I < 0.012 < 0.012 White Blood Count 7.7 # Red Blood Count 2.96 L Hemoglobin 9.3 L Hematocrit 27.1 L Mean Corpuscular Volume 91.6 Mean Corpuscular Hemoglobin 31.4 Mean Corpuscular Hemoglobin Concent 34.3 Red Cell Distribution Width 15.8 H Platelet Count 364 Mean Platelet Volume 10.9 H Neutrophils % 74.1 Lymphocytes % 14.5 L Monocytes % 6.2 Eosinophils % 2.3 Basophils % 0.6 Nucleated Red Blood Cells % 0.0 Neutrophils # 5.7 Lymphocytes # 1.1 Monocytes # 0.5 Eosinophils # 0.2 Basophils # 0.1 Nucleated Red Blood Cells # 0.0 Sodium Level 140 Potassium Level 3.7 Chloride Level 103 Carbon Dioxide Level 30 Anion Gap 11 Blood Urea Nitrogen 15 Creatinine 0.88 Glucose Level 109 Calcium Level 8.8 Medications Medications Current Medications Ondansetron HCl (Zofran Inj) 4 mg Q6H PRN IV NAUSEA AND/OR VOMITING; Start at 06:00 Acetaminophen (Tylenol Tab) 650 mg Q6H PRN PO PAIN LEVEL 1-3 OR FEVER Last administered on 10/15/17 04:29; Admin Dose 650 MG; Start 10/06/17 at 06:00 Morphine Sulfate (morphine) 2 mg Q4H PRN IV PAIN LEVEL 7-10 Last administered on 10/15/17 05:52; Admin Dose 2 MG; Start 10/06/17 at 06:00 Fish Oil (Fish Oil) 1,000 mg DAILY PO Last administered on 10/15/17 08:45; Admin Dose 1,000 MG; Start 10/06/17 at 09:00 Levothyroxine Sodium (Synthroid) 88 mcg DAILY PO Last administered on 08:44; Admin Dose 88 MCG; Start 10/06/17 at 09:00 Quetiapine Fumarate (Seroquel) 100 mg HS PO Last administered on 10/14/17 21: 10; Admin Dose 100 MG; Start 10/06/17 at 21:00 Tamsulosin HCl (Flomax) 0.4 mg DAILY PO Last administered on 10/15/17 08:44; Admin Dose 0.4 MG; Start 10/06/17 at 13:30 Metoprolol Tartrate (Lopressor) 25 mg BID PO Last administered on 10/14/17 21 :10; Admin Dose 25 MG; Start 10/06/17 at 21:00 Metoprolol Tartrate (Lopressor) 5 mg Q4H PRN IV HR>110 Hold SBP<100; Start at 19:30 Pantoprazole (Protonix Tab) 40 mg DAILY@06 PO Last administered on 10/15/17 05 :38; Admin Dose 40 MG; Start 10/08/17 at 06:00 Mupirocin (Bactroban) 1 applic BID TOP Last administered on 10/15/17 08:47; Admin Dose 1 APPLIC; Start 10/08/17 at 21:00 Aspirin 325 mg 325 mg DAILY PO Last administered on 10/15/17 08:45; Admin Dose 325 MG; Start 10/11/17 at 09:00 Ertapenem/Sodium Chloride (Invanz/NS) 100 ml @ 200 mls/hr Q24H IVPB Last administered on 10/15/17 08:44; Admin Dose 200 MLS/HR; Start 10/11/17 at 08:30 Amlodipine Besylate (Norvasc) 5 mg DAILY PO Last administered on 10/14/17 08: 15; Admin Dose 5 MG; Start 10/12/17 at 09:00 Hydralazine HCl (Apresoline) 10 mg Q4H PRN IV SBP>170; Start 10/11/17 at 21:00 Polyethylene Glycol (Miralax) 17 gm DAILY PRN PO CONSTIPATION Last administered on 10/14/17 06:53; Admin Dose 17 GM; Start 10/14/17 at 07:00 Isosorbide Dinitrate (Isordil) 10 mg TID PO Last administered on 10/15/17 12: 56; Admin Dose 10 MG; Start 10/14/17 at 21:00 Nitroglycerin (Nitroglycerin (Sl Tab) 0.4 Mg) 1 tab Q5M PRN SL ANGINA; Start 10/14/17 at 14:00 Docusate Sodium (Colace) 100 mg BID PO Last administered on 10/15/17t 08:45; Admin Dose 100 MG; Start 10/15/17 at 09:00 Bisacodyl (Dulcolax) 5 mg DAILY PRN PO CONSTIPATION; Start 10/15/17 at 04:30 ALYSIA KNOTT Oct 15, 2017 15:25
--- NOTE | 2017-10-15 16:40 | RADRPT ---
PROCEDURE: XR Abdomen. CLINICAL INDICATION: Left renal stones. TECHNIQUE: AP abdomen x-ray. COMPARISON: CT 10/15/2017. FINDINGS: There is a nonspecific bowel gas pattern without evidence of obstruction. There is a double-J left u reteric stent with 5 mm stone identified in the upper pole of the left kidney. There are gallstones. There are multilevel degenerative changes of the imaged spine. There is no acute osseous abnormality. There is a small left pleural effusion with left basilar opacity. IMPRESSION: 1. Nonspecific bowel gas pattern without evidence of obstruction. 2. Double-J left ureteric stent with 5 mm stone identified in the upper pole of the left kidney. 3. Cholelithiasis. RPTAT: AAEE Physician Evin Date Time Electronically viewed and signed by Otto Diaz Physician on 10/15/2017 16:40 PH/
--- NOTE | 2017-10-15 17:51 | PN ---
Date/Time of Note Date/Time of Note DATE: 10/15/17 TIME: 17:48 Assessment/Plan VTE Prophylaxis VTE Prophylaxis Intervention: SCD's Lines/Catheters [facility] Mid Line Urinary Cath still in place: No Assessment/Plan Assessment/Plan 67 yo F admitted for sepsis from ESBL bacteremia in setting of kidney stone #sepsis with ESBL bacteremia from infected kidney stone sp cysto, attempted kidney stone resection, and JJ stent placement 11.28 ESWL tomorrow 2 weeks of invanz from date stone is removed cont flomax #DARWIN on CKD: RESOLVED #elevated trop, AFlutter with RVR TFTs consistent with possible sick euthyroid v overt hypothyroid. defer to PCP to recheck in 4-6w HR low overnight, bb stopped pt on asa 325 currently for CVA risk reduction, defer to PCP to consider full ATC #hepatitis serologies: Hep C V PCR consistent with cleared infection, HepB blood work consistent with previous exposure after kidney stone fully removed, will arrange for PICC and 2 weeks of home Invanz Subjective 24 Hr Interval Summary Free Text/Dictation Still reports occ central chest "pressure" Exam/Review of Systems Vital Signs Vitals Vital Signs Date Time Temp Pulse Resp B/P Pulse Ox O2 Delivery O2 Flow Rate FiO2 10/15/17 16:44 46 10/15/17 16:12 98.0 20 105/53 91 10/15/17 06:37 2.0 10/14/17 20:00 Nasal Cannula Intake and Output 10/14/17 10/14/17 10/15/17 14:59 22:59 06:59 Intake Total 100 ml 850 ml 700 ml Output Total 650 ml Balance 100 ml 850 ml 50 ml Exam nad no mrg lungs clear abd soft no rashes CT results reviewed. stone still present 11. blood culture represents contaminant Results Result Diagram: 10/15/17 0614 10/15/1714 Results 24 hrs Laboratory Tests Test 10/14/17 18:20 10/15/17 00:45 10/15/17 06:14 Creatine Kinase 73 62 Creatine Kinase Index 1.2 1.3 Creatinine Kinase MB (Mass) 0.90 0.82 Troponin I < 0.012 < 0.012 White Blood Count 7.7 # Red Blood Count 2.96 L Hemoglobin 9.3 L Hematocrit 27.1 L Mean Corpuscular Volume 91.6 Mean Corpuscular Hemoglobin 31.4 Mean Corpuscular Hemoglobin Concent 34.3 Red Cell Distribution Width 15.8 H Platelet Count 364 Mean Platelet Volume 10.9 H Neutrophils % 74.1 Lymphocytes % 14.5 L Monocytes % 6.2 Eosinophils % 2.3 Basophils % 0.6 Nucleated Red Blood Cells % 0.0 Neutrophils # 5.7 Lymphocytes # 1.1 Monocytes # 0.5 Eosinophils # 0.2 Basophils # 0.1 Nucleated Red Blood Cells # 0.0 Sodium Level 140 Potassium Level 3.7 Chloride Level 103 Carbon Dioxide Level 30 Anion Gap 11 Blood Urea Nitrogen 15 Creatinine 0.88 Glucose Level 109 Calcium Level 8.8 Medications Medications Current Medications Ondansetron HCl (Zofran Inj) 4 mg Q6H PRN IV NAUSEA AND/OR VOMITING; Start at 06:00 Acetaminophen (Tylenol Tab) 650 mg Q6H PRN PO PAIN LEVEL 1-3 OR FEVER Last administered on 10/15/17 04:29; Admin Dose 650 MG; Start 10/06/17 at 06:00 Morphine Sulfate (morphine) 2 mg Q4H PRN IV PAIN LEVEL 7-10 Last administered on 10/15/17 05:52; Admin Dose 2 MG; Start 10/06/17 at 06:00 Fish Oil (Fish Oil) 1,000 mg DAILY PO Last administered on 10/15/17 08:45; Admin Dose 1,000 MG; Start 10/06/17 at 09:00 Levothyroxine Sodium (Synthroid) 88 mcg DAILY PO Last administered on 08:44; Admin Dose 88 MCG; Start 10/06/17 at 09:00 Quetiapine Fumarate (Seroquel) 100 mg HS PO Last administered on 10/14/17 21: 10; Admin Dose 100 MG; Start 10/06/17 at 21:00 Tamsulosin HCl (Flomax) 0.4 mg DAILY PO Last administered on 10/15/17 08:44; Admin Dose 0.4 MG; Start 10/06/17 at 13:30 Metoprolol Tartrate (Lopressor) 25 mg BID PO Last administered on 10/14/17 21 :10; Admin Dose 25 MG; Start 10/06/17 at 21:00 Metoprolol Tartrate (Lopressor) 5 mg Q4H PRN IV HR>110 Hold SBP<100; Start at 19:30 Pantoprazole (Protonix Tab) 40 mg DAILY@06 PO Last administered on 10/15/17 05 :38; Admin Dose 40 MG; Start 10/08/17 at 06:00 Mupirocin (Bactroban) 1 applic BID TOP Last administered on 10/15/17 08:47; Admin Dose 1 APPLIC; Start 10/08/17 at 21:00 Aspirin 325 mg 325 mg DAILY PO Last administered on 10/15/17 08:45; Admin Dose 325 MG; Start 10/11/17 at 09:00 Ertapenem/Sodium Chloride (Invanz/NS) 100 ml @ 200 mls/hr Q24H IVPB Last administered on 10/15/17 08:44; Admin Dose 200 MLS/HR; Start 10/11/17 at 08:30 Amlodipine Besylate (Norvasc) 5 mg DAILY PO Last administered on 10/14/17 08: 15; Admin Dose 5 MG; Start 10/12/17 at 09:00 Hydralazine HCl (Apresoline) 10 mg Q4H PRN IV SBP>170; Start 10/11/17 at 21:00 Polyethylene Glycol (Miralax) 17 gm DAILY PRN PO CONSTIPATION Last administered on 10/14/17 06:53; Admin Dose 17 GM; Start 10/14/17 at 07:00 Isosorbide Dinitrate (Isordil) 10 mg TID PO Last administered on 10/15/17 12: 56; Admin Dose 10 MG; Start 10/14/17 at 21:00 Nitroglycerin (Nitroglycerin (Sl Tab) 0.4 Mg) 1 tab Q5M PRN SL ANGINA; Start 10/14/17 at 14:00 Docusate Sodium (Colace) 100 mg BID PO Last administered on 10/15/17 08:45; Admin Dose 100 MG; Start 10/15/17 at 09:00 Bisacodyl (Dulcolax) 5 mg DAILY PRN PO CONSTIPATION; Start 10/15/17 at 04:30 ADOLFO COLEMAN MD Oct 15, 2017 17:51
--- NOTE | 2017-10-15 18:51 | CONS ---
Date/Time of Note Date/Time of Note DATE: 10/15/17 TIME: 18:46 Consult Date/Type/Reason Admit Date/Time Oct 05, 2017 at 22:26 Initial Consult Date 10/06/17 Type of Consultation: Urology Reason for Consultation Left renal stone and recurrent urinary tract infection Ordering Provider: YOSELIN RAMON MD Subjective Patient states she is feeling better she has no pain. She just had a CT scan of the abdomen and pelvis and the KUB Objective Vital Signs Date Time Temp Pulse Resp B/P Pulse Ox O2 Delivery O2 Flow Rate FiO2 10/15/17 16:44 46 10/15/17 16:12 98.0 20 105/53 91 10/15/17 06:37 2.0 10/14/17 20:00 Nasal Cannula Intake and Output 10/14/17 10/14/17 10/15/17 14:59 22:59 06:59 Intake Total 100 ml 850 ml 700 ml Output Total 650 ml Balance 100 ml 850 ml 50 ml Exam Alert awake, abdomen is obese, left flank tenderness Results/Medications Result Diagram: 10/15/1714 10/15/1714 Results 24 hrs Laboratory Tests Test 10/15/17 00:45 10/15/17 06:14 Creatine Kinase 62 Creatine Kinase Index 1.3 Creatinine Kinase MB (Mass) 0.82 Troponin I < 0.012 White Blood Count 7.7 # Red Blood Count 2.96 L Hemoglobin 9.3 L Hematocrit 27.1 L Mean Corpuscular Volume 91.6 Mean Corpuscular Hemoglobin 31.4 Mean Corpuscular Hemoglobin Concent 34.3 Red Cell Distribution Width 15.8 H Platelet Count 364 Mean Platelet Volume 10.9 H Neutrophils % 74.1 Lymphocytes % 14.5 L Monocytes % 6.2 Eosinophils % 2.3 Basophils % 0.6 Nucleated Red Blood Cells % 0.0 Neutrophils # 5.7 Lymphocytes # 1.1 Monocytes # 0.5 Eosinophils # 0.2 Basophils # 0.1 Nucleated Red Blood Cells # 0.0 Sodium Level 140 Potassium Level 3.7 Chloride Level 103 Carbon Dioxide Level 30 Anion Gap 11 Blood Urea Nitrogen 15 Creatinine 0.88 Glucose Level 109 Calcium Level 8.8 Medications Current Medications Ondansetron HCl (Zofran Inj) 4 mg Q6H PRN IV NAUSEA AND/OR VOMITING; Start at 06:00 Acetaminophen (Tylenol Tab) 650 mg Q6H PRN PO PAIN LEVEL 1-3 OR FEVER Last administered on 10/15/17 04:29; Admin Dose 650 MG; Start 10/06/17 at 06:00 Morphine Sulfate (morphine) 2 mg Q4H PRN IV PAIN LEVEL 7-10 Last administered on 10/15/17 18:07; Admin Dose 2 MG; Start 10/06/17 at 06:00 Fish Oil (Fish Oil) 1,000 mg DAILY PO Last administered on 10/15/17 08:45; Admin Dose 1,000 MG; Start 10/06/17 at 09:00 Levothyroxine Sodium (Synthroid) 88 mcg DAILY PO Last administered on 08:44; Admin Dose 88 MCG; Start 10/06/17 at 09:00 Quetiapine Fumarate (Seroquel) 100 mg HS PO Last administered on 10/14/17 21: 10; Admin Dose 100 MG; Start 10/06/17 at 21:00 Tamsulosin HCl (Flomax) 0.4 mg DAILY PO Last administered on 10/15/17 08:44; Admin Dose 0.4 MG; Start 10/06/17 at 13:30 Metoprolol Tartrate (Lopressor) 25 mg BID PO Last administered on 10/14/17 21 :10; Admin Dose 25 MG; Start 10/06/17 at 21:00 Metoprolol Tartrate (Lopressor) 5 mg Q4H PRN IV HR>110 Hold SBP<100; Start at 19:30 Pantoprazole (Protonix Tab) 40 mg DAILY@06 PO Last administered on 10/15/17 05 :38; Admin Dose 40 MG; Start 10/08/17 at 06:00 Mupirocin (Bactroban) 1 applic BID TOP Last administered on 10/15/17 08:47; Admin Dose 1 APPLIC; Start 10/08/17 at 21:00 Aspirin 325 mg 325 mg DAILY PO Last administered on 10/15/17 08:45; Admin Dose 325 MG; Start 10/11/17 at 09:00 Ertapenem/Sodium Chloride (Invanz/NS) 100 ml @ 200 mls/hr Q24H IVPB Last administered on 10/15/17 08:44; Admin Dose 200 MLS/HR; Start 10/11/17 at 08:30 Amlodipine Besylate (Norvasc) 5 mg DAILY PO Last administered on 10/14/17 08: 15; Admin Dose 5 MG; Start 10/12/17 at 09:00 Hydralazine HCl (Apresoline) 10 mg Q4H PRN IV SBP>170; Start 10/11/17 at 21:00 Polyethylene Glycol (Miralax) 17 gm DAILY PRN PO CONSTIPATION Last administered on 10/14/17 06:53; Admin Dose 17 GM; Start 10/14/17 at 07:00 Isosorbide Dinitrate (Isordil) 10 mg TID PO Last administered on 10/15/17 12: 56; Admin Dose 10 MG; Start 10/14/17 at 21:00 Nitroglycerin (Nitroglycerin (Sl Tab) 0.4 Mg) 1 tab Q5M PRN SL ANGINA; Start 10/14/17 at 14:00 Docusate Sodium (Colace) 100 mg BID PO Last administered on 10/15/17 08:45; Admin Dose 100 MG; Start 10/15/17 at 09:00 Bisacodyl (Dulcolax) 5 mg DAILY PRN PO CONSTIPATION; Start 10/15/17 at 04:30 Assessment/Plan Chief Complaint/Hosp Course Patient has a left renal stone. The stone was in the upper ureter near the ureteropelvic junction and causing obstruction. She underwent cystoscopy left ureteroscopy and laser lithotripsy and insertion of a JJ stent . The urine in the left kidney was very cloudy and made it very difficult to see the stone and I placed the JJ stent. Culture was sent from the kidney and that grew E Coli ESBL. She is on Ertapenem I explained all the findings to the patient and the plan and the need for more procedure to get rid of the stone and remove the stent. She had a CT scan of the abdomen and pelvis repeated today and a KUB and that showed the stone to be in the upper pole of the kidney .Scheduled for ESWL on Wednesday and if the stone breaks well do cystoscopy and remove the JJ stent. I explained the procedure to the patient and discussed with her the outcome. We certainly cannot predict how the shockwave will break the stone, whether it will break like sand or small fragments and then some of these fragments could come down the ureter and cause obstruction and then we will have to go in and remove these. Most likely the stone will break well and she hopefully will pass all the fragments without any problem. Problems: FRANNY DEE MD Oct 15, 2017 18:51
[2017-10-15] MEDS: QUETIAPINE 100 MG TAB PO SCH (20:41)
[2017-10-16] VITALS (15 sets, daily range): BP systolic 90–143; BP diastolic 47–67; PULSE 45–65; RESP 14–20
[2017-10-16] MEDS: PANTOPRAZOLE (EC) 40 MG TAB PO SCH (06:00)
[2017-10-16 07:46] LABS: BASOPHIL # 0.1 10^3/ul (0.0-0.1); BASOPHILS % 0.7 % (0.0-2.0); EOSINOPHILS # 0.1 10^3/ul (0.0-0.5); EOSINOPHILS % 1.4 % (0.0-7.0); HEMATOCRIT 28.1 % (37.0-47.0); HEMOGLOBIN 9.6 g/dl (12.0-16.0); LYMPHOCYTES # 1.6 10^3/ul (0.8-2.9); LYMPHOCYTES % 19.5 % (15.0-51.0); MEAN CORPUSCULAR HGB CONC 34.2 g/dl (32.0-37.0); MEAN CORPUSCULAR VOLUME 90.6 fl (82.0-101.0); MEAN PLATELET VOLUME 10.6 fl (7.4-10.4); MONOCYTE # 0.5 10^3/ul (0.3-0.9); MONOCYTES % 6.5 % (0.0-11.0); NEUTROPHIL # 5.7 10^3/ul (1.6-7.5); NEUTROPHILS % 70.5 % (39.0-77.0); PLATELET COUNT 392 10^3/UL (140-415); RED CELL DISTRIBUTION WIDTH 15.8 % (11.5-14.5)
[2017-10-16 07:54] LABS: CALCIUM 8.9 mg/dl (8.4-10.2); CREATININE 0.84 mg/dl (0.44-1.00)
[2017-10-16 08:50] LABS: INR 1.02; PROTIME 13.5 Sec (11.9-14.9); PT RATIO 1.1
[2017-10-16 08:51] LABS: PARTIAL THROMBOPLASTIN TIME 32.9 Sec (25.0-35.0)
[2017-10-16] MEDS: ASPIRIN (EC) 325 MG TAB PO SCH ×2 (09:00→09:26)
[2017-10-16] MEDS: TAMSULOSIN (SR) 0.4 MG CAP PO SCH ×2 (09:00→09:25)
[2017-10-16] MEDS: AMLODIPINE 5 MG TAB PO SCH ×2 (09:00→09:25)
[2017-10-16] MEDS: METOPROLOL 25 MG TAB PO SCH ×3 (09:00→20:44)
[2017-10-16] MEDS: LEVOTHYROXINE 88 MCG TAB PO SCH ×2 (09:00→09:25)
[2017-10-16] MEDS: ISOSORBIDE DINITRATE 10 MG TAB PO SCH ×4 (09:00→20:59)
[2017-10-16] MEDS: DOCUSATE SODIUM 100 MG CAP PO SCH ×3 (09:00→20:41)
[2017-10-16] MEDS: ERTAPENEM SODIUM 1 GM in SOD CHLORIDE 0.9% 100 ML IVPB SCH (09:24)
[2017-10-16] MEDS: FISH OIL 1,000 MG CAP PO SCH (09:25)
[2017-10-16] MEDS: MUPIROCIN 2% 22 GM OINT TOP SCH ×2 (09:30→21:00)
[2017-10-16 10:46] LABS: THROMBIN TIME 15.2 SEC (13.8-19.1)
[2017-10-16] MEDS ORDERED: FENTAnyl 50 MCG/ML VIAL ONE ×2 (12:26→13:46)
[2017-10-16] MEDS ORDERED: MIDAZOLAM 1 MG/ML 2 ML INJ ONE (12:26)
[2017-10-16] MEDS ORDERED: METOCLOPRAMIDE 10 MG INJ ONE (12:26)
[2017-10-16] MEDS ORDERED: ETOMIDATE 20 MG INJ ONE ×2 (12:26→12:34)
[2017-10-16] MEDS ORDERED: ONDANSETRON 4 MG INJ IV PRN (13:00)
[2017-10-16] MEDS ORDERED: MEPERIDINE 25 MG INJ IV PRN (13:00)
[2017-10-16] MEDS ORDERED: DIPHENHYDRAMINE 50 MG INJ IV PRN (13:00)
[2017-10-16] MEDS ORDERED: IPRATROPIUM (NEB) 0.5 MG/2.5 ML AMP HHN PRN (13:00)
[2017-10-16] MEDS ORDERED: ALBUTEROL 0.083% (NEB) 2.5 MG/3 ML AMP HHN PRN (13:00)
[2017-10-16] MEDS ORDERED: morphine (1 MG/ML) 10ML SYRINGE IV PRN ×3 (13:00)
--- NOTE | 2017-10-16 13:40 | PN ---
Date/Time of Note Date/Time of Note DATE: 10/16/17 TIME: 13:37 Assessment/Plan VTE Prophylaxis VTE Prophylaxis Intervention: SCD's Lines/Catheters IV Catheter Type (from [facility]rs[facility]): Mid Line Urinary Cath still in place: No Assessment/Plan Assessment/Plan 67 yo F admitted for sepsis from ESBL bacteremia in setting of kidney stone #sepsis with ESBL bacteremia from infected kidney stone sp cysto, attempted kidney stone resection, and JJ stent placement 11.28 ESWL TODAY 2 weeks of invanz from date stone is removed cont flomax #elevated trop, AFlutter with RVR. chest pain TFTs consistent with possible sick euthyroid v overt hypothyroid. defer to PCP to recheck in 4-6w bb stopped by cards for previously low HR pt on asa 325 currently for CVA risk reduction, defer to PCP to consider full ATC stress test pending via cardiology #DARWIN on CKD: RESOLVED #hepatitis serologies: Hep C V PCR consistent with cleared infection, HepB blood work consistent with previous exposure after kidney stone fully removed, will arrange for PICC and 2 weeks of home Invanz can downgrade from [employer] to [employer] after her stress test or sooner if ok'd by cardiology will ask pt abt home thyroid regimen tomorrow Subjective 24 Hr Interval Summary Free Text/Dictation still occ eps of central chest pressure Exam/Review of Systems Vital Signs Vitals Vital Signs Date Time Temp Pulse Resp B/P Pulse Ox O2 Delivery O2 Flow Rate FiO2 10/16/17 12:10 46 10/16/17 08:30 Nasal Cannula 2.0 10/16/17 08:26 97.6 17 143/64 92 Intake and Output 10/15/17 10/15/17 10/16/17 14:59 22:59 06:59 Intake Total 500 ml 200 ml Output Total 810 ml 300 ml Balance -310 ml -100 ml Exam nad no mrg lungs clear abd soft no rashes Results Result Diagram: 10/16/17 0727 10/16/17 0726 Results 24 hrs Laboratory Tests Test 10/16/17 07:26 10/16/17 07:27 White Blood Count 8.0 Red Blood Count 3.10 L Hemoglobin 9.6 L Hematocrit 28.1 L Mean Corpuscular Volume 90.6 Mean Corpuscular Hemoglobin 31.0 Mean Corpuscular Hemoglobin Concent 34.2 Red Cell Distribution Width 15.8 H Platelet Count 392 389 Mean Platelet Volume 10.6 H Neutrophils % 70.5 Lymphocytes % 19.5 Monocytes % 6.5 Eosinophils % 1.4 Basophils % 0.7 Nucleated Red Blood Cells % 0.0 Neutrophils # 5.7 Lymphocytes # 1.6 Monocytes # 0.5 Eosinophils # 0.1 Basophils # 0.1 Nucleated Red Blood Cells # 0.0 Sodium Level 143 Potassium Level 4.0 Chloride Level 105 Carbon Dioxide Level 30 Anion Gap 12 Blood Urea Nitrogen 14 Creatinine 0.84 Glucose Level 91 Calcium Level 8.9 Prothrombin Time 13.5 Prothrombin Time Ratio 1.1 INR International Normalized Ratio 1.02 Activated Partial Thromboplast Time 32.9 Thrombin Time 15.2 Medications Medications Current Medications Ondansetron HCl (Zofran Inj) 4 mg Q6H PRN IV NAUSEA AND/OR VOMITING; Start at 06:00 Acetaminophen (Tylenol Tab) 650 mg Q6H PRN PO PAIN LEVEL 1-3 OR FEVER Last administered on 10/15/17 20:41; Admin Dose 650 MG; Start 10/06/17 at 06:00 Morphine Sulfate (morphine) 2 mg Q4H PRN IV PAIN LEVEL 7-10 Last administered on 10/15/17 18:07; Admin Dose 2 MG; Start 10/06/17 at 06:00 Fish Oil (Fish Oil) 1,000 mg DAILY PO Last administered on 10/16/17 09:25; Admin Dose 1,000 MG; Start 10/06/17 at 09:00 Levothyroxine Sodium (Synthroid) 88 mcg DAILY PO Last administered on 08:44; Admin Dose 88 MCG; Start 10/06/17 at 09:00 Quetiapine Fumarate (Seroquel) 100 mg HS PO Last administered on 10/15/17 20: 41; Admin Dose 100 MG; Start 10/06/17 at 21:00 Tamsulosin HCl (Flomax) 0.4 mg DAILY PO Last administered on 10/15/17 08:44; Admin Dose 0.4 MG; Start 10/06/17 at 13:30 Metoprolol Tartrate (Lopressor) 25 mg BID PO Last administered on 10/14/17 21 :10; Admin Dose 25 MG; Start 10/06/17 at 21:00 Metoprolol Tartrate (Lopressor) 5 mg Q4H PRN IV HR>110 Hold SBP<100; Start at 19:30 Pantoprazole (Protonix Tab) 40 mg DAILY@06 PO Last administered on 10/15/17 05 :38; Admin Dose 40 MG; Start 10/08/17 at 06:00 Mupirocin (Bactroban) 1 applic BID TOP Last administered on 10/16/17 09:30; Admin Dose 1 APPLIC; Start 10/08/17 at 21:00 Aspirin 325 mg 325 mg DAILY PO Last administered on 10/15/17 08:45; Admin Dose 325 MG; Start 10/11/17 at 09:00 Ertapenem/Sodium Chloride (Invanz/NS) 100 ml @ 200 mls/hr Q24H IVPB Last administered on 10/16/17 09:24; Admin Dose 200 MLS/HR; Start 10/11/17 at 08:30 Amlodipine Besylate (Norvasc) 5 mg DAILY PO Last administered on 10/14/17 08: 15; Admin Dose 5 MG; Start 10/12/17 at 09:00 Hydralazine HCl (Apresoline) 10 mg Q4H PRN IV SBP>170; Start 10/11/17 at 21:00 Polyethylene Glycol (Miralax) 17 gm DAILY PRN PO CONSTIPATION Last administered on 10/14/17 06:53; Admin Dose 17 GM; Start 10/14/17 at 07:00 Isosorbide Dinitrate (Isordil) 10 mg TID PO Last administered on 10/15/17 20: 43; Admin Dose 10 MG; Start 10/14/17 at 21:00 Nitroglycerin (Nitroglycerin (Sl Tab) 0.4 Mg) 1 tab Q5M PRN SL ANGINA; Start 10/14/17 at 14:00 Docusate Sodium (Colace) 100 mg BID PO Last administered on 10/15/17 20:41; Admin Dose 100 MG; Start 10/15/17 at 09:00 Bisacodyl (Dulcolax) 5 mg DAILY PRN PO CONSTIPATION; Start 10/15/17 at 04:30 ADOLFO COLEMAN MD Oct 16, 2017 13:40
[2017-10-16] MEDS ORDERED: FUROSEMIDE 20 MG INJ ONE (13:52)
[2017-10-16] MEDS ORDERED: ONDANSETRON 4 MG INJ ONE (13:52)
--- NOTE | 2017-10-16 14:15 | OPR ---
Date/Time of Note Date/Time of Note DATE: 10/16/17 TIME: 14:07 Operative Report Procedure Date: Oct 16, 2017 Preoperative Diagnosis Left renal stone Postoperative Diagnosis Left renal stone Operation/Procedure Performed Left extracorporeal shockwave lithotripsy, cystoscopy and removal of left ureteral JJ stent Surgeon see signature line Switchboard Troubleshooter None Anesthesia Type: general Anesthesiologist: CAYETANO BECKER MD Estimated Blood Loss: minimal Transfusion none Specimen Urine for culture and sensitivity Grafts/Implants none Complications none Pt Condition Post Procedure: stable Indications Left renal stone, persistent urinary tract infection with E. coli ESBL Procedure Description The patient was brought to the operating room and positioned in the supine position on the lithotripsy table. Timeout was done, the patient was identified by her name birthdate and the procedure and the side of the procedure. the patient was given general anesthesia. She was repositioned on the table so the stone over the left kidney is visualized. The patient has been on ertapenem IV therefore no additional antibiotic was given. The stone was then visualized on both planes of the lithotripsy machine then the extracorporeal shockwave lithotripsy was started. The position of the stone was checked every 300-400 shockwaves. The stone appeared to be breaking well and the total shockwaves given where 2500. The energy was started at 3 and went up to 7. Once the lithotripsy was done then the patient was repositioned in the lithotomy position on the table, and you timeout was done and the patient was then prepped and draped in the usual sterile manner for the cystoscopy. #21 [place] cystoscope sheath was introduced into the bladder and urine was collected for culture and sensitivity. The urine was bloody and that is a good sign that the stone did break. The distal end of the JJ stent was then grasped with the grasper and the JJ stent was pulled out. fluoroscopy was done at the end and no stone could be visualized. The patient was then transferred to the recovery room in a stable and satisfactory condition FRANNY DEE MD Oct 16, 2017 14:15
--- NOTE | 2017-10-16 15:37 | CONS ---
Date/Time of Note Date/Time of Note DATE: 10/16/17 TIME: 15:33 Assessment/Plan Assessment/Plan Chief Complaint/Hosp Course IMP: 1.positive troponin-trended negative 2.PAF/AFL-now in SR/SB and remains 3.HTN-Now improved 4.renal calculous/UTI s/p cystoscopy/lithotripsy 5.renal failure-improving 6.s/p fall -recurrent 7.bacteremia 8. Bradycardia-borderline 9. Hypothyroid 10. chest [id number] negative x 2 since most recent c/o chest pain, on isordil Recc: -Tele -Continu norvasc/isordil and follow for recurrent chest pain -Decrease BB given ana and adjust synthroid given low T4/elevated TSH by labs this admit -Continue asa full dose for now -Continue abx's and continue to f/u cx data -to have repeat lithotripsy today -Will reschedule stress testing as was going to interfere with lithotripsy already scheduled Problems: Consultation Date/Type/Reason Admit Date/Time Oct 05, 2017 at 22:26 Initial Consult Date 10/06/17 Type of Consultation: cardiology Reason for Consultation chest pain Referring Provider: YOSELIN RAMON MD Exam/Review of Systems Vital Signs Vitals Vital Signs Date Time Temp Pulse Resp B/P Pulse Ox O2 Delivery O2 Flow Rate FiO2 10/16/17 14:16 58 14 135/60 96 Nasal Cannula 2.0 10/16/17 14:10 98.0 Intake and Output 10/15/17 10/15/17 10/16/17 15:00 23:00 07:00 Intake Total 500 ml 200 ml Output Total 810 ml 300 ml Balance -310 ml -100 ml Exam Review of Systems: CONSTITUTIONAL: No fevers, chills. PULMONARY: No sob CARDIOVASCULAR: No chest pain/palpitations GASTROINTESTINAL: No nausea/vomiting. GENITOURINARY: No hematuria/dysuria. MUSCULOSKELETAL: No myagias/arthalgias. PSYCHIATRIC: The patient denies depression. NEUROLOGIC: No weakness Constitutional: alert, oriented Psych: no complaints Head: normocephalic ENMT: mucosa pink and moist Neck: jvd (9 cm water), supple Respiratory: clear to auscultation Cardiovascular: regular rate and rhythm Gastrointestinal: non-tender, soft Musculoskeletal: muscle tone (normal) Extremities: edema (none) Neurological: other (No focal deficits) Results Result Diagram: 10/16/17 0727 10/16/17 0726 Results 24 hrs Laboratory Tests Test 10/16/17 07:26 10/16/17 07:27 White Blood Count 8.0 Red Blood Count 3.10 L Hemoglobin 9.6 L Hematocrit 28.1 L Mean Corpuscular Volume 90.6 Mean Corpuscular Hemoglobin 31.0 Mean Corpuscular Hemoglobin Concent 34.2 Red Cell Distribution Width 15.8 H Platelet Count 392 389 Mean Platelet Volume 10.6 H Neutrophils % 70.5 Lymphocytes % 19.5 Monocytes % 6.5 Eosinophils % 1.4 Basophils % 0.7 Nucleated Red Blood Cells % 0.0 Neutrophils # 5.7 Lymphocytes # 1.6 Monocytes # 0.5 Eosinophils # 0.1 Basophils # 0.1 Nucleated Red Blood Cells # 0.0 Sodium Level 143 Potassium Level 4.0 Chloride Level 105 Carbon Dioxide Level 30 Anion Gap 12 Blood Urea Nitrogen 14 Creatinine 0.84 Glucose Level 91 Calcium Level 8.9 Prothrombin Time 13.5 Prothrombin Time Ratio 1.1 INR International Normalized Ratio 1.02 Activated Partial Thromboplast Time 32.9 Thrombin Time 15.2 Medications Medications Current Medications Ondansetron HCl (Zofran Inj) 4 mg Q6H PRN IV NAUSEA AND/OR VOMITING; Start at 06:00 Acetaminophen (Tylenol Tab) 650 mg Q6H PRN PO PAIN LEVEL 1-3 OR FEVER Last administered on 10/15/17 20:41; Admin Dose 650 MG; Start 10/06/17 at 06:00 Morphine Sulfate (morphine) 2 mg Q4H PRN IV PAIN LEVEL 7-10 Last administered on 10/15/17 18:07; Admin Dose 2 MG; Start 10/06/17 at 06:00 Fish Oil (Fish Oil) 1,000 mg DAILY PO Last administered on 10/16/17 09:25; Admin Dose 1,000 MG; Start 10/06/17 at 09:00 Levothyroxine Sodium (Synthroid) 88 mcg DAILY PO Last administered on 08:44; Admin Dose 88 MCG; Start 10/06/17 at 09:00 Quetiapine Fumarate (Seroquel) 100 mg HS PO Last administered on 10/15/17 20: 41; Admin Dose 100 MG; Start 10/06/17 at 21:00 Tamsulosin HCl (Flomax) 0.4 mg DAILY PO Last administered on 10/15/17 08:44; Admin Dose 0.4 MG; Start 10/06/17 at 13:30 Metoprolol Tartrate (Lopressor) 25 mg BID PO Last administered on 10/14/17 21 :10; Admin Dose 25 MG; Start 10/06/17 at 21:00 Metoprolol Tartrate (Lopressor) 5 mg Q4H PRN IV HR>110 Hold SBP<100; Start at 19:30 Pantoprazole (Protonix Tab) 40 mg DAILY@06 PO Last administered on 10/15/17 05 :38; Admin Dose 40 MG; Start 10/08/17 at 06:00 Mupirocin (Bactroban) 1 applic BID TOP Last administered on 10/16/17 09:30; Admin Dose 1 APPLIC; Start 10/08/17 at 21:00 Aspirin 325 mg 325 mg DAILY PO Last administered on 10/15/17 08:45; Admin Dose 325 MG; Start 10/11/17 at 09:00 Ertapenem/Sodium Chloride (Invanz/NS) 100 ml @ 200 mls/hr Q24H IVPB Last administered on 10/16/17 09:24; Admin Dose 200 MLS/HR; Start 10/11/17 at 08:30 Amlodipine Besylate (Norvasc) 5 mg DAILY PO Last administered on 10/14/17 08: 15; Admin Dose 5 MG; Start 10/12/17 at 09:00 Hydralazine HCl (Apresoline) 10 mg Q4H PRN IV SBP>170; Start 10/11/17 at 21:00 Polyethylene Glycol (Miralax) 17 gm DAILY PRN PO CONSTIPATION Last administered on 10/14/17 06:53; Admin Dose 17 GM; Start 10/14/17 at 07:00 Isosorbide Dinitrate (Isordil) 10 mg TID PO Last administered on 10/16/17 15: 24; Admin Dose 10 MG; Start 10/14/17 at 21:00 Nitroglycerin (Nitroglycerin (Sl Tab) 0.4 Mg) 1 tab Q5M PRN SL ANGINA; Start 11/30/17 at 14:00 Docusate Sodium (Colace) 100 mg BID PO Last administered on 10/15/17t 20:41; Admin Dose 100 MG; Start 10/15/17 at 09:00 Bisacodyl (Dulcolax) 5 mg DAILY PRN PO CONSTIPATION; Start 10/15/17 at 04:30 ALYSIA KNOTT Oct 16, 2017 15:37
[2017-10-16] MEDS: morphine 2 MG INJ IV PRN ×2 (17:34→21:24)
[2017-10-16] MEDS: QUETIAPINE 100 MG TAB PO SCH (20:41)
[2017-10-16] MEDS: ACETAMINOPHEN 325 MG TAB PO PRN (20:58)
[2017-10-17] VITALS (13 sets, daily range): BP systolic 85–118; BP diastolic 53–65; PULSE 38–58; RESP 16–20
[2017-10-17] MEDS: morphine 2 MG INJ IV PRN ×3 (01:22→13:56)
[2017-10-17] MEDS: PANTOPRAZOLE (EC) 40 MG TAB PO SCH (05:27)
[2017-10-17] MEDS: ERTAPENEM SODIUM 1 GM in SOD CHLORIDE 0.9% 100 ML IVPB SCH (09:05)
[2017-10-17] MEDS: ASPIRIN (EC) 325 MG TAB PO SCH (09:05)
[2017-10-17] MEDS: FISH OIL 1,000 MG CAP PO SCH (09:05)
[2017-10-17] MEDS: AMLODIPINE 5 MG TAB PO SCH (09:06)
[2017-10-17] MEDS: TAMSULOSIN (SR) 0.4 MG CAP PO SCH (09:06)
[2017-10-17] MEDS: DOCUSATE SODIUM 100 MG CAP PO SCH ×2 (09:06→20:54)
[2017-10-17] MEDS: ISOSORBIDE DINITRATE 10 MG TAB PO SCH ×3 (09:07→20:55)
[2017-10-17] MEDS: METOPROLOL 25 MG TAB PO SCH (09:11)
[2017-10-17] MEDS: MUPIROCIN 2% 22 GM OINT TOP SCH ×2 (09:13→21:03)
[2017-10-17] MEDS: LEVOTHYROXINE 88 MCG TAB PO SCH (09:17)
[2017-10-17] MEDS ORDERED: LIDOCAINE 1% (MPF) 5 ML VIAL SC ONE (10:00)
--- NOTE | 2017-10-17 14:07 | PN ---
Date/Time of Note Date/Time of Note DATE: 10/17/17 TIME: 14:05 Assessment/Plan VTE Prophylaxis VTE Prophylaxis Intervention: SCD's Lines/Catheters IV Catheter Type (from Nrsg): Saline Lock Urinary Cath still in place: No Assessment/Plan Assessment/Plan 67 yo F admitted for sepsis from ESBL bacteremia in setting of kidney stone #sepsis with ESBL bacteremia from infected kidney stone sp cysto, attempted kidney stone resection, and JJ stent placement. sp stent removal and stone removal 12.2 2 weeks of invanz from date stone was removed, CM order updated #elevated trop, AFlutter with RVR. chest pain TFTs consistent with possible sick euthyroid v overt hypothyroid. defer to PCP to recheck in 4-6w home synthroid regimen resumed bb stopped by cards for previously low HR pt on asa 325 currently for CVA risk reduction, defer to PCP to consider full ATC stress test pending via cardiology #DARWIN on CKD: RESOLVED #hepatitis serologies: Hep C V PCR consistent with cleared infection, HepB blood work consistent with previous exposure after kidney stone fully removed, will arrange for PICC and 2 weeks of home Invanz-->ORDERED can downgrade from tele to [facility] after her stress test or sooner if ok'd by cardiology Subjective 24 Hr Interval Summary Free Text/Dictation Wants more PT prior to discharge kidney stone totally eliminated via shock wave therapy Exam/Review of Systems Vital Signs Vitals Vital Signs Date Time Temp Pulse Resp B/P Pulse Ox O2 Delivery O2 Flow Rate FiO2 10/17/17 12:26 49 10/17/17 12:13 98.0 17 111/58 92 10/17/17 08:00 Nasal Cannula 2.0 Intake and Output 10/16/17 10/16/17 10/17/17 15:00 23:00 07:00 Intake Total 540 ml 600 ml 300 ml Output Total 475 ml Balance 65 ml 600 ml 300 ml Exam nad sitting up in bed no mrg lungs clear abd soft no rashes Results Result Diagram: 10/16/1772610/16/17 07 Medications Medications Current Medications Ondansetron HCl (Zofran Inj) 4 mg Q6H PRN IV NAUSEA AND/OR VOMITING; Start at 06:00 Acetaminophen (Tylenol Tab) 650 mg Q6H PRN PO PAIN LEVEL 1-3 OR FEVER Last administered on 10/16/17 20:58; Admin Dose 650 MG; Start 10/06/17 at 06:00 Morphine Sulfate (morphine) 2 mg Q4H PRN IV PAIN LEVEL 7-10 Last administered on 10/17/17 13:56; Admin Dose 2 MG; Start 10/06/17 at 06:00 Fish Oil (Fish Oil) 1,000 mg DAILY PO Last administered on 10/17/17 09:05; Admin Dose 1,000 MG; Start 10/06/17 at 09:00 Quetiapine Fumarate (Seroquel) 100 mg HS PO Last administered on 10/16/17 20: 41; Admin Dose 100 MG; Start 10/06/17 at 21:00 Metoprolol Tartrate (Lopressor) 5 mg Q4H PRN IV HR>110 Hold SBP<100; Start at 19:30 Pantoprazole (Protonix Tab) 40 mg DAILY@06 PO Last administered on 10/17/17 05 :27; Admin Dose 40 MG; Start 10/08/17 at 06:00 Mupirocin (Bactroban) 1 applic BID TOP Last administered on 10/17/17 09:13; Admin Dose 1 APPLIC; Start 10/08/17 at 21:00 Aspirin 325 mg 325 mg DAILY PO Last administered on 10/17/17 09:05; Admin Dose 325 MG; Start 10/11/17 at 09:00 Ertapenem/Sodium Chloride (Invanz/NS) 100 ml @ 200 mls/hr Q24H IVPB Last administered on 10/17/17 09:05; Admin Dose 200 MLS/HR; Start 10/11/17 at 08:30 ; Stop 10/30/17 at 08:29 Amlodipine Besylate (Norvasc) 5 mg DAILY PO Last administered on 10/17/17 09: 06; Admin Dose 5 MG; Start 10/12/17 at 09:00 Hydralazine HCl (Apresoline) 10 mg Q4H PRN IV SBP>170; Start 10/11/17 at 21:00 Polyethylene Glycol (Miralax) 17 gm DAILY PRN PO CONSTIPATION Last administered on 10/14/17 06:53; Admin Dose 17 GM; Start 10/14/17 at 07:00 Isosorbide Dinitrate (Isordil) 10 mg TID PO Last administered on 10/17/17 13: 01; Admin Dose 10 MG; Start 10/14/17 at 21:00 Nitroglycerin (Nitroglycerin (Sl Tab) 0.4 Mg) 1 tab Q5M PRN SL ANGINA; Start 10/14/17 at 14:00 Docusate Sodium (Colace) 100 mg BID PO Last administered on 10/17/17 09:06; Admin Dose 100 MG; Start 10/15/17 at 09:00 Bisacodyl (Dulcolax) 5 mg DAILY PRN PO CONSTIPATION; Start 10/15/17 at 04:30 Metoprolol Tartrate (Lopressor) 12.5 mg BID PO Last administered on 10/17/17 09:11; Admin Dose 12.5 MG; Start 10/16/17 at 21:00 Levothyroxine Sodium (Synthroid) 88 mcg Q48H PO ; Start 10/19/17 at 09:00; Status UNV Levothyroxine Sodium (Synthroid) 100 mcg Q48H PO ; Start 10/18/17 at 08:00; Status UNV ADOLFO COLEMAN MD Oct 17, 2017 14:07
--- NOTE | 2017-10-17 14:10 | RADRPT ---
PROCEDURE: Abdominal radiograph CLINICAL INDICATION: Status post left renal lithotripsy. COMPARISON: None relevant listed. TECHNIQUE: AP view of the abdomen. FINDINGS: Interval removal of left ureteral stent. No residual stone identified over the upper urinary tract on the left. Malleolus within the left pelvis. There is a nonobstructive bowel pattern. No suspicious bone abnormality. Moderate degenerative changes at L4-L5. IMPRESSION: Interval removal of left ureteral stent. No residual stone identified along the upper urinary tract on the left. RPTAT: PP Physician Ofelia Date Time Electronically viewed and signed by Physician Ofelia on 10/17/2017 14:09 LG/
--- NOTE | 2017-10-17 14:18 | CONS ---
Date/Time of Note Date/Time of Note DATE: 10/17/17 TIME: 14:14 Consult Date/Type/Reason Admit Date/Time Oct 05, 2017 at 22:26 Initial Consult Date 10/06/17 Type of Consultation: Urology Reason for Consultation Status post left extracorporeal shockwave lithotripsy cystoscopy and removal of left ureteral JJ stent Ordering Provider: YOSELIN RAMON MD Subjective Patient states she has no pain, she is comfortable, her urine was blood-tinged earlier and that is normal after the ESWL and today the urine is clear. She denies any dysuria Objective Vital Signs Date Time Temp Pulse Resp B/P Pulse Ox O2 Delivery O2 Flow Rate FiO2 10/17/17 12:26 49 10/17/17 12:13 98.0 17 111/58 92 10/17/17 08:00 Nasal Cannula 2.0 Intake and Output 10/16/17 10/16/17 10/17/17 15:00 23:00 07:00 Intake Total 540 ml 600 ml 300 ml Output Total 475 ml Balance 65 ml 600 ml 300 ml Exam Afebrile, the abdomen is soft and the urine is clear. Results/Medications Result Diagram: 10/16/17 0727 10/16/17 0726 Medications Current Medications Ondansetron HCl (Zofran Inj) 4 mg Q6H PRN IV NAUSEA AND/OR VOMITING; Start at 06:00 Acetaminophen (Tylenol Tab) 650 mg Q6H PRN PO PAIN LEVEL 1-3 OR FEVER Last administered on 10/16/17 20:58; Admin Dose 650 MG; Start 10/06/17 at 06:00 Morphine Sulfate (morphine) 2 mg Q4H PRN IV PAIN LEVEL 7-10 Last administered on 10/17/17 13:56; Admin Dose 2 MG; Start 10/06/17 at 06:00 Fish Oil (Fish Oil) 1,000 mg DAILY PO Last administered on 10/17/17 09:05; Admin Dose 1,000 MG; Start 10/06/17 at 09:00 Quetiapine Fumarate (Seroquel) 100 mg HS PO Last administered on 10/16/17 20: 41; Admin Dose 100 MG; Start 10/06/17 at 21:00 Metoprolol Tartrate (Lopressor) 5 mg Q4H PRN IV HR>110 Hold SBP<100; Start at 19:30 Pantoprazole (Protonix Tab) 40 mg DAILY@06 PO Last administered on 10/17/17 05 :27; Admin Dose 40 MG; Start 10/08/17 at 06:00 Mupirocin (Bactroban) 1 applic BID TOP Last administered on 10/17/17 09:13; Admin Dose 1 APPLIC; Start 10/08/17 at 21:00 Aspirin 325 mg 325 mg DAILY PO Last administered on 10/17/17 09:05; Admin Dose 325 MG; Start 10/11/17 at 09:00 Ertapenem/Sodium Chloride (Invanz/NS) 100 ml @ 200 mls/hr Q24H IVPB Last administered on 10/17/17 09:05; Admin Dose 200 MLS/HR; Start 10/11/17 at 08:30 ; Stop 10/30/17 at 08:29 Amlodipine Besylate (Norvasc) 5 mg DAILY PO Last administered on 10/17/17 09: 06; Admin Dose 5 MG; Start 10/12/17 at 09:00 Hydralazine HCl (Apresoline) 10 mg Q4H PRN IV SBP>170; Start 10/11/17 at 21:00 Polyethylene Glycol (Miralax) 17 gm DAILY PRN PO CONSTIPATION Last administered on 10/14/17 06:53; Admin Dose 17 GM; Start 10/14/17 at 07:00 Isosorbide Dinitrate (Isordil) 10 mg TID PO Last administered on 10/17/17 13: 01; Admin Dose 10 MG; Start 10/14/17 at 21:00 Nitroglycerin (Nitroglycerin (Sl Tab) 0.4 Mg) 1 tab Q5M PRN SL ANGINA; Start 10/14/17 at 14:00 Docusate Sodium (Colace) 100 mg BID PO Last administered on 10/17/17 09:06; Admin Dose 100 MG; Start 10/15/17 at 09:00 Bisacodyl (Dulcolax) 5 mg DAILY PRN PO CONSTIPATION; Start 10/15/17 at 04:30 Metoprolol Tartrate (Lopressor) 12.5 mg BID PO Last administered on 10/17/17 09:11; Admin Dose 12.5 MG; Start 10/16/17 at 21:00 Levothyroxine Sodium (Synthroid) 88 mcg Q48H PO ; Start 10/19/17 at 06:30 Levothyroxine Sodium (Synthroid) 100 mcg Q48H PO ; Start 10/18/17 at 06:30 Assessment/Plan Chief Complaint/Hosp Course And that this patient is status post left extracorporeal shockwave lithotripsy to a left renal stone and cystoscopy and removal of left ureteral JJ stent. The patient is feeling comfortable and has no pain and no dysuria KUB today showed no stone overlying the kidney. The patient has had urinary tract infection with E. coli ESBL and is being treated for it. Continue the present antibiotic I did send a urine culture yesterday from the operating room showing no growth after 24 hours Problems: FRANNY DEE MD Oct 17, 2017 14:18
--- NOTE | 2017-10-17 15:24 | CONS ---
Date/Time of Note Date/Time of Note DATE: 10/17/17 TIME: 15:20 Assessment/Plan Assessment/Plan Chief Complaint/Hosp Course IMP: 1.positive troponin-trended negative 2.PAF/AFL-now in SR/SB and remains 3.HTN-Now improved 4.renal calculous/UTI s/p cystoscopy/lithotripsy 5.renal failure-improving 6.s/p fall -recurrent 7.bacteremia 8. Bradycardia-borderline 9. Hypothyroid 10. chest [id number] negative x 2 since most recent c/o chest pain, on isordil Recc: -Tele -Continu norvasc/isordil and follow for recurrent chest pain -Hold BB given ana and will adjust synthroid given low T4/elevated TSH by labs this admit -Continue asa full dose for now -Continue abx's and continue to f/u cx data -Will reschedule stress testing for tomorrow as yesterday was going to interfere with lithotripsy which is now done Problems: Consultation Date/Type/Reason Admit Date/Time Oct 05, 2017 at 22:26 Initial Consult Date 10/06/17 Type of Consultation: cardiology Reason for Consultation chest pain Referring Provider: YOSELIN RAMON MD Exam/Review of Systems Vital Signs Vitals Vital Signs Date Time Temp Pulse Resp B/P Pulse Ox O2 Delivery O2 Flow Rate FiO2 10/17/17 12:26 49 10/17/17 12:13 98.0 17 111/58 92 10/17/17 08:00 Nasal Cannula 2.0 Intake and Output 10/16/17 10/16/17 10/17/17 14:59 22:59 06:59 Intake Total 540 ml 600 ml 300 ml Output Total 475 ml Balance 65 ml 600 ml 300 ml Exam Review of Systems: CONSTITUTIONAL: No fevers, chills. PULMONARY: No sob CARDIOVASCULAR: No chest pain/palpitations GASTROINTESTINAL: No nausea/vomiting. GENITOURINARY: No hematuria/dysuria. MUSCULOSKELETAL: No myagias/arthalgias. PSYCHIATRIC: The patient denies depression. NEUROLOGIC: No weakness Constitutional: alert Psych: no complaints Head: normocephalic ENMT: mucosa pink and moist Neck: jvd (9 cm water), supple Cardiovascular: regular rate and rhythm Gastrointestinal: non-tender, soft Musculoskeletal: muscle tone (normal) Extremities: edema (none) Neurological: other (No focal deficits) Results Result Diagram: 10/16/1727 10/16/17 0726 Medications Medications Current Medications Ondansetron HCl (Zofran Inj) 4 mg Q6H PRN IV NAUSEA AND/OR VOMITING; Start at 06:00 Acetaminophen (Tylenol Tab) 650 mg Q6H PRN PO PAIN LEVEL 1-3 OR FEVER Last administered on 10/16/17 20:58; Admin Dose 650 MG; Start 10/06/17 at 06:00 Morphine Sulfate (morphine) 2 mg Q4H PRN IV PAIN LEVEL 7-10 Last administered on 10/17/17 13:56; Admin Dose 2 MG; Start 10/06/17 at 06:00 Fish Oil (Fish Oil) 1,000 mg DAILY PO Last administered on 10/17/17 09:05; Admin Dose 1,000 MG; Start 10/06/17 at 09:00 Quetiapine Fumarate (Seroquel) 100 mg HS PO Last administered on 10/16/17 20: 41; Admin Dose 100 MG; Start 10/06/17 at 21:00 Metoprolol Tartrate (Lopressor) 5 mg Q4H PRN IV HR>110 Hold SBP<100; Start at 19:30 Pantoprazole (Protonix Tab) 40 mg DAILY@06 PO Last administered on 10/17/17 05 :27; Admin Dose 40 MG; Start 10/08/17 at 06:00 Mupirocin (Bactroban) 1 applic BID TOP Last administered on 10/17/17 09:13; Admin Dose 1 APPLIC; Start 10/08/17 at 21:00 Aspirin 325 mg 325 mg DAILY PO Last administered on 10/17/17 09:05; Admin Dose 325 MG; Start 10/11/17 at 09:00 Ertapenem/Sodium Chloride (Invanz/NS) 100 ml @ 200 mls/hr Q24H IVPB Last administered on 10/17/17 09:05; Admin Dose 200 MLS/HR; Start 10/11/17 at 08:30 ; Stop 10/30/17 at 08:29 Amlodipine Besylate (Norvasc) 5 mg DAILY PO Last administered on 10/17/17 09: 06; Admin Dose 5 MG; Start 10/12/17 at 09:00 Hydralazine HCl (Apresoline) 10 mg Q4H PRN IV SBP>170; Start 10/11/17 at 21:00 Polyethylene Glycol (Miralax) 17 gm DAILY PRN PO CONSTIPATION Last administered on 10/14/17 06:53; Admin Dose 17 GM; Start 10/14/17 at 07:00 Isosorbide Dinitrate (Isordil) 10 mg TID PO Last administered on 10/17/17 13: 01; Admin Dose 10 MG; Start 10/14/17 at 21:00 Nitroglycerin (Nitroglycerin (Sl Tab) 0.4 Mg) 1 tab Q5M PRN SL ANGINA; Start 10/14/17 at 14:00 Docusate Sodium (Colace) 100 mg BID PO Last administered on 10/17/17 09:06; Admin Dose 100 MG; Start 10/15/17 at 09:00 Bisacodyl (Dulcolax) 5 mg DAILY PRN PO CONSTIPATION; Start 10/15/17 at 04:30 Metoprolol Tartrate (Lopressor) 12.5 mg BID PO Last administered on 10/17/17 09:11; Admin Dose 12.5 MG; Start 10/16/17 at 21:00 Levothyroxine Sodium (Synthroid) 88 mcg Q48H PO ; Start 10/19/17 at 06:30 Levothyroxine Sodium (Synthroid) 100 mcg Q48H PO ; Start 10/18/17 at 06:30 ALYSIA KNOTT Oct 17, 2017 15:24
[2017-10-17] MEDS: ONDANSETRON 4 MG INJ IV PRN (17:52)
[2017-10-17] MEDS: ACETAMINOPHEN 325 MG TAB PO PRN (18:33)
--- NOTE | 2017-10-17 20:03 | CONS ---
Date/Time of Note Date/Time of Note DATE: 10/17/17 TIME: 20:02 Assessment/Plan Assessment/Plan Chief Complaint/Hosp Course SUBJECTIVE: Alert, feels good, no fevers ANTIMICROBIALS: Invanz, Bactroban to nares. PHYSICAL EXAMINATION: GENERAL: This is a well-developed, elderly woman who is awake, in no distress. HEENT: Head atraumatic, normocephalic. Sclerae anicteric. Buccal mucosa dry. NECK: Supple. CHEST: Rise symmetrical. Breath sounds clear. HEART: S1, S2. ABDOMEN: Soft. Bowel tones present. EXTREMITIES: Without cyanosis. ASSESSMENT: 1. Escherichia coli extended-spectrum beta-lactamase bacteremia with persistent UTI 2 to infected stone. 2. Obstructive uropathy status post cystoscopy with left JJ stent placement , s/p Left extracorporeal shockwave lithotripsy, cystoscopy and removal of left ureteral JJ stent 10/16/17 3. Methicillin-resistant Staphylococcus aureus nares colonization. 4. Atrial fibrillation. 5. History of schizoaffective disorder and depression. 6. Hepatitis B and C virus positive. PLAN: The patient remains stable, continue antibiotics for 2 more weeks [facility] staff Problems: Consultation Date/Type/Reason Admit Date/Time Oct 05, 2017 at 22:26 Initial Consult Date 10/06/17 Type of Consultation: ID Referring Provider: YOSELIN RAMON MD Exam/Review of Systems Vital Signs Vitals Vital Signs Date Time Temp Pulse Resp B/P Pulse Ox O2 Delivery O2 Flow Rate FiO2 10/17/17 19:47 98.1 63 20 118/59 93 10/17/17 16:15 2.0 10/17/17 08:00 Nasal Cannula Intake and Output 10/16/17 10/16/17 10/17/17 15:00 23:00 07:00 Intake Total 540 ml 600 ml 300 ml Output Total 475 ml Balance 65 ml 600 ml 300 ml Results Result Diagram: 10/16/17 0727 10/16/17 0726 Medications Medications Current Medications Ondansetron HCl (Zofran Inj) 4 mg Q6H PRN IV NAUSEA AND/OR VOMITING Last administered on 10/17/17t 17:52; Admin Dose 4 MG; Start 10/06/17 at 06:00 Acetaminophen (Tylenol Tab) 650 mg Q6H PRN PO PAIN LEVEL 1-3 OR FEVER Last administered on 10/17/17 18:33; Admin Dose 650 MG; Start 10/06/17 at 06:00 Morphine Sulfate (morphine) 2 mg Q4H PRN IV PAIN LEVEL 7-10 Last administered on 10/17/17 13:56; Admin Dose 2 MG; Start 10/06/17 at 06:00 Fish Oil (Fish Oil) 1,000 mg DAILY PO Last administered on 10/17/17 09:05; Admin Dose 1,000 MG; Start 10/06/17 at 09:00 Quetiapine Fumarate (Seroquel) 100 mg HS PO Last administered on 10/16/17 20: 41; Admin Dose 100 MG; Start 10/06/17 at 21:00 Metoprolol Tartrate (Lopressor) 5 mg Q4H PRN IV HR>110 Hold SBP<100; Start at 19:30 Pantoprazole (Protonix Tab) 40 mg DAILY@06 PO Last administered on 10/17/17 05 :27; Admin Dose 40 MG; Start 10/08/17 at 06:00 Mupirocin (Bactroban) 1 applic BID TOP Last administered on 10/17/17 09:13; Admin Dose 1 APPLIC; Start 10/08/17 at 21:00 Aspirin 325 mg 325 mg DAILY PO Last administered on 10/17/17 09:05; Admin Dose 325 MG; Start 10/11/17 at 09:00 Ertapenem/Sodium Chloride (Invanz/NS) 100 ml @ 200 mls/hr Q24H IVPB Last administered on 10/17/17 09:05; Admin Dose 200 MLS/HR; Start 10/11/17 at 08:30 ; Stop 10/30/17 at 08:29 Amlodipine Besylate (Norvasc) 5 mg DAILY PO Last administered on 10/17/17 09: 06; Admin Dose 5 MG; Start 10/12/17 at 09:00 Hydralazine HCl (Apresoline) 10 mg Q4H PRN IV SBP>170; Start 10/11/17 at 21:00 Polyethylene Glycol (Miralax) 17 gm DAILY PRN PO CONSTIPATION Last administered on 10/14/17 06:53; Admin Dose 17 GM; Start 10/14/17 at 07:00 Isosorbide Dinitrate (Isordil) 10 mg TID PO Last administered on 10/17/17 13: 01; Admin Dose 10 MG; Start 10/14/17 at 21:00 Nitroglycerin (Nitroglycerin (Sl Tab) 0.4 Mg) 1 tab Q5M PRN SL ANGINA; Start 10/14/17 at 14:00 Docusate Sodium (Colace) 100 mg BID PO Last administered on 10/17/17 09:06; Admin Dose 100 MG; Start 10/15/17 at 09:00 Bisacodyl (Dulcolax) 5 mg DAILY PRN PO CONSTIPATION; Start 10/15/17 at 04:30 Levothyroxine Sodium (Synthroid) 88 mcg Q48H PO ; Start 10/19/17 at 06:30 Levothyroxine Sodium (Synthroid) 100 mcg Q48H PO ; Start 10/18/17 at 06:30 KRISTI PARDO NP Oct 17, 2017 20:03
[2017-10-17] MEDS: QUETIAPINE 100 MG TAB PO SCH (20:55)
[2017-10-17] MEDS: KETOROLAC 30 MG INJ IV PRN (21:34)
[2017-10-18] VITALS (12 sets, daily range): BP systolic 105–139; BP diastolic 55–72; PULSE 44–54; RESP 18–20
[2017-10-18] MEDS ORDERED: LEVOTHYROXINE 100 MCG TAB PO SCH (06:00)
[2017-10-18] MEDS: PANTOPRAZOLE (EC) 40 MG TAB PO SCH (06:46)
[2017-10-18] MEDS: LEVOTHYROXINE 100 MCG TAB PO SCH (06:46)
[2017-10-18] MEDS: ERTAPENEM SODIUM 1 GM in SOD CHLORIDE 0.9% 100 ML IVPB SCH (09:11)
[2017-10-18] MEDS: ISOSORBIDE DINITRATE 10 MG TAB PO SCH ×3 (09:11→21:00)
[2017-10-18] MEDS: DOCUSATE SODIUM 100 MG CAP PO SCH ×2 (09:11→20:44)
[2017-10-18] MEDS: FISH OIL 1,000 MG CAP PO SCH (09:11)
[2017-10-18] MEDS: ASPIRIN (EC) 325 MG TAB PO SCH (09:11)
[2017-10-18] MEDS: AMLODIPINE 5 MG TAB PO SCH (09:11)
[2017-10-18] MEDS: MUPIROCIN 2% 22 GM OINT TOP SCH ×2 (09:12→21:00)
--- NOTE | 2017-10-18 12:49 | RADRPT ---
PROCEDURE: Ultrasound guidance for placement of needle in left upper extremity vein. CLINICAL INDICATION: Venous access. TECHNIQUE: Limited sonography of the left upper extremity was performed. Ultrasound images were recorded and s tored in the patient's medical record. COMPARISON: None. FINDINGS: The ultrasound images demonstrate a patent left upper extremity vein. The PICC line was inserted by the PICC line nurse. IMPRESSION: 1. Ultrasound guidance for a needle placement in a left upper extremity vein. 2. The left upper extremity vein is patent. RPTAT: QQ .Jaleel Anguiano MD, MD Date Time Electronically viewed and signed by .Jaleel Anguiano MD, MD on 10/18/2017 12:48 .R/
--- NOTE | 2017-10-18 12:50 | RADRPT ---
PROCEDURE: XR Chest. CLINICAL INDICATION: Check PICC line position. TECHNIQUE: Single frontal view. COMPARISON: 10/05/2017. FINDINGS: There is a left arm PICC line with the tip in the mid superior vena cava. The heart is enlarged. Th ere is calcification in the aorta consistent with atherosclerosis. There is mild atelectasis at both lung bases. The lungs are otherwise clear. There is no pleural effusion. There is no pneumothorax. IMPRESSION: 1. Left arm PICC line tip in satisfactory position. 2. Mild atelectasis at the lung bases. 3. Cardiomegaly and atherosclerosis. 4. Otherwise normal chest radiograph. RPTAT: QQ .Jaleel Anguiano MD, MD Date Time Electronically viewed and signed by .Jaelel Anguiano MD, on 10/18/2017 12:50 .R/
--- NOTE | 2017-10-18 13:23 | RADRPT ---
Vent Rate: 44 bpm RR Interval: 0 msec VA Interval: 172 msec QRS Duration: 88 msec QT Interval: 486 msec QTC Interval: 415 msec P-R-T [place]: 36 - 23 - 29 degrees Marked sinus bradycardia Cannot rule out Anterior infarct , age undetermined Abnormal ECG Electronically Signed By: Kenny Winter [id number]
--- NOTE | 2017-10-18 13:35 | CONS ---
Date/Time of Note Date/Time of Note DATE: 10/18/17 TIME: 13:33 Assessment/Plan Assessment/Plan Chief Complaint/Hosp Course IMP: 1.positive troponin-trended negative 2.PAF/AFL-now in SR/SB and remains 3.HTN-Now improved 4.renal calculous/UTI s/p cystoscopy/lithotripsy 5.renal failure-improving 6.s/p fall -recurrent 7.bacteremia 8. Bradycardia-borderline 9. Hypothyroid 10. chest [id number] negative x 2 since most recent c/o chest pain, on isordil Recc: -Tele -Continu norvasc/isordil and follow for recurrent chest pain -Hold BB given ana and will adjust synthroid given low T4/elevated TSH by labs this admit -Continue asa full dose for now -Continue abx's and continue to f/u cx data -Patient again refused stress testing that was scheduled for this am. Thus at this time will consider as outpatient given CV stability Problems: Consultation Date/Type/Reason Admit Date/Time Oct 05, 2017 at 22:26 Initial Consult Date 10/06/17 Type of Consultation: cardiology Reason for Consultation positive troponin/chest pain Referring Provider: YOSELIN RAMON MD Exam/Review of Systems Vital Signs Vitals Vital Signs Date Time Temp Pulse Resp B/P Pulse Ox O2 Delivery O2 Flow Rate FiO2 10/18/17 13:13 52 118/72 10/18/17 11:48 98.0 19 94 10/18/17 08:00 Nasal Cannula 2.0 Intake and Output 10/17/17 10/17/17 10/18/17 14:59 22:59 06:59 Intake Total 1650 ml 350 ml Output Total 800 ml Balance 1650 ml -450 ml Exam Review of Systems: CONSTITUTIONAL: No fevers, chills. PULMONARY: No sob CARDIOVASCULAR: No chest pain/palpitations GASTROINTESTINAL: No nausea/vomiting. GENITOURINARY: No hematuria/dysuria. MUSCULOSKELETAL: No myagias/arthalgias. PSYCHIATRIC: The patient denies depression. NEUROLOGIC: No weakness Constitutional: alert, oriented Psych: no complaints Head: normocephalic ENMT: mucosa pink and moist Neck: jvd (9 cm water), supple Respiratory: diminished breath sounds (at bases/B) Cardiovascular: regular rate and rhythm Gastrointestinal: non-tender, soft Musculoskeletal: muscle tone (normal) Extremities: edema (none) Neurological: other (No focal deficits) Results Result Diagram: 10/16/17 0727 10/16/17 0726 Medications Medications Current Medications Ondansetron HCl (Zofran Inj) 4 mg Q6H PRN IV NAUSEA AND/OR VOMITING Last administered on 10/17/17 17:52; Admin Dose 4 MG; Start 10/06/17 at 06:00 Acetaminophen (Tylenol Tab) 650 mg Q6H PRN PO PAIN LEVEL 1-3 OR FEVER Last administered on 10/17/17 18:33; Admin Dose 650 MG; Start 10/06/17 at 06:00 Morphine Sulfate (morphine) 2 mg Q4H PRN IV PAIN LEVEL 7-10 Last administered on 10/17/17 13:56; Admin Dose 2 MG; Start 10/06/17 at 06:00 Fish Oil (Fish Oil) 1,000 mg DAILY PO Last administered on 10/18/17 09:11; Admin Dose 1,000 MG; Start 10/06/17 at 09:00 Quetiapine Fumarate (Seroquel) 100 mg HS PO Last administered on 10/17/17 20: 55; Admin Dose 100 MG; Start 10/06/17 at 21:00 Metoprolol Tartrate (Lopressor) 5 mg Q4H PRN IV HR>110 Hold SBP<100; Start at 19:30 Pantoprazole (Protonix Tab) 40 mg DAILY@06 PO Last administered on 10/18/17 06 :46; Admin Dose 40 MG; Start 10/08/17 at 06:00 Mupirocin (Bactroban) 1 applic BID TOP Last administered on 10/18/17 09:12; Admin Dose 1 APPLIC; Start 10/08/17 at 21:00 Aspirin 325 mg 325 mg DAILY PO Last administered on 10/18/17 09:11; Admin Dose 325 MG; Start 10/11/17 at 09:00 Ertapenem/Sodium Chloride (Invanz/NS) 100 ml @ 200 mls/hr Q24H IVPB Last administered on 10/18/17 09:11; Admin Dose 200 MLS/HR; Start 10/11/17 at 08:30 ; Stop 10/30/17 at 08:29 Amlodipine Besylate (Norvasc) 5 mg DAILY PO Last administered on 10/18/17 09: 11; Admin Dose 5 MG; Start 10/12/17 at 09:00 Hydralazine HCl (Apresoline) 10 mg Q4H PRN IV SBP>170; Start 10/11/17 at 21:00 Polyethylene Glycol (Miralax) 17 gm DAILY PRN PO CONSTIPATION Last administered on 10/14/17 06:53; Admin Dose 17 GM; Start 10/14/17 at 07:00 Isosorbide Dinitrate (Isordil) 10 mg TID PO Last administered on 10/18/17 13: 13; Admin Dose 10 MG; Start 10/14/17 at 21:00 Nitroglycerin (Nitroglycerin (Sl Tab) 0.4 Mg) 1 tab Q5M PRN SL ANGINA; Start 10/14/17 at 14:00 Docusate Sodium (Colace) 100 mg BID PO Last administered on 10/18/17 09:11; Admin Dose 100 MG; Start 10/15/17 at 09:00 Bisacodyl (Dulcolax) 5 mg DAILY PRN PO CONSTIPATION; Start 10/15/17 at 04:30 Levothyroxine Sodium (Synthroid) 88 mcg Q48H PO ; Start 10/19/17 at 06:30 Levothyroxine Sodium (Synthroid) 100 mcg Q48H PO Last administered on 06:46; Admin Dose 100 MCG; Start 10/18/17 at 06:30 Ketorolac Tromethamine (Toradol) 30 mg Q6H PRN IV PAIN Last administered on 21:34; Admin Dose 30 MG; Start 10/17/17 at 21:30; Stop 10/20/17 at 21:29 ALYSIA KNOTT Oct 18, 2017 13:34
--- NOTE | 2017-10-18 14:26 | CONS ---
Date/Time of Note Date/Time of Note DATE: 10/18/17 TIME: 14:26 Assessment/Plan Assessment/Plan Chief Complaint/Hosp Course SUBJECTIVE: Alert, feels good, no fevers ANTIMICROBIALS: Invanz, Bactroban to nares. PHYSICAL EXAMINATION: GENERAL: This is a well-developed, elderly woman who is awake, in no distress. HEENT: Head atraumatic, normocephalic. Sclerae anicteric. Buccal mucosa dry. NECK: Supple. CHEST: Rise symmetrical. Breath sounds clear. HEART: S1, S2. ABDOMEN: Soft. Bowel tones present. EXTREMITIES: Without cyanosis. ASSESSMENT: 1. Escherichia coli extended-spectrum beta-lactamase bacteremia with persistent UTI 2 to infected stone. 2. Obstructive uropathy status post cystoscopy with left JJ stent placement , s/p Left extracorporeal shockwave lithotripsy, cystoscopy and removal of left ureteral JJ stent 10/16/17 3. Methicillin-resistant Staphylococcus aureus nares colonization. 4. Atrial fibrillation. 5. History of schizoaffective disorder and depression. 6. Hepatitis B and C virus positive. PLAN: The patient remains stable, pending dc planning, continue antibiotics for 2 more weeks [facility] staff Problems: Consultation Date/Type/Reason Admit Date/Time Oct 05, 2017 at 22:26 Initial Consult Date 10/06/17 Type of Consultation: id Referring Provider: YOSELIN RAMON MD Exam/Review of Systems Vital Signs Vitals Vital Signs Date Time Temp Pulse Resp B/P Pulse Ox O2 Delivery O2 Flow Rate FiO2 10/18/17 13:13 52 118/72 10/18/17 11:48 98.0 19 94 10/18/17 08:00 Nasal Cannula 2.0 Intake and Output 10/17/17 10/17/17 10/18/17 15:00 23:00 07:00 Intake Total 1650 ml 350 ml Output Total 800 ml Balance 1650 ml -450 ml Results Result Diagram: 10/16/17 0727 10/16/17 07 Medications Medications Current Medications Ondansetron HCl (Zofran Inj) 4 mg Q6H PRN IV NAUSEA AND/OR VOMITING Last administered on 10/17/17t 17:52; Admin Dose 4 MG; Start 10/06/17 at 06:00 Acetaminophen (Tylenol Tab) 650 mg Q6H PRN PO PAIN LEVEL 1-3 OR FEVER Last administered on 10/17/17 18:33; Admin Dose 650 MG; Start 10/06/17 at 06:00 Morphine Sulfate (morphine) 2 mg Q4H PRN IV PAIN LEVEL 7-10 Last administered on 10/17/17 13:56; Admin Dose 2 MG; Start 10/06/17 at 06:00 Fish Oil (Fish Oil) 1,000 mg DAILY PO Last administered on 10/18/17 09:11; Admin Dose 1,000 MG; Start 10/06/17 at 09:00 Quetiapine Fumarate (Seroquel) 100 mg HS PO Last administered on 10/17/17 20: 55; Admin Dose 100 MG; Start 10/06/17 at 21:00 Metoprolol Tartrate (Lopressor) 5 mg Q4H PRN IV HR>110 Hold SBP<100; Start at 19:30 Pantoprazole (Protonix Tab) 40 mg DAILY@06 PO Last administered on 10/18/17 06 :46; Admin Dose 40 MG; Start 10/08/17 at 06:00 Mupirocin (Bactroban) 1 applic BID TOP Last administered on 10/18/17 09:12; Admin Dose 1 APPLIC; Start 10/08/17 at 21:00 Aspirin 325 mg 325 mg DAILY PO Last administered on 10/18/17 09:11; Admin Dose 325 MG; Start 10/11/17 at 09:00 Ertapenem/Sodium Chloride (Invanz/NS) 100 ml @ 200 mls/hr Q24H IVPB Last administered on 10/18/17 09:11; Admin Dose 200 MLS/HR; Start 10/11/17 at 08:30 ; Stop 10/30/17 at 08:29 Amlodipine Besylate (Norvasc) 5 mg DAILY PO Last administered on 10/18/17 09: 11; Admin Dose 5 MG; Start 10/12/17 at 09:00 Hydralazine HCl (Apresoline) 10 mg Q4H PRN IV SBP>170; Start 10/11/17 at 21:00 Polyethylene Glycol (Miralax) 17 gm DAILY PRN PO CONSTIPATION Last administered on 10/14/17 06:53; Admin Dose 17 GM; Start 10/14/17 at 07:00 Isosorbide Dinitrate (Isordil) 10 mg TID PO Last administered on 10/18/17 13: 13; Admin Dose 10 MG; Start 10/14/17 at 21:00 Nitroglycerin (Nitroglycerin (Sl Tab) 0.4 Mg) 1 tab Q5M PRN SL ANGINA; Start 10/14/17 at 14:00 Docusate Sodium (Colace) 100 mg BID PO Last administered on 10/18/17 09:11; Admin Dose 100 MG; Start 10/15/17 at 09:00 Bisacodyl (Dulcolax) 5 mg DAILY PRN PO CONSTIPATION; Start 10/15/17 at 04:30 Levothyroxine Sodium (Synthroid) 88 mcg Q48H PO ; Start 10/19/17 at 06:30 Levothyroxine Sodium (Synthroid) 100 mcg Q48H PO Last administered on 06:46; Admin Dose 100 MCG; Start 10/18/17 at 06:30 Ketorolac Tromethamine (Toradol) 30 mg Q6H PRN IV PAIN Last administered on 21:34; Admin Dose 30 MG; Start 10/17/17 at 21:30; Stop 10/20/17 at 21:29 IV Flush (NS 10 ml) 10 ml PRN PRN IV IV PROTOCOL; Start 10/18/17 at 14:00 KRISTI PARDO NP Oct 18, 2017 14:26
[2017-10-18] MEDS: ACETAMINOPHEN 325 MG TAB PO PRN (14:53)
--- NOTE | 2017-10-18 16:29 | PN ---
Date/Time of Note Date/Time of Note DATE: 10/18/17 TIME: 16:21 Assessment/Plan VTE Prophylaxis VTE Prophylaxis Intervention: SCD's Lines/Catheters [facility] PICC Line Central line still needed: Yes Urinary Cath still in place: No Assessment/Plan Chief Complaint/Hosp Course S: Per nursing staff, patient denies dysuria or hematuria. Not able to get cardiac stress test today, rescheduled for tomorrow. Otherwise no acute events overnight. Seen by physical therapy team. Patient received PICC line earlier this morning as well. O: VS (see below) PE: GENERAL: Lying in bed, NAD HEAD: Normocephalic, atraumatic, no tenderness. EYES: Pupils equal reactive to light and accommodation, full extraocular movements, sclera clear, non-icteric, no discharge. EARS/NOSE AND THROAT: Ears normal, nose normal, oropharynx normal, oral membranes well hydrated without lesions. NECK: Supple, no masses, thyroid normal, CHEST: Inspection within normal limits. CARDIOVASCULAR: Heart: Regular rate and rhythm, no murmurs, gallops or rubs. RESPIRATORY: Lungs clear to auscultation and percussion, no wheezing, no rubs GASTROINTESTINAL AND LIVER: Abdomen: Soft, midepigastric and left upper quadrant tenderness, non-distended, no hernias, no masses, no organomegaly, no ascites, no guarding, no rebound tenderness EXTREMITIES: No cyanosis, clubbing or edema. A/P: 67 yo female with hx of dyslipidemia, hypothyroidism, renal stone, seizure d/o, schizoaffective disorder, status post fall at home on the floor for 2 days , with subsequent rhabdomyolysis, AK I with metabolic acidosis, upper and lower GI bleed, elevated troponins. 1. Syncope: unknown etiology: cardiac vs seizure(given hx) vs weakness from dehydration and rhabdomyolysis and renal insufficiency, again pt fell and remained in her bathroom x 2 days unable to get up. Head CT showed no acute abnormalities. No syncopal events since being here in the hospital. Seen by physical therapy -Continue PT, OT, IV fluids, antibiotics -Appreciate cardiology input, monitor heart rate, f/u PT and OT consults as well 2. Acute on CKD: 2/2 Rhabdo -significantly improving after patient has been on IV fluids -Continue IVF per renal recommendations -Follow-up renal u/s -urine electrolytes 3. elevated trop + chest pain -evaluated by cardiology team. Heart rate presently stable, denies chest pain presently. -For now continue Asa 325 currently for CVA risk reduction, defer to PCP to consider full ATC -For stress test tomorrow a.m., follow-up results of this -aspirin, beta-max per cardiology recommended -Monitor 4. Rhabdomyolysis -resolved now -IVF, monitor BUN/creatinine levels, CK levels. 5. Metabolic acidosis -secondary to renal insufficiency -now serum CO2 levels are normal, resolved now -Continue IVF per renal recommendations -Monitor BMP, follow-up renal rec's 6. Left UVPJ, Obstructive Uropathy -CT scan of the abdomen and pelvis and that showed a 4 mm left upper ureteral stone with obstruction -status post cystoscopy with JJ stent placement and now removed. No hematuria dysuria presently. -Follow-up urology recommendations 7. A-flutter with RVR -now in normal sinus rhythm -Follow cardiology recommendations, continue to monitor heart rate -Follow-up TSH 8. ESBL ecoli: Escherichia coli extended-spectrum beta-lactamase bacteremia with persistent UTI 2 to infected stone. -Continue current antibiotics, patient status post PICC line placement, she will need 2 more weeks of IV antibiotics, follow-up ID recommendations -case management has set up antibiotics for home use now Dispo: Likely home with home health PT and nursing in 24 hours if results of cardiac stress test are negative. Problems: Exam/Review of Systems Vital Signs Vitals Vital Signs Date Time Temp Pulse Resp B/P Pulse Ox O2 Delivery O2 Flow Rate FiO2 10/18/17 15:50 98.3 52 19 116/56 100 10/18/17 08:00 Nasal Cannula 2.0 Intake and Output 10/17/17 10/17/17 10/18/17 14:59 22:59 06:59 Intake Total 1650 ml 350 ml Output Total 800 ml Balance 1650 ml -450 ml Results Result Diagram: 10/16/17 0727 10/16/17 0726 Medications Medications Current Medications Ondansetron HCl (Zofran Inj) 4 mg Q6H PRN IV NAUSEA AND/OR VOMITING Last administered on 10/17/17t 17:52; Admin Dose 4 MG; Start 10/06/17 at 06:00 Acetaminophen (Tylenol Tab) 650 mg Q6H PRN PO PAIN LEVEL 1-3 OR FEVER Last administered on 10/18/17 14:53; Admin Dose 650 MG; Start 10/06/17 at 06:00 Morphine Sulfate (morphine) 2 mg Q4H PRN IV PAIN LEVEL 7-10 Last administered on 10/17/17 13:56; Admin Dose 2 MG; Start 10/06/17 at 06:00 Fish Oil (Fish Oil) 1,000 mg DAILY PO Last administered on 10/18/17 09:11; Admin Dose 1,000 MG; Start 10/06/17 at 09:00 Quetiapine Fumarate (Seroquel) 100 mg HS PO Last administered on 10/17/17 20: 55; Admin Dose 100 MG; Start 10/06/17 at 21:00 Metoprolol Tartrate (Lopressor) 5 mg Q4H PRN IV HR>110 Hold SBP<100; Start at 19:30 Pantoprazole (Protonix Tab) 40 mg DAILY@06 PO Last administered on 10/18/17 06 :46; Admin Dose 40 MG; Start 10/08/17 at 06:00 Mupirocin (Bactroban) 1 applic BID TOP Last administered on 10/18/17 09:12; Admin Dose 1 APPLIC; Start 10/08/17 at 21:00 Aspirin 325 mg 325 mg DAILY PO Last administered on 10/18/17 09:11; Admin Dose 325 MG; Start 10/11/17 at 09:00 Ertapenem/Sodium Chloride (Invanz/NS) 100 ml @ 200 mls/hr Q24H IVPB Last administered on 10/18/17 09:11; Admin Dose 200 MLS/HR; Start 10/11/17 at 08:30 ; Stop 10/30/17 at 08:29 Amlodipine Besylate (Norvasc) 5 mg DAILY PO Last administered on 10/18/17 09: 11; Admin Dose 5 MG; Start 10/12/17 at 09:00 Hydralazine HCl (Apresoline) 10 mg Q4H PRN IV SBP>170; Start 10/11/17 at 21:00 Polyethylene Glycol (Miralax) 17 gm DAILY PRN PO CONSTIPATION Last administered on 10/14/17 06:53; Admin Dose 17 GM; Start 10/14/17 at 07:00 Isosorbide Dinitrate (Isordil) 10 mg TID PO Last administered on 10/18/17 13: 13; Admin Dose 10 MG; Start 10/14/17 at 21:00 Nitroglycerin (Nitroglycerin (Sl Tab) 0.4 Mg) 1 tab Q5M PRN SL ANGINA; Start 10/14/17 at 14:00 Docusate Sodium (Colace) 100 mg BID PO Last administered on 10/18/17 09:11; Admin Dose 100 MG; Start 10/15/17 at 09:00 Bisacodyl (Dulcolax) 5 mg DAILY PRN PO CONSTIPATION; Start 10/15/17 at 04:30 Levothyroxine Sodium (Synthroid) 88 mcg Q48H PO ; Start 10/19/17 at 06:30 Levothyroxine Sodium (Synthroid) 100 mcg Q48H PO Last administered on 06:46; Admin Dose 100 MCG; Start 10/18/17 at 06:30 Ketorolac Tromethamine (Toradol) 30 mg Q6H PRN IV PAIN Last administered on 21:34; Admin Dose 30 MG; Start 10/17/17 at 21:30; Stop 10/20/17 at 21:29 IV Flush (NS 10 ml) 10 ml PRN PRN IV IV PROTOCOL; Start 10/18/17 at 14:00 ALLEN HARRIS Oct 18, 2017 16:29
[2017-10-18] MEDS ORDERED: SOD CHLORIDE 0.9% 100 ML ONE (17:00)
[2017-10-18] MEDS: KETOROLAC 30 MG INJ IV PRN (18:35)
[2017-10-18] MEDS: QUETIAPINE 100 MG TAB PO SCH (20:44)
[2017-10-19] VITALS (13 sets, daily range): BP systolic 111–161; BP diastolic 56–78; PULSE 47–65; RESP 16–19
[2017-10-19] MEDS: LEVOTHYROXINE 100 MCG TAB PO SCH (05:58)
[2017-10-19] MEDS: PANTOPRAZOLE (EC) 40 MG TAB PO SCH (05:58)
[2017-10-19] MEDS: LEVOTHYROXINE 88 MCG TAB PO SCH (06:02)
[2017-10-19] MEDS: DOCUSATE SODIUM 100 MG CAP PO SCH ×2 (08:08→20:57)
[2017-10-19] MEDS: ISOSORBIDE DINITRATE 10 MG TAB PO SCH ×3 (08:08→20:57)
[2017-10-19] MEDS: ERTAPENEM SODIUM 1 GM in SOD CHLORIDE 0.9% 100 ML IVPB SCH (08:08)
[2017-10-19] MEDS: FISH OIL 1,000 MG CAP PO SCH (08:08)
[2017-10-19] MEDS: AMLODIPINE 5 MG TAB PO SCH (08:09)
[2017-10-19] MEDS: ASPIRIN (EC) 325 MG TAB PO SCH (08:09)
[2017-10-19] MEDS: MUPIROCIN 2% 22 GM OINT TOP SCH ×2 (08:10→20:57)
--- NOTE | 2017-10-19 10:50 | CONS ---
Date/Time of Note Date/Time of Note DATE: 10/19/17 TIME: 10:49 Assessment/Plan Assessment/Plan Additional Assessment/Plan 1.positive troponin-trended negative - pt agreed to have STresstest now - scheduled today at 11 am 2.PAF/AFL-now in SR/SB and remains - in sinus now. 3.HTN-Now improved - better 4.renal calculous/UTI s/p cystoscopy/lithotripsy 5.renal failure-improving - good urine output 6.s/p fall -recurrent 7.bacteremia 8. Bradycardia-borderline - no indication for pacer 9. Hypothyroid 10. chest [id number] negative x 2 since most recent c/o chest pain, on isordil Consultation Date/Type/Reason Admit Date/Time Oct 05, 2017 at 22:26 Initial Consult Date 10/06/17 Type of Consultation: id Referring Provider: YOSELIN RAMON MD 24 HR Interval Summary Free Text/Dictation pt agreed to have Stress test now - scheduled today at 11 am ROS: No fever, no chills, no nausea, no vomiting, no diarrhea/constipation No recent weight changes No chest pain, no PND, no orthopnea No dizziness, blurred vision No thirst, no heat or cold intolerance Exam/Review of Systems Vital Signs Vitals Vital Signs Date Time Temp Pulse Resp B/P Pulse Ox O2 Delivery O2 Flow Rate FiO2 10/19/17 08:00 98.4 56 18 161/74 96 10/18/17 20:15 2.0 10/18/17 20:00 Nasal Cannula Intake and Output 10/18/17 10/18/17 10/19/17 15:00 23:00 07:00 Intake Total 600 ml 400 ml Output Total 400 ml Balance 200 ml 400 ml Exam General: WN/WD/NAD, AOx 3 HEENT: Unicetric/atraumatic/EOMI (follows commands) NECK: JVD elevated, no thyromegaly Lymph: no lymphadenopathy HEART: regular with no S3, II/ systolic murmur at apex LUNGS: Coarse sounds ABD: soft, NT, ND, +BS : Intact Neuro: non focal SKIN: chronic changes EXT: trace edema Results Result Diagram: 10/16/1772610/16/17725 Medications Medications Current Medications Ondansetron HCl (Zofran Inj) 4 mg Q6H PRN IV NAUSEA AND/OR VOMITING Last administered on 10/17/17 17:52; Admin Dose 4 MG; Start 10/06/17 at 06:00 Acetaminophen (Tylenol Tab) 650 mg Q6H PRN PO PAIN LEVEL 1-3 OR FEVER Last administered on 10/18/17 14:53; Admin Dose 650 MG; Start 10/06/17 at 06:00 Morphine Sulfate (morphine) 2 mg Q4H PRN IV PAIN LEVEL 7-10 Last administered on 10/17/17 13:56; Admin Dose 2 MG; Start 10/06/17 at 06:00 Fish Oil (Fish Oil) 1,000 mg DAILY PO Last administered on 10/19/17 08:08; Admin Dose 1,000 MG; Start 10/06/17 at 09:00 Quetiapine Fumarate (Seroquel) 100 mg HS PO Last administered on 10/18/17 20: 44; Admin Dose 100 MG; Start 10/06/17 at 21:00 Metoprolol Tartrate (Lopressor) 5 mg Q4H PRN IV HR>110 Hold SBP<100; Start at 19:30 Pantoprazole (Protonix Tab) 40 mg DAILY@06 PO Last administered on 10/19/17 05 :58; Admin Dose 40 MG; Start 10/08/17 at 06:00 Mupirocin (Bactroban) 1 applic BID TOP Last administered on 10/19/17 08:10; Admin Dose 1 APPLIC; Start 10/08/17 at 21:00 Aspirin 325 mg 325 mg DAILY PO Last administered on 10/19/17 08:09; Admin Dose 325 MG; Start 10/11/17 at 09:00 Ertapenem/Sodium Chloride (Invanz/NS) 100 ml @ 200 mls/hr Q24H IVPB Last administered on 10/19/17 08:08; Admin Dose 200 MLS/HR; Start 10/11/17 at 08:30 ; Stop 10/30/17 at 08:29 Amlodipine Besylate (Norvasc) 5 mg DAILY PO Last administered on 10/19/17 08: 09; Admin Dose 5 MG; Start 10/12/17 at 09:00 Hydralazine HCl (Apresoline) 10 mg Q4H PRN IV SBP>170; Start 10/11/17 at 21:00 Polyethylene Glycol (Miralax) 17 gm DAILY PRN PO CONSTIPATION Last administered on 10/14/17 06:53; Admin Dose 17 GM; Start 10/14/17 at 07:00 Isosorbide Dinitrate (Isordil) 10 mg TID PO Last administered on 10/19/17 08: 08; Admin Dose 10 MG; Start 10/14/17 at 21:00 Nitroglycerin (Nitroglycerin (Sl Tab) 0.4 Mg) 1 tab Q5M PRN SL ANGINA; Start 10/14/17 at 14:00 Docusate Sodium (Colace) 100 mg BID PO Last administered on 10/19/17 08:08; Admin Dose 100 MG; Start 10/15/17 at 09:00 Bisacodyl (Dulcolax) 5 mg DAILY PRN PO CONSTIPATION; Start 10/15/17 at 04:30 Levothyroxine Sodium (Synthroid) 88 mcg Q48H PO Last administered on 10/19/17 06:02; Admin Dose 88 MCG; Start 10/19/17 at 06:30 Levothyroxine Sodium (Synthroid) 100 mcg Q48H PO Last administered on 05:58; Admin Dose 100 MCG; Start 10/18/17 at 06:30 Ketorolac Tromethamine (Toradol) 30 mg Q6H PRN IV PAIN Last administered on 18:35; Admin Dose 30 MG; Start 10/17/17 at 21:30; Stop 10/20/17 at 21:29 IV Flush (NS 10 ml) 10 ml PRN PRN IV IV PROTOCOL; Start 10/18/17 at 14:00 RAMAKRISHNA ONEAL MD Oct 19, 2017 10:50
[2017-10-19] MEDS ORDERED: REGADENOSON 0.4 MG/5 ML SYG ONE (11:30)
--- NOTE | 2017-10-19 11:47 | PN ---
Date/Time of Note Date/Time of Note DATE: 10/19/17 TIME: 11:45 Assessment/Plan VTE Prophylaxis VTE Prophylaxis Intervention: SCD's Lines/Catheters IV Catheter Type (from Nrs): PICC Line Central line still needed: Yes Urinary Cath still in place: No Assessment/Plan Chief Complaint/Hosp Course S: No acute events overnight. Presently off the floor getting stress test. O: VS (see below) PE: Unable to be performed today because patient is off the floor at procedure A/P: 67 yo female with hx of dyslipidemia, hypothyroidism, renal stone, seizure d/o, schizoaffective disorder, status post fall at home on the floor for 2 days , with subsequent rhabdomyolysis, AK I with metabolic acidosis, upper and lower GI bleed, elevated troponins. 1. Syncope: unknown etiology: cardiac vs seizure(given hx) vs weakness from dehydration and rhabdomyolysis and renal insufficiency. Head CT showed no acute abnormalities. No syncopal events since being here in the hospital. Seen by physical therapy -Continue PT, OT, IV fluids, antibiotics -Appreciate cardiology input, monitor heart rate, f/u PT and OT consults as well 2. Acute on CKD: 2/2 Rhabdo -resolved now -Follow-up renal u/s -urine electrolytes 3. elevated trop + chest pain -evaluated by cardiology team. Heart rate presently stable, denies chest pain presently. -For now continue Asa 325 -Follow-up results of stress test, cardiology recommendations -aspirin, beta-max per cardiology recommended -Monitor 4. Rhabdomyolysis -resolved now -Monitor 5. Positive hepatitis B and C -Follow-up ID recommendations 6. Left UVPJ, Obstructive Uropathy -CT scan of the abdomen and pelvis and that showed a 4 mm left upper ureteral stone with obstruction - status post cystoscopy with JJ stent placement and now removed. No hematuria dysuria presently. -Monitor 7. A-flutter with RVR -now in normal sinus rhythm -Follow cardiology recommendations, continue to monitor heart rate -Follow-up TSH 8. ESBL ecoli: Escherichia coli extended-spectrum beta-lactamase bacteremia with persistent UTI 2 to infected stone. -Continue current antibiotics, patient status post PICC line placement, she will need 2 more weeks of IV antibiotics, follow-up ID recommendations -case management has set up antibiotics for home use now Dispo: Likely home with home health PT and nursing in 24 hours if results of cardiac stress test are negative. Problems: Exam/Review of Systems Vital Signs Vitals Vital Signs Date Time Temp Pulse Resp B/P Pulse Ox O2 Delivery O2 Flow Rate FiO2 10/19/17 08:00 98.4 56 18 161/74 96 10/19/17 08:00 Nasal Cannula 2.0 Intake and Output 10/18/17 10/18/17 10/19/17 15:00 23:00 07:00 Intake Total 600 ml 400 ml Output Total 400 ml Balance 200 ml 400 ml Results Result Diagram: 10/16/17 0727 10/16/17 0726 Medications Medications Current Medications Ondansetron HCl (Zofran Inj) 4 mg Q6H PRN IV NAUSEA AND/OR VOMITING Last administered on 10/17/17 17:52; Admin Dose 4 MG; Start 10/06/17 at 06:00 Acetaminophen (Tylenol Tab) 650 mg Q6H PRN PO PAIN LEVEL 1-3 OR FEVER Last administered on 10/18/17 14:53; Admin Dose 650 MG; Start 10/06/17 at 06:00 Morphine Sulfate (morphine) 2 mg Q4H PRN IV PAIN LEVEL 7-10 Last administered on 10/17/17 13:56; Admin Dose 2 MG; Start 10/06/17 at 06:00 Fish Oil (Fish Oil) 1,000 mg DAILY PO Last administered on 10/19/17 08:08; Admin Dose 1,000 MG; Start 10/06/17 at 09:00 Quetiapine Fumarate (Seroquel) 100 mg HS PO Last administered on 10/18/17 20: 44; Admin Dose 100 MG; Start 10/06/17 at 21:00 Metoprolol Tartrate (Lopressor) 5 mg Q4H PRN IV HR>110 Hold SBP<100; Start at 19:30 Pantoprazole (Protonix Tab) 40 mg DAILY@06 PO Last administered on 10/19/17 05 :58; Admin Dose 40 MG; Start 10/08/17 at 06:00 Mupirocin (Bactroban) 1 applic BID TOP Last administered on 10/19/17 08:10; Admin Dose 1 APPLIC; Start 10/08/17 at 21:00 Aspirin 325 mg 325 mg DAILY PO Last administered on 10/19/17 08:09; Admin Dose 325 MG; Start 10/11/17 at 09:00 Ertapenem/Sodium Chloride (Invanz/NS) 100 ml @ 200 mls/hr Q24H IVPB Last administered on 10/19/17 08:08; Admin Dose 200 MLS/HR; Start 10/11/17 at 08:30 ; Stop 10/30/17 at 08:29 Amlodipine Besylate (Norvasc) 5 mg DAILY PO Last administered on 10/19/17 08: 09; Admin Dose 5 MG; Start 10/12/17 at 09:00 Hydralazine HCl (Apresoline) 10 mg Q4H PRN IV SBP>170; Start 10/11/17 at 21:00 Polyethylene Glycol (Miralax) 17 gm DAILY PRN PO CONSTIPATION Last administered on 10/14/17 06:53; Admin Dose 17 GM; Start 10/14/17 at 07:00 Isosorbide Dinitrate (Isordil) 10 mg TID PO Last administered on 10/19/17 08: 08; Admin Dose 10 MG; Start 10/14/17 at 21:00 Nitroglycerin (Nitroglycerin (Sl Tab) 0.4 Mg) 1 tab Q5M PRN SL ANGINA; Start 10/14/17 at 14:00 Docusate Sodium (Colace) 100 mg BID PO Last administered on 10/19/17 08:08; Admin Dose 100 MG; Start 10/15/17 at 09:00 Bisacodyl (Dulcolax) 5 mg DAILY PRN PO CONSTIPATION; Start 10/15/17 at 04:30 Levothyroxine Sodium (Synthroid) 88 mcg Q48H PO Last administered on 10/19/17 06:02; Admin Dose 88 MCG; Start 10/19/17 at 06:30 Levothyroxine Sodium (Synthroid) 100 mcg Q48H PO Last administered on 05:58; Admin Dose 100 MCG; Start 10/18/17 at 06:30 Ketorolac Tromethamine (Toradol) 30 mg Q6H PRN IV PAIN Last administered on 18:35; Admin Dose 30 MG; Start 10/17/17 at 21:30; Stop 10/20/17 at 21:29 IV Flush (NS 10 ml) 10 ml PRN PRN IV IV PROTOCOL; Start 10/18/17 at 14:00 ALLEN HARRIS Oct 19, 2017 11:47
--- NOTE | 2017-10-19 13:22 | CONS ---
Date/Time of Note Date/Time of Note DATE: 10/19/17 TIME: 13:22 Assessment/Plan Assessment/Plan Chief Complaint/Hosp Course SUBJECTIVE: Alert, feels good, no fevers ANTIMICROBIALS: Invanz PHYSICAL EXAMINATION: GENERAL: This is a well-developed, elderly woman who is awake, in no distress. HEENT: Head atraumatic, normocephalic. Sclerae anicteric. Buccal mucosa dry. NECK: Supple. CHEST: Rise symmetrical. Breath sounds clear. HEART: S1, S2. ABDOMEN: Soft. Bowel tones present. EXTREMITIES: Without cyanosis. ASSESSMENT: 1. Escherichia coli extended-spectrum beta-lactamase bacteremia with persistent UTI 2 to infected stone. 2. Obstructive uropathy status post cystoscopy with left JJ stent placement , s/p Left extracorporeal shockwave lithotripsy, cystoscopy and removal of left ureteral JJ stent 10/16/17 3. Methicillin-resistant Staphylococcus aureus nares colonization. 4. Atrial fibrillation. 5. History of schizoaffective disorder and depression. 6. Hepatitis B and C virus positive. PLAN: The patient remains stable, pending stress test, continue antibiotics for 12 more days [facility] staff Problems: Consultation Date/Type/Reason Admit Date/Time Oct 05, 2017 at 22:26 Initial Consult Date 10/06/17 Type of Consultation: id Referring Provider: YOSELIN RAMON MD Exam/Review of Systems Vital Signs Vitals Vital Signs Date Time Temp Pulse Resp B/P Pulse Ox O2 Delivery O2 Flow Rate FiO2 10/19/17 08:00 98.4 56 18 161/74 96 10/19/17 08:00 Nasal Cannula 2.0 Intake and Output 10/18/17 10/18/17 10/19/17 15:00 23:00 07:00 Intake Total 600 ml 400 ml Output Total 400 ml Balance 200 ml 400 ml Results Result Diagram: 10/16/1772610/16/17725 Medications Medications Current Medications Ondansetron HCl (Zofran Inj) 4 mg Q6H PRN IV NAUSEA AND/OR VOMITING Last administered on 10/17/17 17:52; Admin Dose 4 MG; Start 10/06/17 at 06:00 Acetaminophen (Tylenol Tab) 650 mg Q6H PRN PO PAIN LEVEL 1-3 OR FEVER Last administered on 10/18/17 14:53; Admin Dose 650 MG; Start 10/06/17 at 06:00 Morphine Sulfate (morphine) 2 mg Q4H PRN IV PAIN LEVEL 7-10 Last administered on 10/17/17 13:56; Admin Dose 2 MG; Start 10/06/17 at 06:00 Fish Oil (Fish Oil) 1,000 mg DAILY PO Last administered on 10/19/17 08:08; Admin Dose 1,000 MG; Start 10/06/17 at 09:00 Quetiapine Fumarate (Seroquel) 100 mg HS PO Last administered on 10/18/17 20: 44; Admin Dose 100 MG; Start 10/06/17 at 21:00 Metoprolol Tartrate (Lopressor) 5 mg Q4H PRN IV HR>110 Hold SBP<100; Start at 19:30 Pantoprazole (Protonix Tab) 40 mg DAILY@06 PO Last administered on 10/19/17 05 :58; Admin Dose 40 MG; Start 10/08/17 at 06:00 Mupirocin (Bactroban) 1 applic BID TOP Last administered on 10/19/17 08:10; Admin Dose 1 APPLIC; Start 10/08/17 at 21:00 Aspirin 325 mg 325 mg DAILY PO Last administered on 10/19/17 08:09; Admin Dose 325 MG; Start 10/11/17 at 09:00 Ertapenem/Sodium Chloride (Invanz/NS) 100 ml @ 200 mls/hr Q24H IVPB Last administered on 10/19/17 08:08; Admin Dose 200 MLS/HR; Start 10/11/17 at 08:30 ; Stop 10/30/17 at 08:29 Amlodipine Besylate (Norvasc) 5 mg DAILY PO Last administered on 10/19/17 08: 09; Admin Dose 5 MG; Start 10/12/17 at 09:00 Hydralazine HCl (Apresoline) 10 mg Q4H PRN IV SBP>170; Start 10/11/17 at 21:00 Polyethylene Glycol (Miralax) 17 gm DAILY PRN PO CONSTIPATION Last administered on 10/14/17 06:53; Admin Dose 17 GM; Start 10/14/17 at 07:00 Isosorbide Dinitrate (Isordil) 10 mg TID PO Last administered on 10/19/17 08: 08; Admin Dose 10 MG; Start 10/14/17 at 21:00 Nitroglycerin (Nitroglycerin (Sl Tab) 0.4 Mg) 1 tab Q5M PRN SL ANGINA; Start 10/14/17 at 14:00 Docusate Sodium (Colace) 100 mg BID PO Last administered on 10/19/17 08:08; Admin Dose 100 MG; Start 10/15/17 at 09:00 Bisacodyl (Dulcolax) 5 mg DAILY PRN PO CONSTIPATION; Start 10/15/17 at 04:30 Levothyroxine Sodium (Synthroid) 88 mcg Q48H PO Last administered on 10/19/17 06:02; Admin Dose 88 MCG; Start 10/19/17 at 06:30 Levothyroxine Sodium (Synthroid) 100 mcg Q48H PO Last administered on 05:58; Admin Dose 100 MCG; Start 10/18/17 at 06:30 Ketorolac Tromethamine (Toradol) 30 mg Q6H PRN IV PAIN Last administered on 18:35; Admin Dose 30 MG; Start 10/17/17 at 21:30; Stop 10/20/17 at 21:29 IV Flush (NS 10 ml) 10 ml PRN PRN IV IV PROTOCOL; Start 10/18/17 at 14:00 KRISTI PARDO NP Oct 19, 2017 13:22
[2017-10-19] MEDS: KETOROLAC 30 MG INJ IV PRN ×2 (13:33→18:52)
--- NOTE | 2017-10-19 13:54 | ECORPT ---
DATE OF SERVICE: LEXISCAN CARDIAC STRESS TEST REFERRING PHYSICIAN: . REASON FOR EVALUATION: Chest pain. This shows that the patient came in in fasting condition. She had successful Lexiscan injecti on. She had no precordial chest discomfort with no ischemic changes. Blood pressure remained to be stable. Imaging portion of the report is dictated separately. Dictated By: RAMAKRISHNA ONEAL MD ML/KLEVER Conf#: [id number] DID#: [id number]
--- NOTE | 2017-10-19 14:50 | RADRPT ---
PROCEDURE: Nuclear medicine myocardial perfusion scan CLINICAL INDICATION: Chest pain TECHNIQUE: 27.4 mCi of technetium 99m Cardiolite was administered for the stress study. 9.2 mCi o f technetium 99m Cardiolite was administered for the resting study. The patient was stressed with 0. 4 mg of Lexiscan. Images were reviewed in the short axis, vertical long axis, and horizontal long a xis views. Wall motion was assessed and ejection fraction was calculated as well. Images were revie wed on a high-resolution PACS workstation. COMPARISON: None available FINDINGS: Left ventricular size is within normal limits. The stress tomographic images demonstrate a normal pattern of perfusion. The resting tomographic images demonstrate a similar pattern. There is no ev idence for reversible ischemia. Wall motion is normal. The ejection fraction is calculated at 71%. IMPRESSION: 1. Negative myocardial perfusion scan. 2. There is no evidence for reversible ischemia. 3. Normal wall motion with normal ejection fraction of 71%. RPTAT: [facility] Physician Raymundo Date Time Electronically viewed and signed by Physician Raymundo on 10/19/2017 14:49 CALLIE/
[2017-10-19] MEDS: ACETAMINOPHEN 325 MG TAB PO PRN (17:27)
[2017-10-19] MEDS: ONDANSETRON 4 MG INJ IV PRN (17:27)
[2017-10-19] MEDS: QUETIAPINE 100 MG TAB PO SCH (20:57)
[2017-10-20] VITALS (10 sets, daily range): BP systolic 114–176; BP diastolic 60–79; PULSE 46–58; RESP 17–19
[2017-10-20] MEDS: LEVOTHYROXINE 100 MCG TAB PO SCH (05:51)
[2017-10-20] MEDS: PANTOPRAZOLE (EC) 40 MG TAB PO SCH (05:51)
[2017-10-20] MEDS: FISH OIL 1,000 MG CAP PO SCH (08:18)
[2017-10-20] MEDS: DOCUSATE SODIUM 100 MG CAP PO SCH ×2 (08:18→20:46)
[2017-10-20] MEDS: ERTAPENEM SODIUM 1 GM in SOD CHLORIDE 0.9% 100 ML IVPB SCH (08:18)
[2017-10-20] MEDS: ASPIRIN (EC) 325 MG TAB PO SCH (08:18)
[2017-10-20] MEDS: ISOSORBIDE DINITRATE 10 MG TAB PO SCH ×3 (08:19→20:47)
[2017-10-20] MEDS: MUPIROCIN 2% 22 GM OINT TOP SCH ×2 (08:25→20:58)
[2017-10-20] MEDS: AMLODIPINE 5 MG TAB PO SCH (08:28)
[2017-10-20] MEDS: ACETAMINOPHEN 325 MG TAB PO PRN (09:46)
--- NOTE | 2017-10-20 12:56 | CONS ---
Date/Time of Note Date/Time of Note DATE: 10/20/17 TIME: 12:55 Assessment/Plan Assessment/Plan Chief Complaint/Hosp Course SUBJECTIVE: Alert, denies pain, looks comfortable ANTIMICROBIALS: Invanz PHYSICAL EXAMINATION: GENERAL: This is a well-developed, elderly woman who is awake, in no distress. HEENT: Head atraumatic, normocephalic. NECK: Supple. CHEST: Rise symmetrical. Breath sounds clear. HEART: S1, S2. ABDOMEN: Soft. Bowel tones present. EXTREMITIES: Without cyanosis. ASSESSMENT: 1. Escherichia coli extended-spectrum beta-lactamase bacteremia with persistent UTI 2 to infected stone. 2. Obstructive uropathy status post cystoscopy with left JJ stent placement , s/p Left extracorporeal shockwave lithotripsy, cystoscopy and removal of left ureteral JJ stent 10/16/17 3. Methicillin-resistant Staphylococcus aureus nares colonization. 4. Atrial fibrillation. 5. History of schizoaffective disorder and depression. 6. Hepatitis B and C virus positive. PLAN: The patient remains stable, pending dc on antibiotics for 11 more days [facility] staff Problems: Consultation Date/Type/Reason Admit Date/Time Oct 05, 2017 at 22:26 Initial Consult Date 10/06/17 Type of Consultation: id Referring Provider: YOSELIN RAMON MD Exam/Review of Systems Vital Signs Vitals Vital Signs Date Time Temp Pulse Resp B/P Pulse Ox O2 Delivery O2 Flow Rate FiO2 10/20/17 12:20 47 10/20/17 11:28 98.0 17 119/66 90 10/20/17 06:50 2.0 10/19/17 19:50 Nasal Cannula Intake and Output 10/19/17 10/19/17 10/20/17 15:00 23:00 07:00 Intake Total 800 ml 500 ml Balance 800 ml 500 ml Results Result Diagram: 10/16/17 0727 10/16/17 0726 Medications Medications Current Medications Ondansetron HCl (Zofran Inj) 4 mg Q6H PRN IV NAUSEA AND/OR VOMITING Last administered on 10/19/17 17:27; Admin Dose 4 MG; Start 10/06/17 at 06:00 Acetaminophen (Tylenol Tab) 650 mg Q6H PRN PO PAIN LEVEL 1-3 OR FEVER Last administered on 10/20/17 09:46; Admin Dose 650 MG; Start 10/06/17 at 06:00 Morphine Sulfate (morphine) 2 mg Q4H PRN IV PAIN LEVEL 7-10 Last administered on 10/17/17 13:56; Admin Dose 2 MG; Start 10/06/17 at 06:00 Fish Oil (Fish Oil) 1,000 mg DAILY PO Last administered on 10/20/17 08:18; Admin Dose 1,000 MG; Start 10/06/17 at 09:00 Quetiapine Fumarate (Seroquel) 100 mg HS PO Last administered on 10/19/17 20: 57; Admin Dose 100 MG; Start 10/06/17 at 21:00 Metoprolol Tartrate (Lopressor) 5 mg Q4H PRN IV HR>110 Hold SBP<100; Start at 19:30 Pantoprazole (Protonix Tab) 40 mg DAILY@06 PO Last administered on 10/20/17 05 :51; Admin Dose 40 MG; Start 10/08/17 at 06:00 Mupirocin (Bactroban) 1 applic BID TOP Last administered on 10/20/17 08:25; Admin Dose 1 APPLIC; Start 10/08/17 at 21:00 Aspirin 325 mg 325 mg DAILY PO Last administered on 10/20/17 08:18; Admin Dose 325 MG; Start 10/11/17 at 09:00 Ertapenem/Sodium Chloride (Invanz/NS) 100 ml @ 200 mls/hr Q24H IVPB Last administered on 10/20/17 08:18; Admin Dose 200 MLS/HR; Start 10/11/17 at 08:30 ; Stop 10/30/17 at 08:29 Amlodipine Besylate (Norvasc) 5 mg DAILY PO Last administered on 10/20/17 08: 28; Admin Dose 5 MG; Start 10/12/17 at 09:00 Hydralazine HCl (Apresoline) 10 mg Q4H PRN IV SBP>170; Start 10/11/17 at 21:00 Polyethylene Glycol (Miralax) 17 gm DAILY PRN PO CONSTIPATION Last administered on 10/14/17 06:53; Admin Dose 17 GM; Start 10/14/17 at 07:00 Isosorbide Dinitrate (Isordil) 10 mg TID PO Last administered on 10/20/17 08: 19; Admin Dose 10 MG; Start 10/14/17 at 21:00 Nitroglycerin (Nitroglycerin (Sl Tab) 0.4 Mg) 1 tab Q5M PRN SL ANGINA; Start 10/14/17 at 14:00 Docusate Sodium (Colace) 100 mg BID PO Last administered on 10/20/17 08:18; Admin Dose 100 MG; Start 10/15/17 at 09:00 Bisacodyl (Dulcolax) 5 mg DAILY PRN PO CONSTIPATION; Start 10/15/17 at 04:30 Levothyroxine Sodium (Synthroid) 88 mcg Q48H PO Last administered on 10/19/17 06:02; Admin Dose 88 MCG; Start 10/19/17 at 06:30 Levothyroxine Sodium (Synthroid) 100 mcg Q48H PO Last administered on 05:51; Admin Dose 100 MCG; Start 10/18/17 at 06:30 Ketorolac Tromethamine (Toradol) 30 mg Q6H PRN IV PAIN Last administered on 18:52; Admin Dose 30 MG; Start 10/17/17 at 21:30; Stop 10/20/17 at 21:29 IV Flush (NS 10 ml) 10 ml PRN PRN IV IV PROTOCOL; Start 10/18/17 at 14:00 KRISTI PARDO NP Oct 20, 2017 12:56
--- NOTE | 2017-10-20 13:32 | PN ---
Date/Time of Note Date/Time of Note DATE: 10/20/17 TIME: 13:30 Assessment/Plan VTE Prophylaxis VTE Prophylaxis Intervention: SCD's Lines/Catheters IV Catheter Type (from Nrs): PICC Line Central line still needed: Yes Urinary Cath still in place: No Assessment/Plan Chief Complaint/Hosp Course S: No acute events overnight. Patient denies chest pain or shortness of breath presently. O: VS (see below) PE: GENERAL: Sitting in chair at bedside, eating food, very conversive, no acute distress HEAD: Normocephalic, atraumatic, no tenderness. EYES: Pupils equal reactive to light and accommodation, full extraocular movements, sclera clear, non-icteric, no discharge. EARS/NOSE AND THROAT: Ears normal, nose normal, oropharynx normal, oral membranes well hydrated without lesions. NECK: Supple, no masses, thyroid normal, CHEST: Inspection within normal limits. CARDIOVASCULAR: Heart: Regular rate and rhythm, no murmurs, gallops or rubs. RESPIRATORY: Lungs clear to auscultation and percussion, no wheezing, no rubs GASTROINTESTINAL AND LIVER: Abdomen: Soft, midepigastric and left upper quadrant tenderness, non-distended, no hernias, no masses, no organomegaly, no ascites, no guarding, no rebound tenderness EXTREMITIES: No cyanosis, clubbing or edema. A/P: 67 yo female with hx of dyslipidemia, hypothyroidism, renal stone, seizure d/o, schizoaffective disorder, status post fall at home on the floor for 2 days , with subsequent rhabdomyolysis, AK I with metabolic acidosis, upper and lower GI bleed, elevated troponins. 1. Syncope: unknown etiology: cardiac vs seizure(given hx) vs weakness from dehydration and rhabdomyolysis and renal insufficiency. Head CT showed no acute abnormalities. No syncopal events since being here in the hospital. Seen by physical therapy as well -Continue PT, OT, IV fluids, antibiotics -Appreciate cardiology input, monitor heart rate 2. Acute on CKD: 2/2 Rhabdo -resolved now -Follow-up renal u/s -urine electrolytes 3. elevated trop + chest pain -evaluated by cardiology team. Heart rate presently stable, denies chest pain presently. Cardiac stress test negative as well. -For now continue Asa 325 -Follow-up results of stress test, cardiology recommendations -aspirin, beta-max per cardiology recommended -Monitor 4. Rhabdomyolysis -resolved now -Monitor 5. Positive hepatitis B and C -Follow-up ID recommendations 6. Left UVPJ, Obstructive Uropathy -CT scan of the abdomen and pelvis and that showed a 4 mm left upper ureteral stone with obstruction - status post cystoscopy with JJ stent placement and now removed. No hematuria dysuria presently. -Monitor 7. A-flutter with RVR -now in normal sinus rhythm -Follow cardiology recommendations, continue to monitor heart rate -Follow-up TSH 8. ESBL ecoli: Escherichia coli extended-spectrum beta-lactamase bacteremia with persistent UTI 2 to infected stone. -Continue current antibiotics, patient status post PICC line placement, she will need 2 more weeks total of IV antibiotics, follow-up ID recommendations - case management has set up antibiotics for home use now Dispo: Likely home with home health PT, IV antibiotics through the PICC line, and home health occupational therapy and nursing in 24 hours. Problems: Exam/Review of Systems Vital Signs Vitals Vital Signs Date Time Temp Pulse Resp B/P Pulse Ox O2 Delivery O2 Flow Rate FiO2 10/20/17 12:20 47 10/20/17 11:28 98.0 119/66 90 10/20/17 06:50 2.0 10/19/17 19:50 Nasal Cannula Intake and Output 10/19/17 10/19/17 10/20/17 15:00 23:00 07:00 Intake Total 800 ml 500 ml Balance 800 ml 500 ml Results Result Diagram: 10/16/17 0727 10/16/17 0726 Medications Medications Current Medications Ondansetron HCl (Zofran Inj) 4 mg Q6H PRN IV NAUSEA AND/OR VOMITING Last administered on 10/19/17 17:27; Admin Dose 4 MG; Start 10/06/17 at 06:00 Acetaminophen (Tylenol Tab) 650 mg Q6H PRN PO PAIN LEVEL 1-3 OR FEVER Last administered on 10/20/17 09:46; Admin Dose 650 MG; Start 10/06/17 at 06:00 Morphine Sulfate (morphine) 2 mg Q4H PRN IV PAIN LEVEL 7-10 Last administered on 10/17/17 13:56; Admin Dose 2 MG; Start 10/06/17 at 06:00 Fish Oil (Fish Oil) 1,000 mg DAILY PO Last administered on 10/20/17 08:18; Admin Dose 1,000 MG; Start 10/06/17 at 09:00 Quetiapine Fumarate (Seroquel) 100 mg HS PO Last administered on 10/19/17 20: 57; Admin Dose 100 MG; Start 10/06/17 at 21:00 Metoprolol Tartrate (Lopressor) 5 mg Q4H PRN IV HR>110 Hold SBP<100; Start at 19:30 Pantoprazole (Protonix Tab) 40 mg DAILY@06 PO Last administered on 10/20/17 05 :51; Admin Dose 40 MG; Start 10/08/17 at 06:00 Mupirocin (Bactroban) 1 applic BID TOP Last administered on 10/20/17 08:25; Admin Dose 1 APPLIC; Start 10/08/17 at 21:00 Aspirin 325 mg 325 mg DAILY PO Last administered on 10/20/17 08:18; Admin Dose 325 MG; Start 10/11/17 at 09:00 Ertapenem/Sodium Chloride (Invanz/NS) 100 ml @ 200 mls/hr Q24H IVPB Last administered on 10/20/17 08:18; Admin Dose 200 MLS/HR; Start 10/11/17 at 08:30 ; Stop 10/30/17 at 08:29 Amlodipine Besylate (Norvasc) 5 mg DAILY PO Last administered on 10/20/17 08: 28; Admin Dose 5 MG; Start 10/12/17 at 09:00 Hydralazine HCl (Apresoline) 10 mg Q4H PRN IV SBP>170; Start 10/11/17 at 21:00 Polyethylene Glycol (Miralax) 17 gm DAILY PRN PO CONSTIPATION Last administered on 10/14/17 06:53; Admin Dose 17 GM; Start 10/14/17 at 07:00 Isosorbide Dinitrate (Isordil) 10 mg TID PO Last administered on 10/20/17 08: 19; Admin Dose 10 MG; Start 10/14/17 at 21:00 Nitroglycerin (Nitroglycerin (Sl Tab) 0.4 Mg) 1 tab Q5M PRN SL ANGINA; Start 10/14/17 at 14:00 Docusate Sodium (Colace) 100 mg BID PO Last administered on 10/20/17 08:18; Admin Dose 100 MG; Start 10/15/17 at 09:00 Bisacodyl (Dulcolax) 5 mg DAILY PRN PO CONSTIPATION; Start 10/15/17 at 04:30 Levothyroxine Sodium (Synthroid) 88 mcg Q48H PO Last administered on 10/19/17 06:02; Admin Dose 88 MCG; Start 10/19/17 at 06:30 Levothyroxine Sodium (Synthroid) 100 mcg Q48H PO Last administered on 05:51; Admin Dose 100 MCG; Start 10/18/17 at 06:30 Ketorolac Tromethamine (Toradol) 30 mg Q6H PRN IV PAIN Last administered on 18:52; Admin Dose 30 MG; Start 10/17/17 at 21:30; Stop 10/20/17 at 21:29 IV Flush (NS 10 ml) 10 ml PRN PRN IV IV PROTOCOL; Start 10/18/17 at 14:00 ALLEN HARRIS Oct 20, 2017 13:32
[2017-10-20] MEDS: KETOROLAC 30 MG INJ IV PRN ×2 (13:46→20:48)
--- NOTE | 2017-10-20 14:17 | CONS ---
Date/Time of Note Date/Time of Note DATE: 10/20/17 TIME: 14:13 Assessment/Plan Assessment/Plan Chief Complaint/Hosp Course IMP: 1.positive troponin-trended negative . Lexiscan negative for ischemia with NL EF this admit 2.PAF/AFL-now in SR/SB and remains 3.HTN-Now improved 4.renal calculous/UTI s/p cystoscopy/lithotripsy 5.renal failure-improving 6.s/p fall -recurrent 7.bacteremia 8. Bradycardia-borderline 9. Hypothyroid 10. chest alap-[id number] negative x 2 since most recent c/o chest pain, on isordil. Now s/p lexiscan 10/19 with n ischemia/NL EF Recc: -Tele -Continu norvasc/isordil and follow for recurrent chest pain -Will d/c BB given ana and continue adjustment synthroid given low T4/ elevated TSH by labs this admit -Continue asa full dose for now -Continue abx's and continue to f/u cx data -D/C planning from cardiac standpoint Problems: Consultation Date/Type/Reason Admit Date/Time Oct 05, 2017 at 22:26 Initial Consult Date 10/06/17 Type of Consultation: cardiology Reason for Consultation chest pain Referring Provider: YOSELIN RAMON MD Exam/Review of Systems Vital Signs Vitals Vital Signs Date Time Temp Pulse Resp B/P Pulse Ox O2 Delivery O2 Flow Rate FiO2 10/20/17 14:01 2.0 10/20/17 12:20 47 10/20/17 11:28 98.0 17 119/66 90 10/19/17 19:50 Nasal Cannula Intake and Output 10/19/17 10/19/17 10/20/17 15:00 23:00 07:00 Intake Total 800 ml 500 ml Balance 800 ml 500 ml Exam Review of Systems: CONSTITUTIONAL: No fevers, chills. PULMONARY: No sob CARDIOVASCULAR: No chest pain/palpitations GASTROINTESTINAL: No nausea/vomiting. GENITOURINARY: No hematuria/dysuria. MUSCULOSKELETAL: No myagias/arthalgias. PSYCHIATRIC: The patient denies depression. NEUROLOGIC: No weakness Constitutional: alert, oriented Psych: no complaints Head: normocephalic ENMT: mucosa pink and moist Neck: jvd (9 cm water), supple Respiratory: diminished breath sounds Cardiovascular: regular rate and rhythm Gastrointestinal: non-tender, soft Musculoskeletal: muscle tone (normal) Extremities: pitting pedal edema (bilateral) Neurological: other (NBo focal deficits) Results Result Diagram: 10/16/1772610/16/17725 Medications Medications Current Medications Ondansetron HCl (Zofran Inj) 4 mg Q6H PRN IV NAUSEA AND/OR VOMITING Last administered on 10/19/17 17:27; Admin Dose 4 MG; Start 10/06/17 at 06:00 Acetaminophen (Tylenol Tab) 650 mg Q6H PRN PO PAIN LEVEL 1-3 OR FEVER Last administered on 10/20/17 09:46; Admin Dose 650 MG; Start 10/06/17 at 06:00 Morphine Sulfate (morphine) 2 mg Q4H PRN IV PAIN LEVEL 7-10 Last administered on 10/17/17 13:56; Admin Dose 2 MG; Start 10/06/17 at 06:00 Fish Oil (Fish Oil) 1,000 mg DAILY PO Last administered on 10/20/17 08:18; Admin Dose 1,000 MG; Start 10/06/17 at 09:00 Quetiapine Fumarate (Seroquel) 100 mg HS PO Last administered on 10/19/17 20: 57; Admin Dose 100 MG; Start 10/06/17 at 21:00 Metoprolol Tartrate (Lopressor) 5 mg Q4H PRN IV HR>110 Hold SBP<100; Start at 19:30 Pantoprazole (Protonix Tab) 40 mg DAILY@06 PO Last administered on 10/20/17 05 :51; Admin Dose 40 MG; Start 10/08/17 at 06:00 Mupirocin (Bactroban) 1 applic BID TOP Last administered on 10/20/17 08:25; Admin Dose 1 APPLIC; Start 10/08/17 at 21:00 Aspirin 325 mg 325 mg DAILY PO Last administered on 10/20/17 08:18; Admin Dose 325 MG; Start 10/11/17 at 09:00 Ertapenem/Sodium Chloride (Invanz/NS) 100 ml @ 200 mls/hr Q24H IVPB Last administered on 10/20/17 08:18; Admin Dose 200 MLS/HR; Start 10/11/17 at 08:30 ; Stop 10/30/17 at 08:29 Amlodipine Besylate (Norvasc) 5 mg DAILY PO Last administered on 10/20/17 08: 28; Admin Dose 5 MG; Start 10/12/17 at 09:00 Hydralazine HCl (Apresoline) 10 mg Q4H PRN IV SBP>170; Start 10/11/17 at 21:00 Polyethylene Glycol (Miralax) 17 gm DAILY PRN PO CONSTIPATION Last administered on 10/14/17 06:53; Admin Dose 17 GM; Start 10/14/17 at 07:00 Isosorbide Dinitrate (Isordil) 10 mg TID PO Last administered on 10/20/17 13: 34; Admin Dose 10 MG; Start 10/14/17 at 21:00 Nitroglycerin (Nitroglycerin (Sl Tab) 0.4 Mg) 1 tab Q5M PRN SL ANGINA; Start 10/14/17 at 14:00 Docusate Sodium (Colace) 100 mg BID PO Last administered on 10/20/17 08:18; Admin Dose 100 MG; Start 10/15/17 at 09:00 Bisacodyl (Dulcolax) 5 mg DAILY PRN PO CONSTIPATION; Start 10/15/17 at 04:30 Levothyroxine Sodium (Synthroid) 88 mcg Q48H PO Last administered on 10/19/17 06:02; Admin Dose 88 MCG; Start 10/19/17 at 06:30 Levothyroxine Sodium (Synthroid) 100 mcg Q48H PO Last administered on 05:51; Admin Dose 100 MCG; Start 10/18/17 at 06:30 Ketorolac Tromethamine (Toradol) 30 mg Q6H PRN IV PAIN Last administered on 13:46; Admin Dose 30 MG; Start 10/17/17 at 21:30; Stop 10/20/17 at 21:29 IV Flush (NS 10 ml) 10 ml PRN PRN IV IV PROTOCOL; Start 10/18/17 at 14:00 ALYSIA KNOTT Oct 20, 2017 14:17
[2017-10-20] MEDS: ONDANSETRON 4 MG INJ IV PRN (16:13)
[2017-10-20] MEDS: QUETIAPINE 100 MG TAB PO SCH (20:51)
[2017-10-21] VITALS (7 sets, daily range): BP systolic 125–142; BP diastolic 68–70; PULSE 47–64; RESP 19–20
[2017-10-21] MEDS: PANTOPRAZOLE (EC) 40 MG TAB PO SCH (06:17)
[2017-10-21] MEDS: LEVOTHYROXINE 88 MCG TAB PO SCH (06:18)
[2017-10-21] MEDS: DOCUSATE SODIUM 100 MG CAP PO SCH (08:29)
[2017-10-21] MEDS: FISH OIL 1,000 MG CAP PO SCH (08:29)
[2017-10-21] MEDS: AMLODIPINE 5 MG TAB PO SCH (08:29)
[2017-10-21] MEDS: ISOSORBIDE DINITRATE 10 MG TAB PO SCH ×2 (08:30→14:00)
[2017-10-21] MEDS: ERTAPENEM SODIUM 1 GM in SOD CHLORIDE 0.9% 100 ML IVPB SCH (08:31)
[2017-10-21] MEDS: ASPIRIN (EC) 325 MG TAB PO SCH (08:32)
[2017-10-21] MEDS: MUPIROCIN 2% 22 GM OINT TOP SCH (08:33)
[2017-10-21] MEDS: ACETAMINOPHEN 325 MG TAB PO PRN (09:12)
--- NOTE | 2017-10-21 10:26 | PDOCDIS ---
Discharge Instructions CONDITION Patient Condition: Stable HOME CARE INSTRUCTIONS: Special Diet: RENAL AND PUREED DIET ACTIVITY: Activity Restrictions: Slowly Increase Activity Rest between Activity Avoid heavy lifting Do not operate Machinery Do not operate Power Tool Avoid Heavy Housework FOLLOW UP/APPOINTMENTS Follow-up Plan Please take your medications as prescribed. Please follow-up with your regular doctor in the clinic in the next 3-5 days. If you experience any further weakness, nausea vomiting, or pain in your abdomen area, please call your primary care doctor, call 911, or go to the emergency room. ALLEN HARRIS Oct 21, 2017 10:26
[2017-10-21] MEDS ORDERED: QUET100T32 PO (10:47)
[2017-10-21] MEDS ORDERED: POLY17PO6 PO (10:47)
[2017-10-21] MEDS ORDERED: SYN1 PO (10:47)
[2017-10-21] MEDS ORDERED: OMEG1CAP55 PO (10:47)
[2017-10-21] MEDS ORDERED: ISOS10TA2 PO (10:47)
[2017-10-21] MEDS ORDERED: DOCU-216 PO (10:47)
[2017-10-21] MEDS ORDERED: SIMV20TA PO (10:47)
[2017-10-21] MEDS ORDERED: PANT40TA4 PO (10:47)
[2017-10-21] MEDS ORDERED: ASPI325T32 PO (10:47)
[2017-10-21] MEDS ORDERED: POTA8TAB2 PO (10:47)
[2017-10-21] MEDS ORDERED: MUPI22OI2 TOP (10:47)
[2017-10-21] MEDS ORDERED: LEVO88TA PO (10:47)
[2017-10-21] MEDS ORDERED: AMLO-145 PO (10:47)
--- NOTE | 2017-10-21 10:52 | CONS ---
Date/Time of Note Date/Time of Note DATE: 10/21/17 TIME: 10:51 Assessment/Plan Assessment/Plan Chief Complaint/Hosp Course SUBJECTIVE: Alert, denies pain, looks comfortable ANTIMICROBIALS: Invanz PHYSICAL EXAMINATION: GENERAL: This is a well-developed, elderly woman who is awake, in no distress. HEENT: Head atraumatic, normocephalic. NECK: Supple. CHEST: Rise symmetrical. Breath sounds clear. HEART: S1, S2. ABDOMEN: Soft. Bowel tones present. EXTREMITIES: Without cyanosis. ASSESSMENT: 1. Escherichia coli extended-spectrum beta-lactamase bacteremia with persistent UTI 2 to infected stone. 2. Obstructive uropathy status post cystoscopy with left JJ stent placement , s/p Left extracorporeal shockwave lithotripsy, cystoscopy and removal of left ureteral JJ stent 10/16/17 3. Methicillin-resistant Staphylococcus aureus nares colonization. 4. Atrial fibrillation. 5. History of schizoaffective disorder and depression. 6. Hepatitis B and C virus positive. PLAN: The patient remains stable, pending dc, antibiotics for 10 more days [facility] staff Problems: Consultation Date/Type/Reason Admit Date/Time Oct 05, 2017 at 22:26 Initial Consult Date 10/06/17 Type of Consultation: id Referring Provider: YOSELIN RAMON MD Exam/Review of Systems Vital Signs Vitals Vital Signs Date Time Temp Pulse Resp B/P Pulse Ox O2 Delivery O2 Flow Rate FiO2 10/21/17 08:18 2.0 10/21/17 08:07 64 10/21/17 07:54 98.3 20 142/70 92 10/20/17 19:57 Nasal Cannula Intake and Output 10/20/17 10/20/17 10/21/17 15:00 23:00 07:00 Intake Total 1200 ml 550 ml Output Total 250 ml Balance 1200 ml 300 ml Medications Medications Current Medications Ondansetron HCl (Zofran Inj) 4 mg Q6H PRN IV NAUSEA AND/OR VOMITING Last administered on 10/20/17 16:13; Admin Dose 4 MG; Start 10/06/17 at 06:00 Acetaminophen (Tylenol Tab) 650 mg Q6H PRN PO PAIN LEVEL 1-3 OR FEVER Last administered on 10/21/17 09:12; Admin Dose 650 MG; Start 10/06/17 at 06:00 Morphine Sulfate (morphine) 2 mg Q4H PRN IV PAIN LEVEL 7-10 Last administered on 10/17/17 13:56; Admin Dose 2 MG; Start 10/06/17 at 06:00 Fish Oil (Fish Oil) 1,000 mg DAILY PO Last administered on 10/21/17 08:29; Admin Dose 1,000 MG; Start 10/06/17 at 09:00 Quetiapine Fumarate (Seroquel) 100 mg HS PO Last administered on 10/20/17 20: 51; Admin Dose 100 MG; Start 10/06/17 at 21:00 Metoprolol Tartrate (Lopressor) 5 mg Q4H PRN IV HR>110 Hold SBP<100; Start at 19:30 Pantoprazole (Protonix Tab) 40 mg DAILY@06 PO Last administered on 10/21/17 06 :17; Admin Dose 40 MG; Start 10/08/17 at 06:00 Mupirocin (Bactroban) 1 applic BID TOP Last administered on 10/21/17 08:33; Admin Dose 1 APPLIC; Start 10/08/17 at 21:00 Aspirin 325 mg 325 mg DAILY PO Last administered on 10/21/17 08:32; Admin Dose 325 MG; Start 10/11/17 at 09:00 Ertapenem/Sodium Chloride (Invanz/NS) 100 ml @ 200 mls/hr Q24H IVPB Last administered on 10/21/17 08:31; Admin Dose 200 MLS/HR; Start 10/11/17 at 08:30 ; Stop 10/30/17 at 08:29 Amlodipine Besylate (Norvasc) 5 mg DAILY PO Last administered on 10/21/17 08: 29; Admin Dose 5 MG; Start 10/12/17 at 09:00 Hydralazine HCl (Apresoline) 10 mg Q4H PRN IV SBP>170; Start 10/11/17 at 21:00 Polyethylene Glycol (Miralax) 17 gm DAILY PRN PO CONSTIPATION Last administered on 10/14/17 06:53; Admin Dose 17 GM; Start 10/14/17 at 07:00 Isosorbide Dinitrate (Isordil) 10 mg TID PO Last administered on 10/21/17 08: 30; Admin Dose 10 MG; Start 10/14/17 at 21:00 Nitroglycerin (Nitroglycerin (Sl Tab) 0.4 Mg) 1 tab Q5M PRN SL ANGINA; Start 10/14/17 at 14:00 Docusate Sodium (Colace) 100 mg BID PO Last administered on 10/21/17 08:29; Admin Dose 100 MG; Start 10/15/17 at 09:00 Bisacodyl (Dulcolax) 5 mg DAILY PRN PO CONSTIPATION; Start 10/15/17 at 04:30 Levothyroxine Sodium (Synthroid) 88 mcg Q48H PO Last administered on 10/21/17 06:18; Admin Dose 88 MCG; Start 10/19/17 at 06:30 Levothyroxine Sodium (Synthroid) 100 mcg Q48H PO Last administered on 05:51; Admin Dose 100 MCG; Start 10/18/17 at 06:30 IV Flush (NS 10 ml) 10 ml PRN PRN IV IV PROTOCOL; Start 10/18/17 at 14:00 KRISTI PARDO NP Oct 21, 2017 10:52
--- NOTE | 2017-10-21 11:02 | DS ---
Date/Time of Note Date/Time of Note DATE: 10/21/17 TIME: 10:53 Discharge Summary Admission/Discharge Info Admit Date/Time Oct 05, 2017 at 22:26 Discharge Date/Time Discharge Diagnosis 1. Syncope: unknown etiology: cardiac vs seizure(given hx) vs weakness from dehydration and rhabdomyolysis and renal insufficiency, again pt fell and remained in her bathroom x 2 days prior to admission when unable to get up then. Head CT showed no acute abnormalities. No syncopal events since being here in the hospital. Seen by physical therapy 2. Acute on CKD: 2/2 Rhabdo -resolved after patient has been on IV fluids 3. elevated trop + chest pain -evaluated by cardiology team. Heart rate presently stable, denies chest pain presently. Status post cardiac stress test with negative results. -For now continue Asa 325 currently for CVA risk reduction 4. Rhabdomyolysis -resolved now 5. Metabolic acidosis -secondary to renal insufficiency -now serum CO2 levels are normal, resolved now 6. Left UVPJ, Obstructive Uropathy -CT scan of the abdomen and pelvis and that showed a 4 mm left upper ureteral stone with obstruction -status post cystoscopy with JJ stent placement and now removed. No hematuria dysuria presently. 7. A-flutter with RVR -now in normal sinus rhythm -Follow cardiology recommendations, continue to monitor heart rate 8. ESBL ecoli: Escherichia coli extended-spectrum beta-lactamase bacteremia with persistent UTI 2 to infected stone. -Continue current antibiotics, patient status post PICC line placement, she will need 2 weeks total of IV antibiotics, follow-up ID recommendations -case management has set up antibiotics for home use now 9. Positive hepatitis B and C -Monitored by infectious disease team. Patient Condition: Stable Hospital Course 67 yo female with hx of dyslipidemia, hypothyroidism, renal stone, seizure d/o, schizoaffective. Patient stated that she fell down in her bathroom 2 days prior to admission and remained on the floor for 2 days unable to get up. She could not tell doctors how she fell down. She reported total body pain, gen weakness, dark stool and dark/brown emesis, left flank. currently she looked uncomfortable and was not able to provide additional information, and when she presented to ER, she is found to be in rapid afib with HR in 130s. Lab shows CK 125,000, trop 0.155, AST 434, alt 135, ap 135, Cr 4.5, BUN 51,HCO3 10, K 3.3, WBC 15,000, LACTIC ACID 2.6. Also her CT a/p: obs uropathy, 4mm at UVPJ. So she was admitted initially to intensive care unit, and seen by multiple specialists during this hospital stay including renal, urology, infectious disease, cardiology, teams. She was started on aggressive fluid hydration to treat her rhabdomyolysis and acute kidney injury. Both of these issues resolved after few days of IV antibiotics. Her lactic acid resolved as well. She was found with ESBL E. coli bacteremia and urinary tract infection, and received PICC line and IV antibiotics for this. She also worked with physical and occupational therapy teams as well. Her troponin was also elevated and she was medically managed for this. She was placed on high-dose aspirin, and denied chest pain, and underwent cardiac stress test which was negative results. Patient also found with Left UVPJ, Obstructive Uropathy -CT scan of the abdomen and pelvis and that showed a 4 mm left upper ureteral stone with obstruction - status post cystoscopy with JJ stent placement and now removed. Eventually she was able to ambulate with assistance in front wheel walker, tolerated p.o. diet, her medical issues resolved, her vital signs are stable on the day of discharge. She will need 2 more weeks of IV antibiotics Invanz 1 g IV daily, and patient has been set up with home health nursing to administer this, she also get home health PT, and her daughter who is also in the medical field nurse practitioner will also help her at home. She also had episode of atrial fibrillation with RVR, this is management performed by cardiology team, and also found with prior history of hepatitis B and C, which was medically monitored by infectious disease team. She will be discharged home today improved condition, and given strict return precautions in the event she develops any further symptoms. She will follow-up with her regular doctors in the clinic in the next 3-5 days. See below for full list of discharge medications. Home Meds Active Scripts Polyethylene Glycol* (Miralax*) 17 Gm Powd.pack, 17 GM PO DAILY Y for CONSTIPATION, #30 3 Refills Prov:ALLEN HARRIS 10/21/17 Pantoprazole* (Pantoprazole*) 40 Mg Tablet., 40 MG PO DAILY@06, #30 2 Refills Prov:ALLEN HARRIS S. 10/21/17 Aspirin (Aspir-Linn) 325 Mg Tablet., 325 MG PO DAILY, #30 3 Refills Prov:ALLEN HARRIS S. 10/21/17 Chicken-3/Dha/Epa/Fish Oil (FISH OIL EC 1,000 MG SOFTGEL) 1 Each Capsule., 1000 MG PO DAILY, #30 3 Refills Prov:ALLEN HARRIS S. 10/21/17 Reported Medications Quetiapine Fumarate* (Seroquel*) 50 Mg Tablet, 50 MG PO HS, TAB 05/11/17 Losartan Potassium* (Losartan Potassium*) 100 Mg Tablet, 100 MG PO DAILY, TAB 05/11/17 Levothyroxine Sodium* (Levoxyl*) 100 Mcg Tablet, 100 MCG PO EVERY OTHER DAY, # 30 TAB ALTERNATE WITH 88MCG EVERY OTHER DAY 05/11/17 Levothyroxine Sodium* (Levoxyl*) 88 Mcg Tablet, 88 MCG PO EVERY OTHER DAY, #30 TAB ALTERNATE WITH 100MCG EVERY OTHER DAY 05/11/17 Docusate Sodium* (Colace*) 100 Mg Capsule, 100 MG PO BID, #60 CAP 04/30/16 Potassium Chloride* (Klor-Con*) 8 Meq Tablet.sa, 8 MEQ PO DAILY, TAB 04/30/16 Amlodipine Besylate* (Norvasc*) 5 Mg Tablet, 5 MG PO DAILY, TAB 04/30/16 Quetiapine Fumarate* (Quetiapine Fumarate*) 100 Mg Tablet, 100 MG PO HS, TAB 04/30/16 Simvastatin* (Zocor*) 20 Mg Tablet, 20 MG PO QHS, #30 TAB 04/30/16 Multivitamins* (Once Daily*) 1 Tab Tablet, 1 TAB PO DAILY, TAB 04/30/16 Fish Oil* (Fish Oil*) 1,000 Mg Cap, 1000 MG PO DAILY, CAP 04/30/16 Follow-up Plan Please take your medications as prescribed. Please follow-up with your regular doctor in the clinic in the next 3-5 days. If you experience any further weakness, nausea vomiting, or pain in your abdomen area, please call your primary care doctor, call 911, or go to the emergency room. Primary Care Provider Not On Staff Doctor Time spent on discharge: > 30 minutes ALLEN HARRIS Oct 21, 2017 11:02
--- NOTE | 2017-10-21 13:59 | CONS ---
Date/Time of Note Date/Time of Note DATE: 10/21/17 TIME: 13:57 Assessment/Plan Assessment/Plan Chief Complaint/Hosp Course IMP: 1.positive troponin-trended negative . Lexiscan negative for ischemia with NL EF this admit 2.PAF/AFL-now in SR/SB and remains 3.HTN-Now improved 4.renal calculous/UTI s/p cystoscopy/lithotripsy 5.renal failure-improving 6.s/p fall -recurrent 7.bacteremia 8. Bradycardia-borderline 9. Hypothyroid 10. chest [id number] negative x 2 since most recent c/o chest pain, on isordil. Now s/p lexiscan / with n ischemia/NL EF Recc: -Tele -Continu norvasc/isordil and follow for recurrent chest pain -Continue adjustment synthroid given low T4/elevated TSH by labs this admit -NO BB given bradycardia -Continue asa full dose for now -Continue abx's and continue to f/u cx data -D/C planning from cardiac standpoint Problems: Consultation Date/Type/Reason Admit Date/Time Oct 05, 2017 at 22:26 Initial Consult Date 10/06/17 Type of Consultation: cardiology Reason for Consultation chest pain Referring Provider: YOSELIN RAMON MD Exam/Review of Systems Vital Signs Vitals Vital Signs Date Time Temp Pulse Resp B/P Pulse Ox O2 Delivery O2 Flow Rate FiO2 10/21/17 12:24 47 10/21/17 11:45 98.2 20 131/68 92 10/21/17 08:18 2.0 10/20/17 19:57 Nasal Cannula Intake and Output 10/20/17 10/20/17 10/21/17 15:00 23:00 07:00 Intake Total 1200 ml 550 ml Output Total 250 ml Balance 1200 ml 300 ml Exam Review of Systems: CONSTITUTIONAL: No fevers, chills. PULMONARY: No sob CARDIOVASCULAR: No chest pain/palpitations GASTROINTESTINAL: No nausea/vomiting. GENITOURINARY: No hematuria/dysuria. MUSCULOSKELETAL: No myagias/arthalgias. PSYCHIATRIC: The patient denies depression. NEUROLOGIC: No weakness Constitutional: alert Psych: no complaints Head: normocephalic ENMT: mucosa pink and moist Neck: jvd (9 cm water), supple Respiratory: diminished breath sounds Cardiovascular: regular rate and rhythm Gastrointestinal: non-tender, soft Musculoskeletal: muscle tone (normal), muscle weakness (mild generalized) Extremities: edema (trace/B) Neurological: other (No focal deficits) Medications Medications Current Medications Ondansetron HCl (Zofran Inj) 4 mg Q6H PRN IV NAUSEA AND/OR VOMITING Last administered on 10/20/17 16:13; Admin Dose 4 MG; Start 10/06/17 at 06:00 Acetaminophen (Tylenol Tab) 650 mg Q6H PRN PO PAIN LEVEL 1-3 OR FEVER Last administered on 10/21/17 09:12; Admin Dose 650 MG; Start 10/06/17 at 06:00 Morphine Sulfate (morphine) 2 mg Q4H PRN IV PAIN LEVEL 7-10 Last administered on 10/17/17 13:56; Admin Dose 2 MG; Start 10/06/17 at 06:00 Fish Oil (Fish Oil) 1,000 mg DAILY PO Last administered on 10/21/17 08:29; Admin Dose 1,000 MG; Start 10/06/17 at 09:00 Quetiapine Fumarate (Seroquel) 100 mg HS PO Last administered on 10/20/17 20: 51; Admin Dose 100 MG; Start 10/06/17 at 21:00 Metoprolol Tartrate (Lopressor) 5 mg Q4H PRN IV HR>110 Hold SBP<100; Start at 19:30 Pantoprazole (Protonix Tab) 40 mg DAILY@06 PO Last administered on 10/21/17 06 :17; Admin Dose 40 MG; Start 10/08/17 at 06:00 Mupirocin (Bactroban) 1 applic BID TOP Last administered on 10/21/17 08:33; Admin Dose 1 APPLIC; Start 10/08/17 at 21:00 Aspirin 325 mg 325 mg DAILY PO Last administered on 10/21/17 08:32; Admin Dose 325 MG; Start 10/11/17 at 09:00 Ertapenem/Sodium Chloride (Invanz/NS) 100 ml @ 200 mls/hr Q24H IVPB Last administered on 10/21/17 08:31; Admin Dose 200 MLS/HR; Start 10/11/17 at 08:30 ; Stop 10/30/17 at 08:29 Amlodipine Besylate (Norvasc) 5 mg DAILY PO Last administered on 10/21/17 08: 29; Admin Dose 5 MG; Start 10/12/17 at 09:00 Hydralazine HCl (Apresoline) 10 mg Q4H PRN IV SBP>170; Start 10/11/17 at 21:00 Polyethylene Glycol (Miralax) 17 gm DAILY PRN PO CONSTIPATION Last administered on 10/14/17 06:53; Admin Dose 17 GM; Start 10/14/17 at 07:00 Isosorbide Dinitrate (Isordil) 10 mg TID PO Last administered on 10/21/17 08: 30; Admin Dose 10 MG; Start 10/14/17 at 21:00 Nitroglycerin (Nitroglycerin (Sl Tab) 0.4 Mg) 1 tab Q5M PRN SL ANGINA; Start 10/14/17 at 14:00 Docusate Sodium (Colace) 100 mg BID PO Last administered on 10/21/17 08:29; Admin Dose 100 MG; Start 10/15/17 at 09:00 Bisacodyl (Dulcolax) 5 mg DAILY PRN PO CONSTIPATION; Start 10/15/17 at 04:30 Levothyroxine Sodium (Synthroid) 88 mcg Q48H PO Last administered on 10/21/17 06:18; Admin Dose 88 MCG; Start 10/19/17 at 06:30 Levothyroxine Sodium (Synthroid) 100 mcg Q48H PO Last administered on 05:51; Admin Dose 100 MCG; Start 10/18/17 at 06:30 IV Flush (NS 10 ml) 10 ml PRN PRN IV IV PROTOCOL; Start 10/18/17 at 14:00 ALYSIA KNOTT Oct 21, 2017 13:59
== END 2017-10-21 15:43 | disposition home health service (06) | DRG 853 ==
LOC: E/R 18:43 → ICU 22:26 → MS4 10-08 13:56
PROVIDERS: ADMIT Internal Medicine; ATTEND Internal Medicine
PROC: 0T778DZ Dilation of Left Ureter with Intraluminal Device, Via Natural or Artificial Opening Endoscopic (ICD-10-PCS; 2017-10-12)
PROC: 0TC78ZZ Extirpation of Matter from Left Ureter, Via Natural or Artificial Opening Endoscopic (ICD-10-PCS; principal; 2017-10-12 07:30)
PROC: 0TF78ZZ Fragmentation in Left Ureter, Via Natural or Artificial Opening Endoscopic (ICD-10-PCS; 2017-10-16)
PROC: 02HV33Z Insertion of Infusion Device into Superior Vena Cava, Percutaneous Approach (ICD-10-PCS; 2017-10-18)
DX: A41.9 Sepsis, unspecified organism (principal); G92 Toxic encephalopathy; N17.9 Acute kidney failure, unspecified; E87.2 Acidosis; M62.82 Rhabdomyolysis; K92.2 Gastrointestinal hemorrhage, unspecified; I48.91 Unspecified atrial fibrillation; I12.9 Hypertensive chronic kidney disease with stage 1 through stage 4 chronic kidney disease, or unspecified chronic kidney disease; R55 Syncope and collapse; N10 Acute pyelonephritis; N13.2 Hydronephrosis with renal and ureteral calculous obstruction; I48.92 Unspecified atrial flutter; F20.9 Schizophrenia, unspecified; N39.0 Urinary tract infection, site not specified; N13.8 Other obstructive and reflux uropathy; N12 Tubulo-interstitial nephritis, not specified as acute or chronic; B19.10 Unspecified viral hepatitis B without hepatic coma; I70.0 Atherosclerosis of aorta; N18.9 Chronic kidney disease, unspecified; M62.3 Immobility syndrome (paraplegic); R79.89 Other specified abnormal findings of blood chemistry; E86.0 Dehydration; E78.5 Hyperlipidemia, unspecified; E03.9 Hypothyroidism, unspecified; D64.9 Anemia, unspecified; K80.20 Calculus of gallbladder without cholecystitis without obstruction; B19.20 Unspecified viral hepatitis C without hepatic coma; B96.20 Unspecified Escherichia coli [E. coli] as the cause of diseases classified elsewhere; R31.9 Hematuria, unspecified; W18.30XA Fall on same level, unspecified, initial encounter; Y92.091 Bathroom in other non-institutional residence as the place of occurrence of the external cause
CPT/HCPCS: 36569; 36600; 70450; 71010; 74000; 74176; 74430; 76700; 76775; 76937; 78452; 80048; 80053; 80061; 81001; 82436; 82550; 82553; 82728; 82803; 83036; 83540; 83605; 83735; 83874; 84100; 84133; 84300; 84436; 84439; 84443; 84480; 84481; 84484; 84560; 85025; 85049; 85610; 85670; 85730; 86038; 86255; 86704; 86706; 86709; 86803; 86850; 86900; 86901; 87040; 87081; 87086; 87340; 93005; 93017; 93306; 94664; 94760; 96365; 96366; 96372; 96375; 96376; 97110; 97116; 97161; 97167; 97530; 97535; J1940; A9500; A9505; C1769; C2617; C9113; J0690; J0692; J1170; J1335; J1644; J1885; J2185; J2250; J2270; J2405; J2710; J2765; J2785; J2916; J3010; J3475; J7030; J7070; P9612

== ENCOUNTER 2018-01-06 11:04 | Emergency (ER) | END 2018-01-06 17:02 | disposition home or self-care (01) ==

== ENCOUNTER 2018-02-15 11:00 | Emergency (ER) | END 2018-02-15 16:23 | disposition home or self-care (01) ==

== ENCOUNTER → 2018-10-20 | Outpatient (CLI) | END | disposition home or self-care (01) ==

== ENCOUNTER → 2018-10-31 | Outpatient (CLI) | END | disposition home or self-care (01) ==